=== PATIENT | female | born 1950 | race Two or more races ===

== ENCOUNTER 2017-01-01 18:59 | Emergency (ER) | payer OTHER ==
[2017-01-01 19:07] VITALS: TEMP 98.5; BMI 19.2
[2017-01-01] MEDS ORDERED: SODIUM CHLORIDE 0.9% 1000 ML INFUS.BAG IV ONE (20:13)
[2017-01-01 20:57] LABS: ALBUMIN 3.8 g/dl (3.4-5.0); ALK PHOS 46 U/L (45-117); ANION GAP 10 (8-16); BILIRUBIN,TOTAL 0.4 mg/dL (0.2-1.0); CALCIUM 8.8 mg/dL (8.5-10.1); CO2 28 mmol/L (21-32); CREATININE 0.6 mg/dL (0.55-1.02); GLUCOSE,RANDOM 91 mg/dL (74-106); SGOT/AST 14 U/L (15-37); SGPT/ALT 18 U/L (12-78); TOT PROT 6.6 g/dl (6.4-8.2)
[2017-01-01] MEDS ORDERED: POTASSIUM CHLORIDE TABS 20 MEQ TABLET.ER (FP) PO ONE ×2 (21:10→21:16)
[2017-01-01] MEDS ORDERED: ACETAMINOPHEN INJECTION 100 ML IVPB ONE ×2 (21:12→21:16)
[2017-01-01] MEDS ORDERED: ACETAMINOPHEN 1000 MG/100 ML VIAL (NON FORMULARY) IVPB ONE (21:12)
[2017-01-01] MEDS ORDERED: KCL 10 MEQ IVPB 100 ML IVPB SCH (21:15)
--- NOTE | 2017-01-01 21:21 | PDOC ---
History of Present Illness - General Chief Complaint: Diarrhea Stated Complaint: DIARRHEA/DEHYDRATION Time Seen by Provider: 01/01/17 19:23 History Source: Patient Exam Limitations: No Limitations - History of Present Illness Initial Comments: 01/01/17 21:06 Patient is a 66 year old female with h/o colon CA with resection, ostomy with reverasal, Crohn's disease, celiac, OA, Alzheimer's dz, Copd, A-fib, UC, renal failure, adult rickets, here with multiple compliants, diarrhea which is chronic. States she feels dehydrated and would like to get some fluids. States she is eating very little, no nausea, no vomiting, (+) generalized joint pain, abd pain which is chronic states I am on pain management. States that she felt like she wanted to due to her symptoms but cant because her son is away and he would be upset if she dies and he came back home and could not find her. Patient is a poor historian. Son Massimo Delong [phone] was called to get additional history but go no answer. pmhx: as above psochx: neg etoh, drug, cig famhx: noncontributory ALL: Sulfa, gluten GENERAL/CONSTITUTIONAL: [No fever or chills. No weakness. No weight change.] HEAD, EYES, EARS, NOSE AND THROAT: [No change in vision. No ear pain or discharge. No sore throat.] CARDIOVASCULAR: [No chest pain or shortness of breath.] RESPIRATORY: [No cough, wheezing, or hemoptysis.] GASTROINTESTINAL: [No nausea, vomiting, diarrhea or constipation. No rectal bleeding.] GENITOURINARY: [No dysuria, frequency, or change in urination.] MUSCULOSKELETAL: (+) joint or muscle pain. No muscle/joint swelling, (+) neck & back pain.] SKIN AND BREASTS: [No rash or easy bruising.] NEUROLOGIC: [No headache, vertigo, loss of consciousness, or loss of sensation.] PSYCHIATRIC: (+) depression (+) anxiety.] ENDOCRINE: [No increased thirst. No abnormal weight change.] HEMATOLOGIC/LYMPHATIC: [No anemia, easy bleeding, or history of blood clots.] ALLERGIC/IMMUNOLOGIC: [No hives or skin allergy. No latex allergy.] GENERAL: [The patient is awake, alert, and fully oriented, in no acute distress. ] HEAD: [Normal with no signs of trauma.] EYES: [Pupils equal, round and reactive to light, extraocular movements intact, sclera anicteric, conjunctiva clear.] ENT: [Ears normal, nares patent, oropharynx clear without exudates. Moist mucous membranes.] NECK: [Normal range of motion, supple without lymphadenopathy, JVD, or masses.] LUNGS: [Breath sounds equal, clear to auscultation bilaterally. No wheezes, and no crackles.] HEART: [Regular rate and rhythm, normal S1 and S2 without murmur, rub.] ABDOMEN: [Soft, nontender, normoactive bowel sounds. No guarding, no rebound. No masses.] EXTREMITIES: [Normal range of motion, no edema. No clubbing or cyanosis. No cords, erythema, or tenderness.] NEUROLOGICAL: [Cranial nerves II through XII grossly intact. Normal speech, normal gait.] PSYCH: [Normal mood, normal affect.] SKIN: [Warm, Dry, normal turgor, no rashes or lesions noted.] Past History - Past Medical History Allergies/Adverse Reactions: Allergies Allergy/AdvReac Type Severity Reaction Status Date / Time gluten Allergy Severe Vomiting Verified 01/01/17 19:07 Sulfa (Sulfonamide Allergy Verified 01/01/17 19:07 Antibiotics) Home Medications: Ambulatory Orders Clonazepam [KlonoPIN] 2 mg PO HS #0 tablet 09/05/13 Escitalopram Oxalate [Lexapro -] 20 mg PO DAILY 11/07/13 Levothyroxine [Synthroid -] 150 mcg PO 0700 #30 tablet 11/10/13 Clonazepam [Klonopin] 1 mg PO DAILY 09/17/16 FENTANYL 75mcg PATCH [DURAGESIC 75mcg PATCH -] 1 each TD Q72H 01/01/17 Oxycodone HCl [Roxicodone] 15 mg PO QID PRN 01/01/17 Anemia: Yes GI Disorders: Yes (CHROHN, RECTAL ULCER, celiac disease) Thyroid Disease: Yes - Surgical History Abdominal Surgery: Yes (J POUCH) Cholecystectomy: Yes - Psycho/Social/Smoking Cessation Hx Anxiety: No Suicidal Ideation: No Smoking Status: No Smoking History: Never smoked Have you smoked in the past 12 months: No Information on smoking cessation initiated: No Hx Alcohol Use: No Drug/Substance Use Hx: No Substance Use Type: None Hx Substance Use Treatment: No *Physical Exam - Vital Signs Last Vital Signs Temp Pulse Resp BP Pulse Ox 98.5 F 76 18 167/95 100 01/01/17 19:04 01/01/17 19:04 01/01/17 19:04 01/01/17 19:04 01/01/17 19:04 ED Treatment Course - LABORATORY CBC & Chemistry Diagram: 01/01/17 22:21 01/01/17 20:15 - ADDITIONAL ORDERS Additional order review: Laboratory Results 01/01/17 20:15 Sodium 141 Potassium 3.1 L D Chloride 103 Carbon Dioxide 28 Anion Gap 10 BUN 22 H Creatinine 0.6 D Creat Clearance w eGFR > 60 Random Glucose 91 Calcium 8.8 Total Bilirubin 0.4 D AST 14 L ALT 18 Alkaline Phosphatase 46 Total Protein 6.6 Albumin 3.8 Lipase 89 01/01/17 20:15 RBC MCV MCHC RDW MPV Neutrophils % Lymphocytes % Monocytes % Eosinophils % Basophils % Medical Decision Making - Medical Decision Making 01/01/17 21:34 Patient is a 66 year old female with h/o colon CA with resection, ostomy with reverasal, Crohn's disease, celiac, OA, Alzheimer's dz, Copd, A-fib, UC, renal failure, adult rickets, here with multiple compliants, diarrhea which is chronic. Will get labs check electrolyle and hydrate Patient sitting on bed playing on her phone c/o generalized body pain, given tylenol 1000mg IV Patient sitting on bed playing on her phone 01/02/17 00:44 K+ rider and PO K+ 40meq given written for mag but refused wants to take her own at home. I discussed the physical exam findings, ancillary test results and final diagnoses with the patient. I answered all of the patient's questions. The patient was satisfied with the care received and felt comfortable with the discharge plan and treatment plan. The Patient agrees to follow up with the primary care physician within 24-72 hours. *DC/Admit/Observation/Transfer Diagnosis at time of Disposition: Diarrhea, Hypokalemia - Discharge Dispostion Disposition: HOME Condition at time of disposition: Stable - Patient Instructions Additional Instructions: Your Discharge Instructions: You must call primary care physician within 24 hours to arrange follow-up. Return to the Emergency Department with any new, persistent or worsening symptoms, for fever, chills, SOB, dizziness or any other concerning changes that may occur.
[2017-01-01] MEDS ORDERED: KCL 10 MEQ IVPB 100 ML IVPB ONE (22:07)
[2017-01-01 22:40] LABS: BASOPHIL 0.4 % (0-2.0); EOSINOPHIL 0.6 % (0-4.5); MCH 26.5 pg (25.7-33.7); MCHC 32.8 g/dl (32.0-36.0); MEAN PLT VOLUME 7.2 fl (7.5-11.1); NEUTROPHILS 60.3 % (42.8-82.8); PLATELET COUNT 348 K/MM3 (134-434); RDW 16.3 % (11.6-15.6); WHITE BLOOD COUNT 5.1 K/mm3 (4.0-10.0)
[2017-01-01] MEDS ORDERED: LORazepam 1 MG TABLET PO ONE (22:54)
[2017-01-01] MEDS ORDERED: LORazepam 0.5 MG TABLET ONE (22:56)
[2017-01-02] MEDS ORDERED: MAGNESIUM SULF 50% (8.12 MEQ/2 ML-1 GM VIAL) ONE (00:16)
[2017-01-02] MEDS: MAGNESIUM SULF 50% (8.12 MEQ/2 ML-1 GM VIAL) IVPB ONE ×2 (00:18→00:27)
--- NOTE | 2017-01-05 10:56 | EKG ---
Test Reason : Blood Pressure : / mmHG Vent. Rate : 074 BPM Atrial Rate : 074 BPM P-R Int : 154 ms QRS Dur : 076 ms QT Int : 404 ms P-R-T Axes : 053 051 031 degrees QTc Int : 448 ms POOR DATA QUALITY, INTERPRETATION MAY BE ADVERSELY AFFECTED NORMAL SINUS RHYTHM NORMAL ECG WHEN COMPARED WITH ECG OF 08-NOV-2013 05:25, NO SIGNIFICANT CHANGE WAS FOUND Confirmed by ESTUARDO SHRESTHA, JERRY ([id number]) on 01/05/2017 10:55:45 AM Referred By: Confirmed By:JERRY MARTE MD
== END 2017-01-02 01:01 | disposition home or self-care (01) ==
LOC: JER 18:59
PROC: 3E0337Z Introduction of Electrolytic and Water Balance Substance into Peripheral Vein, Percutaneous Approach (ICD-10-PCS; principal; 2017-01-01)
PROC: 3E033GC Introduction of Other Therapeutic Substance into Peripheral Vein, Percutaneous Approach (ICD-10-PCS; 2017-01-01)
PROC: 3E033NZ Introduction of Analgesics, Hypnotics, Sedatives into Peripheral Vein, Percutaneous Approach (ICD-10-PCS; 2017-01-01)
DX: R19.7 Diarrhea, unspecified (principal); E87.6 Hypokalemia; F41.8 Other specified anxiety disorders; K51.90 Ulcerative colitis, unspecified, without complications; D64.9 Anemia, unspecified; E03.9 Hypothyroidism, unspecified; J44.9 Chronic obstructive pulmonary disease, unspecified; G30.9 Alzheimer's disease, unspecified; F02.80 Dementia in other diseases classified elsewhere, unspecified severity, without behavioral disturbance, psychotic disturbance, mood disturbance, and anxiety; I48.91 Unspecified atrial fibrillation; Z85.038 Personal history of other malignant neoplasm of large intestine
CPT/HCPCS: 36415; 80053; 83690; 85025; 93005; 93010; 96365; 96375; 99282-25

== ENCOUNTER → 2017-08-30 | Emergency (ER) | payer OTHER ==
[~2017-08-30] MED LIST: ACETAMINOPHEN 1000 MG/100 ML VIAL (NON FORMULARY) IVPB ONE; ACETAMINOPHEN INJECTION 100 ML IVPB ONE; DIPHTH,PERTUSS(ACELL),TET VAC 0.5 ML VIAL IM ONE; ONDANSETRON 4 MG/2 ML VIAL IVPB ONE; ONDANSETRON 4 MG/2 ML VIAL ONE; SODIUM CHLORIDE 1,000 ML IV STA; morphine CARPU-JECT 4 MG/1 ML DISP.SYRIN IVPUSH ONE
[2017-08-30 09:04] VITALS: TEMP 98.4; BMI 21.9
--- NOTE | 2017-08-30 09:38 | PDOC ---
History of Present Illness <Sandra Morales - Last Filed: 08/30/17 15:27> - History of Present Illness Initial Comments: 08/30/17 09:31 "67 year old female, with significant past medical history of colon cancer (s/p resection and colostomy with reversal), Crohns disease, celiac disease, Alzheimers dementia, COPD, Afib, renal failure, and adult rickets, who presents to the emergency room [facility] with 4 days of abdominal pain, nausea, nonbloody nonbilious vomiting, and diarrhea. She states that the abdominal pain , nausea, vomiting, and diarrhea started after eating split pea soup 4 days ago. This pain is similar to the pain she has experienced with a Crohns flare previously. The patient has a fentanyl patch and is taking oxycodone for the pain, however she states that the pain is so severe that it is keeping her up at night. Denies fever, chills. Pt also reports waking up on the ground this morning. She states she must have fallen out of bed. Reports pain in her L forehead where she bumped her head. Denies neck pain. Denies CP/SOB/palpitations. Denies lightheadedness or dizziness. Allergies: Sulfa, Gluten Social Hx: The patient lives at home with her son. Denies tobacco use. Denies alcohol use. PCP: Dr. Diony Gutierrez GI: Dr. Lee [phone] <Joaquin Gomez - Last Filed: 08/30/17 22:16> - General Chief Complaint: Nausea/Vomiting Stated Complaint: Nausea/Vomiting Time Seen by Provider: 08/30/17 08:58 Past History <Sandra Morales - Last Filed: 08/30/17 15:27> - Past Medical History Anemia: Yes COPD: Yes GI Disorders: Yes (CHROHN, RECTAL ULCER, celiac disease) Thyroid Disease: Yes - Surgical History Abdominal Surgery: Yes (J POUCH) Cholecystectomy: Yes - Suicide/Smoking/Psychosocial Hx Smoking Status: No Smoking History: Never smoked Have you smoked in the past 12 months: No Information on smoking cessation initiated: No Hx Alcohol Use: No Drug/Substance Use Hx: No Substance Use Type: None Hx Substance Use Treatment: No <Joaquin Gomez - Last Filed: 08/30/17 22:16> - Past Medical History Allergies/Adverse Reactions: Allergies Allergy/AdvReac Type Severity Reaction Status Date / Time gluten Allergy Severe Vomiting Verified 08/30/17 08:56 morphine Allergy Severe Verified 08/30/17 10:48 Sulfa (Sulfonamide Allergy Verified 08/30/17 08:56 Antibiotics) Home Medications: Ambulatory Orders Clonazepam [KlonoPIN] 2 mg PO HS #0 tablet 09/05/13 Levothyroxine [Synthroid -] 150 mcg PO 0700 #30 tablet 11/10/13 FENTANYL 75mcg PATCH [DURAGESIC 75mcg PATCH -] 1 each TD Q72H 01/01/17 Oxycodone HCl [Roxicodone] 15 mg PO QID PRN 01/01/17 Diphenoxylate 2.5/Atropine.025 [Lomotil -] 1 combo PO Q6H PRN #28 tablet MDD 4 tabs 08/30/17 Loperamide HCl [Imodium -] 2 mg PO Q8H #21 capsule 08/30/17 Review of Systems - Review of Systems Comments:: 08/30/17 09:34 "GENERAL/CONSTITUTIONAL: No fever or chills. No weakness. HEAD, EYES, EARS, NOSE AND THROAT: +frontal head pain. No change in vision. No ear pain or discharge. No sore throat. CARDIOVASCULAR: No chest pain or shortness of breath. RESPIRATORY: No cough, wheezing, or hemoptysis. GASTROINTESTINAL: +nausea, vomiting, diarrhea. No constipation. GENITOURINARY: No dysuria, frequency, or change in urination. MUSCULOSKELETAL: No joint or muscle swelling or pain. No neck or back pain. SKIN: No rash NEUROLOGIC: No vertigo, loss of consciousness, or change in strength/sensation. ENDOCRINE: No increased thirst. No abnormal weight change. HEMATOLOGIC/LYMPHATIC: No anemia, easy bleeding, or history of blood clots. ALLERGIC/IMMUNOLOGIC: No hives or skin allergy. " <Joaquin Gomez - Last Filed: 08/30/17 22:16> *Physical Exam - Vital Signs Last Vital Signs Temp Pulse Resp BP Pulse Ox 98.4 F 74 20 106/68 93 L 08/30/17 08:57 08/30/17 08:57 08/30/17 08:57 08/30/17 08:57 08/30/17 08:57 <Sandra Morales - Last Filed: 08/30/17 15:27> - Vital Signs Last Vital Signs Temp Pulse Resp BP Pulse Ox 98.4 F 74 20 106/68 93 L 08/30/17 08:57 08/30/17 08:57 08/30/17 08:57 08/30/17 08:57 08/30/17 08:57 - Physical Exam Comments: 08/30/17 09:35 "GENERAL: Awake, alert, and fully oriented, in no acute distress HEAD: No signs of trauma EYES: PERRLA, EOMI, sclera anicteric, conjunctiva clear ENT: Auricles normal inspection, hearing grossly normal, nares patent, oropharynx clear without exudates. Moist mucosa NECK: Nontender, no stepoffs, Normal ROM, supple, no lymphadenopathy, JVD, or masses LUNGS: Breath sounds equal, clear to auscultation bilaterally. No wheezes, and no crackles HEART: Regular rate and rhythm, normal S1 and S2, no murmurs, rubs or gallops ABDOMEN: +mild diffuse tenderness to palpation. Soft, normoactive bowel sounds. No guarding, no rebound. No masses EXTREMITIES: Normal range of motion, no edema. No clubbing or cyanosis. No cords, erythema, or tenderness NEUROLOGICAL: Cranial nerves II through XII intact. 5/5 strength and sensation in all extremities, Normal speech, normal gait SKIN: Warm, Dry, normal turgor, no rashes or lesions noted." <Joaquin Gomez - Last Filed: 08/30/17 22:16> ED Treatment Course - LABORATORY CBC & Chemistry Diagram: 08/30/17 10:20 08/30/17 10:20 - ADDITIONAL ORDERS Additional order review: Laboratory Results 08/30/17 08/30/17 08/30/17 10:20 10:20 10:20 PT with INR INR PTT (Actin FS) Sodium 141 Potassium 3.8 D Chloride 104 Carbon Dioxide 31 Anion Gap 6 L BUN 34 H D Creatinine 1.0 D Creat Clearance w eGFR 55.47 Random Glucose 86 Lactic Acid 1.0 Calcium 8.1 L Total Bilirubin 0.3 D AST 65 H D ALT 41 D Alkaline Phosphatase 62 D Creatine Kinase 2435 H Creatine Kinase Index 1.5 CK-MB (CK-2) 36.766 H Troponin I < 0.02 Total Protein 6.7 Albumin 3.8 Lipase 115 Blood Type O POSITIVE Antibody Screen Positive H Antibody Identification No Result Required. Antigen Identification K Antigen - NEGATIVE 08/30/17 10:20 PT with INR 10.80 INR 0.96 PTT (Actin FS) 23.7 L Sodium Potassium Chloride Carbon Dioxide Anion Gap BUN Creatinine Creat Clearance w eGFR Random Glucose Lactic Acid Calcium Total Bilirubin AST ALT Alkaline Phosphatase Creatine Kinase Creatine Kinase Index CK-MB (CK-2) Troponin I Total Protein Albumin Lipase Blood Type Antibody Screen Antibody Identification Antigen Identification 08/30/17 10:20 RBC 3.64 MCV 84.9 MCHC 31.7 L RDW 21.1 H D MPV 6.8 L Neutrophils % 85.6 H D Lymphocytes % 7.7 L D Monocytes % 6.2 Eosinophils % 0.2 Basophils % 0.3 - RADIOLOGY Radiograph Interpretation: 08/30/17 15:27 EXAM#: TYPE/EXAM: RESULT: [id number] CT/ABDOMEN PELVIS CT WITH CONTR IMPRESSION: 1. S/P cholecystectomy with dilated biliary tree. No obvious obstruction suggested. 2. S/P subtotal colectomy with no evidence of bowel obstruction or intra- abdominal abscess. 3. Somewhat amorphous and distended small bowel loop anteriorly within the right lower quadrant. Clinical correlation as to the nature of the patient's multiple surgical procedures is recommended. Please see above discussion. Reported By: Hari Landers MD 08/30/17 2525 - Medications Given in the ED: ED Medications Discontinued Medications Generic Name Dose Route Start Last Admin Trade Name Freq PRN Reason Stop Dose Admin Acetaminophen 1,000 mg 08/30/17 09:23 08/30/17 11:03 Ofirmev Injection - IVPB 08/30/17 09:24 1,000 mg ONCE ONE Administration Diphtheria/Tetanus/Acell Pertussis 0.5 ml 08/30/17 09:34 08/30/17 14:03 Adacel Adolescent/Adult - IM 08/30/17 09:35 0.5 ml .ONCE ONE Administration Sodium Chloride 1,000 mls @ 1,000 mls/hr 08/30/17 09:17 08/30/17 11:02 Normal Saline - IV 08/30/17 10:16 1,000 mls/hr ASDIR STA Administration Morphine Sulfate 4 mg 08/30/17 09:17 08/30/17 10:47 Morphine Injection - IVPUSH 08/30/17 09:18 Not Given ONCE ONE Ondansetron HCl 4 mg 08/30/17 09:17 08/30/17 11:03 Zofran Injection IVPB 08/30/17 09:18 4 mg ONCE ONE Administration <Sandra Morales - Last Filed: 08/30/17 15:27> - LABORATORY CBC & Chemistry Diagram: 08/30/17 10:20 08/30/17 10:20 - RADIOLOGY Radiology Studies Ordered: Category Date Time Status ABDOMEN & PELVIS CT WITH CONTR [CT] Stat CT Scan 08/30/17 09:[address] WITHOUT CONTRAST [CT] Stat CT Scan 08/30/17 09:13 Ordered CHEST PA & LAT [RAD] Stat Radiology 08/30/17 09:13 Ordered <Joaquin Gomez - Last Filed: 08/30/17 22:16> Medical Decision Making - Medical Decision Making 08/30/17 09:35 67 F with crohn's, celiac, colon CA s/p resection, COPD, afib presenting to ER with 4 days of abdominal pain, N/V/D. Possible Crohn's flare. Pt with mild diffuse TTP on exam. Given complex surgical and GI history, will need CT scan to r/o acute intraabdominal process. As for pt's fall, she likely rolled out of bed. Will obtain EKG and cardiac enzymes to r/o cardiac event. Pt with normal vitals, normal neuro exam at this time. - Labs, trop - EKG - CXR, UA - CTAP, CT head 08/30/17 15:49 CT results show no obvious acute pathology. No evidence of crohn's flare or colitis. Questionable dilated loop of small bowel. Pt reassessed - now reports significant improvement in symptoms s/p meds and IVF. Pt denies abdominal pain. Pt able to tolerate PO fluids without nausea/ vomiting. No clinical evidence of obstruction. Repeat abdominal exam with no tenderness. I discussed the physical exam findings, ancillary test results and final diagnoses with the patient. I answered all of the patient's questions. The patient was satisfied with the care received and felt comfortable with the discharge plan and treatment plan. The patient agrees to follow up with the primary care physician within 24-72 hours. <Joaquin Gomez - Last Filed: 08/30/17 22:16> *DC/Admit/Observation/Transfer <Sandra Morales - Last Filed: 08/30/17 15:27> - Attestations Physician Attestion: 08/30/17 15:55 I, Dr. Joaquin Gomez MD, attest that this document has been prepared under my direction and personally reviewed by me in its entirety. I further attest, that it accurately reflects all work, treatment, procedures and medical decision -making performed by me. <Joaquin Gomez - Last Filed: 08/30/17 22:16> Diagnosis at time of Disposition: Abdominal Pain - Discharge Dispostion Disposition: HOME - Prescriptions Prescriptions: Loperamide HCl [Imodium -] 2 mg PO Q8H #21 capsule Diphenoxylate 2.5/Atropine.025 [Lomotil -] 1 combo PO Q6H PRN #28 tablet MDD 4 tabs PRN Reason: Diarrhea - Referrals Referrals: Diony Gutierrez [Primary Care Provider] - - Patient Instructions Printed Discharge Instructions: Diarrhea Additional Instructions: Drink plenty of fluids to stay hydrated. Your stool cultures are still pending. We will call you if you need antibiotics. Otherwise, follow up with your primary doctor within 1 week. If you experience worsening abdominal pain, diarrhea, fevers, or any other concerning symptoms, return to the ER immediately.
[2017-08-30 10:49] LABS: BASOPHIL 0.3 % (0-2.0); EOSINOPHIL 0.2 % (0-4.5); MCH 26.9 pg (25.7-33.7); MCHC 31.7 g/dl (32.0-36.0); MEAN CELL VOLUME 84.9 fl (80-96); MEAN PLT VOLUME 6.8 fl (7.5-11.1); NEUTROPHILS 85.6 % (42.8-82.8); PLATELET COUNT 234 K/MM3 (134-434); RDW 21.1 % (11.6-15.6); WHITE BLOOD COUNT 11.9 K/mm3 (4.0-10.0)
[2017-08-30 11:14] LABS: INR 0.96 (0.82-1.09); PROTHROMBIN TIME (PATIENT) 10.8 SEC (9.98-11.88)
[2017-08-30 11:16] LABS: ACTIVATED PTT 23.7 SECONDS (26.9-34.4)
[2017-08-30 11:19] LABS: ALBUMIN 3.8 g/dl (3.4-5.0); ALK PHOS 62 U/L (45-117); ANION GAP 6 (8-16); BILIRUBIN,TOTAL 0.3 mg/dL (0.2-1.0); CALCIUM 8.1 mg/dL (8.5-10.1); CO2 31 mmol/L (21-32); GLUCOSE,RANDOM 86 mg/dL (74-106); SGOT/AST 65 U/L (15-37); SGPT/ALT 41 U/L (12-78); TOT PROT 6.7 g/dl (6.4-8.2)
--- NOTE | 2017-08-30 12:38 | EKG ---
Test Reason : Blood Pressure : / mmHG Vent. Rate : 072 BPM Atrial Rate : 072 BPM P-R Int : 158 ms QRS Dur : 060 ms QT Int : 376 ms P-R-T Axes : 068 050 053 degrees QTc Int : 411 ms NORMAL SINUS RHYTHM POSSIBLE LEFT ATRIAL ENLARGEMENT BORDERLINE ECG WHEN COMPARED WITH ECG OF 01-JAN-2017 19:09, NO SIGNIFICANT CHANGE WAS FOUND Confirmed by ELGIN PETERSON MD ([id number]) on 08/30/2017 12:37:45 PM Referred By: Confirmed By:ELGIN PETERSON MD
[2017-08-30 13:16] LABS: ANISOCYTOSIS 2+; MACROCYTOSIS 1+; MICROCYTOSIS 1+; OVALOCYTE 1+
[2017-08-30 13:56] LABS: TROPONIN I < 0.02 ng/ml (0.00-0.05)
[2017-08-30 13:57] LABS: CPK 2435 IU/L (26-192)
[2017-08-30 17:35] VITALS: BP 132/72; PULSE 73
--- NOTE | 2017-08-31 20:02 | PDOC ---
Patient Follow-up (Call Back) - Post ED Follow - Up Disposition at time of original discharge: HOME Reason for Call Back: Abnwl. Microbiology (Received call from Magdalena for microbe patient on 08/30/2017 stool specimen was positive for C difficile antigen however patient was either absent or below the detection limit of the toxin. For C. difficile. Cold patient's GI doctor Dr. Varela at [phone] discuss findings with him he recommended that patient call him in the morning and he will treat patient. Called left message on patient's voice mail to call her GI doctor as previously stated tomorrow he will prescribe treatment. Also left message for patient to call here at [phone] if patient has any questions.)
--- NOTE | 2017-09-01 07:38 | PDOC ---
Patient Follow-up (Call Back) - Post ED Follow - Up Disposition at time of original discharge: HOME Reason for Call Back: Abnwl. Microbiology (Called pt again and l/m to call us back or contact her GI doctor)
--- NOTE | 2017-09-02 17:11 | PDOC ---
Patient Follow-up (Call Back) - Post ED Follow - Up Disposition at time of original discharge: HOME Reason for Call Back: Abnwl. Microbiology (Called pt to f/u. No answer. Left message to call back)
== END | disposition home or self-care (01) ==
LOC: JER 08:54
PROC: 3E033NZ Introduction of Analgesics, Hypnotics, Sedatives into Peripheral Vein, Percutaneous Approach (ICD-10-PCS; principal; 2017-08-30)
PROC: 3E033GC Introduction of Other Therapeutic Substance into Peripheral Vein, Percutaneous Approach (ICD-10-PCS; 2017-08-30)
PROC: 3E0337Z Introduction of Electrolytic and Water Balance Substance into Peripheral Vein, Percutaneous Approach (ICD-10-PCS; 2017-08-30)
PROC: 3E0234Z Introduction of Serum, Toxoid and Vaccine into Muscle, Percutaneous Approach (ICD-10-PCS; 2017-08-30)
PROC: 3E0234Z Introduction of Serum, Toxoid and Vaccine into Muscle, Percutaneous Approach (ICD-10-PCS; 2017-08-30)
DX: R10.9 Unspecified abdominal pain (principal); R11.2 Nausea with vomiting, unspecified
CPT/HCPCS: 36415; 70450-TC; 71010-TC; 74177-TC; 80053; 82550; 82553; 83605; 83690; 84484; 85025; 85610; 85730; 86850; 86870; 86900; 86901; 86902; 87045; 87046; 87324; 87449; 93005; 93010; 99282-25

== ENCOUNTER 2017-10-19 02:08 | Emergency (ER) | payer OTHER ==
[2017-10-19 02:23] VITALS: BMI 22.8
--- NOTE | 2017-10-19 02:38 | PDOC ---
History of Present Illness - General History Source: Patient - History of Present Illness Initial Comments: 10/19/17 02:41 The patient is a 67 year old female, with a significant past medical history of C.Diff (admitted multiple times in the past), Crohn's disease, copd, renal failure, colon CA s/p resection, s/p colostomy with reversal, who presents to the emergency department with diarrhea and diffuse abdominal discomfort for about 2 days. She states her GI called in an antibiotic to her pharmacy, however , she states she was unable to retrieve the antibiotics from the pharmacy. She denies chest pain, shortness of breath, headache and dizziness. She denies fever, chills, nausea, vomit, and constipation. She denies dysuria, frequency, urgency and hematuria. Allergies: gluten, morphine, sulfa <Jillian Kim - Last Filed: 10/19/17 02:40> - General History Source: Patient <Jules Hughes - Last Filed: 10/19/17 19:32> - General Chief Complaint: Vomiting/Diarrhea Stated Complaint: WEAKNESS Time Seen by Provider: 10/19/17 02:30 Past History <Jillian Kim - Last Filed: 10/19/17 02:40> - Past Medical History Anemia: Yes COPD: Yes GI Disorders: Yes (CHROHN, RECTAL ULCER, celiac disease) Thyroid Disease: Yes - Surgical History Abdominal Surgery: Yes (J POUCH) Cholecystectomy: Yes - Suicide/Smoking/Psychosocial Hx Smoking Status: No Smoking History: Never smoked Have you smoked in the past 12 months: No Information on smoking cessation initiated: No Hx Alcohol Use: No Drug/Substance Use Hx: No Substance Use Type: None Hx Substance Use Treatment: No <Jules Hughes - Last Filed: 10/19/17 19:32> - Past Medical History Allergies/Adverse Reactions: Allergies Allergy/AdvReac Type Severity Reaction Status Date / Time gluten Allergy Severe Vomiting Verified 08/30/17 08:56 morphine Allergy Severe Verified 08/30/17 10:48 Sulfa (Sulfonamide Allergy Verified 08/30/17 08:56 Antibiotics) Home Medications: Ambulatory Orders Clonazepam [KlonoPIN] 2 mg PO HS #0 tablet 09/05/13 Levothyroxine [Synthroid -] 150 mcg PO 0700 #30 tablet 01/12/14 Oxycodone HCl [Roxicodone] 15 mg PO QID PRN 01/01/17 Diphenoxylate 2.5/Atropine.025 [Lomotil -] 1 combo PO Q6H PRN #28 tablet MDD 4 tabs 08/30/17 Loperamide HCl [Imodium -] 2 mg PO Q8H #21 capsule 08/30/17 Vancomycin HCl 500 mg PO QID #112 capsule 09/05/17 Bupropion HCl [Wellbutrin -] 75 mg PO DAILY 10/19/17 Mirtazapine [Remeron [DO NOT STOCK]] 45 mg PO DAILY 10/19/17 Vancomycin HCl 125 mg PO QID #54 capsule 10/19/17 Review of Systems - Review of Systems Able to Perform ROS?: Yes Comments:: 10/19/17 02:41 CONSTITUTIONAL: Absent: fever, chills, diaphoresis, generalized weakness, malaise, loss of appetite HEENT: Absent: rhinorrhea, nasal congestion, throat pain, throat swelling, difficulty swallowing, mouth swelling, ear pain, eye pain, visual Changes CARDIOVASCULAR: Absent: chest pain, syncope, palpitations, irregular heart rate, lightheadedness , peripheral edema RESPIRATORY: Absent: cough, shortness of breath, dyspnea with exertion, orthopnea, wheezing, stridor, hemoptysis GASTROINTESTINAL: (+) diarrhea,abdominal pain, Absent: abdominal distension, nausea, vomiting, constipation, melena, hematochezia GENITOURINARY: Absent: dysuria, frequency, urgency, hesitancy, hematuria, flank pain, genital pain MUSCULOSKELETAL: Absent: myalgia, arthralgia, joint swelling SKIN: Absent: rash, itching, pallor HEMATOLOGIC/IMMUNOLOGIC: Absent: easy bleeding, easy bruising, lymphadenopathy, frequent infections ENDOCRINE: Absent: unexplained weight gain, unexplained weight loss, heat intolerance, cold intolerance NEUROLOGIC: Absent: headache, focal weakness or paresthesias, dizziness, unsteady gait, seizure, mental status changes, bladder or bowel incontinence PSYCHIATRIC: Absent: anxiety, depression, suicidal or homicidal ideation, hallucinations. <Jlilian Kim - Last Filed: 10/19/17 02:40> *Physical Exam - Vital Signs Last Vital Signs Temp Pulse Resp BP Pulse Ox 97.7 F 73 18 105/77 95 10/19/17 02:13 10/19/17 02:13 10/19/17 02:13 10/19/17 02:13 10/19/17 02:13 - Physical Exam Comments: 10/19/17 02:41 GENERAL: Well developed, well nourished. Awake and alert. No acute distress. HEENT: (+) dry mucous membranes. Normocephalic, atraumatic. PERRLA, EOMI. No conjunctival pallor. Sclera are non-icteric. Oropharynx is clear. NECK: Supple. Full ROM. No JVD. Carotid pulses 2+ and symmetric, without bruits. No thyromegaly. No lymphadenopathy. CARDIOVASCULAR: Regular rate and rhythm. No murmurs, rubs, or gallops. Distal pulses are 2+ and symmetric. PULMONARY: No evidence of respiratory distress. Lungs clear to auscultation bilaterally. No wheezing, rales or rhonchi. ABDOMINAL: (+) mild diffuse tenderness to palpation. Soft. Non-distended. No rebound or guarding. No organomegaly. Normoactive bowel sounds. MUSCULOSKELETAL Normal range of motion at all joints. No bony deformities or tenderness. No CVA tenderness. EXTREMITIES: No cyanosis. No clubbing. No edema. No calf tenderness. SKIN: Warm and dry. Normal capillary refill. No rashes. No jaundice. NEUROLOGICAL: Alert, awake, appropriate. Cranial nerves 2-12 intact. Normoreflexic in the upper and lower extremities. Normal speech. Toes are down-going bilaterally. Gait is normal without ataxia. PSYCHIATRIC: Cooperative. Good eye contact. Appropriate mood and affect. <Jillian Kim - Last Filed: 10/19/17 02:40> - Vital Signs Last Vital Signs Temp Pulse Resp BP Pulse Ox 97.7 F 73 18 105/77 95 10/19/17 02:13 10/19/17 02:13 10/19/17 02:13 10/19/17 02:13 10/19/17 02:13 <Jules Hughes - Last Filed: 10/19/17 19:32> ED Treatment Course - LABORATORY CBC & Chemistry Diagram: 10/19/17 03:17 10/19/17 03:17 <Jules Hughes - Last Filed: 10/19/17 19:32> Medical Decision Making - Medical Decision Making 10/19/17 19:31 Dr. Hughes: The scribe's documentation has been prepared under my direction and personally reviewed by me in its entirery. I confirm that the note above accurately reflects all work, treatment, procedures, and medical decision making performed by me. <Jules Hughes - Last Filed: 10/19/17 19:32> *DC/Admit/Observation/Transfer - Attestations Scribe Attestion: 10/19/17 02:42 Documentation prepared by Jillian Kim, acting as remote medical coder for Jules Hughes DO <Jillian Kim - Last Filed: 10/19/17 02:40> - Discharge Dispostion Admit: No <Jules Hughes - Last Filed: 10/19/17 19:32> Diagnosis at time of Disposition: Diarrhea - Discharge Dispostion Disposition: HOME Condition at time of disposition: Good - Prescriptions Prescriptions: Vancomycin HCl 125 mg PO QID #54 capsule - Referrals Referrals: Diony Gutierrez [Primary Care Provider] - - Patient Instructions Printed Discharge Instructions: DI for Antibiotic -- associated Colitis -- C difficile Additional Instructions: return to the Ed for severe pain, pain with fever, nausea and vomiting, bloody diarrhea. Follow up with your doctor NUBIA.
[2017-10-19] MEDS ORDERED: SODIUM CHLORIDE 1,000 ML IV STA (02:40)
[2017-10-19] MEDS ORDERED: ONDANSETRON 4 MG/2 ML VIAL IVPUSH STA (02:41)
[2017-10-19] MEDS ORDERED: ONDANSETRON 4 MG/2 ML VIAL ONE (03:27)
[2017-10-19 03:37] LABS: BASO % 0.4 % (0-2.0); EOS % 3.6 % (0-4.5); MCH 28.4 pg (25.7-33.7); MCHC 31.9 g/dl (32.0-36.0); MEAN PLT VOLUME 7.3 fl (7.5-11.1); NEUT % 57.4 % (42.8-82.8); PLATELET COUNT 249 K/MM3 (134-434); RDW 16.2 % (11.6-15.6); WHITE BLOOD COUNT 4.7 K/mm3 (4.0-10.0)
[2017-10-19 03:53] LABS: PROTHROMBIN TIME (PATIENT) 11.3 SEC (9.98-11.88)
[2017-10-19 03:55] LABS: URINE APPEARANCE SLCLOUDY; URINE BILIRUBIN NEGATIVE (NEGATIVE); URINE BLOOD NEGATIVE (NEGATIVE); URINE COLOR YELLOW; URINE GLUCOSE (UA) NEGATIVE (NEGATIVE); URINE KETONE NEGATIVE (NEGATIVE); URINE LEUK ESTERASE TRACE (NEGATIVE); URINE NITRITE NEGATIVE (NEGATIVE); URINE PROTEIN NEGATIVE (NEGATIVE); URINE UROBILINOGEN NEGATIVE mg/dL (0.2-1.0)
[2017-10-19 04:01] LABS: CALCIUM OXALATE CRYSTALS RARE /hpf (NONE SEEN); URINE HYALINE CAST 373 /lpf; URINE MUCUS RARE; URINE RBC 12 /hpf (0-3); URINE WBC 11 /hpf (3-5)
[2017-10-19 04:01] LABS: ALBUMIN 3.6 g/dl (3.4-5.0); ALK PHOS 55 U/L (45-117); ANION GAP 9 (8-16); BILIRUBIN,TOTAL 0.2 mg/dL (0.2-1.0); CALCIUM 9.4 mg/dL (8.5-10.1); CO2 29 mmol/L (21-32); CREATININE 1.2 mg/dL (0.55-1.02); GLUCOSE,RANDOM 82 mg/dL (74-106); MAGNESIUM 1.8 mg/dL (1.8-2.4); SGOT/AST 20 U/L (15-37); SGPT/ALT 27 U/L (12-78); TOT PROT 6.5 g/dl (6.4-8.2)
[2017-10-19 09:03] VITALS: TEMP 98.1
[2017-10-19 12:06] LABS: URINE LEUK ESTERASE Negative (NEGATIVE)
--- NOTE | 2017-10-19 12:10 | PDOC ---
*Physical Exam - Vital Signs Last Vital Signs Temp Pulse Resp BP Pulse Ox 98.1 F 60 18 108/59 98 10/19/17 09:00 10/19/17 09:00 10/19/17 09:00 10/19/17 09:00 10/19/17 09:00 ED Treatment Course - LABORATORY CBC & Chemistry Diagram: 10/19/17 03:17 10/19/17 03:17 - ADDITIONAL ORDERS Additional order review: Laboratory Results 10/19/17 10/19/17 10/19/17 03:40 03:17 03:17 PT with INR INR Sodium 142 Potassium 4.0 Chloride 104 Carbon Dioxide 29 Anion Gap 9 BUN 19 H D Creatinine 1.2 H Creat Clearance w eGFR 44.95 Random Glucose 82 Calcium 9.4 Magnesium 1.8 D Total Bilirubin 0.2 D AST 20 D ALT 27 D Alkaline Phosphatase 55 Total Protein 6.5 Albumin 3.6 Lipase 83 Urine Color Yellow Urine Appearance Slcloudy Urine pH 5.0 Ur Specific [place] 1.028 Urine Protein Negative Urine Glucose (UA) Negative Urine Ketones Negative Urine Blood Negative Urine Nitrite Negative Urine Bilirubin Negative Urine Urobilinogen Negative Ur Leukocyte Esterase Negative Urine WBC (Auto) 11 Urine RBC (Auto) 12 Ur Epithelial Cells Rare Calcium Oxalate Crystal Rare Amorphous Urates Few Hyaline Casts 373 Urine Mucus Rare Blood Type O POSITIVE Antibody Screen Positive H Antibody Identification No Result Required. Antigen Identification No Result Required. 10/19/17 03:17 PT with INR 11.30 INR 1.00 Sodium Potassium Chloride Carbon Dioxide Anion Gap BUN Creatinine Creat Clearance w eGFR Random Glucose Calcium Magnesium Total Bilirubin AST ALT Alkaline Phosphatase Total Protein Albumin Lipase Urine Color Urine Appearance Urine pH Ur Specific [place] Urine Protein Urine Glucose (UA) Urine Ketones Urine Blood Urine Nitrite Urine Bilirubin Urine Urobilinogen Ur Leukocyte Esterase Urine WBC (Auto) Urine RBC (Auto) Ur Epithelial Cells Calcium Oxalate Crystal Amorphous Urates Hyaline Casts Urine Mucus Blood Type Antibody Screen Antibody Identification Antigen Identification 10/19/17 03:17 RBC 3.54 L MCV 89.0 MCHC 31.9 L RDW 16.2 H D MPV 7.3 L Neutrophils % 57.4 D Lymphocytes % 26.8 D Monocytes % 11.8 H D Eosinophils % 3.6 D Basophils % 0.4 - Medications Given in the ED: ED Medications Discontinued Medications Generic Name Dose Route Start Last Admin Trade Name Freq PRN Reason Stop Dose Admin Sodium Chloride 1,000 mls @ 1,000 mls/hr 10/19/17 02:40 10/19/17 03:37 Normal Saline - IV 10/19/17 03:39 1,000 mls/hr ASDIR STA Administration Ondansetron HCl 4 mg 10/19/17 02:41 10/19/17 03:37 Zofran Injection IVPUSH 10/19/17 02:42 4 mg ONCE STA Administration Medical Decision Making - Medical Decision Making 10/19/17 12:07 pt signed out to me by Dr. Blanc pending CT for persistent diarrhea and abdominal pain. Patient feels improved after IV hydration and is asking to go home. Labs are within normal limits. CT shows no acute cause of abdominal pain. Will discharge home. *DC/Admit/Observation/Transfer Diagnosis at time of Disposition: Diarrhea - Discharge Dispostion Disposition: HOME Condition at time of disposition: Good Admit: No - Prescriptions Prescriptions: Vancomycin HCl 125 mg PO QID #54 capsule - Referrals Referrals: Diony Gutierrez [Primary Care Provider] - - Patient Instructions Printed Discharge Instructions: DI for Antibiotic -- associated Colitis -- C difficile Additional Instructions: return to the Ed for severe pain, pain with fever, nausea and vomiting, bloody diarrhea. Follow up with your doctor NUBIA. - Post Discharge Activity
[2017-10-19 12:46] VITALS: BP 112/60; PULSE 65
== END 2017-10-19 12:46 | disposition home or self-care (01) ==
LOC: JER 02:08
PROC: 3E033GC Introduction of Other Therapeutic Substance into Peripheral Vein, Percutaneous Approach (ICD-10-PCS; principal; 2017-10-19)
DX: R19.7 Diarrhea, unspecified (principal); Z87.19 Personal history of other diseases of the digestive system
CPT/HCPCS: 36415; 74176; 80053; 81003; 81015; 83690; 83735; 85025; 85610; 86850; 86870; 86900; 86901; 86902; 87040; 87086; 99283-25

== ENCOUNTER 2018-02-14 12:56 | Emergency (ER) | payer OTHER ==
[2018-02-14 13:47] VITALS: TEMP 98.5; BMI 21.2
[2018-02-14] MEDS ORDERED: SODIUM CHLORIDE 1,000 ML IV STA (14:08)
[2018-02-14] MEDS ORDERED: ACETAMINOPHEN 1000 MG/100 ML VIAL (NON FORMULARY) IVPB ONE (14:08)
[2018-02-14] MEDS ORDERED: ACETAMINOPHEN INJECTION 100 ML IVPB ONE (14:27)
--- NOTE | 2018-02-14 14:51 | PDOC ---
History of Present Illness - General Chief Complaint: Urinary Problem Stated Complaint: ABD PAIN Time Seen by Provider: 02/14/18 13:59 History Source: Patient Exam Limitations: No Limitations - History of Present Illness Initial Comments: 02/14/18 16:19 HPI: A 67-year-old female presents to the emergency room with complaints of dysuria that been going on for 2 days. She states that she just got over a UTI and now she feels the same amount of pressure again. She had taken Macrobid from her primary physician. She does have an significant history for an anal fistula with recurrent UTIs as well as: This is a with a J-pouch. She had Crohn' s disease and celiac. She has a history of Alzheimer's, COPD, A. fib FH: Pt has not recently traveled outside the country in the last 30 days. Pt has not been in contact with people who have traveled out of the country, in contact with people who have been ill with fever, n, v, d. SH: smoking use: NONE illicit drug use: NONE alcohol use: NONE employment/educational status: sexual history: PSH: Home med use noted on DEC Allergies: Multiple including morphine and sulfa Immunizations: PCP: Past History - Past Medical History Allergies/Adverse Reactions: Allergies Allergy/AdvReac Type Severity Reaction Status Date / Time gluten Allergy Severe Vomiting Verified 02/14/18 13:44 morphine Allergy Severe Verified 02/14/18 13:44 Sulfa (Sulfonamide Allergy Verified 02/14/18 13:44 Antibiotics) Home Medications: Ambulatory Orders clonazePAM [KlonoPIN] 2 mg PO HS #0 tablet 09/05/13 Levothyroxine [Synthroid -] 150 mcg PO 0700 #30 tablet 11/10/13 Diphenoxylate 2.5/Atropine.025 [Lomotil -] 1 combo PO Q6H PRN #28 tablet MDD 4 tabs 08/30/17 Loperamide HCl [Imodium -] 2 mg PO Q8H #21 capsule 08/30/17 Bupropion HCl [Wellbutrin -] 75 mg PO DAILY 10/19/17 Mirtazapine [Remeron [DO NOT STOCK]] 45 mg PO DAILY 10/19/17 Cephalexin Monohydrate [Keflex -] 500 mg PO Q8H #21 capsule 02/14/18 Anemia: Yes COPD: Yes GI Disorders: Yes (CHROHN, RECTAL ULCER, celiac disease) Thyroid Disease: Yes - Surgical History Abdominal Surgery: Yes (J POUCH) Cholecystectomy: Yes - Immunization History Immunization Up to Date: Yes - Suicide/Smoking/Psychosocial Hx Smoking Status: No Smoking History: Unknown if ever smoked Have you smoked in the past 12 months: No Information on smoking cessation initiated: No Hx Alcohol Use: No Drug/Substance Use Hx: No Substance Use Type: None Hx Substance Use Treatment: No Review of Systems - Review of Systems Able to Perform ROS?: Yes Comments:: 02/14/18 16:21 General statement: Hematology: neg history of bleeding/blood thinners Skin: Neg for lesions, rash, bruising. HEENT: Neg symptoms Respiratory: Neg SOB or difficulty in breathing Cardiac: Neg chest pain GI: Neg pain, n/v : Neg problems on voiding MS: Neg for joint pain/stiffness, no edema Neuro: Neg for LOC, weakness, Endocrine: Neg for excess thirst/hunger, cold/heat intolerance, excess sweating Allergies: + for allergies *Physical Exam - Vital Signs Last Vital Signs Temp Pulse Resp BP Pulse Ox 98.5 F 77 18 122/78 98 02/14/18 13:44 02/14/18 13:44 02/14/18 13:44 02/14/18 13:44 02/14/18 13:44 - Physical Exam Comments: 02/14/18 16:21 General Appearance: This well appearing 67-year-old female presents with her home health aide V/S: hemodynamically stable, afebrile Skin: WNL of pt's skin color, no signs of pallor, mottling, cyanosis Head:symmetrical Eyes: EOM's intact, PERRLA Ears: denies pain Nose: patent Throat: lips, teeth, gums, tongue, buccal mucos pink and moist Lungs: Chest symmetry equal. Cap refill <3 seconds. Lung sounds clear Cardiac: PMI at R 4MCL space, pos S1 and S2, regular rate. Abdomen: Soft, round, nontender : Not observed states she has dysuria. Muscularskeletal: Gait steady, ambulated in to ER, no edema +PMS Neuro: AAOx3, cognitively intact, speech clear and appropriate. She does have a history of Alzheimer's but does not appear to be confused in any way ED Treatment Course - LABORATORY CBC & Chemistry Diagram: 02/14/18 14:27 02/14/18 14:27 - RADIOLOGY Radiology Studies Ordered: Category Date Time Status SPIRAL- RENAL-STONE CT [CT] Stat CT Scan 02/14/18 14:08 Ordered - Medications Given in the ED: ED Medications Discontinued Medications Generic Name Dose Route Start Last Admin Trade Name Cristobal PRN Reason Stop Dose Admin Acetaminophen 1,000 mg 02/14/18 14:08 02/14/18 14:46 Ofirmev Injection - IVPB 02/14/18 14:09 1,000 mg ONCE ONE Administration Medical Decision Making - Medical Decision Making 02/14/18 16:22 A/P: 67-year-old female with dysuria. -ua -c's -spiral ct -labs -ivf, tylenol ua with mild leuks and wbc will treat with abt *DC/Admit/Observation/Transfer Diagnosis at time of Disposition: UTI (urinary tract infection) - Discharge Dispostion Disposition: HOME Condition at time of disposition: Stable Admit: No - Prescriptions Prescriptions: Levofloxacin [Levaquin] 500 mg PO DAILY #7 tablet - Referrals Referrals: Diony Gutierrez [Primary Care Provider] - - Patient Instructions Printed Discharge Instructions: DI for Urinary Tract Infection (UTI) Additional Instructions: Discharge instructions 1. Please follow up with your primary physician within the next few days and explain that you have been seen here in the Emergency Room. 2. If you experience any worsening of symptoms, please return to the ER 3. Rest, take cranberry tablets. 4. Drink plenty of water - Post Discharge Activity
[2018-02-14 15:13] LABS: URINE APPEARANCE CLEAR; URINE BILIRUBIN NEGATIVE (<2.0 mg/dL); URINE BLOOD NEGATIVE (NEGATIVE); URINE COLOR LTYELLOW; URINE GLUCOSE (UA) NEGATIVE (NEGATIVE); URINE KETONE NEGATIVE (NEGATIVE); URINE NITRITE NEGATIVE (NEGATIVE); URINE PROTEIN NEGATIVE (NEGATIVE); URINE UROBILINOGEN NEGATIVE mg/dL (0.2-1.0)
[2018-02-14 15:16] LABS: BASO % 0.7 % (0-2.0); EOS % 2.1 % (0-4.5); HEMATOCRIT 33.4 % (32.4-45.2); HEMOGLOBIN 11.3 GM/dL (10.7-15.3); LYMPH % 22.8 % (8-40); MCH 30.1 pg (25.7-33.7); MCHC 33.9 g/dl (32.0-36.0); MEAN CELL VOLUME 88.9 fl (80-96); MEAN PLT VOLUME 7.5 fl (7.5-11.1); MONO % 7.4 % (3.8-10.2); PLATELET COUNT 304 K/MM3 (134-434); RBC 3.76 M/mm3 (3.60-5.2); RDW 15.6 % (11.6-15.6); WHITE BLOOD COUNT 5.3 K/mm3 (4.0-10.0)
[2018-02-14 15:17] LABS: URINE LEUK ESTERASE 2+ (NEGATIVE)
[2018-02-14 15:36] LABS: ALBUMIN 3.3 g/dl (3.4-5.0); ANION GAP 3 (8-16); BLOOD UREA NITROGEN 14 mg/dL (7-18); CALCIUM 8.5 mg/dL (8.5-10.1); CHLORIDE 105 mmol/L (98-107); CO2 33 mmol/L (21-32); CREATININE 0.8 mg/dL (0.55-1.02); GLUCOSE,RANDOM 94 mg/dL (74-106); POTASSIUM 4.3 mmol/L (3.5-5.1); SGOT/AST 20 U/L (15-37); SGPT/ALT 21 U/L (12-78); SODIUM 141 mmol/L (136-145); TOT PROT 6.3 g/dl (6.4-8.2)
[2018-02-14 15:37] LABS: ALK PHOS 67 U/L (45-117)
[2018-02-14 15:42] LABS: BILIRUBIN,TOTAL < 0.1 mg/dL (0.2-1.0)
[2018-02-14 16:58] VITALS: BP 119/69; PULSE 69
== END 2018-02-14 16:58 | disposition home or self-care (01) ==
LOC: JER 12:56
PROC: 3E033NZ Introduction of Analgesics, Hypnotics, Sedatives into Peripheral Vein, Percutaneous Approach (ICD-10-PCS; principal; 2018-02-14)
PROC: 3E0337Z Introduction of Electrolytic and Water Balance Substance into Peripheral Vein, Percutaneous Approach (ICD-10-PCS; 2018-02-14)
DX: N39.0 Urinary tract infection, site not specified (principal); G30.9 Alzheimer's disease, unspecified; F02.80 Dementia in other diseases classified elsewhere, unspecified severity, without behavioral disturbance, psychotic disturbance, mood disturbance, and anxiety; K60.3 Anal fistula; K50.90 Crohn's disease, unspecified, without complications; J44.9 Chronic obstructive pulmonary disease, unspecified; E07.9 Disorder of thyroid, unspecified
CPT/HCPCS: 36415; 74176; 80053; 81003; 81015; 85025; 87086; 96361; 96374; 99283-25; J0131; J7030

== ENCOUNTER 2018-09-18 22:28 | Inpatient (IN) | payer OTHER ==
--- NOTE | 2018-09-18 22:41 | PDOC ---
History of Present Illness - General Chief Complaint: Diarrhea Stated Complaint: DIARRHEA Time Seen by Provider: 09/18/18 22:40 - History of Present Illness Initial Comments: 09/18/18 23:14 Ms. Delong is a 68 yo female w/ pmh of UC (s/p resection w/ J-pouch), crohn's disease, celiac disease, alzheimer's dementia, COPD, afib who presents for evaluation of 2 day history of excessive diarrhea. Patient reports she has had 20+ bowel movements per day and rectal pain over this time period. Patient is currently on unknown antibiotic for UTI (approx. 2 weeks) and has had c. diff in the past. The patient denies chest pain, shortness of breath, headache and dizziness. Denies fever, chills, nausea, vomit, and constipation. Denies dysuria, frequency , urgency and hematuria. Past History - Past Medical History Allergies/Adverse Reactions: Allergies Allergy/AdvReac Type Severity Reaction Status Date / Time gluten Allergy Severe Vomiting Verified 02/14/18 13:44 morphine Allergy Severe Verified 02/14/18 13:44 Sulfa (Sulfonamide Allergy Verified 02/14/18 13:44 Antibiotics) Home Medications: Ambulatory Orders clonazePAM [KlonoPIN] 2 mg PO HS #0 tablet 09/05/13 Levothyroxine [Synthroid -] 150 mcg PO 0700 #30 tablet 11/10/13 Diphenoxylate 2.5/Atropine.025 [Lomotil -] 1 combo PO Q6H PRN #28 tablet MDD 4 tabs 08/30/17 Loperamide HCl [Imodium -] 2 mg PO Q8H #21 capsule 08/30/17 Bupropion HCl [Wellbutrin -] 75 mg PO DAILY 10/19/17 Mirtazapine [Remeron [DO NOT STOCK]] 45 mg PO DAILY 10/19/17 Cephalexin Monohydrate [Keflex -] 500 mg PO Q8H #21 capsule 02/14/18 Anemia: Yes COPD: Yes GI Disorders: Yes (CHROHN, RECTAL ULCER, celiac disease) Thyroid Disease: Yes - Surgical History Abdominal Surgery: Yes (J POUCH) Cholecystectomy: Yes - Immunization History Immunization Up to Date: Yes - Suicide/Smoking/Psychosocial Hx Smoking Status: No Smoking History: Unknown if ever smoked Have you smoked in the past 12 months: No Hx Alcohol Use: No Drug/Substance Use Hx: No Substance Use Type: None Hx Substance Use Treatment: No Review of Systems - Review of Systems Comments:: 09/18/18 23:49 GENERAL/CONSTITUTIONAL: No fever or chills. No weakness. HEAD, EYES, EARS, NOSE AND THROAT: No change in vision. No ear pain or discharge. No sore throat. CARDIOVASCULAR: No chest pain or shortness of breath RESPIRATORY: No cough, wheezing, or hemoptysis. GASTROINTESTINAL: +Diarrhea w/ rectal pain as described. No nausea, vomiting, or constipation. GENITOURINARY: No dysuria, frequency, or change in urination. MUSCULOSKELETAL: No joint or muscle swelling or pain. No neck or back pain. SKIN: No rash NEUROLOGIC: No headache, vertigo, loss of consciousness, or change in strength/ sensation. ENDOCRINE: No increased thirst. No abnormal weight change HEMATOLOGIC/LYMPHATIC: No anemia, easy bleeding, or history of blood clots. ALLERGIC/IMMUNOLOGIC: No hives or skin allergy. *Physical Exam - Physical Exam Comments: 09/18/18 23:50 GENERAL: Awake, alert, and fully oriented, in no acute distress HEAD: No signs of trauma, normocephalic, atraumatic EYES: PERRLA, EOMI, sclera anicteric, conjunctiva clear ENT: Auricles normal inspection, hearing grossly normal, nares patent, oropharynx clear without exudates. Moist mucosa NECK: Normal ROM, supple, no lymphadenopathy, JVD, or masses LUNGS: No distress, speaks full sentences, clear to auscultation bilaterally HEART: Regular rate and rhythm, normal S1 and S2, no murmurs, rubs or gallops, peripheral pulses normal and equal bilaterally. ABDOMEN: +TTP in lowe quadrants. Soft, normoactive bowel sounds. No guarding, no rebound. No masses EXTREMITIES: Normal inspection, Normal range of motion, no edema. No clubbing or cyanosis. NEUROLOGICAL: Cranial nerves II through XII grossly intact. Normal speech, normal gait, no focal sensorimotor deficits SKIN: Warm, Dry, normal turgor, no rashes or lesions noted. RECTAL: Patient TTP on exam. Mucous noted on glove. Small abbrasion consisten w / excessive wiping noted at 9 o'clock position. ED Treatment Course - LABORATORY CBC & Chemistry Diagram: 09/18/18 01:45 09/18/18 01:47 Medical Decision Making - Medical Decision Making 09/19/18 00:31 Patient is a 68 yo female w/ pmh as described who presents for evaluation of diarrhea + rectal pain concerning for c diff. vs. other infectious process vs. obstruction. Patient given morphine for pain control with workup started as below. Patient currently pending CT abdomen/pelvis for further evaluation. 09/19/18 04:04 CT demonstrates partial resection in the colon and small bowel with surgical anastomosis in the left upper quadrant. Also low grade obstruction or stasis; unclear whether this is normal postsurgical appearance or obstructive pattern. Patient labs as below otherwise grossly wnl. Will admit patient for further workup of obstruction vs. infectious process. Laboratory Results - last 24 hr 09/18/18 09/18/18 09/18/18 01:45 01:47 01:47 WBC 6.7 RBC 3.65 Hgb 10.3 L Hct 30.8 L MCV 84.5 MCH 28.3 MCHC 33.5 RDW 16.6 H Plt Count 271 MPV 7.8 Absolute Neuts (auto) 4.3 Neutrophils % 64.3 Lymphocytes % 22.9 Monocytes % 8.6 Eosinophils % 3.6 Basophils % 0.6 Nucleated RBC % 0 PT with INR 10.40 INR 0.88 Sodium 144 Potassium 4.6 Chloride 111 H Carbon Dioxide 26 Anion Gap 7 L BUN 23 H Creatinine 0.9 Creat Clearance w eGFR > 60 Random Glucose 88 Calcium 8.1 L Total Bilirubin 0.2 AST 23 ALT 23 Alkaline Phosphatase 67 Troponin I Total Protein 6.4 Albumin 3.4 Stool Occult Blood 09/18/18 09/18/18 01:47 23:20 WBC RBC Hgb Hct MCV MCH MCHC RDW Plt Count MPV Absolute Neuts (auto) Neutrophils % Lymphocytes % Monocytes % Eosinophils % Basophils % Nucleated RBC % PT with INR INR Sodium Potassium Chloride Carbon Dioxide Anion Gap BUN Creatinine Creat Clearance w eGFR Random Glucose Calcium Total Bilirubin AST ALT Alkaline Phosphatase Troponin I < 0.02 Total Protein Albumin Stool Occult Blood Negative *DC/Admit/Observation/Transfer Diagnosis at time of Disposition: SBO (small bowel obstruction) Diarrhea Qualifiers: Diarrhea type: unspecified type Qualified Code(s): R19.7 - Diarrhea, unspecified - Discharge Dispostion Condition at time of disposition: Fair Decision to Admit order: Yes - Referrals Referrals: Diony Gutierrez [Primary Care Provider] - - Patient Instructions - Post Discharge Activity
[2018-09-18] MEDS ORDERED: SODIUM CHLORIDE 1,000 ML IV STA (23:31)
[2018-09-18] MEDS ORDERED: morphine CARPU-JECT 4 MG/1 ML DISP.SYRIN IVPUSH ONE (23:40)
--- NOTE | 2018-09-19 00:15 | PDOC ---
Attending Attestation - HPI HPI: 09/19/18 01:09 The patient is a 68 year old female with a significant PMH of dementia, crohn's disease, celiac disease, alzheimer's COPD, afib and UC who presents to the emergency department with 2 days or diarrhea. The patient reports more that 20 episodes of diarrhea within the past 2 days. She reports some associated abdominal pain with er her vomiting episodes. The reports being on antibiotics for the past 2 weeks for a UTI. She denies any other symptoms. She denies any fever, chills nausea, vomiting, constipation or urinary symptoms. She denies any chest pain, shortness of breath, headache or dizziness. The patient denies any other complaints. PCP: Dr. Gutierrez - Physicial Exam PE: 09/19/18 01:09 GENERAL: Awake, alert, and fully oriented, in no acute distress HEAD: No signs of trauma EYES: PERRLA, EOMI, sclera anicteric, conjunctiva clear ENT: Auricles normal inspection, hearing grossly normal, nares patent, Moist mucosa NECK: Normal ROM, supple,no JVD, or masses ABDOMEN: (+)diffuse abdominal tenderness to palpation. Soft. No guarding, no rebound. No masses EXTREMITIES: Normal range of motion, no edema. No clubbing or cyanosis. No cords, erythema, or tenderness NEUROLOGICAL: Cranial nerves II through XII grossly intact. Normal speech, normal gait SKIN: Warm, Dry, normal turgor, no rashes or lesions noted. Documentation prepared by Penelope Lundberg, acting as medical records coder for Ronnie Burgos MD. <Penelope Lundberg - Last Filed: 09/19/18 01:08> - Resident Resident Name: Joseph Lujan - ED Attending Attestation I have performed the following: I have examined & evaluated the patient, The case was reviewed & discussed with the resident, I agree w/resident's findings & plan, Exceptions are as noted - Medical Decision Making 09/19/18 00:14 A portion of this note was documented by scribe services under my direction. I have reviewed the details of the note, within reason, and agree with the documentation with the following case summary and management plan written by me. Patient treated in the ED. Nursing notes are reviewed and incorporated into the medical decision-making. Vital signs reviewed. Peripheral IV access obtained by the nurse, laboratory studies are drawn and sent, reviewed and interpreted by myself. Vital Signs Temp Pulse Resp BP Pulse Ox 98.1 F 66 18 136/51 L 98 09/18/18 22:30 09/18/18 22:30 09/18/18 22:30 09/18/18 22:30 09/18/18 22:30 68-year-old female with past medical history of ulcerative colitis status post resection, Crohn's disease, celiac's disease, Alzheimer's dementia, COPD, atrial fibrillation presents with diarrhea for 2 days. The patient reports numerous bowel movements and diffuse abdominal pain. Patient has been recently treated with urinary tract infection. No fevers or chills. With the diffuse abdominal pain and diarrhea, the differential includes colitis , C. difficile colitis, Crohn's flareup, gastroenteritis, other acute abdominal etiology. I agree with the resident's plan to obtain a work, stool cultures including C. difficile and a CAT scan abdomen pelvis and admit. 09/19/18 04:27 CAT scan demonstrates partial resection in the colon small bowel with a surgical anastomosis in the left upper quadrant. There appears to be an associated low-grade obstruction or stasis. This may reflect normal post surgical appearance: Issue prior studies recommended. CBC, BMP 09/18/18 01:45 09/18/18 01:47 CMP Sodium 144 mmol/L (136-145) 09/18/18 01:47 Potassium 4.6 mmol/L (3.5-5.1) 09/18/18 01:47 Chloride 111 mmol/L (98-107) H 09/18/18 01:47 Carbon Dioxide 26 mmol/L (21-32) 09/18/18 01:47 Anion Gap 7 MMOL/L (8-16) L 09/18/18 01:47 BUN 23 mg/dL (7-18) H 09/18/18 01:47 Creatinine 0.9 mg/dL (0.55-1.3) 09/18/18 01:47 Creat Clearance w eGFR > 60 (>60) 09/18/18 01:47 Random Glucose 88 mg/dL (74-106) 09/18/18 01:47 Calcium 8.1 mg/dL (8.5-10.1) L 09/18/18 01:47 Total Bilirubin 0.2 mg/dL (0.2-1) 09/18/18 01:47 AST 23 U/L (15-37) 09/18/18 01:47 ALT 23 U/L (13-61) 09/18/18 01:47 Alkaline Phosphatase 67 U/L (45-117) 09/18/18 01:47 Troponin I < 0.02 ng/ml (0.00-0.05) 09/18/18 01:47 Total Protein 6.4 g/dl (6.4-8.2) 09/18/18 01:47 Albumin 3.4 g/dl (3.4-5.0) 09/18/18 01:47 <Ronnie Burgos - Last Filed: 09/19/18 04:28> Heart Score/ECG Review #1 ECG reviewed & interpreted by me at: 00:20 09/19/18 00:56 NSR 54, no std/valentina, poor baseline, QTC 430 msec <Ronnie Burgos - Last Filed: 09/19/18 04:28>
[2018-09-19 02:00] LABS: BASO % 0.6 % (0-2.0); EOS % 3.6 % (0-4.5); HEMATOCRIT 30.8 % (32.4-45.2); HEMOGLOBIN 10.3 GM/dL (10.7-15.3); LYMPH % 22.9 % (8-40); MCH 28.3 pg (25.7-33.7); MCHC 33.5 g/dl (32.0-36.0); MEAN CELL VOLUME 84.5 fl (80-96); MEAN PLT VOLUME 7.8 fl (7.5-11.1); MONO % 8.6 % (3.8-10.2); NEUT % 64.3 % (42.8-82.8); PLATELET COUNT 271 K/MM3 (134-434); RBC 3.65 M/mm3 (3.60-5.2); RDW 16.6 % (11.6-15.6); WHITE BLOOD COUNT 6.7 K/mm3 (4.0-10.0)
[2018-09-19] MEDS ORDERED: morphine SULFATE 4 MG/ML VIAL ONE (02:01)
[2018-09-19 02:16] LABS: INR 0.88 (0.83-1.09); PROTHROMBIN TIME (PATIENT) 10.4 SEC (9.7-13.0)
[2018-09-19 02:48] LABS: ALBUMIN 3.4 g/dl (3.4-5.0); ALK PHOS 67 U/L (45-117); ANION GAP 7 MMOL/L (8-16); BILIRUBIN,TOTAL 0.2 mg/dL (0.2-1); BLOOD UREA NITROGEN 23 mg/dL (7-18); CALCIUM 8.1 mg/dL (8.5-10.1); CHLORIDE 111 mmol/L (98-107); CO2 26 mmol/L (21-32); CREATININE 0.9 mg/dL (0.55-1.3); GLUCOSE,RANDOM 88 mg/dL (74-106); POTASSIUM 4.6 mmol/L (3.5-5.1); SGOT/AST 23 U/L (15-37); SGPT/ALT 23 U/L (13-61); SODIUM 144 mmol/L (136-145); TOT PROT 6.4 g/dl (6.4-8.2)
--- NOTE | 2018-09-19 05:35 | HP ---
CHIEF COMPLAINT: severe diarrhea PCP: Matt HISTORY OF PRESENT ILLNESS: 68 year old female with a significant PMH of dementia, Cdiff, crohn's disease, hypothyroidism, RA, frequent UTIs, celiac disease, COPD, afib and UC s/p colectomy presented with 2 days of severe diarrhea with 20+ BMs/day. SHe was treated for UTI with antibiotic just prior to her severe diarrhea. Stool is watery with no anel blood. Denied any fevers, chills, nausea, or vomiting. No recent travels, exotic foods, or sick contacts. ER course was notable for: (1) abdomen/pelvis CT (2)IV fluid (3) IV morphine Recent Travel: no PAST MEDICAL HISTORY: dementia, crohn's disease, celiac disease, alzheimer's COPD, afib and UC PAST SURGICAL HISTORY: colectomy Social History: Smoking:no Alcohol: no Drugs: no Family History: Allergies gluten Allergy (Severe, Verified 02/14/18 13:44) Vomiting morphine Allergy (Severe, Verified 02/14/18 13:44) Sulfa (Sulfonamide Antibiotics) Allergy (Verified 02/14/18 13:44) HOME MEDICATIONS: Home Medications Medication Instructions Recorded clonazePAM [KlonoPIN] 2 mg PO HS #0 tablet 09/05/13 Levothyroxine [Synthroid -] 150 mcg PO 0700 #30 tablet 11/10/13 Diphenoxylate 2.5/Atropine.025 1 combo PO Q6H PRN #28 tablet MDD 08/30/17 [Lomotil -] 4 tabs Loperamide HCl [Imodium -] 2 mg PO Q8H #21 capsule 08/30/17 Bupropion HCl [Wellbutrin -] 75 mg PO DAILY 10/19/17 Mirtazapine [Remeron [DO NOT 45 mg PO DAILY 10/19/17 STOCK]] Cephalexin Monohydrate [Keflex -] 500 mg PO Q8H #21 capsule 02/14/18 REVIEW OF SYSTEMS CONSTITUTIONAL: Absent: fever, chills, diaphoresis, loss of appetite, weight change Present- generalized weakness, malaise, HEENT: Absent: rhinorrhea, nasal congestion, throat pain, throat swelling, difficulty swallowing, mouth swelling, ear pain, eye pain, visual changes CARDIOVASCULAR: Absent: chest pain, syncope, palpitations, irregular heart rate, lightheadedness , peripheral edema RESPIRATORY: Absent: cough, shortness of breath, dyspnea with exertion, orthopnea, wheezing, stridor, hemoptysis GASTROINTESTINAL: Absent: constipation, melena, hematochezia Present- abdominal pain, nausea, diarrhea, GENITOURINARY: Absent: dysuria, frequency, urgency, hesitancy, hematuria, flank pain, genital pain MUSCULOSKELETAL: Absent: myalgia, arthralgia, joint swelling, back pain, neck pain SKIN: Absent: rash, itching, pallor HEMATOLOGIC/IMMUNOLOGIC: Absent: easy bleeding, easy bruising, lymphadenopathy, frequent infections ENDOCRINE: Absent: unexplained weight gain, unexplained weight loss, heat intolerance, cold intolerance NEUROLOGIC: Absent: headache, focal weakness or paresthesias, dizziness, unsteady gait, seizure, mental status changes, bladder or bowel incontinence PSYCHIATRIC: Absent: anxiety, depression, suicidal or homicidal ideation, hallucinations. PHYSICAL EXAMINATION Vital Signs - 24 hr 09/18/18 22:30 Temperature 98.1 F Pulse Rate 66 Respiratory 18 Rate Blood Pressure 136/51 L O2 Sat by Pulse 98 Oximetry (%) GENERAL: Awake, alert, and fully oriented, appears chronically ill HEAD: Normal with no signs of trauma. EYES: Pupils equal, round and reactive to light, extraocular movements intact, sclera anicteric, conjunctiva clear. No lid lag. EARS, NOSE, THROAT: Ears normal, nares patent, oropharynx clear without exudates. Moist mucous membranes. NECK: Normal range of motion, supple without lymphadenopathy, JVD, or masses. LUNGS: Breath sounds equal, clear to auscultation bilaterally. No wheezes, and no crackles. No accessory muscle use. HEART: Regular rate and rhythm, normal S1 and S2 without murmur, rub or gallop. ABDOMEN: Soft, nontender, not distended, normoactive bowel sounds, no guarding, +multiple scars on abdomen MUSCULOSKELETAL: Normal range of motion at all joints. No bony deformities or tenderness. No CVA tenderness. UPPER EXTREMITIES: 2+ pulses, warm, well-perfused. No cyanosis. No clubbing. No peripheral edema. LOWER EXTREMITIES: 2+ pulses, warm, well-perfused. No calf tenderness. No peripheral edema. PSYCHIATRIC: Cooperative. Good eye contact. Appropriate mood and affect. SKIN: Warm, dry, normal turgor, no rashes or lesions noted, normal capillary refill. Laboratory Results - last 24 hr 09/18/18 09/18/18 09/18/18 01:45 01:47 01:47 WBC 6.7 RBC 3.65 Hgb 10.3 L Hct 30.8 L MCV 84.5 MCH 28.3 MCHC 33.5 RDW 16.6 H Plt Count 271 MPV 7.8 Absolute Neuts (auto) 4.3 Neutrophils % 64.3 Lymphocytes % 22.9 Monocytes % 8.6 Eosinophils % 3.6 Basophils % 0.6 Nucleated RBC % 0 PT with INR 10.40 INR 0.88 Sodium 144 Potassium 4.6 Chloride 111 H Carbon Dioxide 26 Anion Gap 7 L BUN 23 H Creatinine 0.9 Creat Clearance w eGFR > 60 Random Glucose 88 Calcium 8.1 L Total Bilirubin 0.2 AST 23 ALT 23 Alkaline Phosphatase 67 Troponin I Total Protein 6.4 Albumin 3.4 Stool Occult Blood 09/18/18 09/18/18 01:47 23:20 WBC RBC Hgb Hct MCV MCH MCHC RDW Plt Count MPV Absolute Neuts (auto) Neutrophils % Lymphocytes % Monocytes % Eosinophils % Basophils % Nucleated RBC % PT with INR INR Sodium Potassium Chloride Carbon Dioxide Anion Gap BUN Creatinine Creat Clearance w eGFR Random Glucose Calcium Total Bilirubin AST ALT Alkaline Phosphatase Troponin I < 0.02 Total Protein Albumin Stool Occult Blood Negative CT of abdomen/pelvis nighthawk read reviewed. EKG reviewed- sinus bradycardia ASSESSMENT/PLAN: #Severe diarrhea 20+ BMs per day, FOBT was negative. Should r/o Cdiff colitis as patient had history of cdiff and she has been taking antibiotics for UTI. Possibly flair of her IBD or celiac disease. Patient reports that she is not on any meds for celiac disease. -admit to med/surg -GI consult -send stool for Cdiff toxin PCR, culture, wbc -IV lactated ringers solution -clear liquid diet for now -loperamide prn -send lactate -f/u CT of abdomen/pelvis read -avoid unnecessary abx #HYpothyrodism - c/w home dose of levothyroxine #RA - off meds #IBD- off meds #Afib -not on AC #COPD -not on meds #DVT ppx -heparin sc Visit type - Emergency Visit Emergency Visit: Yes ED Registration Date: 09/19/18 Care time: The patient presented to the Emergency Department on the above date and was hospitalized for further evaluation of their emergent condition. - New Patient This patient is new to me today: Yes Date on this admission: 09/19/18 - Critical Care Critical Care patient: No
[2018-09-19] MEDS ORDERED: LOPERAMIDE HCL 2 MG CAPSULE PO PRN (05:43)
[2018-09-19] MEDS ORDERED: clonazePAM 0.5 MG TABLET PO ONE (05:44)
[2018-09-19] MEDS ORDERED: LEVOTHYROXINE NA 150 MCG TABLET PO ONE (05:44)
[2018-09-19] MEDS ORDERED: LEVOTHYROXINE NA 150 MCG TABLET PO SCH (06:00)
[2018-09-19 06:02] LABS: URINE APPEARANCE CLEAR; URINE BILIRUBIN NEGATIVE (<2.0 mg/dL); URINE COLOR STRAW; URINE GLUCOSE (UA) NEGATIVE (NEGATIVE); URINE KETONE NEGATIVE (NEGATIVE); URINE LEUK ESTERASE NEGATIVE (NEGATIVE); URINE NITRITE NEGATIVE (NEGATIVE); URINE PROTEIN NEGATIVE (NEGATIVE); URINE UROBILINOGEN NEGATIVE mg/dL (0.2-1.0)
[2018-09-19 06:05] LABS: URINE MUCUS RARE
[2018-09-19] MEDS: LACTATED RINGERS SOLUTION 1,000 ML IV SCH ×2 (07:24→16:26)
[2018-09-19] MEDS: HEPARIN NA (PORCINE) 5,000 UNITS/ML 1ML VIAL SQ SCH ×3 (07:35→21:28)
[2018-09-19] MEDS: LEVOTHYROXINE NA 150 MCG TABLET PO SCH (07:35)
[2018-09-19 09:51] LABS: HEMATOCRIT 33.1 % (32.4-45.2); HEMOGLOBIN 10.3 GM/dL (10.7-15.3); MCH 26.7 pg (25.7-33.7); MCHC 31.2 g/dl (32.0-36.0); MEAN CELL VOLUME 85.3 fl (80-96); MEAN PLT VOLUME 7.3 fl (7.5-11.1); PLATELET COUNT 235 K/MM3 (134-434); RBC 3.87 M/mm3 (3.60-5.2); RDW 16.4 % (11.6-15.6)
[2018-09-19 11:36] LABS: ANION GAP 9 MMOL/L (8-16); BLOOD UREA NITROGEN 18 mg/dL (7-18); CALCIUM 7.9 mg/dL (8.5-10.1); CHLORIDE 111 mmol/L (98-107); CO2 23 mmol/L (21-32); CREATININE 0.8 mg/dL (0.55-1.3); GLUCOSE,RANDOM 90 mg/dL (74-106); MAGNESIUM 1.8 mg/dL (1.8-2.4); PHOSPHOROUS 3.3 mg/dL (2.5-4.9); POTASSIUM 4.4 mmol/L (3.5-5.1); SODIUM 142 mmol/L (136-145)
--- NOTE | 2018-09-19 12:03 | PN ---
Progress Note, Physician History of Present Illness: 68 year old female with a significant PMH of dementia, Cdiff, crohn's disease, hypothyroidism, RA, frequent UTIs, celiac disease, COPD, afib and UC s/p colectomy presented with 2 days of severe diarrhea with 20+ BMs/day. SHe was treated for UTI with antibiotic just prior to her severe diarrhea. Stool is watery with no anel blood. Denied any fevers, chills, nausea, or vomiting. No recent travels, exotic foods, or sick contacts. - Current Medication List Current Medications: Active Medications Heparin Sodium (Porcine) (Heparin -) 5,000 unit SQ TID [facility] Last Admin: 09/19/18 07:35 Dose: 5,000 unit Lactated Ringer's (Lactated Ringers Solution) 1,000 mls @ 83 mls/hr IV ASDIR [facility] Last Admin: 09/19/18 07:24 Dose: 83 mls/hr Levothyroxine Sodium (Synthroid -) 150 mcg PO DAILY@0700 [facility] Last Admin: 09/19/18 07:35 Dose: 150 mcg Loperamide HCl (Imodium -) 2 mg PO Q8H PRN PRN Reason: DIARRHEA Mirtazapine (Remeron -) 45 mg PO HS [facility] - Objective Vital Signs: Vital Signs Temperature 98.1 F 09/19/18 11:43 Pulse Rate 63 09/19/18 11:43 Respiratory Rate 18 09/19/18 11:43 Blood Pressure 135/83 09/19/18 11:43 O2 Sat by Pulse Oximetry (%) 98 09/19/18 11:43 Cardiovascular: Yes: Regular Rate and Rhythm Respiratory: Yes: Regular, CTA Bilaterally Gastrointestinal: Yes: Normal Bowel Sounds, Soft Labs: CBC, BMP 09/19/18 09:15 09/19/18 09:15 INR, PTT INR 0.88 (0.83-1.09) 09/18/18 01:47 Problem List - Problems (1) Diarrhea Assessment/Plan: -Severe diarrhea 20+ BMs per day, -FOBT was negative. -r/o Cdiff colitis as patient had history of cdiff and she has been taking antibiotics for UTI. Possibly flair of her IBD -admit to med/surg -GI consult -send stool for Cdiff toxin PCR, culture, wbc -IV lactated ringers solution -clear liquid diet for now -loperamide prn -send lactate -f/u CT of abdomen/pelvis read -avoid unnecessary abx Code(s): R19.7 - DIARRHEA, UNSPECIFIED Qualifiers: Diarrhea type: unspecified type Qualified Code(s): R19.7 - Diarrhea, unspecified (2) Abdominal Pain Assessment/Plan: -see above (4) Hypothyroidism Assessment/Plan: - - c/w home dose of levothyroxine Code(s): E03.9 - HYPOTHYROIDISM, UNSPECIFIED (5) History of colectomy Code(s): Z90.49 - ACQUIRED ABSENCE OF OTHER SPECIFIED PARTS OF DIGESTIVE TRACT (6) Afib Assessment/Plan: -review old records -check on ac -cardio Code(s): I48.91 - UNSPECIFIED ATRIAL FIBRILLATION
[2018-09-19] MEDS: oxyCODONE HCL 5 MG TABLET PO PRN (12:55)
--- NOTE | 2018-09-19 14:27 | CON.CARD ---
Consult Consult Specialty:: Cardiology Referred by:: Dr Griffin Reason for Consultation:: PAF - History of Present Illness Chief Complaint: diarrhea History of Present Illness: 68 year old female with a significant PMH of dementia, Cdiff, crohn's disease, hypothyroidism, RA, frequent UTIs, celiac disease, COPD, afib and UC s/p colectomy presented with 2 days of severe diarrhea with 20+ BMs/day. Denies chest pain, sob, palpitations, orthopnea, pnd or edema. Exercise tolerance is good. Recent stress test at [facility] was normal. She is not on AC. She does state she has occasional GI bleeding. - History Source History Provided By: Patient, Medical Record Limitations to Obtaining History: No Limitations - Past Medical History Gastrointestinal: Yes: Crohn's Disease, Ulcerative Colitis - Alcohol/Substance Use Hx Alcohol Use: No - Smoking History Smoking history: Unknown if ever smoked Have you smoked in the past 12 months: No Home Medications - Allergies Allergies/Adverse Reactions: Allergies Allergy/AdvReac Type Severity Reaction Status Date / Time gluten Allergy Severe Vomiting Verified 02/14/18 13:44 morphine Allergy Severe Verified 02/14/18 13:44 Sulfa (Sulfonamide Allergy Verified 02/14/18 13:44 Antibiotics) - Home Medications Home Medications: Ambulatory Orders clonazePAM [KlonoPIN] 2 mg PO HS #0 tablet 09/05/13 Levothyroxine [Synthroid -] 150 mcg PO 0700 #30 tablet 11/10/13 Diphenoxylate 2.5/Atropine.025 [Lomotil -] 1 combo PO Q6H PRN #28 tablet MDD 4 tabs 08/30/17 Loperamide HCl [Imodium -] 2 mg PO Q8H #21 capsule 08/30/17 Bupropion HCl [Wellbutrin -] 75 mg PO DAILY 10/19/17 Mirtazapine [Remeron [DO NOT STOCK]] 45 mg PO DAILY 10/19/17 Cephalexin Monohydrate [Keflex -] 500 mg PO Q8H #21 capsule 02/14/18 Family Disease History - Family Disease History Family History: Denies Review of Systems - Review of Systems Constitutional: reports: No Symptoms Eyes: reports: No Symptoms HENT: reports: No Symptoms Neck: reports: No Symptoms Cardiovascular: reports: No Symptoms Respiratory: reports: No Symptoms Genitourinary: reports: No Symptoms Musculoskeletal: reports: No Symptoms Vital Signs: Vital Signs Temperature 98.1 F 09/19/18 11:43 Pulse Rate 63 09/19/18 11:43 Respiratory Rate 18 09/19/18 11:43 Blood Pressure 135/83 09/19/18 11:43 O2 Sat by Pulse Oximetry (%) 98 09/19/18 11:43 Constitutional: Yes: No Distress, Calm Eyes: Yes: Conjunctiva Clear HENT: Yes: Atraumatic, Normocephalic Neck: Yes: Supple, Trachea Midline Respiratory: Yes: CTA Bilaterally Gastrointestinal: Yes: Normal Bowel Sounds, Soft Cardiovascular: Yes: Regular Rate and Rhythm JVD: No Carotid Bruit: No PMI: Non-Displaced Heart Sounds: Yes: S1, S2 Murmur: Yes: Systolic Murmur Extremities: Yes: WNL Edema: No Peripheral Pulses WNL: Yes - Other Data Labs, Other Data: CBC, BMP 09/19/18 09:15 09/19/18 09:15 INR, PTT INR 0.88 (0.83-1.09) 09/18/18 01:47 Troponin, BNP 09/18/18 01:47 Troponin I < 0.02 Troponin, BNP 09/18/18 01:47 Troponin I < 0.02 Imaging - Results EKG: Report Reviewed (sinus samir) Assessment/Plan 68 year old female with a significant PMH of dementia, Cdiff, crohn's disease, hypothyroidism, RA, frequent UTIs, celiac disease, COPD, afib and UC s/p colectomy presented with 2 days of severe diarrhea with 20+ BMs/day. Denies chest pain, sob, palpitations, orthopnea, pnd or edema. Exercise tolerance is good. Recent stress test at [facility] was normal. She is not on AC. She does state she has occasional GI bleeding. 1. PAF -she has a CHADS2-VASC score of 0. In addition given her active GI issues increase her bleeding risk. -No need for AC at this point. -outpatient follow up when stable. -no need for inpatient cardiac workup. -will see prn.
--- NOTE | 2018-09-19 15:37 | EKG ---
Test Reason : Blood Pressure : / mmHG Vent. Rate : 054 BPM Atrial Rate : 054 BPM P-R Int : 182 ms QRS Dur : 076 ms QT Int : 454 ms P-R-T Axes : 067 053 067 degrees QTc Int : 430 ms SINUS BRADYCARDIA OTHERWISE NORMAL ECG WHEN COMPARED WITH ECG OF 30-AUG-2017 10:02, NO SIGNIFICANT CHANGE WAS FOUND Confirmed by ELGIN PETERSON MD ([id number]) on 09/19/2018 3:37:21 PM Referred By: Confirmed By:ELGIN PETERSON MD
[2018-09-19] MEDS ORDERED: DOCUSATE SODIUM 100 MG CAPSULE (FP) PO PRN (15:45)
[2018-09-19] MEDS ORDERED: FENTANYL PATCH WASTE MC PRN (15:45)
[2018-09-19 16:09] VITALS: BMI 26.6
[2018-09-19] MEDS: fentaNYL 75mcg/hr PATCH.TD72 TD SCH (16:13)
--- NOTE | 2018-09-19 16:25 | CON.ID ---
Consult Consult Specialty:: infectious disease Referred by:: hospitalist Reason for Consultation:: diarrhea - History of Present Illness Chief Complaint: diarrhea History of Present Illness: 68 yo female history of 15 abdominal surgeries including total colectomy- she has chronic frequent stools but over last 24 hours has had a marked increase in number of BMS no travel no fevers recent keflex this week for UTI she reports prior history of cdiff - Past Medical History Gastrointestinal: Yes: Crohn's Disease, Ulcerative Colitis ...: No - Alcohol/Substance Use Hx Alcohol Use: No - Smoking History Smoking history: Never smoked Have you smoked in the past 12 months: No - Social History Usual Living Arrangement: Alone ADL: Independent Home Medications - Allergies Allergies/Adverse Reactions: Allergies Allergy/AdvReac Type Severity Reaction Status Date / Time gluten Allergy Severe Vomiting Verified 02/14/18 13:44 morphine Allergy Severe Verified 02/14/18 13:44 Sulfa (Sulfonamide Allergy Verified 02/14/18 13:44 Antibiotics) - Home Medications Home Medications: Ambulatory Orders clonazePAM [KlonoPIN] 2 mg PO HS #0 tablet 09/05/13 Levothyroxine [Synthroid -] 150 mcg PO 0700 #30 tablet 11/10/13 Diphenoxylate 2.5/Atropine.025 [Lomotil -] 1 combo PO Q6H PRN #28 tablet MDD 4 tabs 08/30/17 Loperamide HCl [Imodium -] 2 mg PO Q8H #21 capsule 08/30/17 Bupropion HCl [Wellbutrin -] 75 mg PO DAILY 10/19/17 Mirtazapine [Remeron [DO NOT STOCK]] 45 mg PO DAILY 10/19/17 Cephalexin Monohydrate [Keflex -] 500 mg PO Q8H #21 capsule 02/14/18 Review of Systems - Review of Systems Constitutional: reports: No Symptoms. denies: Chills, Diaphoresis, Fever, Unintentional Wgt. Loss Eyes: reports: No Symptoms HENT: reports: No Symptoms Neck: reports: No Symptoms Cardiovascular: reports: No Symptoms Respiratory: reports: No Symptoms. denies: Cough, SOB Gastrointestinal: reports: Abdominal Pain, Diarrhea Physical Exam Vital Signs: Vital Signs Temperature 97.9 F 09/19/18 15:59 Pulse Rate 64 09/19/18 15:59 Respiratory Rate 17 09/19/18 15:59 Blood Pressure 142/72 09/19/18 15:59 O2 Sat by Pulse Oximetry (%) 98 09/19/18 11:43 Constitutional: Yes: Well Nourished, No Distress, Anxious Eyes: Yes: Conjunctiva Clear HENT: Yes: Atraumatic, Normocephalic. No: Thrush Neck: Yes: Supple Cardiovascular: Yes: Regular Rate and Rhythm Respiratory: Yes: Regular, Diminished Gastrointestinal: Yes: Normal Bowel Sounds, Soft, Tenderness (diffuse tenderness to palpation) Extremities: Yes: WNL Edema: No Labs: CBC, BMP 09/19/18 09:15 09/19/18 09:15 Microbiology 09/19/18 05:45 Stool Clostridium difficile Antigen (SRAVANI) - Final 09/19/18 05:45 Stool Clostridium difficile Toxin Assay - Final Imaging - Results Cat Scan: Report Reviewed, Image Reviewed Problem List - Problems (1) Diarrhea Code(s): R19.7 - DIARRHEA, UNSPECIFIED Qualifiers: Diarrhea type: unspecified type Qualified Code(s): R19.7 - Diarrhea, unspecified Assessment/Plan not sure if this is cdiff as it is exceedingly rare to have cdiff in the setting of total colectomy have asked the nurse to collect the other stool studis orders- wbc, culture continue po vancomycin will get cdiff pcr isolate
--- NOTE | 2018-09-19 16:33 | CONS ---
DATE OF CONSULTATION: DATE OF DICTATION: 09/19/2018 GASTROENTEROLOGY CONSULTATION Patient is a 68-year-old female with past medical history significant for ulcerative colitis, status post colectomy, recent Clostridium difficile, multiple urinary tract infections over the past couple of months for which she has been on antibiotics, hypothyroidism, RA, celiac disease complicated by osteoporosis, COPD, atrial fibrillation, who presents to the hospital with 2 days of severe diarrhea. She reports up to 20 bowel movements daily. Bowel movements are brown in color. No blood or melena visualized. She denies any abdominal pain, just some cramps. No nausea, vomiting, fevers, chills, or hematemesis. She has not had a recent endoscopic examination. PAST MEDICAL AND SURGICAL HISTORY: As listed in the HPI. ALLERGIES: GLUTEN, MORPHINE, AND SULFA. HOME MEDICATIONS: Include Klonopin, Synthroid, Lomotil, Imodium, Wellbutrin, mirtazapine, and Keflex. REVIEW OF SYSTEMS: As per the HPI. SOCIAL HISTORY: Does not drink, smoke, or use drugs. FAMILY HISTORY: No history of GI or gynecological malignancy. PHYSICAL EXAMINATION: Vital Signs: Temperature 98, pulse 63, respiratory rate 12, blood pressure 135/ 83, pulse oximetry 98% on room air. General: No acute distress. Pleasant female with her family member at the bedside. HEENT: Anicteric sclerae. Cardiovascular: S1, S2. Regular rate and rhythm. Lungs: Bilaterally clear to auscultation. Abdomen: Soft and nontender with normal bowel sounds. Extremities: No edema. LABS: White blood cell count 6, hemoglobin 10/hematocrit 33, MCV 85, platelet count 235. INR 0.8. Sodium 142, potassium 4.4. BUN 18/creatinine 0.8. Lactic acid 0.7. AST 23, ALT 23, total bilirubin 0.2. Troponin negative. Urine culture is pending. C. difficile is positive. Blood cultures are pending. IMPRESSION: Acute diarrheal illness. She also has chronic diarrhea secondary to her postsurgical anatomy. Current symptoms are secondary to infectious etiology recurrent Clostridium difficile. RECOMMENDATIONS: Would recommend starting her on vancomycin p.o. 250 p.o. q.6 hours. She can be tried on a low-residue lactose-free diet tomorrow if her symptoms improve. Would repeat her CBC and chemistry in the morning. Continue her on IV fluids. Monitor her abdominal exam. DO LUCINDA HUSSEIN/[id number] MTDD
[2018-09-19] MEDS: VANCOMYCIN 250 MG/5 ML ORAL SOLUTION PO SCH (20:36)
[2018-09-19] MEDS: clonazePAM 0.5 MG TABLET PO PRN (21:29)
[2018-09-19] MEDS: MIRTAZAPINE 15 MG TABLET (FP) PO SCH (21:29)
[2018-09-19] MEDS: ACETAMINOPHEN 325 MG TABLET (FP) PO PRN (21:30)
[2018-09-20] MEDS: VANCOMYCIN 250 MG/5 ML ORAL SOLUTION PO SCH ×5 (00:55→23:33)
[2018-09-20] MEDS: LACTATED RINGERS SOLUTION 1,000 ML IV SCH ×2 (04:44→17:41)
[2018-09-20] MEDS: HEPARIN NA (PORCINE) 5,000 UNITS/ML 1ML VIAL SQ SCH ×3 (05:58→22:11)
[2018-09-20] MEDS: LEVOTHYROXINE NA 150 MCG TABLET PO SCH (06:00)
[2018-09-20] MEDS: oxyCODONE HCL 5 MG TABLET PO PRN ×3 (06:01→22:41)
[2018-09-20 09:56] LABS: BASO % 0.5 % (0-2.0); EOS % 2.6 % (0-4.5); HEMATOCRIT 33.1 % (32.4-45.2); HEMOGLOBIN 10.2 GM/dL (10.7-15.3); LYMPH % 30.7 % (8-40); MCH 26.6 pg (25.7-33.7); MCHC 30.8 g/dl (32.0-36.0); MEAN CELL VOLUME 86.1 fl (80-96); MEAN PLT VOLUME 7.6 fl (7.5-11.1); NEUT % 60.2 % (42.8-82.8); PLATELET COUNT 221 K/MM3 (134-434); RBC 3.84 M/mm3 (3.60-5.2); RDW 16.7 % (11.6-15.6); WHITE BLOOD COUNT 5.2 K/mm3 (4.0-10.0)
[2018-09-20] MEDS ORDERED: FLU VACCINE QUAD 60 MCG/0.5 ML (MDV 18-19) IM ONE (10:00)
[2018-09-20] MEDS: ACETAMINOPHEN 325 MG TABLET (FP) PO PRN ×2 (10:13→22:12)
--- NOTE | 2018-09-20 10:18 | PN ---
GI Progress Note Subjective: Diarrhea States being treated "a couple months ago 4 times with two medications for C. Diff" . She states having a J pouch. 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 Explains that fecal transplant was discussed with her [employer] programmer analyst Dr. Greg Lee ([facility]), however the "C. Diff cleared after the 4th treatment" . States being on abx frequently for UTI's. No abdominal pain - Objective Vital Signs: Vital Signs Temperature 98.2 F 09/20/18 08:00 Pulse Rate 55 L 09/20/18 08:00 Respiratory Rate 18 09/20/18 08:00 Blood Pressure 114/55 L 09/20/18 08:00 O2 Sat by Pulse Oximetry (%) 98 09/19/18 21:00 Constitutional: Calm Eyes: No: Sclera Icterus Cardiovascular: Yes: Regular Rate and Rhythm Respiratory: Yes: CTA Bilaterally Gastrointestinal Inspection: Yes: Scars. No: Distention ...Auscultate: Yes: Normoactive Bowel Sounds ...Palpate: No: Hepatomegaly, Splenomegaly, Tenderness ...Percussion: No: Tympanitic Edema: No (No LE edema) Neurological: Yes: Alert Labs: CBC, BMP 09/20/18 09:25 INR, PTT INR 0.88 (0.83-1.09) 09/18/18 01:47 Problem List - Problems (1) Diarrhea Assessment/Plan: H/O complicated Crohn's disease with small bowel resections and colon resection H/O Recent C. Diff infection. ? small bowel c. diff, which can occur, C> diff of rectal remnant or both Continue PO Vancocin for now Advance diet to low residue If C. Diff positive with persistent diarrhea, will likely need evaluation for fecal transplant. Ms. Delong's as400 programmer analyst is Dr. Greg Lee, IBD specialist working out of [facility]. Code(s): R19.7 - DIARRHEA, UNSPECIFIED Qualifiers: Diarrhea type: unspecified type Qualified Code(s): R19.7 - Diarrhea, unspecified
[2018-09-20 10:27] LABS: ALBUMIN 2.7 g/dl (3.4-5.0); ALK PHOS 49 U/L (45-117); ANION GAP 13 MMOL/L (8-16); BILIRUBIN,TOTAL 0.2 mg/dL (0.2-1); BLOOD UREA NITROGEN 14 mg/dL (7-18); CALCIUM 7.4 mg/dL (8.5-10.1); CHLORIDE 108 mmol/L (98-107); CO2 22 mmol/L (21-32); CREATININE 0.7 mg/dL (0.55-1.3); GLUCOSE,RANDOM 93 mg/dL (74-106); POTASSIUM 4.2 mmol/L (3.5-5.1); SGOT/AST 30 U/L (15-37); SGPT/ALT 29 U/L (13-61); SODIUM 142 mmol/L (136-145); TOT PROT 5.1 g/dl (6.4-8.2)
--- NOTE | 2018-09-20 13:03 | DS ---
Physical Examination Vital Signs: Vital Signs Temperature 98.2 F 09/20/18 08:00 Pulse Rate 55 L 09/20/18 08:00 Respiratory Rate 18 09/20/18 08:00 Blood Pressure 114/55 L 09/20/18 08:00 O2 Sat by Pulse Oximetry (%) 98 09/20/18 09:00 Findings/Remarks: feels better wants to go home Cardiovascular: Yes: Regular Rate and Rhythm Respiratory: Yes: Regular, CTA Bilaterally Gastrointestinal: Yes: Normal Bowel Sounds, Soft. No: Tenderness Labs: CBC, BMP 09/20/18 09:25 09/20/18 09:25 Discharge Summary Reason For Visit: SMALL BOWEL OBSTRUCTION DIARRHEA Current Active Problems Afib (Acute) Diarrhea (Acute) History of colectomy (Acute) SBO (small bowel obstruction) (Acute) Hospital Course: - Problems (1) Diarrhea Assessment/Plan: -Feels better -FOBT was negative. -+ Cdiff colitis as patient had history of cdiff and she has been taking antibiotics for UTI. Possibly flair of her IBD -admit to med/surg -GI consult noted - stool for Cdiff toxin PCR, culture, wbc -advance diet -loperamide prn - ct of abdomen/pelvis noted -avoid unnecessary abx Code(s): R19.7 - DIARRHEA, UNSPECIFIED Qualifiers: Diarrhea type: unspecified type Qualified Code(s): R19.7 - Diarrhea, unspecified (2) Abdominal Pain Assessment/Plan: -see above (4) Hypothyroidism Assessment/Plan: - - c/w home dose of levothyroxine Code(s): E03.9 - HYPOTHYROIDISM, UNSPECIFIED (5) History of colectomy Code(s): Z90.49 - ACQUIRED ABSENCE OF OTHER SPECIFIED PARTS OF DIGESTIVE TRACT (6) Afib Assessment/Plan: -review old records -check on ac -cardio Code(s): I48.91 - UNSPECIFIED ATRIAL FIBRILLATION Condition: Fair - Instructions Referrals: Diony Gutierrez [Primary Care Provider] - 1 Week Mary Ann Sorenson DO [Staff Physician] - - Home Medications Comprehensive Discharge Medication List: Ambulatory Orders clonazePAM [KlonoPIN] 2 mg PO HS #0 tablet 09/05/13 Levothyroxine [Synthroid -] 150 mcg PO 0700 #30 tablet 11/10/13 Diphenoxylate 2.5/Atropine.025 [Lomotil -] 1 combo PO Q6H PRN #28 tablet MDD 4 tabs 08/30/17 Loperamide HCl [Imodium -] 2 mg PO Q8H #21 capsule 08/30/17 Bupropion HCl [Wellbutrin -] 75 mg PO DAILY 10/19/17 Mirtazapine [Remeron -] 45 mg PO DAILY 10/19/17 Vancomycin Oral Solution 125 mg PO Q6HPO #40 ml 09/20/18
[2018-09-20] MEDS: MIRTAZAPINE 15 MG TABLET (FP) PO SCH (22:11)
[2018-09-20] MEDS: clonazePAM 0.5 MG TABLET PO PRN (22:11)
[2018-09-21] MEDS: HEPARIN NA (PORCINE) 5,000 UNITS/ML 1ML VIAL SQ SCH ×3 (05:36→21:03)
[2018-09-21] MEDS: ACETAMINOPHEN 325 MG TABLET (FP) PO PRN (05:36)
[2018-09-21] MEDS: VANCOMYCIN 250 MG/5 ML ORAL SOLUTION PO SCH ×4 (05:36→23:35)
[2018-09-21] MEDS: LACTATED RINGERS SOLUTION 1,000 ML IV SCH ×2 (06:33→18:48)
[2018-09-21] MEDS: oxyCODONE HCL 5 MG TABLET PO PRN ×3 (06:34→23:32)
[2018-09-21] MEDS: LEVOTHYROXINE NA 150 MCG TABLET PO SCH (06:34)
--- NOTE | 2018-09-21 11:01 | PN ---
Progress Note, Physician History of Present Illness: 68 year old female with a significant PMH of dementia, Cdiff, crohn's disease, hypothyroidism, RA, frequent UTIs, celiac disease, COPD, afib and UC s/p colectomy presented with 2 days of severe diarrhea with 20+ BMs/day. SHe was treated for UTI with antibiotic just prior to her severe diarrhea. Stool is watery with no anel blood. Denied any fevers, chills, nausea, or vomiting. No recent travels, exotic foods, or sick contacts. C/o diarrhea and intermittent abd pain - Current Medication List Current Medications: Active Medications Acetaminophen (Tylenol -) 650 mg PO Q6H PRN PRN Reason: HEADACHE Last Admin: 09/21/18 05:36 Dose: 650 mg Clonazepam (Klonopin -) 0.5 mg PO TID PRN PRN Reason: ANXIETY Last Admin: 09/20/18 22:11 Dose: 0.5 mg Docusate Sodium (Colace -) 100 mg PO BID PRN PRN Reason: CONSTIPATION Fentanyl (Duragesic 75mcg Patch -) 1 patch TD Q72H [facility] Last Admin: 09/19/18 16:13 Dose: 1 patch Heparin Sodium (Porcine) (Heparin -) 5,000 unit SQ TID [facility] Last Admin: 09/21/18 05:36 Dose: 5,000 unit Lactated Ringer's (Lactated Ringers Solution) 1,000 mls @ 83 mls/hr IV ASDIR [facility] Last Admin: 09/21/18 06:33 Dose: 83 mls/hr Levothyroxine Sodium (Synthroid -) 150 mcg PO DAILY@0700 [facility] Last Admin: 09/21/18 06:34 Dose: 150 mcg Loperamide HCl (Imodium -) 2 mg PO Q8H PRN PRN Reason: DIARRHEA Last Admin: 09/19/18 21:30 Dose: 2 mg Mirtazapine (Remeron -) 45 mg PO HS [facility] Last Admin: 09/20/18 22:11 Dose: 45 mg Miscellaneous (Duragesic Patch Waste) 1 each MC PRN PRN PRN Reason: PAIN Oxycodone HCl (Roxicodone -) 5 mg PO Q4H PRN PRN Reason: PAIN LEVEL 6-10 Last Admin: 09/21/18 06:34 Dose: 5 mg Vancomycin HCl (Vancomycin Oral Solution) 125 mg PO Q6HPO [facility] Last Admin: 09/21/18 05:36 Dose: 125 mg - Objective Vital Signs: Vital Signs Temperature 98.6 F 09/21/18 07:34 Pulse Rate 52 L 09/21/18 07:34 Respiratory Rate 16 09/21/18 07:34 Blood Pressure 120/68 09/21/18 07:34 O2 Sat by Pulse Oximetry (%) 98 09/21/18 09:00 Cardiovascular: Yes: Regular Rate and Rhythm Respiratory: Yes: Regular, CTA Bilaterally Gastrointestinal: Yes: Normal Bowel Sounds, Soft. No: Tenderness Labs: CBC, BMP 09/20/18 09:25 09/20/18 09:25 INR, PTT INR 0.88 (0.83-1.09) 09/18/18 01:47 Problem List - Problems (1) Diarrhea Assessment/Plan: -FOBT was negative. -Cdiff positive - Possibly flair of her IBD -GI consult noted--follow up -send stool for Cdiff toxin PCR, culture, wbc -Tolerating diet -loperamide prn -CT of abdomen/pelvis noted -avoid unnecessary abx Code(s): R19.7 - DIARRHEA, UNSPECIFIED Qualifiers: Diarrhea type: unspecified type Qualified Code(s): R19.7 - Diarrhea, unspecified (2) Abdominal Pain Assessment/Plan: -see above (4) Hypothyroidism Assessment/Plan: - - c/w home dose of levothyroxine Code(s): E03.9 - HYPOTHYROIDISM, UNSPECIFIED (5) History of colectomy Code(s): Z90.49 - ACQUIRED ABSENCE OF OTHER SPECIFIED PARTS OF DIGESTIVE TRACT (6) Afib Assessment/Plan: -review old records -check on ac--no AC at this time -cardio appreciated Code(s): I48.91 - UNSPECIFIED ATRIAL FIBRILLATION
--- NOTE | 2018-09-21 11:20 | PN ---
GI Progress Note Subjective: diarrhea and abdominal pain reported yesterday C. Diff studies sent twice. 1 was negative for toxin and antigen, 1 was positive for antigen - Objective Vital Signs: Vital Signs Temperature 98.6 F 09/21/18 07:34 Pulse Rate 52 L 09/21/18 07:34 Respiratory Rate 16 09/21/18 07:34 Blood Pressure 120/68 09/21/18 07:34 O2 Sat by Pulse Oximetry (%) 98 09/21/18 09:00 Constitutional: Calm Eyes: No: Sclera Icterus Cardiovascular: Yes: Regular Rate and Rhythm Respiratory: Yes: CTA Bilaterally Gastrointestinal Inspection: Yes: Scars. No: Distention ...Auscultate: Yes: Normoactive Bowel Sounds ...Palpate: No: Tenderness ...Percussion: No: Tympanitic Edema: No (no LE edema) Neurological: Yes: Alert Labs: CBC, BMP 09/20/18 09:25 09/20/18 09:25 INR, PTT INR 0.88 (0.83-1.09) 09/18/18 01:47 Problem List - Problems (1) Diarrhea Assessment/Plan: ? c. diff recurrence. ? Flare of Crohn's. States not being on any therapy currently and states that "it does not feel like a flare" Agree with ID that C. Diff infection in setting of total colectomy is rare, however, she did have portion of rectum remaining on prior flex sig evaluation. C. Diff toxin PCR pending Ordered stool calprotectin Would continue Vancomycin 125mg PO q6 hours Code(s): R19.7 - DIARRHEA, UNSPECIFIED Qualifiers: Diarrhea type: unspecified type Qualified Code(s): R19.7 - Diarrhea, unspecified
[2018-09-21 12:16] LABS: BASO % 0.7 % (0-2.0); EOS % 3.8 % (0-4.5); HEMATOCRIT 33.1 % (32.4-45.2); HEMOGLOBIN 11.2 GM/dL (10.7-15.3); LYMPH % 30.5 % (8-40); MCH 28.8 pg (25.7-33.7); MEAN CELL VOLUME 84.7 fl (80-96); MEAN PLT VOLUME 7.6 fl (7.5-11.1); MONO % 8.6 % (3.8-10.2); NEUT % 56.4 % (42.8-82.8); PLATELET COUNT 218 K/MM3 (134-434); RBC 3.91 M/mm3 (3.60-5.2); RDW 16.6 % (11.6-15.6); WHITE BLOOD COUNT 4.1 K/mm3 (4.0-10.0)
[2018-09-21 12:28] LABS: BLOOD UREA NITROGEN 19 mg/dL (7-18); CHLORIDE 108 mmol/L (98-107); CO2 27 mmol/L (21-32); CREATININE 0.9 mg/dL (0.55-1.3); GLUCOSE,RANDOM 78 mg/dL (74-106); POTASSIUM 4.1 mmol/L (3.5-5.1); SODIUM 143 mmol/L (136-145)
[2018-09-21 12:29] LABS: ALBUMIN 3.1 g/dl (3.4-5.0); ALK PHOS 58 U/L (45-117); ANION GAP 8 MMOL/L (8-16); BILIRUBIN,TOTAL 0.4 mg/dL (0.2-1); CALCIUM 7.9 mg/dL (8.5-10.1); SGOT/AST 25 U/L (15-37); SGPT/ALT 33 U/L (13-61)
[2018-09-21 13:27] LABS: ERYTHROCYTE SEDIMENTATION RATE 8 mm/hr (0-30)
--- NOTE | 2018-09-21 14:13 | PN ---
Progress Note (short form) - Note Progress Note: reports continued diarrhea- more then usual no fevers no dysuria Vital Signs Period Temp Pulse Resp BP Sys/Crystal Pulse Ox Last 24 Hr 98.3 F-98.6 F 52-62 16-18 120-130/68-76 98-98 cor-rrr lungs clear abd soft,diffuse discomfrt to palpation ext no edema CBC, BMP 09/21/18 11:45 09/21/18 11:45 Microbiology 09/19/18 05:45 Urine - Urine Clean Catch Urine Culture - Preliminary Escherichia Coli Esbl Sheep Boner Group D Strep Or Entero Coccus 09/19/18 19:40 Stool Salmonella/Shigella Culture - Preliminary NO ENTERIC PATHOGENS, 24 HOURS, ON PRIMARY PLATES 09/19/18 19:40 Stool Yersinia Culture - Preliminary NO ENTERIC PATHOGENS, 24 HOURS, ON PRIMARY PLATES 09/19/18 19:40 Stool Vibrio Culture - Final NO GROWTH OF VIBRIO SPECIES OBTAINED 09/19/18 19:40 Stool Escherichia coli 0157 Culture - Final NO GROWTH OF E COLI 0157 OBTAINED 09/18/18 01:47 Blood - Peripheral Venous Blood Culture - Preliminary NO GROWTH OBTAINED AFTER 48 HOURS, INCUBATION TO CONTINUE FOR 3 DAYS. 09/18/18 01:47 Blood - Peripheral Venous Blood Culture - Preliminary NO GROWTH OBTAINED AFTER 48 HOURS, INCUBATION TO CONTINUE FOR 3 DAYS. 09/19/18 21:40 Stool Gram Stain - Final 09/19/18 21:54 Stool Clostridium difficile (PCR) - Preliminary 09/19/18 21:40 Stool Clostridium difficile Antigen (SRAVANI) - Final 09/19/18 21:40 Stool Clostridium difficile Toxin Assay - Final 09/19/18 05:45 Stool Clostridium difficile Antigen (SRAVANI) - Final 09/19/18 05:45 Stool Clostridium difficile Toxin Assay - Final Laboratory Tests 09/19/18 05:45 Urine Nitrite Negative Ur Leukocyte Esterase Negative Urine WBC (Auto) 1 a/p continued diarrhea- on povancomycin, f/u stool cdiff pcr f/u GI asymptomatic bactriuria- UA is negative, she is asymptomatic-no need to treat Problem List - Problems (1) Diarrhea Code(s): R19.7 - DIARRHEA, UNSPECIFIED Qualifiers: Diarrhea type: unspecified type Qualified Code(s): R19.7 - Diarrhea, unspecified
[2018-09-21] MEDS: MIRTAZAPINE 15 MG TABLET (FP) PO SCH (21:03)
[2018-09-21] MEDS: clonazePAM 0.5 MG TABLET PO PRN (21:11)
[2018-09-22] MEDS: VANCOMYCIN 250 MG/5 ML ORAL SOLUTION PO SCH ×3 (05:45→17:29)
[2018-09-22] MEDS: HEPARIN NA (PORCINE) 5,000 UNITS/ML 1ML VIAL SQ SCH ×3 (05:45→21:18)
[2018-09-22] MEDS: LACTATED RINGERS SOLUTION 1,000 ML IV SCH ×2 (05:46→17:28)
[2018-09-22] MEDS: LEVOTHYROXINE NA 150 MCG TABLET PO SCH (06:25)
--- NOTE | 2018-09-22 08:10 | PN ---
Progress Note, Physician Chief Complaint: Still with multiple bowel movements denies abdominal pain / n/v / tolerating diet - Current Medication List Current Medications: Active Medications Acetaminophen (Tylenol -) 650 mg PO Q6H PRN PRN Reason: HEADACHE Last Admin: 09/21/18 05:36 Dose: 650 mg Clonazepam (Klonopin -) 0.5 mg PO TID PRN PRN Reason: ANXIETY Last Admin: 09/21/18 21:11 Dose: 0.5 mg Docusate Sodium (Colace -) 100 mg PO BID PRN PRN Reason: CONSTIPATION Fentanyl (Duragesic 75mcg Patch -) 1 patch TD Q72H [facility] Last Admin: 09/19/18 16:13 Dose: 1 patch Heparin Sodium (Porcine) (Heparin -) 5,000 unit SQ TID [facility] Last Admin: 09/22/18 05:45 Dose: 5,000 unit Lactated Ringer's (Lactated Ringers Solution) 1,000 mls @ 83 mls/hr IV ASDIR [facility] Last Admin: 09/22/18 05:46 Dose: 83 mls/hr Levothyroxine Sodium (Synthroid -) 150 mcg PO DAILY@0700 [facility] Last Admin: 09/22/18 06:25 Dose: 150 mcg Loperamide HCl (Imodium -) 2 mg PO Q8H PRN PRN Reason: DIARRHEA Last Admin: 09/19/18 21:30 Dose: 2 mg Mirtazapine (Remeron -) 45 mg PO HS [facility] Last Admin: 09/21/18 21:03 Dose: 45 mg Miscellaneous (Duragesic Patch Waste) 1 each MC PRN PRN PRN Reason: PAIN Oxycodone HCl (Roxicodone -) 5 mg PO Q4H PRN PRN Reason: PAIN LEVEL 6-10 Last Admin: 09/21/18 23:32 Dose: 5 mg Vancomycin HCl (Vancomycin Oral Solution) 125 mg PO Q6HPO [facility] Last Admin: 09/22/18 05:45 Dose: 125 mg - Objective Vital Signs: Vital Signs Temperature 97.8 F 09/22/18 05:40 Pulse Rate 62 09/22/18 05:40 Respiratory Rate 18 09/22/18 05:40 Blood Pressure 140/68 09/22/18 05:40 O2 Sat by Pulse Oximetry (%) 98 09/21/18 22:00 Constitutional: Yes: Well Nourished, No Distress, Calm Eyes: Yes: WNL HENT: Yes: WNL Neck: Yes: WNL Cardiovascular: Yes: WNL Respiratory: Yes: WNL Gastrointestinal: Yes: WNL, Normal Bowel Sounds, Soft Musculoskeletal: Yes: WNL Extremities: Yes: WNL Edema: No Labs: CBC, BMP 09/21/18 11:45 09/21/18 11:45 INR, PTT INR 0.88 (0.83-1.09) 09/18/18 01:47 Problem List - Problems (1) Diarrhea Assessment/Plan: c/w PO vanco 250 mg Q6 f/u stool c.diff PCR low residue lactose free diet Code(s): R19.7 - DIARRHEA, UNSPECIFIED Qualifiers: Diarrhea type: unspecified type Qualified Code(s): R19.7 - Diarrhea, unspecified (2) History of colectomy Code(s): Z90.49 - ACQUIRED ABSENCE OF OTHER SPECIFIED PARTS OF DIGESTIVE TRACT
--- NOTE | 2018-09-22 12:00 | PN ---
Progress Note, Physician - Current Medication List Current Medications: Active Medications Acetaminophen (Tylenol -) 650 mg PO Q6H PRN PRN Reason: HEADACHE Last Admin: 09/21/18 05:36 Dose: 650 mg Clonazepam (Klonopin -) 0.5 mg PO TID PRN PRN Reason: ANXIETY Last Admin: 09/21/18 21:11 Dose: 0.5 mg Docusate Sodium (Colace -) 100 mg PO BID PRN PRN Reason: CONSTIPATION Fentanyl (Duragesic 75mcg Patch -) 1 patch TD Q72H [facility] Last Admin: 09/19/18 16:13 Dose: 1 patch Heparin Sodium (Porcine) (Heparin -) 5,000 unit SQ TID [facility] Last Admin: 09/22/18 05:45 Dose: 5,000 unit Lactated Ringer's (Lactated Ringers Solution) 1,000 mls @ 83 mls/hr IV ASDIR [facility] Last Admin: 09/22/18 05:46 Dose: 83 mls/hr Levothyroxine Sodium (Synthroid -) 150 mcg PO DAILY@0700 [facility] Last Admin: 09/22/18 06:25 Dose: 150 mcg Loperamide HCl (Imodium -) 2 mg PO Q8H PRN PRN Reason: DIARRHEA Last Admin: 09/19/18 21:30 Dose: 2 mg Mirtazapine (Remeron -) 45 mg PO HS [facility] Last Admin: 09/21/18 21:03 Dose: 45 mg Miscellaneous (Duragesic Patch Waste) 1 each MC PRN PRN PRN Reason: PAIN Oxycodone HCl (Roxicodone -) 5 mg PO Q4H PRN PRN Reason: PAIN LEVEL 6-10 Last Admin: 09/21/18 23:32 Dose: 5 mg Vancomycin HCl (Vancomycin Oral Solution) 125 mg PO Q6HPO [facility] Last Admin: 09/22/18 05:45 Dose: 125 mg - Objective Vital Signs: Vital Signs Temperature 97.7 F 09/22/18 10:00 Pulse Rate 58 L 09/22/18 10:00 Respiratory Rate 20 09/22/18 10:00 Blood Pressure 160/60 09/22/18 10:00 O2 Sat by Pulse Oximetry (%) 98 09/21/18 22:00 Cardiovascular: Yes: Regular Rate and Rhythm Respiratory: Yes: Regular, CTA Bilaterally Gastrointestinal: Yes: Normal Bowel Sounds, Soft. No: Tenderness Labs: CBC, BMP 09/21/18 11:45 09/21/18 11:45 INR, PTT INR 0.88 (0.83-1.09) 09/18/18 01:47 Problem List - Problems (1) Diarrhea Assessment/Plan: -FOBT was negative. -Cdiff positive - Possibly flair of her IBD -GI consult noted--follow up -send stool for Cdiff toxin PCR, culture, wbc -Tolerating diet -loperamide prn -CT of abdomen/pelvis noted -avoid unnecessary abx Code(s): R19.7 - DIARRHEA, UNSPECIFIED Qualifiers: Diarrhea type: unspecified type Qualified Code(s): R19.7 - Diarrhea, unspecified (2) Abdominal Pain Assessment/Plan: -see above (4) Hypothyroidism Assessment/Plan: - - c/w home dose of levothyroxine Code(s): E03.9 - HYPOTHYROIDISM, UNSPECIFIED (5) History of colectomy Code(s): Z90.49 - ACQUIRED ABSENCE OF OTHER SPECIFIED PARTS OF DIGESTIVE TRACT (6) Afib Assessment/Plan: -review old records -check on ac--no AC at this time -cardio appreciated Code(s): I48.91 - UNSPECIFIED ATRIAL FIBRILLATION
[2018-09-22] MEDS: fentaNYL 75mcg/hr PATCH.TD72 TD SCH (14:54)
[2018-09-22] MEDS ORDERED: clonazePAM 0.5 MG TABLET PO ONE (21:15)
[2018-09-22] MEDS: MIRTAZAPINE 15 MG TABLET (FP) PO SCH (21:18)
[2018-09-23] MEDS: VANCOMYCIN 250 MG/5 ML ORAL SOLUTION PO SCH ×3 (00:04→12:17)
[2018-09-23] MEDS: LACTATED RINGERS SOLUTION 1,000 ML IV SCH (06:21)
[2018-09-23] MEDS: HEPARIN NA (PORCINE) 5,000 UNITS/ML 1ML VIAL SQ SCH (06:22)
[2018-09-23] MEDS: LEVOTHYROXINE NA 150 MCG TABLET PO SCH (06:22)
[2018-09-23 10:11] VITALS: BP 136/60; PULSE 56; TEMP 98
--- NOTE | 2018-09-23 11:25 | DS ---
Physical Examination Vital Signs: Vital Signs Temperature 98.0 F 09/23/18 09:00 Pulse Rate 56 L 09/23/18 09:00 Respiratory Rate 20 09/23/18 09:00 Blood Pressure 136/60 09/23/18 09:00 O2 Sat by Pulse Oximetry (%) 97 09/22/18 21:00 Cardiovascular: Yes: Regular Rate and Rhythm Respiratory: Yes: Regular, CTA Bilaterally Gastrointestinal: Yes: Normal Bowel Sounds, Soft. No: Tenderness Labs: CBC, BMP 09/21/18 11:45 09/21/18 11:45 Discharge Summary Reason For Visit: SMALL BOWEL OBSTRUCTION DIARRHEA Current Active Problems Afib (Acute) Diarrhea (Acute) History of colectomy (Acute) SBO (small bowel obstruction) (Acute) Hospital Course: - Problems (1) Diarrhea Assessment/Plan: -FOBT was negative. -Cdiff positive - Possibly flair of her IBD -GI consult noted--follow up -send stool for Cdiff toxin PCR, culture, wbc -Tolerating diet -loperamide prn -CT of abdomen/pelvis noted -avoid unnecessary abx Code(s): R19.7 - DIARRHEA, UNSPECIFIED Qualifiers: Diarrhea type: unspecified type Qualified Code(s): R19.7 - Diarrhea, unspecified (2) Abdominal Pain Assessment/Plan: -see above -resolved (4) Hypothyroidism Assessment/Plan: - - c/w home dose of levothyroxine Code(s): E03.9 - HYPOTHYROIDISM, UNSPECIFIED (5) History of colectomy Code(s): Z90.49 - ACQUIRED ABSENCE OF OTHER SPECIFIED PARTS OF DIGESTIVE TRACT (6) Afib Assessment/Plan: -review old records -check on ac--no AC at this time -cardio appreciated Code(s): I48.91 - UNSPECIFIED ATRIAL FIBRILLATION Condition: Fair - Instructions Referrals: Diony Gutierrez [Primary Care Provider] - 1 Week Mary Ann Sorenson DO [Staff Physician] - Disposition: VNS/HOME HEALTH CARE - Home Medications Comprehensive Discharge Medication List: Ambulatory Orders clonazePAM [KlonoPIN] 2 mg PO HS #0 tablet 09/05/13 Levothyroxine [Synthroid -] 150 mcg PO 0700 #30 tablet 11/10/13 Diphenoxylate 2.5/Atropine.025 [Lomotil -] 1 combo PO Q6H PRN #28 tablet MDD 4 tabs 08/30/17 Loperamide HCl [Imodium -] 2 mg PO Q8H #21 capsule 08/30/17 Bupropion HCl [Wellbutrin -] 75 mg PO DAILY 10/19/17 Mirtazapine [Remeron -] 45 mg PO DAILY 10/19/17 Vancomycin Oral Solution 125 mg PO Q6HPO #40 ml 09/20/18 Vancomycin HCl 125 mg PO QID #21 cap 09/23/18
--- NOTE | 2018-09-23 11:30 | PN ---
Progress Note, Physician Chief Complaint: denies abdominal pain / n/v / tolerating diet - Current Medication List Current Medications: Active Medications Acetaminophen (Tylenol -) 650 mg PO Q6H PRN PRN Reason: HEADACHE Last Admin: 09/21/18 05:36 Dose: 650 mg Docusate Sodium (Colace -) 100 mg PO BID PRN PRN Reason: CONSTIPATION Fentanyl (Duragesic 75mcg Patch -) 1 patch TD Q72H [facility] Last Admin: 09/22/18 14:54 Dose: 1 patch Heparin Sodium (Porcine) (Heparin -) 5,000 unit SQ TID [facility] Last Admin: 09/23/18 06:22 Dose: 5,000 unit Lactated Ringer's (Lactated Ringers Solution) 1,000 mls @ 83 mls/hr IV ASDIR [facility] Last Admin: 09/23/18 06:21 Dose: 83 mls/hr Levothyroxine Sodium (Synthroid -) 150 mcg PO DAILY@0700 [facility] Last Admin: 09/23/18 06:22 Dose: 150 mcg Loperamide HCl (Imodium -) 2 mg PO Q8H PRN PRN Reason: DIARRHEA Last Admin: 09/19/18 21:30 Dose: 2 mg Mirtazapine (Remeron -) 45 mg PO HS [facility] Last Admin: 09/22/18 21:18 Dose: 45 mg Miscellaneous (Duragesic Patch Waste) 1 each MC PRN PRN PRN Reason: PAIN Last Admin: 09/22/18 14:55 Dose: 1 each Vancomycin HCl (Vancomycin Oral Solution) 125 mg PO Q6HPO [facility] Last Admin: 09/23/18 06:21 Dose: 125 mg - Objective Vital Signs: Vital Signs Temperature 98.0 F 09/23/18 09:00 Pulse Rate 56 L 09/23/18 09:00 Respiratory Rate 20 09/23/18 09:00 Blood Pressure 136/60 09/23/18 09:00 O2 Sat by Pulse Oximetry (%) 97 09/22/18 21:00 Constitutional: Yes: Well Nourished, No Distress Eyes: Yes: WNL HENT: Yes: WNL Neck: Yes: WNL Cardiovascular: Yes: WNL, Regular Rate and Rhythm Respiratory: Yes: WNL Gastrointestinal: Yes: WNL, Normal Bowel Sounds Extremities: Yes: WNL Edema: No Labs: CBC, BMP 09/21/18 11:45 09/21/18 11:45 INR, PTT INR 0.88 (0.83-1.09) 09/18/18 01:47 Problem List - Problems (1) Diarrhea Assessment/Plan: c/w PO vanco 250 mg Q6 f/u stool c.diff PCR low residue lactose free diet Code(s): R19.7 - DIARRHEA, UNSPECIFIED Qualifiers: Diarrhea type: unspecified type Qualified Code(s): R19.7 - Diarrhea, unspecified (2) History of colectomy Code(s): Z90.49 - ACQUIRED ABSENCE OF OTHER SPECIFIED PARTS OF DIGESTIVE TRACT
== END 2018-09-23 13:12 | disposition home health service (06) | DRG 372 ==
LOC: JER 22:28 → JERBED 09-19 04:10 → J8W 09-19 12:45 → J6S 09-19 18:39
PROVIDERS: ADMIT Family Medicine; ATTEND Family Medicine
DX: A04.71 Enterocolitis due to Clostridium difficile, recurrent (principal); K50.90 Crohn's disease, unspecified, without complications; G30.9 Alzheimer's disease, unspecified; F02.80 Dementia in other diseases classified elsewhere, unspecified severity, without behavioral disturbance, psychotic disturbance, mood disturbance, and anxiety; J44.9 Chronic obstructive pulmonary disease, unspecified; K90.0 Celiac disease; Z87.440 Personal history of urinary (tract) infections; E03.9 Hypothyroidism, unspecified; I48.0 Paroxysmal atrial fibrillation
CPT/HCPCS: 36415; 71045-TC-FY; 74177-TC; 80048; 80053; 81003; 81015; 82272; 83605; 83735; 84100; 84484; 85025; 85027; 85610; 85651; 87040; 87086; 87186; 87205; 87324; 87449; 87493; 90688; 93005; 93010; 99284-25; G0008; J1644; J7030

== ENCOUNTER 2018-12-05 11:20 | Inpatient (IN) | payer OTHER ==
[2018-12-05 12:24] VITALS: BMI 23.8
--- NOTE | 2018-12-05 13:22 | PDOC ---
History of Present Illness - General Chief Complaint: Diarrhea Stated Complaint: DIARRHEA Time Seen by Provider: 12/05/18 13:21 - History of Present Illness Initial Comments: 12/05/18 13:21 68 year old woman with a history of dementia, Cdiff, crohn's disease, hypothyroidism, RA, frequent UTIs, celiac disease, COPD, afib and UC s/p colectomy who presents with Past History - Past Medical History Allergies/Adverse Reactions: Allergies Allergy/AdvReac Type Severity Reaction Status Date / Time gluten Allergy Severe Vomiting Verified 12/05/18 12:24 morphine Allergy Severe Verified 12/05/18 12:24 Sulfa (Sulfonamide Allergy Verified 12/05/18 12:24 Antibiotics) Home Medications: Ambulatory Orders clonazePAM [KlonoPIN] 2 mg PO HS #0 tablet 09/05/13 Levothyroxine [Synthroid -] 150 mcg PO 0700 #30 tablet 11/10/13 Diphenoxylate 2.5/Atropine.025 [Lomotil -] 1 combo PO Q6H PRN #28 tablet MDD 4 tabs 08/30/17 Loperamide HCl [Imodium -] 2 mg PO Q8H #21 capsule 08/30/17 Bupropion HCl [Wellbutrin -] 75 mg PO DAILY 10/19/17 Mirtazapine [Remeron -] 45 mg PO DAILY 10/19/17 Vancomycin Oral Solution 125 mg PO Q6HPO #40 ml 09/20/18 Vancomycin HCl 125 mg PO QID #21 cap 09/23/18 Anemia: Yes Asthma: No Cancer: Yes (tumors of small intestine) Cardiac Disorders: No CVA: No COPD: Yes CHF: No Dementia: No Diabetes: No GI Disorders: Yes (CHROHN, RECTAL ULCER, celiac disease) Disorders: No HTN: Yes Hypercholesterolemia: Yes Liver Disease: No Seizures: No Thyroid Disease: Yes - Surgical History Abdominal Surgery: Yes (J POUCH) Appendectomy: Yes (1995) Cardiac Surgery: No Cholecystectomy: Yes (2001) Lung Surgery: No Neurologic Surgery: No Orthopedic Surgery: Yes (right femur kirby 2010,) - Immunization History Immunization Up to Date: Yes - Suicide/Smoking/Psychosocial Hx Smoking Status: No Smoking History: Former smoker Have you smoked in the past 12 months: No Information on smoking cessation initiated: No Hx Alcohol Use: No Drug/Substance Use Hx: No Substance Use Type: None Hx Substance Use Treatment: No *Physical Exam - Vital Signs Last Vital Signs Temp Pulse Resp BP Pulse Ox 99.1 F 60 18 129/72 97 12/05/18 12:22 12/05/18 12:22 12/05/18 12:22 12/05/18 12:22 12/05/18 12:22 Moderate Sedation - Procedure Monitoring Vital Signs: Procedure Monitoring Vital Signs Temperature 99.1 F 12/05/18 12:22 Pulse Rate 60 12/05/18 12:22 Respiratory Rate 18 12/05/18 12:22 Blood Pressure 129/72 12/05/18 12:22 O2 Sat by Pulse Oximetry (%) 97 12/05/18 12:22
[2018-12-05] MEDS ORDERED: ONDANSETRON 4 MG/2 ML VIAL IVPUSH ONE (13:55)
[2018-12-05] MEDS ORDERED: SODIUM CHLORIDE 1,000 ML IV STA (13:55)
[2018-12-05 15:07] LABS: BASO % 0.4 % (0-2.0); EOS % 3.2 % (0-4.5); HEMATOCRIT 35.2 % (32.4-45.2); MCH 29.9 pg (25.7-33.7); MCHC 34.1 g/dl (32.0-36.0); MEAN CELL VOLUME 87.8 fl (80-96); MEAN PLT VOLUME 9.1 fl (7.5-11.1); MONO % 6.7 % (3.8-10.2); NEUT % 70.7 % (42.8-82.8); PLATELET COUNT 275 K/MM3 (134-434); RDW 17.4 % (11.6-15.6); WHITE BLOOD COUNT 6.5 K/mm3 (4.0-10.0)
--- NOTE | 2018-12-05 15:20 | PDOC ---
History of Present Illness - General Chief Complaint: Diarrhea Stated Complaint: DIARRHEA Time Seen by Provider: 12/05/18 13:21 History Source: Patient Exam Limitations: No Limitations - History of Present Illness Initial Comments: 12/05/18 15:14 Patient is a 68F with history of Crohn's disease, j-pouch, c-diff, alzheimer dementia, COPD, afib (no blood thinners) here today complaining of diarrhea for the past two months. She states that she is coming in today because her pain has increased. Endorses subjective fevers and chills. Endorses nausea, no vomiting. Denies chest pain and shortness of breath. Patient states that she has been taking vancomycin, review of record shows c diff evaluation was inconclusive, but started on vanc because of one test that was positive. Patient reports multiple episodes of diarrhea. [facility] is her GI. Patient also states that she has dysuria. GI: Rosa, has appt on Monday with new GI in [place], Dr Mary Ann Sorenson Past History - Past Medical History Allergies/Adverse Reactions: Allergies Allergy/AdvReac Type Severity Reaction Status Date / Time gluten Allergy Severe Vomiting Verified 12/05/18 12:24 morphine Allergy Severe Verified 12/05/18 12:24 Sulfa (Sulfonamide Allergy Verified 12/05/18 12:24 Antibiotics) Home Medications: Ambulatory Orders clonazePAM [KlonoPIN] 2 mg PO HS #0 tablet 09/05/13 Levothyroxine [Synthroid -] 150 mcg PO 0700 #30 tablet 11/10/13 Diphenoxylate 2.5/Atropine.025 [Lomotil -] 1 combo PO Q6H PRN #28 tablet MDD 4 tabs 08/30/17 Loperamide HCl [Imodium -] 2 mg PO Q8H #21 capsule 08/30/17 Bupropion HCl [Wellbutrin -] 75 mg PO DAILY 10/19/17 Mirtazapine [Remeron -] 45 mg PO DAILY 10/19/17 Vancomycin Oral Solution 125 mg PO Q6HPO #40 ml 09/20/18 Vancomycin HCl 125 mg PO QID #21 cap 09/23/18 Anemia: Yes Asthma: No Cancer: Yes (tumors of small intestine) Cardiac Disorders: No CVA: No COPD: Yes CHF: No Dementia: No Diabetes: No GI Disorders: Yes (CHROHN, RECTAL ULCER, celiac disease) Disorders: No HTN: Yes Hypercholesterolemia: Yes Liver Disease: No Seizures: No Thyroid Disease: Yes - Surgical History Abdominal Surgery: Yes (J POUCH) Appendectomy: Yes (1995) Cardiac Surgery: No Cholecystectomy: Yes (2001) Lung Surgery: No Neurologic Surgery: No Orthopedic Surgery: Yes (right femur kriby 2010,) - Immunization History Immunization Up to Date: Yes - Suicide/Smoking/Psychosocial Hx Smoking Status: No Smoking History: Former smoker Have you smoked in the past 12 months: No Information on smoking cessation initiated: No Hx Alcohol Use: No Drug/Substance Use Hx: No Substance Use Type: None Hx Substance Use Treatment: No Review of Systems - Review of Systems Comments:: 12/05/18 15:17 GENERAL/CONSTITUTIONAL: No fever or chills. No weakness. HEAD, EYES, EARS, NOSE AND THROAT: No change in vision. No sore throat. CARDIOVASCULAR: No chest pain or shortness of breath RESPIRATORY: No cough, wheezing, or hemoptysis. GASTROINTESTINAL: +nausea, no vomiting, +diarrhea GENITOURINARY: +dysuria, no frequency. MUSCULOSKELETAL: No joint or muscle swelling or pain. No neck or back pain. SKIN: No rash NEUROLOGIC: No headache, vertigo, loss of consciousness, or change in strength/ sensation. ALLERGIC/IMMUNOLOGIC: No hives or skin allergy. *Physical Exam - Vital Signs Last Vital Signs Temp Pulse Resp BP Pulse Ox 99.1 F 60 18 129/72 97 12/05/18 12:22 12/05/18 12:22 12/05/18 12:22 12/05/18 12:22 12/05/18 12:22 - Physical Exam Comments: 12/05/18 15:17 GENERAL: Awake, alert, and fully oriented, in no acute distress HEAD: No signs of trauma, normocephalic, atraumatic EYES: PERRLA, EOMI, sclera anicteric, conjunctiva clear ENT: Auricles normal inspection, hearing grossly normal, nares patent, oropharynx clear without exudates. Moist mucosa NECK: Normal ROM, supple, no lymphadenopathy, JVD, or masses LUNGS: No distress, speaks full sentences, clear to auscultation bilaterally HEART: Regular rate and rhythm, normal S1 and S2, no murmurs, rubs or gallops, peripheral pulses normal and equal bilaterally. ABDOMEN: Soft, mildly tender in RLQ and LLQ. No guarding, no rebound. No masses EXTREMITIES: Normal inspection, Normal range of motion, no edema. No clubbing or cyanosis. NEUROLOGICAL: Cranial nerves II through XII grossly intact. Normal speech, no focal sensorimotor deficits SKIN: Warm, Dry, normal turgor, no rashes or lesions noted. Moderate Sedation - Procedure Monitoring Vital Signs: Procedure Monitoring Vital Signs Temperature 99.1 F 12/05/18 12:22 Pulse Rate 60 12/05/18 12:22 Respiratory Rate 18 12/05/18 12:22 Blood Pressure 129/72 12/05/18 12:22 O2 Sat by Pulse Oximetry (%) 97 12/05/18 12:22 ED Treatment Course - LABORATORY CBC & Chemistry Diagram: 12/05/18 14:46 12/05/18 14:46 - ADDITIONAL ORDERS Additional order review: 12/05/18 14:46 RBC 4.00 MCV 87.8 MCHC 34.1 RDW 17.4 H Neutrophils % 70.7 D Lymphocytes % 19.0 D Monocytes % 6.7 Eosinophils % 3.2 Basophils % 0.4 Medical Decision Making - Medical Decision Making 12/05/18 15:18 Patient is 68F with history of Crohn's disease, alzheimer dementia, COPD, afib here today with abdominal pain and diarrhea. Stool sample collected. Vitals normal and stable. PE shows mild pain in lower abdomen. Stool cultures and c diff sent. Abdominal pain workup sent. DDx includes, but is not limited to: colitis, cdiff, diverticulitis. 12/05/18 20:05 UA positive, given ESBL history will cover with meropenem. Increasing pain in lower quadrants, morphine allergy stated. Patient states that she got confused after morphine once, not a true allergy. Given 2mg for pain. Other labs reassuring. Pending CT. 12/05/18 20:58 CT shows no acute process. Will admit for ESBL UTI. *DC/Admit/Observation/Transfer Diagnosis at time of Disposition: UTI (urinary tract infection) - Discharge Dispostion Condition at time of disposition: Stable Decision to Admit order: Yes - Referrals - Patient Instructions - Post Discharge Activity
[2018-12-05 15:29] LABS: ALBUMIN 3.6 g/dl (3.4-5.0); ALK PHOS 99 U/L (45-117); ANION GAP 5 MMOL/L (8-16); BILIRUBIN,TOTAL 0.4 mg/dL (0.2-1); BLOOD UREA NITROGEN 19 mg/dL (7-18); CALCIUM 8.9 mg/dL (8.5-10.1); CHLORIDE 101 mmol/L (98-107); CO2 33 mmol/L (21-32); GLUCOSE,RANDOM 80 mg/dL (74-106); LIPASE 200 U/L (73-393); POTASSIUM 4.8 mmol/L (3.5-5.1); SGOT/AST 64 U/L (15-37); SGPT/ALT 86 U/L (13-61); SODIUM 139 mmol/L (136-145); TOT PROT 7.1 g/dl (6.4-8.2)
[2018-12-05] MEDS ORDERED: ONDANSETRON 4 MG/2 ML VIAL ONE (16:14)
[2018-12-05] MEDS ORDERED: ACETAMINOPHEN 1000 MG/100 ML VIAL (NON FORMULARY) IVPB ONE (16:37)
--- NOTE | 2018-12-05 16:45 | PDOC ---
Attending Attestation - Resident Resident Name: Prabhakar Mayer - ED Attending Attestation I have performed the following: I have examined & evaluated the patient, The case was reviewed & discussed with the resident, I agree w/resident's findings & plan, Exceptions are as noted - HPI HPI: 12/05/18 16:38 The patient is a 68-year-old female, with a past medical history of afib, COPD, Crohns disease, J-pouch, cdiff (treated with vancomycin - completed 2 weeks ago ), alzheimers dementia, who presents to the ED with 2 months of diarrhea and lower abdominal pain that began yesterday. She reports having multiple episodes of diarrhea, no blood noted and nausea, but no vomiting. REports up to 4 episodes of diarrhea daily. Pt also reports dysuria/frequency for 3 days, denies hematuria. Denies fevers, chills. Denies CP, SOB, LE edema, dizziness, focal weakness or numbness. - Physicial Exam PE: 12/05/18 16:41 GENERAL: Awake, alert, and fully oriented, in no acute distress EYES: PERRLA, EOMI, sclera anicteric, conjunctiva clear ENT: Oropharynx clear without exudates. Moist mucosa LUNGS: Breath sounds equal, clear to auscultation bilaterally. No wheezes, and no crackles HEART: Regular rate and rhythm, normal S1 and S2, no murmurs, rubs or gallops ABDOMEN: Soft, diffuse non focal mild ttp, normoactive bowel sounds. No guarding, no rebound. No masses EXTREMITIES: Normal range of motion, no edema. No cords, erythema, or tenderness NEUROLOGICAL: Normal speech, cranial nerves intact, equal strength and sensation b/l, normal gait. SKIN: Warm, Dry, normal turgor, no rashes or lesions noted. - Medical Decision Making 12/05/18 16:45 68yo F with MMP including cdiff s/p vanc presents to the ED with recurrent non bloody diarrhea and 3 days of dysuria. Vitals wnl. Exam with diffuse mild ttp, no focal tenderness. In light of surgical hx (colectomy) plan for CTAP with PO contrast to r/o acute pathology. C.diff cx sent to lab. Plan for labs, UA, IVF, reassess. 12/05/18 18:05 Labs unremarkable UA+ for UTI, on review of micro, pt has hx ESBL EColi. Pt covered with ertapenem CTAP pending, pt there now. Pt will need admission at minimum for ESBL UTI 12/05/18 19:00 Pt at CTAP Case signed out to overnight attending for f/u on CTAP and admission
[2018-12-05] MEDS ORDERED: ACETAMINOPHEN INJECTION 100 ML IVPB ONE (17:04)
[2018-12-05 17:34] LABS: URINE APPEARANCE CLEAR; URINE BILIRUBIN NEGATIVE (<2.0 mg/dL); URINE COLOR STRAW; URINE GLUCOSE (UA) NEGATIVE (NEGATIVE); URINE KETONE NEGATIVE (NEGATIVE); URINE LEUK ESTERASE 2+ (NEGATIVE); URINE NITRITE NEGATIVE (NEGATIVE); URINE PROTEIN NEGATIVE (NEGATIVE); URINE UROBILINOGEN NEGATIVE mg/dL (0.2-1.0)
[2018-12-05 17:44] LABS: URINE BACTERIA MODERATE /hpf (NONE SEEN)
[2018-12-05] MEDS ORDERED: ERTAPENEM SODIUM 1 GM/50 ML PRE-DOCKED IVPB ONE (18:00)
[2018-12-05] MEDS ORDERED: morphine CARPU-JECT 2 MG/1 ML DISP.SYRIN IVPUSH ONE (20:00)
[2018-12-05] MEDS ORDERED: MORPHINE SULFATE 2 MG/ML VIAL ONE (20:19)
--- NOTE | 2018-12-05 21:43 | HP ---
CHIEF COMPLAINT: dysuria, diarrhea PCP: HISTORY OF PRESENT ILLNESS: 68yo woman with UC s/p colectomy, Jpouch, Crohns, comes in c/o recurrent diarrhea with up to 5-6 loose BMs/day and dysuria which she said she's had since this March. Patient w/ history of ESBL. In ER she fell out of bed and hit head and left upper extremity. Unwitnessed. Denied any LOC ER course was notable for: (1) fall (2) head CT (3) imaging of left upper ext Recent Travel: denied PAST MEDICAL HISTORY:afib, COPD, Crohns disease, J-pouch, cdiff (treated with vancomycin - completed 2 weeks ago), alzheimers dementia, PAST SURGICAL HISTORY: J pouch, appendectomy, Cholecystectomy: Yes (2001), Yes ( right femur kirby 2010,) Social History: Smoking: no Alcohol: no Drugs: no Family History: Allergies gluten Allergy (Severe, Verified 12/05/18 12:24) Vomiting morphine Allergy (Severe, Verified 12/05/18 12:24) Sulfa (Sulfonamide Antibiotics) Allergy (Verified 12/05/18 12:24) HOME MEDICATIONS: Home Medications Medication Instructions Recorded clonazePAM [KlonoPIN] 2 mg PO HS #0 tablet 09/05/13 Levothyroxine [Synthroid -] 150 mcg PO 0700 #30 tablet 11/10/13 Diphenoxylate 2.5/Atropine.025 1 combo PO Q6H PRN #28 tablet MDD 08/30/17 [Lomotil -] 4 tabs Loperamide HCl [Imodium -] 2 mg PO Q8H #21 capsule 08/30/17 Bupropion HCl [Wellbutrin -] 75 mg PO DAILY 10/19/17 Mirtazapine [Remeron -] 45 mg PO DAILY 10/19/17 Vancomycin Oral Solution 125 mg PO Q6HPO #40 ml 09/20/18 Vancomycin HCl 125 mg PO QID #21 cap 09/23/18 REVIEW OF SYSTEMS CONSTITUTIONAL: Absent: fever, chills, diaphoresis, weight change present- generalized weakness, malaise, loss of appetite, HEENT: Absent: rhinorrhea, nasal congestion, throat pain, throat swelling, difficulty swallowing, mouth swelling, ear pain, eye pain, visual changes CARDIOVASCULAR: Absent: chest pain, syncope, palpitations, irregular heart rate, lightheadedness , peripheral edema RESPIRATORY: Absent: cough, shortness of breath, dyspnea with exertion, orthopnea, wheezing, stridor, hemoptysis GASTROINTESTINAL: Absent: abdominal pain, abdominal distension, nausea, vomiting, constipation, melena, hematochezia present - diarrhea, GENITOURINARY: Absent:, frequency, urgency, hesitancy, hematuria, flank pain, genital pain present- dysuria MUSCULOSKELETAL: Absent: myalgia, arthralgia, joint swelling, back pain, neck pain SKIN: Absent: rash, itching, pallor HEMATOLOGIC/IMMUNOLOGIC: Absent: easy bleeding, easy bruising, lymphadenopathy, frequent infections ENDOCRINE: Absent: unexplained weight gain, unexplained weight loss, heat intolerance, cold intolerance NEUROLOGIC: Absent: , focal weakness or paresthesias, dizziness, unsteady gait, seizure, mental status changes, present- headache PSYCHIATRIC: Absent: anxiety, depression, suicidal or homicidal ideation, hallucinations. PHYSICAL EXAMINATION Vital Signs - 24 hr 12/05/18 12:22 Temperature 99.1 F Pulse Rate 60 Respiratory 18 Rate Blood Pressure 129/72 O2 Sat by Pulse 97 Oximetry (%) GENERAL: Awake, alert, and fully oriented, in no acute distress. HEAD: Normal with no signs of trauma. EYES: Pupils equal, round and reactive to light, extraocular movements intact, sclera anicteric, conjunctiva clear. No lid lag. EARS, NOSE, THROAT: Ears normal, nares patent, oropharynx clear without exudates. Moist mucous membranes. NECK: Normal range of motion, supple without lymphadenopathy, JVD, or masses. LUNGS: Breath sounds equal, clear to auscultation bilaterally. No wheezes, and no crackles. No accessory muscle use. HEART: Regular rate and rhythm, normal S1 and S2 without murmur, rub or gallop. ABDOMEN: Soft, nontender, not distended, normoactive bowel sounds, no guarding, no rebound, no masses. No hepatomegaly or splenomegaly. MUSCULOSKELETAL: limited movement of shoulder joint UPPER EXTREMITIES: in sling , some discomfort with movement of arm, no overt deformities seen NEUROLOGICAL: Cranial nerves II-XII intact. Normal speech. Normal gait. PSYCHIATRIC: Cooperative. Good eye contact. Appropriate mood and affect. SKIN: Warm, dry, normal turgor, no rashes or lesions noted, normal capillary refill. Laboratory Results - last 24 hr 12/05/18 12/05/18 12/05/18 14:46 14:46 15:10 WBC 6.5 RBC 4.00 Hgb 12.0 Hct 35.2 MCV 87.8 MCH 29.9 MCHC 34.1 RDW 17.4 H Plt Count 275 D MPV 9.1 D Absolute Neuts (auto) 4.6 Neutrophils % 70.7 D Lymphocytes % 19.0 D Monocytes % 6.7 Eosinophils % 3.2 Basophils % 0.4 Nucleated RBC % 0 Sodium 139 Potassium 4.8 Chloride 101 Carbon Dioxide 33 H Anion Gap 5 L BUN 19 H Creatinine 1.0 Creat Clearance w eGFR 55.30 Random Glucose 80 Calcium 8.9 Total Bilirubin 0.4 AST 64 H ALT 86 H Alkaline Phosphatase 99 Total Protein 7.1 Albumin 3.6 Lipase 200 Urine Color Straw Urine Appearance Clear Urine pH 7.0 D Ur Specific [place] 1.006 L Urine Protein Negative Urine Glucose (UA) Negative Urine Ketones Negative Urine Blood Negative Urine Nitrite Negative Urine Bilirubin Negative Urine Urobilinogen Negative Ur Leukocyte Esterase 2+ H Urine WBC (Auto) 19 Urine RBC (Auto) <1 Urine Bacteria Moderate ASSESSMENT/PLAN: #Diarrhea- r/o recurrent cdiff -restart on po vanconycin 125mg po q6hrs -send stool for cdiff pcr -stool culture -contact precautions #Dysuria - pyuria on UA, hx of ESBL organisms -urine culture -s/p ertapenem -id consult #Hx of afib -ekg -not on ac dvt ppx -heparin sc diet- low fiber diet Visit type - Emergency Visit Emergency Visit: Yes ED Registration Date: 12/05/18 Care time: The patient presented to the Emergency Department on the above date and was hospitalized for further evaluation of their emergent condition. - New Patient This patient is new to me today: Yes Date on this admission: 12/06/18 - Critical Care Critical Care patient: No
--- NOTE | 2018-12-05 21:45 | PDOC ---
*Physical Exam - Vital Signs Last Vital Signs Temp Pulse Resp BP Pulse Ox 99.1 F 60 18 129/72 97 12/05/18 12:22 12/05/18 12:22 12/05/18 12:22 12/05/18 12:22 12/05/18 12:22 ED Treatment Course - LABORATORY CBC & Chemistry Diagram: 12/05/18 14:46 12/05/18 14:46 - ADDITIONAL ORDERS Additional order review: Laboratory Results 12/05/18 12/05/18 15:10 14:46 Sodium 139 Potassium 4.8 Chloride 101 Carbon Dioxide 33 H Anion Gap 5 L BUN 19 H Creatinine 1.0 Creat Clearance w eGFR 55.30 Random Glucose 80 Calcium 8.9 Total Bilirubin 0.4 AST 64 H ALT 86 H Alkaline Phosphatase 99 Total Protein 7.1 Albumin 3.6 Lipase 200 Urine Color Straw Urine Appearance Clear Urine pH 7.0 D Ur Specific [place] 1.006 L Urine Protein Negative Urine Glucose (UA) Negative Urine Ketones Negative Urine Blood Negative Urine Nitrite Negative Urine Bilirubin Negative Urine Urobilinogen Negative Ur Leukocyte Esterase 2+ H Urine WBC (Auto) 19 Urine RBC (Auto) <1 Urine Bacteria Moderate 12/05/18 14:46 RBC 4.00 MCV 87.8 MCHC 34.1 RDW 17.4 H MPV 9.1 D Neutrophils % 70.7 D Lymphocytes % 19.0 D Monocytes % 6.7 Eosinophils % 3.2 Basophils % 0.4 - RADIOLOGY Radiology Studies Ordered: Category Date Time Status ABDOMEN & PELVIS CT WITH CONTR [CT] Stat CT Scan 12/05/18 15:20 Taken - Medications Given in the ED: ED Medications Discontinued Medications Generic Name Dose Route Start Last Admin Trade Name Cristobal PRN Reason Stop Dose Admin Acetaminophen 1,000 mg 12/05/18 16:37 12/05/18 17:02 Ofirmev Injection - IVPB 12/05/18 16:38 1,000 mg ONCE ONE Administration Ertapenem 1 gm 12/05/18 18:00 12/05/18 20:08 Invanz (Pre-Docked) IVPB 12/05/18 18:01 1 gm ONCE ONE Administration Sodium Chloride 1,000 mls @ 1,000 mls/hr 12/05/18 13:55 12/05/18 16:12 Normal Saline - IV 12/05/18 14:54 1,000 mls/hr ASDIR STA Administration Morphine Sulfate 2 mg 12/05/18 20:00 12/05/18 20:27 Morphine Injection - IVPUSH 12/05/18 20:01 2 mg ONCE ONE Administration Ondansetron HCl 4 mg 12/05/18 13:55 12/05/18 16:13 Zofran Injection IVPUSH 12/05/18 13:56 4 mg ONCE ONE Administration Medical Decision Making - Medical Decision Making 12/05/18 21:42 Called to patient's bedside because she was found on the floor. Patient was conscious, states that she was tried to get out of bed to go to bathroom. States that she put siderail down herself to nursing. Denies LOC. Unwitnessed. On exam, patient is fully alert and oriented with small amount of blood on lower lip. Head exam shows no obvious injury. No midline neck tenderness, normal range of motion. L arm is being held with the forearm across the belly. Neurovascularly intact in fingers.Nontender snuffbox and thumb with axial loading. Nontender wrist, forearm. Tender along superior aspect of humerus. Suspect dislocation vs humeral fracture. CT head/c-spine ordered. Patient exposed, nontender back, no injuries noted on back. No pain in legs, chest or abdomen on exam. No other injuries noted. 12/05/18 22:21 D/w Dr Thomas. *DC/Admit/Observation/Transfer Diagnosis at time of Disposition: UTI (urinary tract infection) - Discharge Dispostion Condition at time of disposition: Stable - Referrals - Patient Instructions - Post Discharge Activity
[2018-12-05] MEDS ORDERED: MIRTAZAPINE 30 MG TABLET (FP) PO SCH (22:00)
[2018-12-05] MEDS ORDERED: VANCOMYCIN HCL 125 MG PO SCH (22:00)
[2018-12-05] MEDS ORDERED: clonazePAM 2 MG TABLET PO PRN (22:00)
[2018-12-06] MEDS ORDERED: HEPARIN NA (PORCINE) 5,000 UNITS/ML 1ML VIAL ONE ×2 (00:26→22:58)
[2018-12-06] MEDS ORDERED: LOPERAMIDE HCL 2 MG CAPSULE ONE ×2 (00:27→06:51)
[2018-12-06] MEDS ORDERED: MIRTAZAPINE 15 MG TABLET (FP) ONE (00:28)
[2018-12-06] MEDS: HEPARIN NA (PORCINE) 5,000 UNITS/ML 1ML VIAL SQ SCH ×3 (00:42→23:02)
[2018-12-06] MEDS: LOPERAMIDE HCL 2 MG CAPSULE PO SCH ×3 (00:42→14:32)
[2018-12-06] MEDS: VANCOMYCIN 250 MG/5 ML ORAL SOLUTION PO SCH ×4 (00:58→18:38)
[2018-12-06] MEDS ORDERED: ONDANSETRON 4 MG/2 ML VIAL IVPB PRN (01:01)
[2018-12-06] MEDS ORDERED: LEVOTHYROXINE NA 25 MCG TABLET (FP) ONE (06:52)
[2018-12-06] MEDS: LEVOTHYROXINE NA 150 MCG TABLET PO SCH (07:15)
[2018-12-06 07:17] LABS: BASO % 0.6 % (0-2.0); EOS % 2.6 % (0-4.5); HEMATOCRIT 32.5 % (32.4-45.2); HEMOGLOBIN 10.8 GM/dL (10.7-15.3); LYMPH % 17.1 % (8-40); MCH 29.2 pg (25.7-33.7); MCHC 33.4 g/dl (32.0-36.0); MEAN CELL VOLUME 87.5 fl (80-96); MEAN PLT VOLUME 8.2 fl (7.5-11.1); MONO % 6.2 % (3.8-10.2); NEUT % 73.5 % (42.8-82.8); PLATELET COUNT 193 K/MM3 (134-434); RBC 3.71 M/mm3 (3.60-5.2); RDW 17.2 % (11.6-15.6); WHITE BLOOD COUNT 6.6 K/mm3 (4.0-10.0)
[2018-12-06 08:21] LABS: ANION GAP 6 MMOL/L (8-16); BLOOD UREA NITROGEN 17 mg/dL (7-18); CALCIUM 8.6 mg/dL (8.5-10.1); CHLORIDE 106 mmol/L (98-107); CO2 30 mmol/L (21-32); GLUCOSE,RANDOM 86 mg/dL (74-106); POTASSIUM 4.1 mmol/L (3.5-5.1); SODIUM 142 mmol/L (136-145)
[2018-12-06] MEDS ORDERED: MIRTAZAPINE PO SCH (10:00)
[2018-12-06] MEDS: buPROPion HCL 75 MG TABLET PO SCH (10:39)
[2018-12-06] MEDS: ACETAMINOPHEN 500 MG TABLET (FP) PO PRN (15:51)
[2018-12-06] MEDS ORDERED: oxyCODONE HCL 5 MG TABLET PO PRN (16:00)
[2018-12-06] MEDS ORDERED: morphine CARPU-JECT 2 MG/1 ML DISP.SYRIN IVPUSH PRN (16:01)
--- NOTE | 2018-12-06 16:02 | PN ---
Progress Note, Physician Chief Complaint: patient seen in Er earlier today on stretcher has arm sling - Current Medication List Current Medications: Active Medications Acetaminophen (Tylenol -) 500 mg PO Q6H PRN PRN Reason: PAIN LEVEL 6-10 Last Admin: 12/06/18 15:51 Dose: 500 mg Bupropion HCl (Wellbutrin -) 75 mg PO DAILY [facility] Last Admin: 12/06/18 10:39 Dose: 75 mg Clonazepam (Klonopin -) 2 mg PO HS PRN PRN Reason: INSOMNIA Heparin Sodium (Porcine) (Heparin -) 5,000 unit SQ BID [facility] Last Admin: 12/06/18 10:39 Dose: 5,000 unit Levothyroxine Sodium (Synthroid -) 150 mcg PO 0700 [facility] Last Admin: 12/06/18 07:15 Dose: 150 mcg Loperamide HCl (Imodium -) 2 mg PO TID [facility] Last Admin: 12/06/18 14:32 Dose: 2 mg Mirtazapine (Remeron -) 45 mg PO HS [facility] Last Admin: 12/06/18 00:42 Dose: 45 mg Ondansetron HCl (Zofran Injection) 4 mg IVPB Q6H PRN PRN Reason: NAUSEA Vancomycin HCl (Vancomycin Oral Solution) 125 mg PO QID [facility] Last Admin: 12/06/18 14:32 Dose: 125 mg - Objective Vital Signs: Vital Signs Temperature 99.3 F 12/06/18 13:00 Pulse Rate 68 12/06/18 13:00 Respiratory Rate 17 12/06/18 13:00 Blood Pressure 131/80 12/06/18 13:00 O2 Sat by Pulse Oximetry (%) 97 12/05/18 12:22 Constitutional: Yes: Calm, Thin Cardiovascular: Yes: Regular Rate and Rhythm, S1, S2 Respiratory: Yes: CTA Bilaterally Gastrointestinal: Yes: Normal Bowel Sounds, Soft Labs: CBC, BMP 12/06/18 05:45 12/06/18 05:45 Problem List - Problems (1) UTI (urinary tract infection) Assessment/Plan: ertrapenem ID eval cultures pending Code(s): N39.0 - URINARY TRACT INFECTION, SITE NOT SPECIFIED (2) Diarrhea Assessment/Plan: stool cultures pending c diff negative po vancomycin Code(s): R19.7 - DIARRHEA, UNSPECIFIED
--- NOTE | 2018-12-06 16:36 | PN ---
Progress Note (short form) - Note Progress Note: ID CONSULT DICTATED UTI HX ESBL DIARRHEA AWAIT C/S ERTAPENEM
--- NOTE | 2018-12-06 16:44 | EKG ---
Test Reason : Blood Pressure : / mmHG Vent. Rate : 057 BPM Atrial Rate : 057 BPM P-R Int : 176 ms QRS Dur : 078 ms QT Int : 412 ms P-R-T Axes : 065 041 064 degrees QTc Int : 401 ms SINUS BRADYCARDIA SEPTAL INFARCT , AGE UNDETERMINED ABNORMAL ECG WHEN COMPARED WITH ECG OF 19-SEP-2018 00:20, SEPTAL INFARCT IS NOW PRESENT Confirmed by ESTUARDO SHRESTHA, JERRY ([id number]) on 12/06/2018 4:44:33 PM Referred By: Confirmed By:JERRY MARTE MD
[2018-12-06] MEDS: ERTAPENEM SODIUM 1 GM in SODIUM CHLORIDE 50 ML IVPB SCH (19:17)
[2018-12-06] MEDS ORDERED: MORPHINE SULFATE 2 MG/ML VIAL ONE (21:37)
[2018-12-07] MEDS: LOPERAMIDE HCL 2 MG CAPSULE PO SCH ×4 (02:20→22:00)
[2018-12-07] MEDS: MIRTAZAPINE 30 MG, MIRTAZAPINE 15 MG PO SCH ×2 (02:20→22:01)
[2018-12-07] MEDS: VANCOMYCIN 250 MG/5 ML ORAL SOLUTION PO SCH ×5 (02:20→22:01)
[2018-12-07] MEDS ORDERED: clonazePAM 0.5 MG TABLET ONE (02:41)
[2018-12-07] MEDS ORDERED: oxyCODONE HCL 5 MG TABLET ONE (02:42)
[2018-12-07] MEDS ORDERED: ONDANSETRON 4 MG/2 ML VIAL ONE (02:42)
[2018-12-07] MEDS: oxyCODONE HCL 5 MG TABLET PO PRN ×2 (02:50→20:20)
[2018-12-07] MEDS: LEVOTHYROXINE NA 150 MCG TABLET PO SCH (07:15)
[2018-12-07] MEDS: HEPARIN NA (PORCINE) 5,000 UNITS/ML 1ML VIAL SQ SCH ×2 (09:48→22:00)
[2018-12-07] MEDS: ERTAPENEM SODIUM 1 GM in SODIUM CHLORIDE 50 ML IVPB SCH (09:48)
[2018-12-07] MEDS: buPROPion HCL 75 MG TABLET PO SCH (09:48)
--- NOTE | 2018-12-07 14:05 | PN ---
Progress Note, Physician Chief Complaint: patient seen in ER awake alert - Current Medication List Current Medications: Active Medications Acetaminophen (Tylenol -) 500 mg PO Q6H PRN PRN Reason: PAIN LEVEL 6-10 Last Admin: 12/06/18 15:51 Dose: 500 mg Bupropion HCl (Wellbutrin -) 75 mg PO DAILY [facility] Last Admin: 12/07/18 09:48 Dose: 75 mg Clonazepam (Klonopin -) 2 mg PO HS PRN PRN Reason: INSOMNIA Last Admin: 12/07/18 02:50 Dose: 2 mg Heparin Sodium (Porcine) (Heparin -) 5,000 unit SQ BID [facility] Last Admin: 12/07/18 09:48 Dose: 5,000 unit Ertapenem 1 gm/ Sodium (Chloride) 50 mls @ 100 mls/hr IVPB DAILY [facility] Last Admin: 12/07/18 09:48 Dose: 100 mls/hr Levothyroxine Sodium (Synthroid -) 150 mcg PO 0700 [facility] Last Admin: 12/07/18 07:15 Dose: 150 mcg Loperamide HCl (Imodium -) 2 mg PO TID [facility] Last Admin: 12/07/18 07:15 Dose: 2 mg Mirtazapine 30 mg/ Mirtazapine (15 mg) 45 mg PO HS [facility] Last Admin: 12/07/18 02:20 Dose: 45 mg Ondansetron HCl (Zofran Injection) 4 mg IVPB Q6H PRN PRN Reason: NAUSEA Last Admin: 12/07/18 02:51 Dose: 4 mg Oxycodone HCl (Roxicodone -) 5 mg PO Q6H PRN PRN Reason: PAIN LEVEL 7 - 10 Last Admin: 12/07/18 02:50 Dose: 5 mg Vancomycin HCl (Vancomycin Oral Solution) 125 mg PO QID [facility] Last Admin: 12/07/18 09:48 Dose: 125 mg - Objective Vital Signs: Vital Signs Temperature 98 F 12/07/18 09:58 Pulse Rate 61 12/07/18 09:58 Respiratory Rate 16 12/07/18 09:58 Blood Pressure 135/80 12/07/18 09:58 O2 Sat by Pulse Oximetry (%) 98 12/07/18 09:58 Constitutional: Yes: Calm Cardiovascular: Yes: Regular Rate and Rhythm, S1, S2 Respiratory: Yes: CTA Bilaterally Gastrointestinal: Yes: Normal Bowel Sounds, Soft Edema: No Neurological: Yes: Alert, Oriented Labs: CBC, BMP 12/06/18 05:45 12/06/18 05:45 Problem List - Problems (1) UTI (urinary tract infection) Assessment/Plan: ertrapenem ID eval cultures pending will repeat culture Code(s): N39.0 - URINARY TRACT INFECTION, SITE NOT SPECIFIED (2) Hypothyroidism Assessment/Plan: tsh synhthroid Code(s): E03.9 - HYPOTHYROIDISM, UNSPECIFIED (3) Diarrhea Assessment/Plan: c diff negative po vancomycin Microbiology 12/05/18 16:11 Colon Fluid Escherichia coli 0157 Culture - Final NO GROWTH OF VIBRIO SPECIES OBTAINED NO GROWTH OF E COLI 0157 OBTAINED 12/05/18 16:11 Colon Fluid Salmonella/Shigella Culture - Preliminary 12/05/18 16:11 Colon Fluid Yersinia Culture - Preliminary NO ENTERIC PATHOGENS, 24 HOURS, ON PRIMARY PLATES NO ENTERIC PATHOGENS, 24 HOURS, ON PRIMARY PLATES Code(s): R19.7 - DIARRHEA, UNSPECIFIED
[2018-12-07] MEDS ORDERED: PNEUMOC 13-VAL CONJ-DIP CRM/PF 0.5 ML DISP.SYRIN IM ONE (18:00)
[2018-12-07] MEDS: ACETAMINOPHEN 500 MG TABLET (FP) PO PRN (20:21)
[2018-12-07] MEDS ORDERED: MIRTAZAPINE 30 MG TABLET (FP) PO ONE (21:59)
[2018-12-07] MEDS ORDERED: MIRTAZAPINE 15 MG TABLET (FP) ONE (21:59)
[2018-12-07] MEDS ORDERED: PT OWN MED DRAWER 7, Y5N ONE (23:39)
[2018-12-08] MEDS: LEVOTHYROXINE NA 150 MCG TABLET PO SCH (06:21)
[2018-12-08] MEDS: oxyCODONE HCL 5 MG TABLET PO PRN ×3 (06:21→18:46)
[2018-12-08] MEDS: LOPERAMIDE HCL 2 MG CAPSULE PO SCH ×3 (06:21→21:00)
[2018-12-08] MEDS: ACETAMINOPHEN 500 MG TABLET (FP) PO PRN (06:21)
[2018-12-08] MEDS: clonazePAM 0.5 MG TABLET PO PRN ×2 (06:30→20:51)
[2018-12-08 08:26] LABS: BASO % 0.7 % (0-2.0); EOS % 5.4 % (0-4.5); HEMATOCRIT 33.5 % (32.4-45.2); HEMOGLOBIN 11.1 GM/dL (10.7-15.3); LYMPH % 29.6 % (8-40); MCH 29.1 pg (25.7-33.7); MCHC 33.1 g/dl (32.0-36.0); MEAN PLT VOLUME 8.1 fl (7.5-11.1); MONO % 7.4 % (3.8-10.2); NEUT % 56.9 % (42.8-82.8); PLATELET COUNT 173 K/MM3 (134-434); RDW 17.3 % (11.6-15.6); WHITE BLOOD COUNT 4.5 K/mm3 (4.0-10.0)
[2018-12-08 09:01] LABS: ALBUMIN 3.4 g/dl (3.4-5.0); ALK PHOS 84 U/L (45-117); ANION GAP 7 MMOL/L (8-16); BILIRUBIN,TOTAL 0.4 mg/dL (0.2-1); BLOOD UREA NITROGEN 16 mg/dL (7-18); CALCIUM 9.1 mg/dL (8.5-10.1); CHLORIDE 108 mmol/L (98-107); CO2 30 mmol/L (21-32); CREATININE 0.9 mg/dL (0.55-1.3); GLUCOSE,RANDOM 86 mg/dL (74-106); POTASSIUM 3.6 mmol/L (3.5-5.1); SGOT/AST 10 U/L (15-37); SGPT/ALT 40 U/L (13-61); SODIUM 145 mmol/L (136-145); TOT PROT 6.3 g/dl (6.4-8.2)
--- NOTE | 2018-12-08 09:12 | PN ---
Progress Note, Physician - Current Medication List Current Medications: Active Medications Acetaminophen (Tylenol -) 500 mg PO Q6H PRN PRN Reason: PAIN LEVEL 6-10 Last Admin: 12/08/18 06:21 Dose: 500 mg Bupropion HCl (Wellbutrin -) 75 mg PO DAILY [facility] Last Admin: 12/07/18 09:48 Dose: 75 mg Clonazepam (Klonopin -) 2 mg PO HS PRN PRN Reason: INSOMNIA Last Admin: 12/08/18 06:30 Dose: 2 mg Heparin Sodium (Porcine) (Heparin -) 5,000 unit SQ BID [facility] Last Admin: 12/07/18 22:00 Dose: 5,000 unit Ertapenem 1 gm/ Sodium (Chloride) 50 mls @ 100 mls/hr IVPB DAILY [facility] Last Admin: 12/07/18 09:48 Dose: 100 mls/hr Levothyroxine Sodium (Synthroid -) 150 mcg PO 0700 [facility] Last Admin: 12/08/18 06:21 Dose: 150 mcg Loperamide HCl (Imodium -) 2 mg PO TID [facility] Last Admin: 12/08/18 06:21 Dose: 2 mg Mirtazapine 30 mg/ Mirtazapine (15 mg) 45 mg PO HS [facility] Last Admin: 12/07/18 22:01 Dose: 45 mg Ondansetron HCl (Zofran Injection) 4 mg IVPB Q6H PRN PRN Reason: NAUSEA Last Admin: 12/07/18 02:51 Dose: 4 mg Oxycodone HCl (Roxicodone -) 5 mg PO Q6H PRN PRN Reason: PAIN LEVEL 7 - 10 Last Admin: 12/08/18 06:21 Dose: 5 mg Vancomycin HCl (Vancomycin Oral Solution) 125 mg PO QID [facility] Last Admin: 12/07/18 22:01 Dose: 125 mg - Objective Vital Signs: Vital Signs Temperature 98.4 F 12/08/18 05:00 Pulse Rate 50 L 12/08/18 05:00 Respiratory Rate 20 12/08/18 00:07 Blood Pressure 132/67 12/08/18 05:00 O2 Sat by Pulse Oximetry (%) 98 12/07/18 21:00 Labs: CBC, BMP 12/08/18 06:00 12/08/18 06:00 Assessment/Plan - Problems (1) UTI (urinary tract infection) Assessment/Plan: ertrapenem ID eval cultures pending will repeat culture Code(s): N39.0 - URINARY TRACT INFECTION, SITE NOT SPECIFIED (2) Hypothyroidism Assessment/Plan: tsh synhthroid Code(s): E03.9 - HYPOTHYROIDISM, UNSPECIFIED (3) Diarrhea Assessment/Plan: c diff negative po vancomycin Microbiology 12/05/18 16:11 Colon Fluid Escherichia coli 0157 Culture - Final NO GROWTH OF VIBRIO SPECIES OBTAINED NO GROWTH OF E COLI 0157 OBTAINED 12/05/18 16:11 Colon Fluid Salmonella/Shigella Culture - Preliminary 12/05/18 16:11 Colon Fluid Yersinia Culture - Preliminary NO ENTERIC PATHOGENS, 24 HOURS, ON PRIMARY PLATES NO ENTERIC PATHOGENS, 24 HOURS, ON PRIMARY PLATES Code(s): R19.7 - DIARRHEA, UNSPECIFIED
[2018-12-08] MEDS ORDERED: PT OWN MED DRAWER 7, Y5N ONE (10:02)
[2018-12-08] MEDS: HEPARIN NA (PORCINE) 5,000 UNITS/ML 1ML VIAL SQ SCH ×2 (10:10→21:00)
[2018-12-08] MEDS: VANCOMYCIN 250 MG/5 ML ORAL SOLUTION PO SCH ×4 (10:11→20:59)
[2018-12-08] MEDS: buPROPion HCL 75 MG TABLET PO SCH (10:12)
[2018-12-08] MEDS: ERTAPENEM SODIUM 1 GM in SODIUM CHLORIDE 50 ML IVPB SCH (10:49)
[2018-12-08] MEDS ORDERED: MIRTAZAPINE 15 MG TABLET (FP) ONE (20:48)
[2018-12-08] MEDS ORDERED: MIRTAZAPINE 30 MG TABLET (FP) PO ONE (20:48)
[2018-12-08] MEDS: MIRTAZAPINE 30 MG, MIRTAZAPINE 15 MG PO SCH (21:00)
[2018-12-09] MEDS: ACETAMINOPHEN 500 MG TABLET (FP) PO PRN ×3 (00:15→21:29)
[2018-12-09] MEDS: oxyCODONE HCL 5 MG TABLET PO PRN ×4 (00:15→21:29)
[2018-12-09] MEDS: LEVOTHYROXINE NA 150 MCG TABLET PO SCH (06:13)
[2018-12-09] MEDS: LOPERAMIDE HCL 2 MG CAPSULE PO SCH ×3 (06:13→21:28)
--- NOTE | 2018-12-09 10:51 | CONSULT ---
Consult - text type - Consultation Consultation Note: FULL CONSULT DICTATED IMP: LEFT SHOULDER PAIN S/P FALL PLAN: ICE, PT, DC PLANNING
--- NOTE | 2018-12-09 11:28 | CONS ---
DATE OF CONSULTATION: 12/08/2017 ORTHOPEDIC CONSULTATION/[facility] The patient is a 68-year-old female admitted to the hospital for workup for a UTI, complained of pain in her left shoulder, status post fall a few days prior, just with moving the shoulder, with any range of motion. On physical exam, patient has some diffuse tenderness throughout the left shoulder. No ecchymosis. She does have full active range of motion but it does hurt while doing so. Adequate strength with thumb-down abduction and liftoff. Full range of motion of elbow, wrist, and fingers. X-rays of the shoulder show no fracture, dislocation, or lesion. IMPRESSION: Contusion, left shoulder. PLAN: RICE, and return to the office to see me as needed upon discharge. I will follow the patient while she is in the hospital. FLY ALMANZAR M.D. [id number]
[2018-12-09] MEDS: ERTAPENEM SODIUM 1 GM in SODIUM CHLORIDE 50 ML IVPB SCH (11:58)
[2018-12-09] MEDS: HEPARIN NA (PORCINE) 5,000 UNITS/ML 1ML VIAL SQ SCH ×2 (11:58→21:30)
[2018-12-09] MEDS: VANCOMYCIN 250 MG/5 ML ORAL SOLUTION PO SCH ×4 (11:59→21:33)
[2018-12-09] MEDS: buPROPion HCL 75 MG TABLET PO SCH (11:59)
--- NOTE | 2018-12-09 12:36 | PN ---
Progress Note, Physician - Current Medication List Current Medications: Active Medications Acetaminophen (Tylenol -) 500 mg PO Q6H PRN PRN Reason: PAIN LEVEL 6-10 Last Admin: 12/09/18 06:13 Dose: 500 mg Bupropion HCl (Wellbutrin -) 75 mg PO DAILY [facility] Last Admin: 12/09/18 11:59 Dose: 75 mg Clonazepam (Klonopin -) 2 mg PO HS PRN PRN Reason: INSOMNIA Last Admin: 12/08/18 20:51 Dose: 2 mg Heparin Sodium (Porcine) (Heparin -) 5,000 unit SQ BID [facility] Last Admin: 12/09/18 11:58 Dose: 5,000 unit Ertapenem 1 gm/ Sodium (Chloride) 50 mls @ 100 mls/hr IVPB DAILY [facility] Last Admin: 12/09/18 11:58 Dose: 100 mls/hr Levothyroxine Sodium (Synthroid -) 150 mcg PO 0700 [facility] Last Admin: 12/09/18 06:13 Dose: 150 mcg Loperamide HCl (Imodium -) 2 mg PO TID [facility] Last Admin: 12/09/18 06:13 Dose: 2 mg Mirtazapine 30 mg/ Mirtazapine (15 mg) 45 mg PO HS [facility] Last Admin: 12/08/18 21:00 Dose: 45 mg Ondansetron HCl (Zofran Injection) 4 mg IVPB Q6H PRN PRN Reason: NAUSEA Last Admin: 12/07/18 02:51 Dose: 4 mg Oxycodone HCl (Roxicodone -) 5 mg PO Q6H PRN PRN Reason: PAIN LEVEL 7 - 10 Last Admin: 12/09/18 12:05 Dose: 5 mg Vancomycin HCl (Vancomycin Oral Solution) 125 mg PO QID [facility] Last Admin: 12/09/18 11:59 Dose: 125 mg - Objective Vital Signs: Vital Signs Temperature 97.2 F L 12/09/18 06:00 Pulse Rate 56 L 12/09/18 06:00 Respiratory Rate 20 12/08/18 21:00 Blood Pressure 128/76 12/09/18 06:00 O2 Sat by Pulse Oximetry (%) 94 L 12/08/18 21:00 Cardiovascular: Yes: S1, S2 Respiratory: Yes: Regular, CTA Bilaterally Gastrointestinal: Yes: Normal Bowel Sounds, Soft Labs: CBC, BMP 12/08/18 06:00 12/08/18 06:00 Assessment/Plan - Problems (1) UTI (urinary tract infection) Assessment/Plan: ertrapenem ID eval cultures pending will repeat culture Code(s): N39.0 - URINARY TRACT INFECTION, SITE NOT SPECIFIED (2) Hypothyroidism Assessment/Plan: tsh synhthroid Code(s): E03.9 - HYPOTHYROIDISM, UNSPECIFIED (3) Diarrhea Assessment/Plan: c diff negative po vancomycin Microbiology 12/05/18 16:11 Colon Fluid Escherichia coli 0157 Culture - Final NO GROWTH OF VIBRIO SPECIES OBTAINED NO GROWTH OF E COLI 0157 OBTAINED 12/05/18 16:11 Colon Fluid Salmonella/Shigella Culture - Preliminary 12/05/18 16:11 Colon Fluid Yersinia Culture - Preliminary NO ENTERIC PATHOGENS, 24 HOURS, ON PRIMARY PLATES NO ENTERIC PATHOGENS, 24 HOURS, ON PRIMARY PLATES Code(s): R19.7 - DIARRHEA, UNSPECIFIED (4) Shoulder Pain Ortho
[2018-12-09] MEDS ORDERED: PT OWN MED DRAWER 7, Y5N ONE (20:16)
[2018-12-09] MEDS ORDERED: MIRTAZAPINE 15 MG TABLET (FP) ONE (21:25)
[2018-12-09] MEDS ORDERED: MIRTAZAPINE 30 MG TABLET (FP) PO ONE (21:25)
[2018-12-09] MEDS: MIRTAZAPINE 30 MG, MIRTAZAPINE 15 MG PO SCH (21:28)
[2018-12-09] MEDS: clonazePAM 0.5 MG TABLET PO PRN (21:30)
[2018-12-10] MEDS: ACETAMINOPHEN 500 MG TABLET (FP) PO PRN ×2 (04:35→14:46)
[2018-12-10] MEDS: oxyCODONE HCL 5 MG TABLET PO PRN ×3 (04:35→17:11)
[2018-12-10] MEDS: LOPERAMIDE HCL 2 MG CAPSULE PO SCH ×2 (06:31→14:33)
[2018-12-10] MEDS: LEVOTHYROXINE NA 150 MCG TABLET PO SCH (06:31)
--- NOTE | 2018-12-10 09:03 | PN ---
Progress Note (short form) - Note Progress Note: Ortho Pt seen and examined- s/p left shoulder contusion Selected Entries 12/10/18 06:00 Temperature 98.4 F Pulse Rate 74 Respiratory 18 Rate Blood Pressure 138/80 + ttp, ff 130, er 20, ir L5, + neer, + alcala - empty can, nvi a/p PT ROM exercises pain control ok to d/c from ortho pov f/u as outpt d/w Dr. King
[2018-12-10] MEDS: HEPARIN NA (PORCINE) 5,000 UNITS/ML 1ML VIAL SQ SCH (11:16)
[2018-12-10] MEDS: ERTAPENEM SODIUM 1 GM in SODIUM CHLORIDE 50 ML IVPB SCH (11:17)
[2018-12-10] MEDS: VANCOMYCIN 250 MG/5 ML ORAL SOLUTION PO SCH ×2 (11:17→14:30)
[2018-12-10] MEDS: buPROPion HCL 75 MG TABLET PO SCH (11:18)
--- NOTE | 2018-12-10 11:52 | PN ---
Progress Note, Physician Chief Complaint: UTI Hypothyroidism Diarrhea History of Present Illness: Previous notes and events reviewed awake and alert NAD sts feeling better, denies dysuria - Current Medication List Current Medications: Active Medications Acetaminophen (Tylenol -) 500 mg PO Q6H PRN PRN Reason: PAIN LEVEL 1-5 Last Admin: 12/10/18 04:35 Dose: 500 mg Bupropion HCl (Wellbutrin -) 75 mg PO DAILY [facility] Last Admin: 12/10/18 11:18 Dose: 75 mg Clonazepam (Klonopin -) 2 mg PO HS PRN PRN Reason: INSOMNIA Last Admin: 12/09/18 21:30 Dose: 2 mg Heparin Sodium (Porcine) (Heparin -) 5,000 unit SQ BID [facility] Last Admin: 12/10/18 11:16 Dose: 5,000 unit Ertapenem 1 gm/ Sodium (Chloride) 50 mls @ 100 mls/hr IVPB DAILY [facility] Last Admin: 12/10/18 11:17 Dose: 100 mls/hr Levothyroxine Sodium (Synthroid -) 150 mcg PO 0700 [facility] Last Admin: 12/10/18 06:31 Dose: 150 mcg Loperamide HCl (Imodium -) 2 mg PO TID [facility] Last Admin: 12/10/18 06:31 Dose: 2 mg Mirtazapine 30 mg/ Mirtazapine (15 mg) 45 mg PO HS [facility] Last Admin: 12/09/18 21:28 Dose: 45 mg Ondansetron HCl (Zofran Injection) 4 mg IVPB Q6H PRN PRN Reason: NAUSEA Last Admin: 12/07/18 02:51 Dose: 4 mg Oxycodone HCl (Roxicodone -) 5 mg PO Q6H PRN PRN Reason: PAIN LEVEL 6-10 Last Admin: 12/10/18 11:37 Dose: 5 mg Vancomycin HCl (Vancomycin Oral Solution) 125 mg PO QID [facility] Last Admin: 12/10/18 11:17 Dose: 125 mg - Objective Vital Signs: Vital Signs Temperature 98.4 F 12/10/18 06:00 Pulse Rate 74 12/10/18 06:00 Respiratory Rate 18 12/10/18 06:00 Blood Pressure 138/80 12/10/18 06:00 O2 Sat by Pulse Oximetry (%) 95 12/09/18 21:00 Constitutional: Yes: No Distress, Calm Eyes: Yes: Conjunctiva Clear Neck: Yes: Supple Cardiovascular: Yes: Regular Rate and Rhythm Respiratory: Yes: Regular, CTA Bilaterally Gastrointestinal: Yes: Normal Bowel Sounds, Soft Musculoskeletal: Yes: Muscle Weakness Edema: No Neurological: Yes: Alert, Oriented Psychiatric: Yes: Alert, Oriented Labs: CBC, BMP 12/08/18 06:00 12/08/18 06:00 Problem List - Problems (1) Diarrhea Assessment/Plan: -C-diff neg and stool culture neg -cont with PO vanco Code(s): R19.7 - DIARRHEA, UNSPECIFIED (2) UTI (urinary tract infection) Assessment/Plan: -ID on board -continue with Ertapenem IVPB -contact precaution d/t hx ESBL -UC neg Code(s): N39.0 - URINARY TRACT INFECTION, SITE NOT SPECIFIED (3) Hypothyroidism Assessment/Plan: -cont with synthroid 150mcg Code(s): E03.9 - HYPOTHYROIDISM, UNSPECIFIED
[2018-12-10 14:49] VITALS: BP 134/84; PULSE 72; TEMP 98.3
[2018-12-10] MEDS: clonazePAM 0.5 MG TABLET PO PRN (17:11)
--- NOTE | 2018-12-10 17:23 | PN ---
Progress Note, Physician History of Present Illness: REPORTS DYSURIA HAS RESOLVED NO SUPRAPUBIC OR FLANK PAIN NO FEVER/CHILLS - Current Medication List Current Medications: Active Medications Acetaminophen (Tylenol -) 500 mg PO Q6H PRN PRN Reason: PAIN LEVEL 1-5 Last Admin: 12/10/18 14:46 Dose: 500 mg Bupropion HCl (Wellbutrin -) 75 mg PO DAILY [facility] Last Admin: 12/10/18 11:18 Dose: 75 mg Clonazepam (Klonopin -) 2 mg PO HS PRN PRN Reason: INSOMNIA Last Admin: 12/10/18 17:11 Dose: 2 mg Heparin Sodium (Porcine) (Heparin -) 5,000 unit SQ BID [facility] Last Admin: 12/10/18 11:16 Dose: 5,000 unit Levothyroxine Sodium (Synthroid -) 150 mcg PO 0700 [facility] Last Admin: 12/10/18 06:31 Dose: 150 mcg Loperamide HCl (Imodium -) 2 mg PO TID [facility] Last Admin: 12/10/18 14:33 Dose: 2 mg Mirtazapine 30 mg/ Mirtazapine (15 mg) 45 mg PO HS [facility] Last Admin: 12/09/18 21:28 Dose: 45 mg Ondansetron HCl (Zofran Injection) 4 mg IVPB Q6H PRN PRN Reason: NAUSEA Last Admin: 12/07/18 02:51 Dose: 4 mg Oxycodone HCl (Roxicodone -) 5 mg PO Q6H PRN PRN Reason: PAIN LEVEL 6-10 Last Admin: 12/10/18 17:11 Dose: 5 mg - Objective Vital Signs: Vital Signs Temperature 98.3 F 12/10/18 14:48 Pulse Rate 72 12/10/18 14:48 Respiratory Rate 18 12/10/18 14:48 Blood Pressure 134/84 12/10/18 14:48 O2 Sat by Pulse Oximetry (%) 95 12/09/18 21:00 Constitutional: Yes: No Distress Eyes: Yes: Conjunctiva Clear Cardiovascular: Yes: Regular Rate and Rhythm, S1, S2 Respiratory: Yes: CTA Bilaterally Gastrointestinal: Yes: Normal Bowel Sounds, Soft. No: Tenderness Labs: CBC, BMP 12/08/18 06:00 12/08/18 06:00 Assessment/Plan RECURRENT UTI HX ESBL DAY #5 ERTAPENEM SYMPTOMATICALLY IMPROVED D/C ERTAPENEM
--- NOTE | 2018-12-10 17:44 | DS ---
Physical Examination Vital Signs: Vital Signs Temperature 98.3 F 12/10/18 14:48 Pulse Rate 72 12/10/18 14:48 Respiratory Rate 18 12/10/18 14:48 Blood Pressure 134/84 12/10/18 14:48 O2 Sat by Pulse Oximetry (%) 95 12/09/18 21:00 Findings/Remarks: Patient is a 68 y/o female with past medical history of UC s/p colectomy, J pouch, Crohn's disease. She presented to ER with complaints of recurrent diarrhea and dysuria. Patient has hx of ESBL. Patient stool collected for c- diff and stool cultures, both test showed negative results. While in ER patient had fall, shoulder and L elbow and shoulder xray neg for fracture and Head CT neg for bleed or infarct. During hospitalization, WBC nl and afebrile, UC neg. Constitutional: Yes: No Distress, Calm Eyes: Yes: Conjunctiva Clear HENT: Yes: Normocephalic Cardiovascular: Yes: Regular Rate and Rhythm Respiratory: Yes: Regular, CTA Bilaterally Musculoskeletal: Yes: WNL Extremities: Yes: WNL Edema: No Neurological: Yes: Alert, Oriented Psychiatric: Yes: Alert, Oriented Labs: CBC, BMP 12/08/18 06:00 12/08/18 06:00 Discharge Summary Reason For Visit: URINARY TRACT INFECTION Current Active Problems Diarrhea (Acute) UTI (urinary tract infection) (Acute) Procedures: Principal: Head CT scan. L elbow, L shoulder Xray. Abd/Pelvic CT scan Hospital Course: see progress notes Laboratory Last Values WBC 4.5 K/mm3 (4.0-10.0) 12/08/18 06:00 RBC 3.80 M/mm3 (3.60-5.2) 12/08/18 06:00 Hgb 11.1 GM/dL (10.7-15.3) 12/08/18 06:00 Hct 33.5 % (32.4-45.2) 12/08/18 06:00 MCV 88.0 fl (80-96) 12/08/18 06:00 MCH 29.1 pg (25.7-33.7) 12/08/18 06:00 MCHC 33.1 g/dl (32.0-36.0) 12/08/18 06:00 RDW 17.3 % (11.6-15.6) H 12/08/18 06:00 Plt Count 173 K/MM3 (134-434) 12/08/18 06:00 MPV 8.1 fl (7.5-11.1) 12/08/18 06:00 Absolute Neuts (auto) 2.6 K/mm3 (1.5-8.0) 12/08/18 06:00 Neutrophils % 56.9 % (42.8-82.8) D 12/08/18 06:00 Lymphocytes % 29.6 % (8-40) D 12/08/18 06:00 Monocytes % 7.4 % (3.8-10.2) 12/08/18 06:00 Eosinophils % 5.4 % (0-4.5) H D 12/08/18 06:00 Basophils % 0.7 % (0-2.0) 12/08/18 06:00 Nucleated RBC % 0 % (0-0) 12/08/18 06:00 Sodium 145 mmol/L (136-145) 12/08/18 06:00 Potassium 3.6 mmol/L (3.5-5.1) 12/08/18 06:00 Chloride 108 mmol/L (98-107) H 12/08/18 06:00 Carbon Dioxide 30 mmol/L (21-32) 12/08/18 06:00 Anion Gap 7 MMOL/L (8-16) L 12/08/18 06:00 BUN 16 mg/dL (7-18) 12/08/18 06:00 Creatinine 0.9 mg/dL (0.55-1.3) 12/08/18 06:00 Creat Clearance w eGFR > 60 (>60) 12/08/18 06:00 Random Glucose 86 mg/dL (74-106) 12/08/18 06:00 Calcium 9.1 mg/dL (8.5-10.1) 12/08/18 06:00 Total Bilirubin 0.4 mg/dL (0.2-1) 12/08/18 06:00 AST 10 U/L (15-37) L 12/08/18 06:00 ALT 40 U/L (13-61) 12/08/18 06:00 Alkaline Phosphatase 84 U/L (45-117) 12/08/18 06:00 Total Protein 6.3 g/dl (6.4-8.2) L 12/08/18 06:00 Albumin 3.4 g/dl (3.4-5.0) 12/08/18 06:00 Lipase 200 U/L (73-393) 12/05/18 14:46 TSH 1.22 uIU/ml (0.358-3.74) 12/07/18 06:00 Urine Color Straw 12/05/18 15:10 Urine Appearance Clear 12/05/18 15:10 Urine pH 7.0 (5.0-8.0) D 12/05/18 15:10 Ur Specific [place] 1.006 (1.010-1.035) L 12/05/18 15:10 Urine Protein Negative (NEGATIVE) 12/05/18 15:10 Urine Glucose (UA) Negative (NEGATIVE) 12/05/18 15:10 Urine Ketones Negative (NEGATIVE) 12/05/18 15:10 Urine Blood Negative (NEGATIVE) 12/05/18 15:10 Urine Nitrite Negative (NEGATIVE) 12/05/18 15:10 Urine Bilirubin Negative (<2.0 mg/dL) 12/05/18 15:10 Urine Urobilinogen Negative mg/dL (0.2-1.0) 12/05/18 15:10 Ur Leukocyte Esterase 2+ (NEGATIVE) H 12/05/18 15:10 Urine WBC (Auto) 19 /hpf (3-5) 12/05/18 15:10 Urine RBC (Auto) <1 /hpf (0-3) 12/05/18 15:10 Urine Bacteria Moderate /hpf (NONE SEEN) 12/05/18 15:10 Microbiology 12/07/18 20:45 Urine - Urine Clean Catch Urine Culture - Final NO GROWTH OBTAINED 12/05/18 16:11 Colon Fluid Salmonella/Shigella Culture - Final NO GROWTH OF SALMONELLA OR SHIGELLA SPECIES OBTAINED 12/05/18 16:11 Colon Fluid Campylobacter Culture - Final NO GROWTH OF CAMPYLOBACTER SPECIES OBTAINED 12/05/18 16:11 Colon Fluid Yersinia Culture - Final NO GROWTH OF YERSINIA SPECIES OBTAINED 12/05/18 16:11 Colon Fluid Vibrio Culture - Final NO GROWTH OF VIBRIO SPECIES OBTAINED 12/05/18 16:11 Colon Fluid Escherichia coli 0157 Culture - Final NO GROWTH OF E COLI 0157 OBTAINED 12/05/18 15:10 Urine - Urine Clean Catch Urine Culture - Final Contaminated: Please Repeat 12/05/18 14:25 Stool Clostridium difficile Antigen (SRAVANI) - Final 12/05/18 14:25 Stool Clostridium difficile Toxin Assay - Final Condition: Stable - Instructions Diet, Activity, Other Instructions: Patient to follow up with PMD in 3-4 days after discharge Follow up with GI Dr. Sorenson for tomorrow appointment as scheduled continue low fiber, lactose free diet continue med regimen as prescribed if diarrhea, fever, dysuria develops call PMD or return to ER Referrals: Mary Ann Sorenson DO [Staff Physician] - Diony Gutierrez [Non Staff, Medical] - Disposition: HOME - Home Medications Comprehensive Discharge Medication List: Ambulatory Orders clonazePAM [KlonoPIN] 2 mg PO HS #0 tablet 09/05/13 Levothyroxine [Synthroid -] 150 mcg PO 0700 #30 tablet 11/10/13 Diphenoxylate 2.5/Atropine.025 [Lomotil -] 1 combo PO Q6H PRN #28 tablet MDD 4 tabs 08/30/17 Loperamide HCl [Imodium -] 2 mg PO Q8H #21 capsule 08/30/17 Bupropion HCl [Wellbutrin -] 75 mg PO DAILY 10/19/17 Mirtazapine [Remeron -] 45 mg PO DAILY 10/19/17 Vancomycin Oral Solution 125 mg PO Q6HPO #40 ml 09/20/18 Vancomycin HCl 125 mg PO QID #21 cap 09/23/18
== END 2018-12-10 20:19 | disposition home or self-care (01) | DRG 690 ==
LOC: JER 11:20 → JERBED 21:00 → OBSVTOIN 12-07 14:02 → J6S 12-07 15:58
PROVIDERS: ADMIT Internal Medicine; ATTEND Family Medicine
DX: N39.0 Urinary tract infection, site not specified (principal); K50.90 Crohn's disease, unspecified, without complications; R19.7 Diarrhea, unspecified; J44.9 Chronic obstructive pulmonary disease, unspecified; E03.9 Hypothyroidism, unspecified; G30.9 Alzheimer's disease, unspecified; F02.80 Dementia in other diseases classified elsewhere, unspecified severity, without behavioral disturbance, psychotic disturbance, mood disturbance, and anxiety
CPT/HCPCS: 36415; 70450-TC; 72125-TC; 73030-TC-LT-FY; 73070-TC-LT-FY; 74177-TC; 80048; 80053; 81003; 81015; 83690; 84443; 85025; 87045; 87046; 87086; 87324; 87449; 90670; 93005; 93010; 97116-GP; 97161-GP; 99285-25; G0378; J0131; J1644; J7030

== ENCOUNTER 2018-12-13 20:47 | Observation (INO) | payer OTHER ==
[2018-12-13 21:05] VITALS: BMI 24.7
--- NOTE | 2018-12-13 21:16 | PDOC ---
History of Present Illness - General Chief Complaint: Injury Stated Complaint: INJURY Time Seen by Provider: 12/13/18 21:14 History Source: Patient Exam Limitations: Clinical Condition, Dementia - History of Present Illness Initial Comments: 68 yo F w a pmh of dementia, Cdiff, ESBL, hypothyroidism, RA, crohn's disease, celiac disease, alzheimer's, COPD, afib and UC presents to the ED after multiple falls every day. She staes she was just discharged yesterday for the same reason. As per chart review it appears that she was actually discharged 3 days ago. History is somewhat limited secondary to patient's demnetia status. She states that she fell down today 2 times and was on the floor for over 30 minutes each time. She reports that she does not remember how she fell, whether she hit her head and she has no recollection of what happened before each of the falls. She only knows that she was on the floor for more than 30 minutes each time. She states that her left shoulder is in a significant amount of pain but this is not new. She denies any other new complaints since her recent hospital stay aside from the repeated falls. Denies taking blood thinners. She denies having had any chest pain, SOB, difficulty breathing, headache, neck pain, urinary or bowel incontinence, dysuria, frequency, urgency, fevers, chills , infections, numbness, weakness, tingling, or vertigo. PCP: Diony Lewis PSH: Colectomy, J pouch, appendectomy, cholecystectomy Allergies: Gluten, morphine, sulfa Social Hx: Denies smoking, drinking, or other substance usage. Patient lives at home alone and has an aid 7 hours a day during the week and 4 hours a day on weekends. Past History - Past Medical History Allergies/Adverse Reactions: Allergies Allergy/AdvReac Type Severity Reaction Status Date / Time gluten Allergy Severe Vomiting Verified 12/13/18 21:03 morphine Allergy Severe Verified 12/13/18 21:03 Sulfa (Sulfonamide Allergy Verified 12/13/18 21:03 Antibiotics) Home Medications: Ambulatory Orders clonazePAM [KlonoPIN] 2 mg PO HS #0 tablet 09/05/13 Diphenoxylate 2.5/Atropine.025 [Lomotil -] 1 combo PO Q6H PRN #28 tablet MDD 4 tabs 08/30/17 Mirtazapine [Remeron -] 45 mg PO DAILY 10/19/17 Vancomycin Oral Solution 125 mg PO Q6HPO #40 ml 09/20/18 Vancomycin HCl 125 mg PO QID #21 cap 09/23/18 Acetaminophen [Tylenol .Extra-Strength -] 500 mg PO Q6H PRN tablet 12/10/18 Bupropion HCl [Wellbutrin -] 75 mg PO DAILY #30 tablet 12/10/18 Levothyroxine [Synthroid -] 150 mcg PO 0700 #30 tablet 12/10/18 Loperamide HCl [Imodium -] 2 mg PO Q8H #21 capsule 12/10/18 Mirtazapine [Remeron -] 45 mg PO HS tablet 12/10/18 Mirtazapine [Remeron -] 45 mg PO HS tablet 12/10/18 oxyCODONE HCL [Roxicodone -] 5 mg PO Q6H PRN 2 Days #8 tablet MDD 4 12/10/18 Anemia: Yes Asthma: No Cancer: Yes (tumors of small intestine) Cardiac Disorders: No CVA: No COPD: Yes CHF: No Dementia: No Diabetes: No GI Disorders: Yes (CHROHN, RECTAL ULCER, celiac disease) Disorders: No HTN: Yes Hypercholesterolemia: Yes Liver Disease: No Seizures: No Thyroid Disease: Yes - Surgical History Abdominal Surgery: Yes (J POUCH) Appendectomy: Yes (1995) Cardiac Surgery: No Cholecystectomy: Yes (2001) Lung Surgery: No Neurologic Surgery: No Orthopedic Surgery: Yes (right femur kirby 2010,) - Immunization History Immunization Up to Date: Yes - Suicide/Smoking/Psychosocial Hx Smoking Status: No Smoking History: Unknown if ever smoked Have you smoked in the past 12 months: No Information on smoking cessation initiated: No Hx Alcohol Use: No Drug/Substance Use Hx: No Substance Use Type: None Hx Substance Use Treatment: No Review of Systems - Review of Systems Able to Perform ROS?: Yes Comments:: CONSTITUTIONAL: Absent: fever, no chills, no fatigue EYES: Absent: visual changes ENT: Absent: ear pain, no sore throat CARDIOVASCULAR: Absent: chest pain, no palpitations RESPIRATORY: Absent: cough, no SOB GI: Absent: abdominal pain, no nausea, no vomiting, no constipation, no diarrhea GENITOURINARY: Absent: dysuria, no frequency, no hematuria MUSKULOSKELETAL: Present: Arthralgia Absent: back pain, no myalgia SKIN: Absent: rash NEURO: Absent: headache *Physical Exam - Vital Signs Last Vital Signs Temp Pulse Resp BP Pulse Ox 97.6 F 66 20 94/54 L 91 L 12/13/18 21:03 12/13/18 21:03 12/13/18 21:03 12/13/18 21:03 12/13/18 21:03 - Physical Exam Comments: BP at bedside: 98/80 GENERAL: Well-appearing, well-nourished. No apparent distress. HEENT: Normocephalic, atraumatic. PERRL, EOM intact. CARDIOVASCULAR: Normal S1, S2. Regular rate and rhythm. PULMONARY: No evidence of respiratory distress. Lungs clear to auscultation bilaterally. No wheezing, rales or rhonchi. ABDOMEN: Soft, non-distended, non-tender. EXTREMITIES: Normal ROM in all four extremities. No gross deformities. SKIN: Warm, dry. No rash NEUROLOGICAL: No focal neurological deficits. Moderate Sedation - Procedure Monitoring Vital Signs: Procedure Monitoring Vital Signs Temperature 97.6 F 12/13/18 21:03 Pulse Rate 66 12/13/18 21:03 Respiratory Rate 20 12/13/18 21:03 Blood Pressure 94/54 L 12/13/18 21:03 O2 Sat by Pulse Oximetry (%) 91 L 12/13/18 21:03 ED Treatment Course - LABORATORY CBC & Chemistry Diagram: 12/13/18 22:35 12/13/18 22:35 Medical Decision Making - Medical Decision Making 68 yo F w a pmh of dementia, Cdiff, ESBL, hypothyroidism, RA, crohn's disease, celiac disease, alzheimer's, COPD, afib and UC presents to the ED after multiple falls every day. She staes she was just discharged yesterday for the same reason. As per chart review it appears that she was actually discharged 3 days ago. History is somewhat limited secondary to patient's demnetia status. She states that she fell down today 2 times and was on the floor for over 30 minutes each time. She reports that she does not remember how she fell, whether she hit her head and she has no recollection of what happened before each of the falls. She only knows that she was on the floor for more than 30 minutes each time. She states she has a significant amount of shoulder pain but this is not new. She denies any other new complaints since her recent hospital stay aside from the repeated falls. Denies taking blood thinners. VS: BP at bedside 98/80, otherwise WNL. DDx IBNLT: Arrhythmia, syncope vs seizure, brain bleed, ACS/NE, Infection - PNA vs UTI, anemia. Plan: Labs, Urine, EKG, cxr, CT, IV hydration, Admit to telemetry. Labs unremarkable. Signing patient out to overnight resident to admit to telemetry for repeated falls. *DC/Admit/Observation/Transfer Diagnosis at time of Disposition: Recurrent falls - Referrals Referrals: Diony Gutierrez [Primary Care Provider] - - Patient Instructions - Post Discharge Activity
[2018-12-13] MEDS ORDERED: SODIUM CHLORIDE 0.9% 500 ML INFUS.BAG IV ONE (21:33)
[2018-12-13] MEDS ORDERED: ACETAMINOPHEN 1000 MG/100 ML VIAL (NON FORMULARY) IVPB ONE (22:46)
[2018-12-13] MEDS ORDERED: ACETAMINOPHEN INJECTION 100 ML IVPB ONE (22:49)
[2018-12-13 22:53] LABS: BASO % 0.2 % (0-2.0); HEMATOCRIT 33.5 % (32.4-45.2); HEMOGLOBIN 11.1 GM/dL (10.7-15.3); MCH 29.8 pg (25.7-33.7); MCHC 33.3 g/dl (32.0-36.0); MEAN CELL VOLUME 89.4 fl (80-96); MEAN PLT VOLUME 8.1 fl (7.5-11.1); MONO % 3.2 % (3.8-10.2); NEUT % 88.6 % (42.8-82.8); PLATELET COUNT 172 K/MM3 (134-434); RBC 3.75 M/mm3 (3.60-5.2); RDW 17.4 % (11.6-15.6); WHITE BLOOD COUNT 6.8 K/mm3 (4.0-10.0)
--- NOTE | 2018-12-13 23:03 | PDOC ---
Attending Attestation - HPI HPI: The patient is a 68 year old female, with a significant PMH of dementia, Cdiff, ESBL, hypothyroidism, RA, Crohns diseases, celiac disease, Alzheimer's, COPD, Afib, and UC, who presents to the emergency department s/p multiple unwitnessed falls recently. Patient states she was discharged yesterday for the same issue, but the chart presents the discharge as 3 days ago. Patient notes that she fell down twice earlier today, and remained on the floor for more than 30 minutes each time. Patient denies recollection of what happened prior to the fall or how the fall occurred, and cannot recall if she hit her head during either episode. Patient complains of left shoulder pain, but notes this is not a new issue. She does not complain of any other symptoms at this time. The patient denies chest pain, shortness of breath, headache and dizziness. Denies fever, chills, nausea, vomit, diarrhea and constipation. Denies dysuria, frequency, urgency and hematuria. Denies paresthesia, weakness, or vertigo. Allergies: Gluten, morphine, sulfa Past surgical history: Colectomy, J pouch, appendectomy, cholecystectomy Social history: Denies EtOh, tobacco, or recreational drug use. Patient lives at home, and has an aid for 7 hours during the week, and 4 hours a day during the weekends. PCP: Dr. Diony Gutierrez 12/13/18 23:45 - Medical Decision Making Documentation prepared by JUNIE Ramirez, acting as medical technologist for Anjali Hylton MD. 12/13/18 23:45 <Ritika Kincaid - Last Filed: 12/13/18 23:52> - Resident Resident Name: Pete Finch - ED Attending Attestation I have performed the following: I have examined & evaluated the patient, The case was reviewed & discussed with the resident, I agree w/resident's findings & plan, Exceptions are as noted - Physicial Exam PE: 12/14/18 00:46 GENERAL: The patient is in no acute distress, weak appearing. HEAD: Normal EYES: PERRLA, EOMI, sclera anicteric, conjunctiva clear. ENT: Ears normal, nares patent, oropharynx clear without exudates. Dry mucous membranes. NECK: Normal range of motion, supple LUNGS: Breath sounds equal, clear to auscultation bilaterally. No wheezes, and no crackles. HEART:Regular rate and rhythm, normal S1 and S2 without murmur, rub or gallop. ABDOMEN: Soft, nontender, normoactive bowel sounds. No guarding, no rebound. No masses palpable. EXTREMITIES: Normal range of motion, no edema. NEUROLOGICAL: Cranial nerves II through XII grossly intact. Normal speech. No focal neurological deficits. SKIN: Warm, Dry, normal turgor, no rashes or lesions noted. - Medical Decision Making EKG - Twelve-lead EKG was performed and reviewed by me. There is normal sinus rhythm with a normal rate. The axis is normal. The intervals are normal. There are no ST or T wave abnormalities. Impression: Normal twelve-lead EKG 12/14/18 00:46 Laboratory Tests 12/13/18 12/13/18 22:35 22:35 WBC 6.8 Hgb 11.1 Hct 33.5 Plt Count 172 Sodium 137 Potassium 4.0 Chloride 100 Carbon Dioxide 30 BUN 36 H Creatinine 1.3 Random Glucose 151 H Creatine Kinase 1705 H Creatine Kinase Index 0.9 CK-MB (CK-2) 17.0 H Troponin I < 0.02 B-Natriuretic Peptide 140.9 H TSH 0.17 L 12/14/18 00:50 CT with evidence of T 3 compression fracture BP lower than prior Will give IVF Will admit patient as she continues to have repeated falls <Anjali Hylton - Last Filed: 12/21/18 08:26>
[2018-12-13 23:10] LABS: PROTHROMBIN TIME (PATIENT) 11.8 SEC (9.7-13.0)
[2018-12-13 23:36] LABS: ALBUMIN 3.9 g/dl (3.4-5.0); ALK PHOS 101 U/L (45-117); ANION GAP 7 MMOL/L (8-16); BILIRUBIN,TOTAL 0.3 mg/dL (0.2-1); BLOOD UREA NITROGEN 36 mg/dL (7-18); CALCIUM 9.4 mg/dL (8.5-10.1); CHLORIDE 100 mmol/L (98-107); CO2 30 mmol/L (21-32); CREATININE 1.3 mg/dL (0.55-1.3); GLUCOSE,RANDOM 151 mg/dL (74-106); N-TERMINAL BNP 140.9 pg/ml (5-125); SGOT/AST 62 U/L (15-37); SGPT/ALT 46 U/L (13-61); SODIUM 137 mmol/L (136-145); TOT PROT 7.4 g/dl (6.4-8.2)
--- NOTE | 2018-12-14 00:49 | PDOC ---
*Physical Exam - Vital Signs Last Vital Signs Temp Pulse Resp BP Pulse Ox 97.6 F 66 20 94/54 L 91 L 12/13/18 21:03 12/13/18 21:03 12/13/18 21:03 12/13/18 21:03 12/13/18 21:03 ED Treatment Course - LABORATORY CBC & Chemistry Diagram: 12/13/18 22:35 12/13/18 22:35 - ADDITIONAL ORDERS Additional order review: Laboratory Results 12/13/18 12/13/18 12/13/18 22:36 22:35 22:35 PT with INR 11.80 INR 1.00 PTT (Actin FS) 26.3 Sodium Potassium Chloride Carbon Dioxide Anion Gap BUN Creatinine Creat Clearance w eGFR Random Glucose Calcium Total Bilirubin AST ALT Alkaline Phosphatase Creatine Kinase Creatine Kinase Index CK-MB (CK-2) Troponin I B-Natriuretic Peptide Total Protein Albumin TSH Anti-A Titer Cancelled Blood Type Cancelled Antibody Screen Cancelled 12/13/18 12/13/18 22:35 22:35 PT with INR INR PTT (Actin FS) Sodium 137 Potassium 4.0 Chloride 100 Carbon Dioxide 30 Anion Gap 7 L BUN 36 H Creatinine 1.3 Creat Clearance w eGFR 40.86 Random Glucose 151 H Calcium 9.4 Total Bilirubin 0.3 AST 62 H ALT 46 Alkaline Phosphatase 101 Creatine Kinase 1705 H Creatine Kinase Index 0.9 CK-MB (CK-2) 17.0 H Troponin I < 0.02 B-Natriuretic Peptide 140.9 H Total Protein 7.4 Albumin 3.9 TSH Cancelled 0.17 L Anti-A Titer Blood Type Antibody Screen 12/13/18 22:35 RBC 3.75 MCV 89.4 MCHC 33.3 RDW 17.4 H MPV 8.1 Neutrophils % 88.6 H D Lymphocytes % 8.0 D Monocytes % 3.2 L Eosinophils % 0.0 D Basophils % 0.2 - Medications Given in the ED: ED Medications Discontinued Medications Generic Name Dose Route Start Last Admin Trade Name Reggieq PRN Reason Stop Dose Admin Acetaminophen 1,000 mg 12/13/18 22:46 12/13/18 22:54 Ofirmev Injection - IVPB 12/13/18 22:47 1,000 mg ONCE ONE Administration Sodium Chloride 1,000 ml 12/13/18 21:33 12/13/18 22:53 Normal Saline - IV 12/13/18 21:34 1,000 ml ONCE ONE Administration Medical Decision Making - Medical Decision Making 12/14/18 00:48 Patient signed out by resident Dr. Haley In short patient is a 68 year old woman with a history of dementia, Cdiff, ESBL , hypothyroidism, RA, crohn's disease, celiac disease, alzheimer's, COPD, afib and UC who presents after fall not on AC, and with a history of recurrent falls. ED Course: Labwork all wnl pending XR, CT, ua plan to admit to telemetry for recurrent falls. 12/14/18 01:54 Radiology contacted about new 25% compression of T3 unclear if old or new, however in comparison from 7 days ago's cervical spine CT there was not a similar finding. Will place consult for neurosurgery Dr. Pitts *DC/Admit/Observation/Transfer Diagnosis at time of Disposition: Recurrent falls - Discharge Dispostion Condition at time of disposition: Fair Decision to Admit order: Yes - Referrals Referrals: Diony Gutierrez [Primary Care Provider] - - Patient Instructions - Post Discharge Activity
--- NOTE | 2018-12-14 05:01 | HP ---
CHIEF COMPLAINT: frequent falls PCP: Matt HISTORY OF PRESENT ILLNESS: This is a 68 year old female with a past medical history of dementia, COPD, afib , RA, Crohns disease, celiac, Alzheimers, hypothyroid, Cdiff, ESBL who presented to the ED with multiple unwitnessed falls. Pt is a very poor historian and is unclear of exact timeline of events. Only complaint is left shoulder pain at time of exam. Pt reports that she is followed by a pain specialist for her arthritis who renewed her fentanyl patch and she picked it up yesterday but never applied it as she dropped it on the floor and couldn't find it. As per [employer] registry she picked up her fentanyl 10/11 and then on 12/13, each for a 30 day supply. Of note, pt was discharged on 12/10/18 after hospitalization for UTI. ER course was notable for: (1) CT c spine revealed T3 fracture of indeterminant age (2) CT head normal (3) slight bump in creatinine from 0.9 to 1.3 Recent Travel: pt denies PAST MEDICAL HISTORY: dementia, COPD, afib, RA, Crohns disease, celiac, Alzheimers, hypothyroid, Cdiff , ESBL PAST SURGICAL HISTORY: colectomy, J pouch appendectomy 1995 cholecystectomy 2001 Right femur kirby 2010 Social History: Smoking: pt denies Alcohol: pt denies Drugs: pt denies Family History: unknown Allergies gluten Allergy (Severe, Verified 12/13/18 21:03) Vomiting morphine Allergy (Severe, Verified 12/13/18 21:03) Sulfa (Sulfonamide Antibiotics) Allergy (Verified 12/13/18 21:03) HOME MEDICATIONS: 3 Medication Instructions Recorded Acetaminophen [Tylenol 500 mg PO Q6H PRN tablet 12/10/18 .Extra-Strength -] Levothyroxine [Synthroid -] 150 mcg PO 0700 #30 tablet 12/10/18 Loperamide HCl [Imodium -] 2 mg PO Q8H #21 capsule 12/10/18 Albuterol Sulfate Inhaler - 2 inh PO Q6H PRN 12/14/18 [Ventolin Hfa Inhaler -] Atorvastatin Ca [Lipitor] 20 mg PO HS 12/14/18 Folic Acid 1 mg PO DAILY 12/14/18 Gabapentin 300 mg PO TID 12/14/18 Nebivolol [Bystolic -] 5 mg PO DAILY 12/14/18 Paroxetine HCl 40 mg PO DAILY 12/14/18 clonazePAM [KlonoPIN] 1 mg PO TID 12/14/18 oxyCODONE HCL [Roxicodone -] 10 mg PO Q6H PRN MDD 4 12/14/18 traZODone HCL [Trazodone HCl] 50 mg PO HS 12/14/18 fentanyl patch 75mcg/hr patch 1 patch q72h REVIEW OF SYSTEMS CONSTITUTIONAL: Absent: fever, chills, diaphoresis, generalized weakness, malaise, loss of appetite, weight change HEENT: Absent: rhinorrhea, nasal congestion, throat pain, throat swelling, difficulty swallowing, mouth swelling, ear pain, eye pain, visual changes CARDIOVASCULAR: Absent: chest pain, syncope, palpitations, irregular heart rate, lightheadedness , peripheral edema RESPIRATORY: Absent: cough, shortness of breath, dyspnea with exertion, orthopnea, wheezing, stridor, hemoptysis GASTROINTESTINAL: Absent: abdominal pain, abdominal distension, nausea, vomiting, diarrhea, constipation, melena, hematochezia GENITOURINARY: Absent: dysuria, frequency, urgency, hesitancy, hematuria, flank pain, genital pain MUSCULOSKELETAL: Present: frequent falls, shoulder pain Absent: myalgia, arthralgia, joint swelling, back pain, neck pain SKIN: Absent: rash, itching, pallor HEMATOLOGIC/IMMUNOLOGIC: Absent: easy bleeding, easy bruising, lymphadenopathy, frequent infections ENDOCRINE: Absent: unexplained weight gain, unexplained weight loss, heat intolerance, cold intolerance NEUROLOGIC: Absent: headache, focal weakness or paresthesias, dizziness, unsteady gait, seizure, mental status changes, bladder or bowel incontinence PSYCHIATRIC: Absent: anxiety, depression, suicidal or homicidal ideation, hallucinations. PHYSICAL EXAMINATION Vital Signs - 24 hr 3 12/13/18 12/13/18 12/14/18 21:03 23:50 01:03 Temperature 97.6 F 97.8 F Pulse Rate 66 Pulse Rate [ 70 Right Radial] Respiratory 20 18 Rate Blood Pressure 94/54 L Blood Pressure 110/78 [Right Arm] O2 Sat by Pulse 91 L 95 95 Oximetry (%) 3 12/14/18 04:00 Temperature Pulse Rate Pulse Rate [ 63 Right Radial] Respiratory 16 Rate Blood Pressure Blood Pressure 130/71 [Right Arm] O2 Sat by Pulse 95 Oximetry (%) GENERAL: Awake, alert, and oriented to person and place, in no acute distress. HEAD: Normal with no signs of trauma. EYES: Pupils equal, round and reactive to light, extraocular movements intact, sclera anicteric, conjunctiva clear. No lid lag. EARS, NOSE, THROAT: Ears normal, nares patent, oropharynx clear without exudates. Moist mucous membranes. NECK: Normal range of motion, supple without lymphadenopathy, JVD, or masses. LUNGS: Breath sounds equal, clear to auscultation bilaterally. No wheezes, and no crackles. No accessory muscle use. HEART: Regular rate and rhythm, normal S1 and S2 without murmur, rub or gallop. ABDOMEN: Soft, nontender, not distended, normoactive bowel sounds, no guarding, no rebound, no masses. No hepatomegaly or splenomegaly. MUSCULOSKELETAL: Normal range of motion at all joints except left shoulder--rom decreased secondary to pain. No bony deformities or tenderness. No CVA tenderness. UPPER EXTREMITIES: 2+ pulses, warm, well-perfused. No cyanosis. No clubbing. No peripheral edema. LOWER EXTREMITIES: 2+ pulses, warm, well-perfused. No calf tenderness. No peripheral edema. NEUROLOGICAL: Cranial nerves II-XII grossly intact. Normal speech. PSYCHIATRIC: Cooperative. Good eye contact. Appropriate mood and affect. SKIN: Warm, dry, normal turgor, no rashes or lesions noted, normal capillary refill. Laboratory Results - last 24 hr 3 12/13/18 12/13/18 12/13/18 12/13/18 22:35 22:35 22:35 22:36 WBC 6.8 RBC 3.75 Hgb 11.1 Hct 33.5 MCV 89.4 MCH 29.8 MCHC 33.3 RDW 17.4 H Plt Count 172 MPV 8.1 Absolute Neuts (auto) 6.0 Neutrophils % 88.6 H D Lymphocytes % 8.0 D Monocytes % 3.2 L Eosinophils % 0.0 D Basophils % 0.2 Nucleated RBC % 0 PT with INR 11.80 INR 1.00 PTT (Actin FS) 26.3 Sodium 137 Potassium 4.0 Chloride 100 Carbon Dioxide 30 Anion Gap 7 L BUN 36 H Creatinine 1.3 Creat Clearance w eGFR 40.86 Random Glucose 151 H Calcium 9.4 Total Bilirubin 0.3 AST 62 H ALT 46 Alkaline Phosphatase 101 Creatine Kinase 1705 H Creatine Kinase Index 0.9 CK-MB (CK-2) 17.0 H Troponin I < 0.02 B-Natriuretic Peptide 140.9 H Total Protein 7.4 Albumin 3.9 TSH 0.17 L Cancelled Anti-A Titer Blood Type O POSITIVE Antibody Screen Positive H Radiology Reports CT c spine FINDINGS: CT cervical spine demonstrates a 25% anterior compression fracture at T3. Cervical spine appears intact. Vertebral bodies are normally aligned. Spinal canal appears normal. Pulmonary apices appear normal IMPRESSION: 25% compression fracture superior endplate of T3 is age indeterminant. THIS DOCUMENT HAS BEEN ELECTRONICALLY SIGNED Edmar Olmos MD 12/14/2018 01:[address] head FINDINGS: Brain parenchyma is normal in attenuation with no mass or hematoma. There is no midline shift. Gan and white matter differentiation is normal. Ventricles are normal. Sulci and extra-axial CSF spaces are normal. Intracranial vascular structures are normal in attenuation There is no calvarial fracture. Paranasal sinuses are normally aerated. IMPRESSION: Normal head THIS DOCUMENT HAS BEEN ELECTRONICALLY SIGNED Edmar Olmos MD 12/14/2018 01:36 EST ASSESSMENT/PLAN: 68yF with PMH dementia, COPD, afib, RA, Crohns disease, celiac, Alzheimers, hypothyroid, Cdiff, ESBL presented s/p frequent falls. T3 fracture in setting of frequent falls - undeterminate age, no step off, no pain on palpation - neurosurgery consult ordered by ED, await report - may need STR COPD - no s/s acute exacerbation - pt reports she is on anoro at home, has with her, would continue same chronic pain r/t RA - cont oxycodone, defer ordering of fentanyl to PCP as it is unclear if she has truly been taking Renal-slight bump in creatinine - s/p 1L NS in ed, repeat bmp 6am, consider renal consult if not improving. chronic diarrhea - likely due to short gut syndrome, cont home loperamide PRN. FEN - tolerating po - BMP in am - gluten free diet as tolerated Dispo: Pt currently requires further observation. Visit type - Emergency Visit Emergency Visit: Yes ED Registration Date: 12/13/18 Care time: The patient presented to the Emergency Department on the above date and was hospitalized for further evaluation of their emergent condition. - New Patient This patient is new to me today: Yes Date on this admission: 12/14/18 - Critical Care Critical Care patient: No
[2018-12-14] MEDS: GABAPENTIN 300 MG CAPSULE (FP) PO SCH ×3 (06:26→21:00)
[2018-12-14] MEDS ORDERED: LEVOTHYROXINE NA 75 MCG TABLET (FP) PO SCH (07:00)
[2018-12-14 07:41] LABS: BASO % 0.3 % (0-2.0); EOS % 0.9 % (0-4.5); HEMATOCRIT 31.7 % (32.4-45.2); HEMOGLOBIN 10.5 GM/dL (10.7-15.3); LYMPH % 26.2 % (8-40); MCH 29.4 pg (25.7-33.7); MCHC 33.2 g/dl (32.0-36.0); MEAN CELL VOLUME 88.4 fl (80-96); MONO % 7.6 % (3.8-10.2); PLATELET COUNT 160 K/MM3 (134-434); RBC 3.58 M/mm3 (3.60-5.2); RDW 17.7 % (11.6-15.6)
[2018-12-14 08:36] LABS: ANION GAP 6 MMOL/L (8-16); BLOOD UREA NITROGEN 32 mg/dL (7-18); CALCIUM 8.8 mg/dL (8.5-10.1); CHLORIDE 107 mmol/L (98-107); CO2 27 mmol/L (21-32); CREATININE 0.9 mg/dL (0.55-1.3); GLUCOSE,RANDOM 86 mg/dL (74-106); POTASSIUM 4.1 mmol/L (3.5-5.1); SODIUM 140 mmol/L (136-145)
[2018-12-14] MEDS ORDERED: PARoxetine HCL 10 MG TABLET (FP) ONE (10:31)
[2018-12-14] MEDS: oxyCODONE HCL 5 MG TABLET PO PRN ×3 (10:38→22:17)
[2018-12-14] MEDS: HEPARIN NA (PORCINE) 5,000 UNITS/ML 1ML VIAL SQ SCH ×2 (10:38→21:00)
[2018-12-14] MEDS: FOLIC ACID 1 MG TABLET (FP) PO SCH (10:39)
[2018-12-14] MEDS: PARoxetine HCL 20 MG TABLET (FP) PO SCH (10:39)
[2018-12-14] MEDS ORDERED: PT OWN MED DRAWER 7, Y5N ONE (10:42)
[2018-12-14] MEDS: NEBIVOLOL 5 MG TABLET (FP) PO SCH (10:44)
--- NOTE | 2018-12-14 12:02 | PN ---
Progress Note, Physician Chief Complaint: patient seen and examined admitted for multiple falls - Current Medication List Current Medications: Active Medications Atorvastatin Calcium (Lipitor -) 20 mg PO HS [facility] Clonazepam (Klonopin -) 1 mg PO Q8H PRN PRN Reason: ANXIETY Folic Acid (Folic Acid -) 1 mg PO DAILY [facility] Last Admin: 12/14/18 10:39 Dose: 1 mg Gabapentin (Neurontin -) 300 mg PO TID [facility] Last Admin: 12/14/18 06:26 Dose: 300 mg Heparin Sodium (Porcine) (Heparin -) 5,000 unit SQ BID [facility] Last Admin: 12/14/18 10:38 Dose: 5,000 unit Levothyroxine Sodium (Synthroid -) 125 mcg PO 0700 [facility] Loperamide HCl (Imodium -) 2 mg PO Q8H PRN PRN Reason: DIARRHEA Nebivolol (Bystolic -) 5 mg PO DAILY [facility] Last Admin: 12/14/18 10:44 Dose: 5 mg Oxycodone HCl (Roxicodone -) 10 mg PO Q6H PRN PRN Reason: PAIN LEVEL 6-10 Last Admin: 12/14/18 10:38 Dose: 10 mg Paroxetine HCl (Paxil -) 40 mg PO DAILY [facility] Last Admin: 12/14/18 10:39 Dose: 40 mg Trazodone HCl (Desyrel -) 50 mg PO HS [facility] - Objective Vital Signs: Vital Signs Temperature 97.5 F L 12/14/18 05:00 Pulse Rate 61 12/14/18 05:00 Respiratory Rate 20 12/14/18 05:00 Blood Pressure 122/62 12/14/18 05:00 O2 Sat by Pulse Oximetry (%) 96 12/14/18 05:00 Constitutional: Yes: Calm, Thin Cardiovascular: Yes: Regular Rate and Rhythm, S1, S2 Respiratory: Yes: CTA Bilaterally Gastrointestinal: Yes: Normal Bowel Sounds, Soft Edema: No Neurological: Yes: Alert, Oriented Labs: CBC, BMP 12/14/18 07:00 12/14/18 07:00 INR, PTT INR 1.00 (0.83-1.09) 12/13/18 22:35 Problem List - Problems (1) Recurrent falls Assessment/Plan: check ortho static PT eval neurology el check b12 level tsh noted will adjust syntroid dose repeat lactic acid and CK inc bun will give fluids dvt ppx compression fracture of t3 will have GIACOMO see patient Code(s): R29.6 - REPEATED FALLS (2) Hypothyroidism Assessment/Plan: tsh noted decrease synthroid dose Code(s): E03.9 - HYPOTHYROIDISM, UNSPECIFIED (3) Afib Assessment/Plan: BB no AC maybe due to recurrent falls Code(s): I48.91 - UNSPECIFIED ATRIAL FIBRILLATION
[2018-12-14] MEDS: SODIUM CHLORIDE 0.45% 1,000 ML IV SCH (12:30)
--- NOTE | 2018-12-14 12:51 | EKG ---
Test Reason : Blood Pressure : / mmHG Vent. Rate : 063 BPM Atrial Rate : 063 BPM P-R Int : 172 ms QRS Dur : 070 ms QT Int : 408 ms P-R-T Axes : 048 027 044 degrees QTc Int : 417 ms NORMAL SINUS RHYTHM NORMAL ECG WHEN COMPARED WITH ECG OF 05-DEC-2018 15:39, NO SIGNIFICANT CHANGE WAS FOUND Confirmed by ELGIN PETERSON MD ([id number]) on 12/14/2018 12:50:42 PM Referred By: Confirmed By:ELGIN PETERSON MD
--- NOTE | 2018-12-14 14:56 | CONSULT ---
Consult - text type - Consultation Consultation Note: Neurology Consult Appreciated: Events reviewed. Pt examined with her son, Calvin, at the bedside. 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 She lives alone with PRODUCT TE[employer] 7 hours/day M-F and 4hours/day on the weekend. She reports being able to ambulate independently without use of assistive device at home although she has a walker at home since her right hip ORIF after a fall 7 years ago. Recently hospitalized with diarrhea treated with Vanco as zC. diff and apparently fell in the OR with shoulder trauma. Now admitted after 2-3 days of increasing gait unsteadiness and imbalance with BG in ambulance reportedly > 340 mg%. PMHX: "dementia", "Parkinson's disease," C. diff, ESBL, hypothyroidism, RA, Crohn's disease, celiac disease, COPD, afib, UC, depression Medications include: clonazepam 2 mg qhs, lomotil, remeron, vancomycin, bupropion, synthroid, oxycodone 5 mg q6, PSH: Colectomy, J pouch, appendectomy, cholecystectomy Allergies: Gluten, morphine, sulfa ROS sig for chronic low back pain and parasthesia in the hands and feet for at least 2 years. She reports being followed by a neurologist at [facility] ( Misty Oliver) petey suggested the dx of Parkinson's disease and performed nerve studies and diagnosed her with "diabetic neuropathy." She denies being treated in any way for these diagnoses. She believes she had MRI of the brain at [facility] in the past. Ct of head: no evidence of head trauma, Shoulder Xray- unremarkable CT of C spine: t3 vertebral compression fx Ck 1705 -> 1006. TSh 0.17 JALYN: no evidence of head trauma, restricted rom of neck, (-) bruit, ecchymosis noted to both knees, normal shoulder mechanics. -Tab's Neuro Exam: Mentation/speech: Mild OMS(?). Corrected October to December 16. '19. TRUMP > PMURT 1/3 recall at 3 CNII-CNXII: sightly masked. Full draper. Decreased rapid tongue. Gag ok. Few beats nystagmus on left gaze. Motor: No drift or tremor. Normal strength, bulk and tone. Very brisk reflexes. Left Babinski. Decreased SUMI's Coordination: No FTN dystaxia. Sensation: Normal to vibration. Romberg - Gait: Wide-based. Slight shuffle. Pt walks on heels and toes without difficulty with assist for balance. Impression: Mild OMS with chronic gait dysfunction and bilateral Upper motor neuron signs (R>L) Diff Dx includes Multi-infarct (? h/o AFib?); demyelinating disease (MS); Cervical Myelopathy Worsening may be secondary to Toxic-metabolic encephalopathy ( recurrent UTI, hyperglycemia, B12 deficient?) High CK due to falls and trauma (coming down rapidly) SUGGEST: MRI of brain and cervical spine (C-). Check B12, Full TFT's, UA C&S OO bed to chair and PT for gait training with walker. Thank you very much, Prakash Ordonez MD
--- NOTE | 2018-12-14 15:47 | PN ---
Progress Note (short form) - Note Progress Note: NEUROSURGERY CONSULT DICTATED Chart reviewed Pt examined CT C spine reviewed H/o dementia, COPD, afib, RA, Crohns disease, celiac dz, osteoporosis, hypothyroid, s/p multiple unwitnessed falls. R ecent UTI. Poor historian. Intrascapular and low back pain. Chronic generalized weakness. PE; AF, VSS; speech slow but comprehensible HEENT- NC/AT; Neck- supple; Cor- RR; Lungs- decreased BS at bases; Abd- benign; Ext- no sign of DVT CN- intact; Motor- at least 4/5 B UE/LE; Sensation- intact LT; DTR- hyporeflexic B Head CT- no fx, bleed, stroke C spine CT- multilevel DDD, spondylosis; mild C4-5 spondylolisthesis, T3 sup endplate depression with osteophytes Chronic T3 compression fx, likely osteoporotic Lumbar spine x-rays to r/o fx (abd CT 2-6 did not show fx but pt had a subsequent fall) With multiple falls and osteoporotic fx is common Medical management No neurosurgical intervention is indicated
[2018-12-14] MEDS: ATORVASTATIN CA 20 MG TABLET (FP) PO SCH (21:00)
[2018-12-14] MEDS: LOPERAMIDE HCL 2 MG CAPSULE PO PRN (21:00)
[2018-12-14] MEDS: traZODone HCL 50 MG TABLET (FP) PO SCH (22:17)
[2018-12-14 23:48] LABS: URINE APPEARANCE CLEAR; URINE BILIRUBIN NEGATIVE (<2.0 mg/dL); URINE COLOR LTYELLOW; URINE GLUCOSE (UA) NEGATIVE (NEGATIVE); URINE KETONE NEGATIVE (NEGATIVE); URINE LEUK ESTERASE NEGATIVE (NEGATIVE); URINE NITRITE NEGATIVE (NEGATIVE); URINE PROTEIN NEGATIVE (NEGATIVE); URINE UROBILINOGEN NEGATIVE mg/dL (0.2-1.0)
[2018-12-15] MEDS ORDERED: SODIUM CHLORIDE 250 ML IV STA ×2 (02:40→06:39)
[2018-12-15] MEDS: GABAPENTIN 300 MG CAPSULE (FP) PO SCH ×3 (05:29→21:07)
[2018-12-15] MEDS: LOPERAMIDE HCL 2 MG CAPSULE PO PRN (05:30)
--- NOTE | 2018-12-15 06:48 | CONS ---
DATE OF CONSULTATION: DATE OF DICTATION: 12/14/2018 REQUESTING PHYSICIAN: Lori Naranjo MD CLINICAL TRIAL EDUCATOR: Prabhakar Hernandez MD, Neurosurgery CHIEF COMPLAINT: Intrascapular and lower back pain status post fall. HISTORY OF PRESENT ILLNESS: The patient is a 68-year-old right-handed female with history of Alzheimer dementia, COPD, atrial fibrillation, rheumatoid arthritis, Crohn disease, celiac disease, and hypothyroidism, who had sustained multiple recent falls. The most recent one was this past Monday. She also had a recent UTI and was admitted at that time. She is a poor historian. She presently complains of intrascapular and lower back pain. She has chronic generalized weakness but no increasing bowel and bladder dysfunction. PAST MEDICAL HISTORY: Significant for Crohn disease, celiac disease, rheumatoid arthritis, atrial fibrillation, COPD, Alzheimer dementia, C difficile colitis. CURRENT MEDICATIONS: Include subcutaneous heparin, Neurontin, Paxil, Desyrel, Imodium, Klonopin, Bystolic, Lipitor, Roxicodone, levothyroxine, folic acid. ALLERGIES: To GLUTEN, MORPHINE and SULFA. FAMILY HISTORY: Noncontributory. SOCIAL HISTORY: She is retired. She used to live at home but had just been admitted to a longterm recently. REVIEW OF SYSTEMS: Otherwise negative for major cardiovascular, pulmonary, gastrointestinal, genitourinary, endocrinological, neurological or psychological problems except for the above. PHYSICAL EXAMINATION: Vital Signs: Temperature is 97.8, blood pressure is 106/60 with pulse rate 71. HEENT: Shows her to be normocephalic, atraumatic, anicteric. Neck: Supple. Coronary: Irregularly irregular rhythm. Lungs: Show clear bilaterally. She had decreased breath sounds at bases. Abdomen: Benign. Extremities: Showed no signs of DVT. Neurologic: Patient is awake, alert and oriented x2. Her speech is generally comprehensible. Cranial nerve examination is intact II-XII. Motor examination shows at least about 4/5 strength in bilateral upper and lower extremities. Sensory examination is intact to light touch. Deep tendon reflexes are throughout. There is no pathological long-tract sign. Gait is not tested for safety reasons. Back: Showed intrascapular and lower back tenderness. LABORATORY: Shows white blood cell count of 66, hemoglobin is 10.5 and platelet count is 160,000. INR is 1.0 and PTT is 26.3. Serum sodium is 140, BUN is 32, creatinine is 0.9. Initial lactic acid was 2.8, presently is 1.0. Troponin was less than 0.02. CT scan of the head demonstrates no significant parenchymal bleed or stroke. There is no fracture. There is no obvious mass lesion. CT scan of the cervical spine demonstrated cervical degenerative disk disease predominantly in the lower cervical level at C6-7. There is mild C3-4 spondylolisthesis. There is a T3 superior endplate depression with associated sclerotic edges and associated spondylosis. IMPRESSION: 1. Chronic T3 superior endplate fracture, probably osteoporotic. 2. Dementia. 3. Atrial fibrillation. 4. Crohn disease. 5. Rheumatoid arthritis. 6. Chronic obstructive pulmonary disease. 7. Hypothyroidism. RECOMMENDATIONS: The patient presents with multiple falls. She has no focal neurological deficit at this time. She does complain of intrascapular pain and lower back pain. The intrascapular pain could be associated with her T3 compression fracture. The fracture itself appears to be chronic; however, a small acute component cannot be completely ruled out. There are sclerotic edges and associated osteophyte generally suggesting this to be a chronic process. She did have a CT scan of the abdomen about 9 days ago which did not demonstrate a lumbar fracture. She has unfortunately sustained a fall since. A lumbar spine x-ray is therefore recommended to rule out a new fracture since the . Safety precautions are important given her frequent falls and dementia. The above was discussed with the patient at bedside. All questions were answered. PRABHAKAR HERNANDEZ M.D. [id number]
[2018-12-15] MEDS: LEVOTHYROXINE NA 125 MCG TABLET (FP) PO SCH (06:54)
[2018-12-15] MEDS ORDERED: PARoxetine HCL 10 MG TABLET (FP) ONE (10:36)
[2018-12-15] MEDS: NEBIVOLOL 5 MG TABLET (FP) PO SCH (11:17)
[2018-12-15] MEDS: FOLIC ACID 1 MG TABLET (FP) PO SCH (11:17)
[2018-12-15] MEDS: HEPARIN NA (PORCINE) 5,000 UNITS/ML 1ML VIAL SQ SCH ×2 (11:18→21:08)
[2018-12-15] MEDS: PARoxetine HCL 20 MG TABLET (FP) PO SCH (11:18)
--- NOTE | 2018-12-15 11:46 | PN ---
Progress Note (short form) - Note Progress Note: NEUROSURGERY Intrascapular and low back pain. Chronic generalized weakness. No new complaint PE; AF, VSS; speech slow but comprehensible HEENT- NC/AT; Neck- supple; Cor- RR; Lungs- decreased BS at bases; Abd- benign; Ext- no sign of DVT CN- intact; Motor- at least 4/5 B UE/LE; Sensation- intact LT; DTR- hyporeflexic B Head CT- no fx, bleed, stroke C spine CT- multilevel DDD, spondylosis; mild C4-5 spondylolisthesis, T3 sup endplate depression with osteophytes LS spine x-rays (prelim)- spondylosis, no acute fx Chronic T3 compression fx, likely osteoporotic With multiple falls and osteoporotic fx is common Medical management No neurosurgical intervention is indicated for the likely chronic T3 osteoporotic fx Rib cage provides reasonable support at T3 level and no bracing is ordered
--- NOTE | 2018-12-15 16:42 | PN ---
Progress Note, Physician Chief Complaint: S/p fall T3 compression fracture History of Present Illness: Previous notes and events reviewed awake and alert NAD complain of pain to L shoulder complain of diarrhea - Current Medication List Current Medications: Active Medications Atorvastatin Calcium (Lipitor -) 20 mg PO HS [facility] Last Admin: 12/14/18 21:00 Dose: 20 mg Clonazepam (Klonopin -) 1 mg PO Q8H PRN PRN Reason: ANXIETY Folic Acid (Folic Acid -) 1 mg PO DAILY [facility] Last Admin: 12/15/18 11:17 Dose: 1 mg Gabapentin (Neurontin -) 300 mg PO TID [facility] Last Admin: 12/15/18 14:54 Dose: 300 mg Heparin Sodium (Porcine) (Heparin -) 5,000 unit SQ BID [facility] Last Admin: 12/15/18 11:18 Dose: 5,000 unit Sodium Chloride (1/2 Normal Saline) 1,000 mls @ 75 mls/hr IV ASDIR [facility] Last Admin: 12/14/18 12:30 Dose: 75 mls/hr Levothyroxine Sodium (Synthroid -) 125 mcg PO 0700 [facility] Last Admin: 12/15/18 06:54 Dose: 125 mcg Loperamide HCl (Imodium -) 2 mg PO Q8H PRN PRN Reason: DIARRHEA Last Admin: 12/15/18 05:30 Dose: 2 mg Nebivolol (Bystolic -) 5 mg PO DAILY [facility] Last Admin: 12/15/18 11:17 Dose: Not Given Oxycodone HCl (Roxicodone -) 10 mg PO Q6H PRN PRN Reason: PAIN LEVEL 6-10 Last Admin: 12/14/18 22:17 Dose: 10 mg Paroxetine HCl (Paxil -) 40 mg PO DAILY [facility] Last Admin: 12/15/18 11:18 Dose: 40 mg Trazodone HCl (Desyrel -) 50 mg PO HS [facility] Last Admin: 12/14/18 22:17 Dose: 50 mg - Objective Vital Signs: Vital Signs Temperature 98.3 F 12/15/18 14:00 Pulse Rate 56 L 12/15/18 14:00 Respiratory Rate 17 12/15/18 10:00 Blood Pressure 97/52 L 12/15/18 14:00 O2 Sat by Pulse Oximetry (%) 94 L 12/15/18 01:00 Constitutional: Yes: Well Nourished, No Distress, Calm Eyes: Yes: Conjunctiva Clear Cardiovascular: Yes: Regular Rate and Rhythm Respiratory: Yes: Regular, CTA Bilaterally Gastrointestinal: Yes: Normal Bowel Sounds, Soft Musculoskeletal: Yes: Muscle Weakness Extremities: Yes: WNL Edema: No Neurological: Yes: Alert, Oriented Psychiatric: Yes: Alert, Oriented Labs: CBC, BMP 12/14/18 07:00 12/14/18 07:00 INR, PTT INR 1.00 (0.83-1.09) 12/13/18 22:35 <Tamar Plaza - Last Filed: 12/15/18 16:43> - Current Medication List Current Medications: Active Medications Atorvastatin Calcium (Lipitor -) 20 mg PO HS [facility] Last Admin: 12/15/18 21:07 Dose: 20 mg Clonazepam (Klonopin -) 1 mg PO Q8H PRN PRN Reason: ANXIETY Last Admin: 12/15/18 21:08 Dose: 1 mg Folic Acid (Folic Acid -) 1 mg PO DAILY [facility] Last Admin: 12/16/18 09:33 Dose: 1 mg Gabapentin (Neurontin -) 300 mg PO TID [facility] Last Admin: 12/16/18 05:59 Dose: 300 mg Heparin Sodium (Porcine) (Heparin -) 5,000 unit SQ BID [facility] Last Admin: 12/16/18 09:33 Dose: 5,000 unit Sodium Chloride (1/2 Normal Saline) 1,000 mls @ 75 mls/hr IV ASDIR [facility] Last Admin: 12/16/18 00:30 Dose: 75 mls/hr Levothyroxine Sodium (Synthroid -) 125 mcg PO 0700 [facility] Last Admin: 12/16/18 05:59 Dose: 125 mcg Loperamide HCl (Imodium -) 2 mg PO Q8H PRN PRN Reason: DIARRHEA Last Admin: 12/16/18 09:32 Dose: 2 mg Nebivolol (Bystolic -) 5 mg PO DAILY [facility] Last Admin: 12/16/18 09:33 Dose: 5 mg Oxycodone HCl (Roxicodone -) 10 mg PO Q6H PRN PRN Reason: PAIN LEVEL 6-10 Last Admin: 12/15/18 21:07 Dose: 10 mg Paroxetine HCl (Paxil -) 40 mg PO DAILY [facility] Last Admin: 12/16/18 09:33 Dose: 40 mg Trazodone HCl (Desyrel -) 50 mg PO HS [facility] Last Admin: 12/15/18 21:07 Dose: 50 mg - Objective Vital Signs: Vital Signs Temperature 98.2 F 12/16/18 06:00 Pulse Rate 57 L 12/16/18 06:00 Respiratory Rate 18 12/16/18 06:00 Blood Pressure 140/74 12/16/18 06:00 O2 Sat by Pulse Oximetry (%) 94 L 12/16/18 01:00 Labs: CBC, BMP 12/14/18 07:00 12/14/18 07:00 INR, PTT INR 1.00 (0.83-1.09) 12/13/18 22:35 <Parker Barragan - Last Filed: 12/16/18 09:49> Problem List - Problems (1) Recurrent falls Assessment/Plan: -neurology on board -fall precaution -PT -lactic acid trending down currently 1006 -B12 nl Code(s): R29.6 - REPEATED FALLS (3) Hypothyroidism Assessment/Plan: -cont with levothyroxine 125mcg Code(s): E03.9 - HYPOTHYROIDISM, UNSPECIFIED (4) Afib Assessment/Plan: -tele monitoring -[facility] for rate control Code(s): I48.91 - UNSPECIFIED ATRIAL FIBRILLATION (5) Diarrhea Assessment/Plan: -GI consult pt has hx of Crohns disease Code(s): R19.7 - DIARRHEA, UNSPECIFIED Qualifiers: Diarrhea type: unspecified type <Tamar Plaza - Last Filed: 12/15/18 16:43> Assessment/Plan see problem list <Tamar Plaza - Last Filed: 12/15/18 16:43> PATIENT SEEN AND EXAMINED AND I AGREE WITH ABOVE NOTE <Parker Barragan - Last Filed: 12/16/18 09:49>
[2018-12-15] MEDS: oxyCODONE HCL 5 MG TABLET PO PRN (21:07)
[2018-12-15] MEDS: traZODone HCL 50 MG TABLET (FP) PO SCH (21:07)
[2018-12-15] MEDS: ATORVASTATIN CA 20 MG TABLET (FP) PO SCH (21:07)
[2018-12-15] MEDS: clonazePAM 0.5 MG TABLET PO PRN (21:08)
[2018-12-16] MEDS: SODIUM CHLORIDE 0.45% 1,000 ML IV SCH ×2 (00:30→12:00)
[2018-12-16] MEDS: LEVOTHYROXINE NA 125 MCG TABLET (FP) PO SCH (05:59)
[2018-12-16] MEDS: GABAPENTIN 300 MG CAPSULE (FP) PO SCH ×3 (05:59→22:25)
[2018-12-16] MEDS ORDERED: PARoxetine HCL 10 MG TABLET (FP) ONE (08:52)
[2018-12-16] MEDS: LOPERAMIDE HCL 2 MG CAPSULE PO PRN (09:32)
[2018-12-16] MEDS: NEBIVOLOL 5 MG TABLET (FP) PO SCH (09:33)
[2018-12-16] MEDS: FOLIC ACID 1 MG TABLET (FP) PO SCH (09:33)
[2018-12-16] MEDS: PARoxetine HCL 20 MG TABLET (FP) PO SCH (09:33)
[2018-12-16] MEDS: HEPARIN NA (PORCINE) 5,000 UNITS/ML 1ML VIAL SQ SCH ×2 (09:33→22:25)
--- NOTE | 2018-12-16 09:36 | PN ---
Progress Note, Physician Chief Complaint: AWAKE ALERT EVENTS REVIEWED - Current Medication List Current Medications: Active Medications Atorvastatin Calcium (Lipitor -) 20 mg PO HS [facility] Last Admin: 12/15/18 21:07 Dose: 20 mg Clonazepam (Klonopin -) 1 mg PO Q8H PRN PRN Reason: ANXIETY Last Admin: 12/15/18 21:08 Dose: 1 mg Folic Acid (Folic Acid -) 1 mg PO DAILY [facility] Last Admin: 12/16/18 09:33 Dose: 1 mg Gabapentin (Neurontin -) 300 mg PO TID [facility] Last Admin: 12/16/18 05:59 Dose: 300 mg Heparin Sodium (Porcine) (Heparin -) 5,000 unit SQ BID [facility] Last Admin: 12/16/18 09:33 Dose: 5,000 unit Sodium Chloride (1/2 Normal Saline) 1,000 mls @ 75 mls/hr IV ASDIR [facility] Last Admin: 12/16/18 00:30 Dose: 75 mls/hr Levothyroxine Sodium (Synthroid -) 125 mcg PO 0700 [facility] Last Admin: 12/16/18 05:59 Dose: 125 mcg Loperamide HCl (Imodium -) 2 mg PO Q8H PRN PRN Reason: DIARRHEA Last Admin: 12/16/18 09:32 Dose: 2 mg Nebivolol (Bystolic -) 5 mg PO DAILY [facility] Last Admin: 12/16/18 09:33 Dose: 5 mg Oxycodone HCl (Roxicodone -) 10 mg PO Q6H PRN PRN Reason: PAIN LEVEL 6-10 Last Admin: 12/15/18 21:07 Dose: 10 mg Paroxetine HCl (Paxil -) 40 mg PO DAILY [facility] Last Admin: 12/16/18 09:33 Dose: 40 mg Trazodone HCl (Desyrel -) 50 mg PO HS [facility] Last Admin: 12/15/18 21:07 Dose: 50 mg - Objective Vital Signs: Vital Signs Temperature 98.2 F 12/16/18 06:00 Pulse Rate 57 L 12/16/18 06:00 Respiratory Rate 18 12/16/18 06:00 Blood Pressure 140/74 12/16/18 06:00 O2 Sat by Pulse Oximetry (%) 94 L 12/16/18 01:00 Constitutional: Yes: Mild Distress Eyes: Yes: WNL HENT: Yes: WNL Neck: Yes: WNL Cardiovascular: Yes: Regular Rate and Rhythm Respiratory: Yes: WNL Gastrointestinal: Yes: WNL Genitourinary: Yes: WNL Musculoskeletal: Yes: Back Pain, Muscle Weakness Extremities: Yes: WNL Edema: No Peripheral Pulses WNL: Yes Integumentary: Yes: WNL Wound/Incision: Yes: Clean/Dry Neurological: Yes: Loss of Sensation, Numbness, Tingling, Weakness ...Motor Strength: LUE, RUE Psychiatric: Yes: Other Labs: CBC, BMP 12/14/18 07:00 12/14/18 07:00 INR, PTT INR 1.00 (0.83-1.09) 12/13/18 22:35 Problem List - Problems (1) Cervical radicular pain Code(s): M54.12 - RADICULOPATHY, CERVICAL REGION (2) Recurrent falls Code(s): R29.6 - REPEATED FALLS (3) Anemia Code(s): D64.9 - ANEMIA, UNSPECIFIED Assessment/Plan NEUROSURGERY EVAL APPRECIATED WILL START OSTEOPOROSIS TX CALCITONIN NASAL TX RECLAST X 1 VITAMIN D PAIN CONTROL DEPRESSION TX CONT PT EVAL ONCE MRI CSPINE COMPLETE AND READ
[2018-12-16] MEDS ORDERED: ZOLEDRONIC ACID/MAN/WATER 5 MG/100 ML INFUS..BTL IV ONE (09:51)
[2018-12-16] MEDS: CHOLECALCIFEROL (VITAMIN D3) 1,000 UNIT TABLET (FP) PO SCH (13:12)
[2018-12-16] MEDS ORDERED: CALCITONIN - SALMON SYNTHETIC 400 UNIT/2 ML VIAL SQ ONE (16:00)
--- NOTE | 2018-12-16 19:24 | CON.GI ---
Consult Consult Specialty:: GI - History of Present Illness History of Present Illness: 68 yo F w a history of dementia, Cdiff, ESBL, hypothyroidism, RA, crohn's disease, celiac disease, alzheimer's, COPD, afib and UC presents to the ED after multiple falls every day. She staes she was just discharged yesterday for the same reason. As per chart review it appears that she was actually discharged 3 days ago. History is somewhat limited secondary to patient's demnetia status. She states that she fell down today 2 times and was on the floor for over 30 minutes each time. She reports that she does not remember how she fell, whether she hit her head and she has no recollection of what happened before each of the falls. She only knows that she was on the floor for more than 30 minutes each time. She states that her left shoulder is in a significant amount of pain but this is not new. She denies any other new complaints since her recent hospital stay aside from the repeated falls. Denies taking blood thinners. Patient has hisotry of c diff which was treated recently - Past Medical History Gastrointestinal: Yes: Crohn's Disease, Ulcerative Colitis ...: No - Alcohol/Substance Use Hx Alcohol Use: No - Smoking History Smoking history: Unknown if ever smoked Have you smoked in the past 12 months: No - Social History Usual Living Arrangement: Alone ADL: Independent Home Medications - Allergies Allergies/Adverse Reactions: Allergies Allergy/AdvReac Type Severity Reaction Status Date / Time gluten Allergy Severe Vomiting Verified 12/13/18 21:03 morphine Allergy Severe Verified 12/13/18 21:03 Sulfa (Sulfonamide Allergy Verified 12/13/18 21:03 Antibiotics) - Home Medications Home Medications: Ambulatory Orders Acetaminophen [Tylenol .Extra-Strength -] 500 mg PO Q6H PRN tablet 12/10/18 Levothyroxine [Synthroid -] 150 mcg PO 0700 #30 tablet 12/10/18 Loperamide HCl [Imodium -] 2 mg PO Q8H #21 capsule 12/10/18 Albuterol Sulfate Inhaler - [Ventolin Hfa Inhaler -] 2 inh PO Q6H PRN 12/14/18 Atorvastatin Ca [Lipitor] 20 mg PO HS 12/14/18 FENTANYL 75mcg PATCH [DURAGESIC 75mcg PATCH -] 1 each TD Q72H 12/14/18 Folic Acid 1 mg PO DAILY 12/14/18 Gabapentin 300 mg PO TID 12/14/18 Nebivolol [Bystolic -] 5 mg PO DAILY 12/14/18 Paroxetine HCl 40 mg PO DAILY 12/14/18 clonazePAM [KlonoPIN] 1 mg PO TID 12/14/18 oxyCODONE HCL [Roxicodone -] 10 mg PO Q6H PRN MDD 4 12/14/18 traZODone HCL [Trazodone HCl] 50 mg PO HS 12/14/18 Physical Exam-GI Vital Signs: Vital Signs Temperature 98.0 F 12/16/18 17:00 Pulse Rate 66 12/16/18 17:00 Respiratory Rate 18 12/16/18 17:00 Blood Pressure 110/66 12/16/18 17:00 O2 Sat by Pulse Oximetry (%) 98 12/16/18 17:00 Constitutional: Yes: Well Nourished Eyes: Yes: Conjunctiva Clear HENT: Yes: Atraumatic Neck: Yes: Supple Cardiovascular: Yes: Regular Rate and Rhythm Respiratory: Yes: CTA Bilaterally ...Palpate: Yes: Soft. No: Firm/Rigid, Guarding, Hepatomegaly, Pulsatile Mass, Splenomegaly, Tenderness Labs: CBC, BMP 12/14/18 07:00 12/14/18 07:00 INR, PTT INR 1.00 (0.83-1.09) 12/13/18 22:35 Problem List - Problems (1) Celiac disease Assessment/Plan: R> continue glutein free diet Code(s): K90.0 - CELIAC DISEASE (2) Ulcerative colitis Assessment/Plan: s/p j pouch surgery 15 years ago R> maintain on glutein free, lactose free, low residue diet Code(s): K51.90 - ULCERATIVE COLITIS, UNSPECIFIED, WITHOUT COMPLICATIONS
[2018-12-16] MEDS: ATORVASTATIN CA 20 MG TABLET (FP) PO SCH (22:25)
[2018-12-16] MEDS: traZODone HCL 50 MG TABLET (FP) PO SCH (22:26)
[2018-12-17] MEDS: SODIUM CHLORIDE 0.45% 1,000 ML IV SCH (05:15)
[2018-12-17] MEDS: GABAPENTIN 300 MG CAPSULE (FP) PO SCH ×3 (05:17→21:51)
[2018-12-17] MEDS: LEVOTHYROXINE NA 125 MCG TABLET (FP) PO SCH (06:16)
[2018-12-17] MEDS ORDERED: PARoxetine HCL 10 MG TABLET (FP) ONE (09:45)
[2018-12-17] MEDS: FOLIC ACID 1 MG TABLET (FP) PO SCH (10:01)
[2018-12-17] MEDS: clonazePAM 0.5 MG TABLET PO PRN (10:01)
[2018-12-17] MEDS: CHOLECALCIFEROL (VITAMIN D3) 1,000 UNIT TABLET (FP) PO SCH (10:01)
[2018-12-17] MEDS: HEPARIN NA (PORCINE) 5,000 UNITS/ML 1ML VIAL SQ SCH ×2 (10:01→21:51)
[2018-12-17] MEDS: PARoxetine HCL 20 MG TABLET (FP) PO SCH (10:02)
[2018-12-17] MEDS: NEBIVOLOL 5 MG TABLET (FP) PO SCH (10:02)
--- NOTE | 2018-12-17 12:54 | PN ---
Progress Note, Physician Chief Complaint: patient seen and examined mri of brain and c spine noted - Current Medication List Current Medications: Active Medications Atorvastatin Calcium (Lipitor -) 20 mg PO HS [facility] Last Admin: 12/16/18 22:25 Dose: 20 mg Cholecalciferol (Vitamin D3 -) 1,000 unit PO DAILY [facility] Last Admin: 12/17/18 10:01 Dose: 1,000 unit Clonazepam (Klonopin -) 1 mg PO Q8H PRN PRN Reason: ANXIETY Last Admin: 12/17/18 10:01 Dose: 1 mg Folic Acid (Folic Acid -) 1 mg PO DAILY [facility] Last Admin: 12/17/18 10:01 Dose: 1 mg Gabapentin (Neurontin -) 300 mg PO TID [facility] Last Admin: 12/17/18 05:17 Dose: 300 mg Heparin Sodium (Porcine) (Heparin -) 5,000 unit SQ BID [facility] Last Admin: 12/17/18 10:01 Dose: 5,000 unit Sodium Chloride (1/2 Normal Saline) 1,000 mls @ 75 mls/hr IV ASDIR [facility] Last Admin: 12/17/18 05:15 Dose: 75 mls/hr Zoledronic Acid (Reclast 5 Mg/100 Ml -) 5 mg in 100 mls @ 100 mls/hr IV ONCE ONE Stop: 12/16/18 10:50 Levothyroxine Sodium (Synthroid -) 125 mcg PO 0700 [facility] Last Admin: 12/17/18 06:16 Dose: 125 mcg Loperamide HCl (Imodium -) 2 mg PO Q8H PRN PRN Reason: DIARRHEA Last Admin: 12/16/18 09:32 Dose: 2 mg Nebivolol (Bystolic -) 5 mg PO DAILY [facility] Last Admin: 12/17/18 10:02 Dose: 5 mg Oxycodone HCl (Roxicodone -) 10 mg PO Q6H PRN PRN Reason: PAIN LEVEL 6-10 Last Admin: 12/15/18 21:07 Dose: 10 mg Paroxetine HCl (Paxil -) 40 mg PO DAILY [facility] Last Admin: 12/17/18 10:02 Dose: 40 mg Trazodone HCl (Desyrel -) 50 mg PO HS [facility] Last Admin: 12/16/18 22:26 Dose: 50 mg - Objective Vital Signs: Vital Signs Temperature 97.8 F 12/17/18 10:00 Pulse Rate 64 12/17/18 10:00 Respiratory Rate 18 12/17/18 10:00 Blood Pressure 108/62 12/17/18 10:00 O2 Sat by Pulse Oximetry (%) 94 L 12/17/18 09:00 Constitutional: Yes: Calm Cardiovascular: Yes: Regular Rate and Rhythm, S1, S2 Respiratory: Yes: CTA Bilaterally Gastrointestinal: Yes: Normal Bowel Sounds, Soft Edema: No Neurological: Yes: Alert Labs: CBC, BMP 12/14/18 07:00 12/14/18 07:00 INR, PTT INR 1.00 (0.83-1.09) 12/13/18 22:35 Problem List - Problems (1) Recurrent falls Assessment/Plan: check ortho static PT eval neurology eval noted b12 752 tsh noted will adjust syntroid dose lactic acid and CK trending down inc bun will give fluids dvt ppx compression fracture of t3 - no surgical intervention started on osteoporosis treatment Code(s): R29.6 - REPEATED FALLS (2) Hypothyroidism Assessment/Plan: tsh noted decrease synthroid dose Code(s): E03.9 - HYPOTHYROIDISM, UNSPECIFIED (3) Afib Assessment/Plan: BB no AC maybe due to recurrent falls Code(s): I48.91 - UNSPECIFIED ATRIAL FIBRILLATION Assessment/Plan pt eval will need snf placement
[2018-12-17] MEDS: oxyCODONE HCL 5 MG TABLET PO PRN (13:37)
--- NOTE | 2018-12-17 15:02 | PN ---
Progress Note (short form) - Note Progress Note: Neurology Progress Note: Events reviewed. Pt examined with her son, Calvin, at the bedside. Consults from Dr. Casas and Dr. Hendrix appreciated. Started on osteoporosis prevention due to likely chronic T3 vertebral collapse. Still C/O left shoulder and diffuse left arm pain and neck and low back pain. Is seeing pain management doctor (Emery Stephenson) in [facility] and [place]. Chronically on BOTH Fentanyl (75 ug q 72 hrs) and Oxycontin 10 mg QID Reports trying to receive 24/7 [employer] at home Ongoing depression attributed to "not being able to socialize." Sees Psyche ( Dr. Jimenez, at [facility])- on Remeron, Wellbutrin and Clonazepam. MRI of brain- Normal study with some widening of the left Sylvian fissure MRI of C spine-multilevel DJD with C5/C6/C7 mild canal stenosis without cord compression or abnormal cord parenchymal signal. B12 = 752, UA unremarkable JALYN: Sl. restricted Rom of neck, normal shoulder mechanics Neuro Exam: Mentation/speech: Mild OMS may be present. CNII-CNXII: slightly masked. Full draper. Decreased rapid tongue. Gag ok. No Nystagmus. Motor: No drift or tremor. Normal strength, bulk and tone. Very brisk reflexes, but symmetrically. Decreased SUMI's Coordination: No FTN dystaxia. Sensation: Normal to vibration. Romberg - Gait: Wide-based. Slight shuffle. Impression: Chronic pain of uncertain etiology with chronic gait dysfunction and depression. May have contribution to pain from Restless Limbs Syndrome (RLS ) SUGGEST: Short term rehab for gait and balance with walker Neuro f/u as out patient for EMG/ NCS and trial of Dopamine agonists for pain. F/U Drs. Stephenson and Barbara as out patient. Thank you very much, Prakash Ordonez MD
[2018-12-17] MEDS: LOPERAMIDE HCL 2 MG CAPSULE PO PRN ×2 (15:30→23:28)
[2018-12-17] MEDS ORDERED: PT OWN MED DRAWER 7, Y5N ONE (21:47)
[2018-12-17] MEDS: traZODone HCL 50 MG TABLET (FP) PO SCH (21:51)
[2018-12-17] MEDS: ATORVASTATIN CA 20 MG TABLET (FP) PO SCH (21:51)
[2018-12-18] MEDS: GABAPENTIN 300 MG CAPSULE (FP) PO SCH ×3 (05:27→21:02)
[2018-12-18] MEDS: LEVOTHYROXINE NA 125 MCG TABLET (FP) PO SCH (06:15)
[2018-12-18] MEDS ORDERED: PARoxetine HCL 10 MG TABLET (FP) ONE (08:12)
[2018-12-18] MEDS ORDERED: PT OWN MED DRAWER 7, Y5N ONE ×2 (08:13→10:00)
[2018-12-18] MEDS: FOLIC ACID 1 MG TABLET (FP) PO SCH (10:20)
[2018-12-18] MEDS: NEBIVOLOL 5 MG TABLET (FP) PO SCH (10:20)
[2018-12-18] MEDS: HEPARIN NA (PORCINE) 5,000 UNITS/ML 1ML VIAL SQ SCH ×2 (10:20→21:02)
[2018-12-18] MEDS: CHOLECALCIFEROL (VITAMIN D3) 1,000 UNIT TABLET (FP) PO SCH (10:20)
[2018-12-18] MEDS: PARoxetine HCL 20 MG TABLET (FP) PO SCH (10:20)
--- NOTE | 2018-12-18 11:27 | PN ---
Progress Note, Physician Chief Complaint: Recurrent Falls History of Present Illness: NAD sitting at the edge of the bed, eating lunch c/o left arm pain radiating from shoulder s/p fall CT C spine reviewed On gabapentin and oxycodone wants to go to SNF UC +: Microbiology 12/14/18 22:30 Urine - Urine Clean Catch Urine Culture - Final Enterococcus Faecalis - Current Medication List Current Medications: Active Medications Atorvastatin Calcium (Lipitor -) 20 mg PO HS ON LICENSE OF [facility] Last Admin: 12/17/18 21:51 Dose: 20 mg Cholecalciferol (Vitamin D3 -) 1,000 unit PO DAILY ON LICENSE OF [facility] Last Admin: 12/18/18 10:20 Dose: 1,000 unit Clonazepam (Klonopin -) 1 mg PO Q8H PRN PRN Reason: ANXIETY Last Admin: 12/17/18 10:01 Dose: 1 mg Folic Acid (Folic Acid -) 1 mg PO DAILY ON LICENSE OF [facility] Last Admin: 12/18/18 10:20 Dose: 1 mg Gabapentin (Neurontin -) 300 mg PO TID ON LICENSE OF [facility] Last Admin: 12/18/18 05:27 Dose: 300 mg Heparin Sodium (Porcine) (Heparin -) 5,000 unit SQ BID ON LICENSE OF [facility] Last Admin: 12/18/18 10:20 Dose: 5,000 unit Sodium Chloride (1/2 Normal Saline) 1,000 mls @ 75 mls/hr IV ASDIR ON LICENSE OF [facility] Last Admin: 12/17/18 05:15 Dose: 75 mls/hr Levothyroxine Sodium (Synthroid -) 125 mcg PO 0700 ON LICENSE OF [facility] Last Admin: 12/18/18 06:15 Dose: 125 mcg Loperamide HCl (Imodium -) 2 mg PO Q8H PRN PRN Reason: DIARRHEA Last Admin: 12/17/18 23:28 Dose: 2 mg Nebivolol (Bystolic -) 5 mg PO DAILY ON [facility] Last Admin: 12/18/18 10:20 Dose: 5 mg Oxycodone HCl (Roxicodone -) 10 mg PO Q6H PRN PRN Reason: PAIN LEVEL 6-10 Last Admin: 12/17/18 13:37 Dose: 10 mg Paroxetine HCl (Paxil -) 40 mg PO DAILY ON [facility] OF [facility] Last Admin: 12/18/18 10:20 Dose: 40 mg Trazodone HCl (Desyrel -) 50 mg PO HS ON LICENSE OF [facility] Last Admin: 12/17/18 21:51 Dose: 50 mg - Objective Vital Signs: Vital Signs Temperature 97.9 F 12/18/18 06:00 Pulse Rate 64 12/18/18 06:00 Respiratory Rate 18 12/18/18 06:00 Blood Pressure 102/56 L 12/18/18 06:00 O2 Sat by Pulse Oximetry (%) 94 L 12/17/18 21:00 Constitutional: Yes: Well Nourished, No Distress, Calm Cardiovascular: Yes: Regular Rate and Rhythm Respiratory: Yes: Regular Gastrointestinal: Yes: Normal Bowel Sounds, Soft Musculoskeletal: Yes: Other (Left shoulder pain) Extremities: Yes: WNL Edema: No Peripheral Pulses WNL: Yes Integumentary: Yes: Bruising (right forearm) Neurological: Yes: Alert, Oriented Psychiatric: Yes: Alert, Oriented Labs: CBC, BMP 12/14/18 07:00 12/14/18 07:00 INR, PTT INR 1.00 (0.83-1.09) 12/13/18 22:35 Problem List - Problems (1) Cervical radicular pain Assessment/Plan: -Seen by Neurology and Neurosurgery -No surgical intervention recommended -Physical therapy -Safety precautions -Gabapentin 300 mg po TID -Oxycodone 5 mg PO Q6H PRN -Left arm sling Code(s): M54.12 - RADICULOPATHY, CERVICAL REGION (2) Recurrent falls Assessment/Plan: -Physiatry -Physical therapy -Safety precautions -SNF -Seen by Neurology and Neurosurgery Code(s): R29.6 - REPEATED FALLS (3) Afib Assessment/Plan: -AC discontinued due to recurrent falls, risk>benefit Code(s): I48.91 - UNSPECIFIED ATRIAL FIBRILLATION (4) Anxiety Assessment/Plan: -On Clonazepam Code(s): F41.9 - ANXIETY DISORDER, UNSPECIFIED (5) Chron's disease Assessment/Plan: -Chronic -Dietary modifications -On Loperamide (6) UTI (urinary tract infection) Assessment/Plan: pt c/o dysuria -UC: Microbiology 12/14/18 22:30 Urine - Urine Clean Catch Urine Culture - Final Enterococcus Faecalis -Started Levofloxacin 250 mg po daily x 7 days Code(s): N39.0 - URINARY TRACT INFECTION, SITE NOT SPECIFIED Assessment/Plan see problem list DVT prophylaxis Physical therapy
[2018-12-18] MEDS ORDERED: ACETAMINOPHEN 325 MG TABLET (FP) PO PRN (15:00)
[2018-12-18] MEDS: oxyCODONE HCL 5 MG TABLET PO PRN (15:58)
[2018-12-18] MEDS: SODIUM CHLORIDE 0.45% 1,000 ML IV SCH ×2 (16:55→17:04)
--- NOTE | 2018-12-18 17:37 | DS ---
Physical Examination Vital Signs: Vital Signs Temperature 97.7 F 12/18/18 14:01 Pulse Rate 66 12/18/18 14:01 Respiratory Rate 16 12/18/18 14:01 Blood Pressure 131/63 12/18/18 14:01 O2 Sat by Pulse Oximetry (%) 95 12/18/18 10:00 Findings/Remarks: This is a 68 year old female with a past medical history of dementia, COPD, afib , RA, Crohns disease, celiac, Alzheimers, hypothyroid, Cdiff, ESBL who presented to the ED with multiple unwitnessed falls. Pt is a very poor historian and is unclear of exact timeline of events. Only complaint is left shoulder pain at time of exam. Pt reports that she is followed by a pain specialist for her arthritis who renewed her fentanyl patch and she picked it up yesterday but never applied it as she dropped it on the floor and couldn't find it. As per [employer] registry she picked up her fentanyl 10/11 and then on 12/13, each for a 30 day supply. Of note, pt was discharged on 12/10/18 after hospitalization for UTI. Constitutional: Yes: Well Nourished, No Distress, Calm Cardiovascular: Yes: Regular Rate and Rhythm Respiratory: Yes: Regular Gastrointestinal: Yes: Normal Bowel Sounds, Soft Musculoskeletal: Yes: Muscle Weakness Extremities: Yes: Other (Left arm pain) Edema: No Peripheral Pulses WNL: Yes Neurological: Yes: Alert, Oriented, Unsteady Gait, Weakness Psychiatric: Yes: Alert, Oriented Labs: CBC, BMP 12/14/18 07:00 12/14/18 07:00 Discharge Summary Reason For Visit: RECURRENT FALLS Current Active Problems Celiac disease (Acute) Cervical radicular pain (Acute) Recurrent falls (Acute) Ulcerative colitis (Acute) Hospital Course: Laboratory Last Values WBC 6.0 K/mm3 (4.0-10.0) 12/14/18 07:00 RBC 3.58 M/mm3 (3.60-5.2) L 12/14/18 07:00 Hgb 10.5 GM/dL (10.7-15.3) L 12/14/18 07:00 Hct 31.7 % (32.4-45.2) L 12/14/18 07:00 MCV 88.4 fl (80-96) 12/14/18 07:00 MCH 29.4 pg (25.7-33.7) 12/14/18 07:00 MCHC 33.2 g/dl (32.0-36.0) 12/14/18 07:00 RDW 17.7 % (11.6-15.6) H 12/14/18 07:00 Plt Count 160 K/MM3 (134-434) 12/14/18 07:00 MPV 8.0 fl (7.5-11.1) 12/14/18 07:00 Absolute Neuts (auto) 3.9 K/mm3 (1.5-8.0) 12/14/18 07:00 Neutrophils % 65.0 % (42.8-82.8) D 12/14/18 07:00 Lymphocytes % 26.2 % (8-40) D 12/14/18 07:00 Monocytes % 7.6 % (3.8-10.2) D 12/14/18 07:00 Eosinophils % 0.9 % (0-4.5) D 12/14/18 07:00 Basophils % 0.3 % (0-2.0) 12/14/18 07:00 Nucleated RBC % 0 % (0-0) 12/14/18 07:00 PT with INR 11.80 SEC (9.7-13.0) 12/13/18 22:35 INR 1.00 (0.83-1.09) 12/13/18 22:35 PTT (Actin FS) 26.3 SECONDS (25.2-36.5) 12/13/18 22:36 Sodium 140 mmol/L (136-145) 12/14/18 07:00 Potassium 4.1 mmol/L (3.5-5.1) 12/14/18 07:00 Chloride 107 mmol/L (98-107) 12/14/18 07:00 Carbon Dioxide 27 mmol/L (21-32) 12/14/18 07:00 Anion Gap 6 MMOL/L (8-16) L 12/14/18 07:00 BUN 32 mg/dL (7-18) H 12/14/18 07:00 Creatinine 0.9 mg/dL (0.55-1.3) 12/14/18 07:00 Creat Clearance w eGFR > 60 (>60) 12/14/18 07:00 Random Glucose 86 mg/dL (74-106) 12/14/18 07:00 Lactic Acid 1.0 mmol/L (0.4-2.0) 12/14/18 12:46 Calcium 8.8 mg/dL (8.5-10.1) 12/14/18 07:00 Phosphorus 4.0 mg/dL (2.5-4.9) 12/14/18 07:00 Magnesium 2.0 mg/dL (1.8-2.4) 12/14/18 07:00 Total Bilirubin 0.3 mg/dL (0.2-1) 12/13/18 22:35 AST 62 U/L (15-37) H 12/13/18 22:35 ALT 46 U/L (13-61) 12/13/18 22:35 Alkaline Phosphatase 101 U/L (45-117) 12/13/18 22:35 Creatine Kinase 1006 U/L (26-192) H 12/14/18 12:46 Creatine Kinase Index 0.9 % (0.0-5.0) 12/14/18 12:46 CK-MB (CK-2) 9.8 ng/mL (0.5-3.6) H 12/14/18 12:46 Troponin I < 0.02 ng/ml (0.00-0.05) 12/13/18 22:35 B-Natriuretic Peptide 140.9 pg/ml (5-125) H 12/13/18 22:35 Total Protein 7.4 g/dl (6.4-8.2) 12/13/18 22:35 Albumin 3.9 g/dl (3.4-5.0) 12/13/18 22:35 Vitamin B12 752 pg/ml (193-986) 12/15/18 05:15 TSH 0.17 uIU/ml (0.358-3.74) L 12/13/18 22:35 Urine Color Ltyellow 12/14/18 22:30 Urine Appearance Clear 12/14/18 22:30 Urine pH 5.0 (5.0-8.0) D 12/14/18 22:30 Ur Specific [place] 1.018 (1.010-1.035) 12/14/18 22:30 Urine Protein Negative (NEGATIVE) 12/14/18 22:30 Urine Glucose (UA) Negative (NEGATIVE) 12/14/18 22:30 Urine Ketones Negative (NEGATIVE) 12/14/18 22: Urine Blood Negative (NEGATIVE) 12/14/18 22: Urine Nitrite Negative (NEGATIVE) 12/14/18 22: Urine Bilirubin Negative (<2.0 mg/dL) 12/14/18 22: Urine Urobilinogen Negative mg/dL (0.2-1.0) 12/14/18 22: Ur Leukocyte Esterase Negative (NEGATIVE) 12/14/18 22: Anti-A Titer Cancelled 12/13/18:35 Blood Type O POSITIVE 12/13/18: Antibody Screen Positive H 12/13/18: Antibody Identification Anti-K 12/13/18: Antigen Identification No Result Required. 12/13/18 22: Microbiology 12/14/18 22:30 Urine - Urine Clean Catch Urine Culture - Final Enterococcus Faecalis MRI C-Spine W/O contrast: No evidence of disc herniation, spinal stenosis, bone marrow edema. Normal signal intensity of the spinal cord. Brain MRI W/O contrast: Unremarkable MRI of the brain. CXR: No acute cardiopulmonary pathology. Left Shoulder Xray: No acute cardiopulmonary pathology. Head CT W/O contrast: No evidence of acute intracranial hemorrhage. No CT evidence of acute territorial ischemic changes. CT cervical spine without contrast: No acute bony abnormality seen in the cervical spine. T3 vertebral body. Compression fracture involving the superior endplate of T3 vertebral body with increased concavity of the endplate, sclerotic changes. The posterior, anterior cortex is intact. Intact pedicles. Normal alignment of the facet joints. No evidence of retropulsion. Indeterminate age of the compression fracture of T3. Maximal loss of T3 in relation to T2 approximately 25-30%. Condition: Stable - Instructions Referrals: Diony Gutierrez [Primary Care Provider] - Disposition: HALFWAY FACILITY - Home Medications Comprehensive Discharge Medication List: Ambulatory Orders Acetaminophen [Tylenol .Extra-Strength -] 500 mg PO Q6H PRN tablet 12/10/18 Levothyroxine [Synthroid -] 150 mcg PO 0700 #30 tablet 12/10/18 Loperamide HCl [Imodium -] 2 mg PO Q8H #21 capsule 12/10/18 Albuterol Sulfate Inhaler - [Ventolin HFA Inhaler -] 2 inh PO Q6H PRN 12/14/18 Atorvastatin Ca [Lipitor] 20 mg PO HS 12/14/18 Folic Acid 1 mg PO DAILY 12/14/18 Gabapentin 300 mg PO TID 12/14/18 Nebivolol [Bystolic -] 5 mg PO DAILY 12/14/18 Paroxetine HCl 40 mg PO DAILY 12/14/18 clonazePAM [KlonoPIN] 1 mg PO TID 12/14/18 oxyCODONE HCL [Roxicodone -] 10 mg PO Q6H PRN MDD 4 12/14/18 traZODone HCL [Trazodone HCl] 50 mg PO HS 12/14/18 Cholecalciferol (Vitamin D3) [Vitamin D3 -] 1,000 unit PO DAILY tab 12/18/18 Oxycodone HCl 5 mg PO Q6H PRN #120 tablet MDD 4 12/18/18 levoFLOXacin [Levaquin -] 250 mg PO DAILY@0600 #6 tablet 12/18/18
[2018-12-18] MEDS: ATORVASTATIN CA 20 MG TABLET (FP) PO SCH (21:02)
[2018-12-18] MEDS: traZODone HCL 50 MG TABLET (FP) PO SCH (21:02)
[2018-12-18] MEDS: LOPERAMIDE HCL 2 MG CAPSULE PO PRN (21:02)
[2018-12-19] MEDS: oxyCODONE HCL 5 MG TABLET PO PRN ×3 (00:02→12:15)
[2018-12-19] MEDS: LEVOTHYROXINE NA 125 MCG TABLET (FP) PO SCH (06:17)
[2018-12-19] MEDS: GABAPENTIN 300 MG CAPSULE (FP) PO SCH (06:17)
[2018-12-19 06:59] LABS: BASO % 0.3 % (0-2.0); EOS % 4.6 % (0-4.5); HEMATOCRIT 30.1 % (32.4-45.2); LYMPH % 17.9 % (8-40); MCH 29.5 pg (25.7-33.7); MCHC 33.4 g/dl (32.0-36.0); MEAN CELL VOLUME 88.1 fl (80-96); MEAN PLT VOLUME 7.5 fl (7.5-11.1); MONO % 9.3 % (3.8-10.2); NEUT % 67.9 % (42.8-82.8); PLATELET COUNT 195 K/MM3 (134-434); RBC 3.41 M/mm3 (3.60-5.2); WHITE BLOOD COUNT 6.1 K/mm3 (4.0-10.0)
[2018-12-19 07:50] LABS: ALBUMIN 2.8 g/dl (3.4-5.0); ALK PHOS 104 U/L (45-117); ANION GAP 6 MMOL/L (8-16); BILIRUBIN,TOTAL 0.3 mg/dL (0.2-1); BLOOD UREA NITROGEN 9 mg/dL (7-18); CALCIUM 8.4 mg/dL (8.5-10.1); CHLORIDE 108 mmol/L (98-107); CO2 30 mmol/L (21-32); CREATININE 0.7 mg/dL (0.55-1.3); GLUCOSE,RANDOM 90 mg/dL (74-106); POTASSIUM 3.6 mmol/L (3.5-5.1); SGOT/AST 28 U/L (15-37); SGPT/ALT 38 U/L (13-61); SODIUM 144 mmol/L (136-145); TOT PROT 5.7 g/dl (6.4-8.2)
[2018-12-19] MEDS ORDERED: PARoxetine HCL 10 MG TABLET (FP) ONE (09:48)
[2018-12-19] MEDS ORDERED: PT OWN MED DRAWER 7, Y5N ONE (09:49)
[2018-12-19] MEDS: LOPERAMIDE HCL 2 MG CAPSULE PO PRN (10:08)
[2018-12-19] MEDS: CHOLECALCIFEROL (VITAMIN D3) 1,000 UNIT TABLET (FP) PO SCH (10:08)
[2018-12-19] MEDS: PARoxetine HCL 20 MG TABLET (FP) PO SCH (10:08)
[2018-12-19] MEDS: FOLIC ACID 1 MG TABLET (FP) PO SCH (10:08)
[2018-12-19] MEDS: NEBIVOLOL 5 MG TABLET (FP) PO SCH (10:08)
[2018-12-19] MEDS: HEPARIN NA (PORCINE) 5,000 UNITS/ML 1ML VIAL SQ SCH (10:09)
--- NOTE | 2018-12-19 10:10 | PN ---
Progress Note, Physician Chief Complaint: Recurrent Falls History of Present Illness: NAD sitting at the edge of the bed, eating lunch c/o left arm pain radiating from shoulder s/p fall CT C spine reviewed On gabapentin and oxycodone wants to go to SNF UC +: Microbiology 12/14/18 22:30 Urine - Urine Clean Catch Urine Culture - Final Enterococcus Faecalis - Current Medication List Current Medications: Active Medications Acetaminophen (Tylenol -) 650 mg PO Q4H PRN PRN Reason: PAIN OR FEVER Last Admin: 12/18/18 21:02 Dose: 650 mg Atorvastatin Calcium (Lipitor -) 20 mg PO HS [facility] Last Admin: 12/18/18 21:02 Dose: 20 mg Cholecalciferol (Vitamin D3 -) 1,000 unit PO DAILY [facility] Last Admin: 12/18/18 10:20 Dose: 1,000 unit Clonazepam (Klonopin -) 1 mg PO Q8H PRN PRN Reason: ANXIETY Last Admin: 12/17/18 10:01 Dose: 1 mg Folic Acid (Folic Acid -) 1 mg PO DAILY [facility] Last Admin: 12/18/18 10:20 Dose: 1 mg Gabapentin (Neurontin -) 300 mg PO TID [facility] Last Admin: 12/19/18 06:17 Dose: 300 mg Heparin Sodium (Porcine) (Heparin -) 5,000 unit SQ BID [facility] Last Admin: 12/18/18 21:02 Dose: 5,000 unit Sodium Chloride (1/2 Normal Saline) 1,000 mls @ 75 mls/hr IV ASDIR [facility] Last Admin: 12/18/18 17:04 Dose: Not Given Levofloxacin (Levaquin -) 250 mg PO DAILY@0600 [facility] Last Admin: 12/19/18 06:17 Dose: 250 mg Levothyroxine Sodium (Synthroid -) 125 mcg PO 0700 [facility] Last Admin: 12/19/18 06:17 Dose: 125 mcg Loperamide HCl (Imodium -) 2 mg PO Q8H PRN PRN Reason: DIARRHEA Last Admin: 12/18/18 21:02 Dose: 2 mg Nebivolol (Bystolic -) 5 mg PO DAILY [facility] Last Admin: 12/18/18 10:20 Dose: 5 mg Oxycodone HCl (Roxicodone -) 10 mg PO Q6H PRN PRN Reason: PAIN LEVEL 6-10 Last Admin: 12/19/18 06:17 Dose: 10 mg Paroxetine HCl (Paxil -) 40 mg PO DAILY [facility] Last Admin: 12/18/18 10:20 Dose: 40 mg Trazodone HCl (Desyrel -) 50 mg PO HS [facility] Last Admin: 12/18/18 21:02 Dose: 50 mg - Objective Vital Signs: Vital Signs Temperature 97.8 F 12/19/18 06:00 Pulse Rate 58 L 12/19/18 06:00 Respiratory Rate 18 12/19/18 06:00 Blood Pressure 127/77 12/19/18 06:00 O2 Sat by Pulse Oximetry (%) 94 L 12/18/18 21:00 Constitutional: Yes: Well Nourished, No Distress, Calm Cardiovascular: Yes: Regular Rate and Rhythm Respiratory: Yes: Regular, CTA Bilaterally Gastrointestinal: Yes: Normal Bowel Sounds, Soft Musculoskeletal: Yes: Muscle Weakness, Other (Left arm pain, with sling on) Extremities: Yes: WNL Edema: No Peripheral Pulses WNL: Yes Neurological: Yes: Alert, Oriented Psychiatric: Yes: Alert, Oriented Labs: CBC, BMP 12/19/18 06:30 12/19/18 06:30 INR, PTT INR 1.00 (0.83-1.09) 12/13/18 22:35 Problem List - Problems (1) Cervical radicular pain Assessment/Plan: -Seen by Neurology and Neurosurgery -No surgical intervention recommended -Physical therapy -Safety precautions -Gabapentin 300 mg po TID -Oxycodone 5 mg PO Q6H PRN -Left arm sling Code(s): M54.12 - RADICULOPATHY, CERVICAL REGION (2) Recurrent falls Assessment/Plan: -Physiatry -Physical therapy -Safety precautions -SNF -Seen by Neurology and Neurosurgery Code(s): R29.6 - REPEATED FALLS (3) Afib Assessment/Plan: -AC discontinued due to recurrent falls, risk>benefit Code(s): I48.91 - UNSPECIFIED ATRIAL FIBRILLATION (4) Anxiety Assessment/Plan: -On Clonazepam Code(s): F41.9 - ANXIETY DISORDER, UNSPECIFIED (5) Chron's disease Assessment/Plan: -Chronic -Dietary modifications -On Loperamide (6) UTI (urinary tract infection) Assessment/Plan: pt c/o dysuria -UC: Microbiology 12/14/18 22:30 Urine - Urine Clean Catch Urine Culture - Final Enterococcus Faecalis -Started Levofloxacin 250 mg po daily x 7 days Code(s): N39.0 - URINARY TRACT INFECTION, SITE NOT SPECIFIED (7) Anemia Assessment/Plan: -Recheck thyroid profile, Iron profile at the rehab. Code(s): D64.9 - ANEMIA, UNSPECIFIED Assessment/Plan see problem list D/C to [facility]
[2018-12-19 11:03] VITALS: BP 124/66; PULSE 66; TEMP 98.1
== END 2018-12-19 12:33 ==
LOC: JER 20:47 → JERBED 12-14 02:51 → J4S 12-14 04:39
PROVIDERS: ADMIT Internal Medicine; ATTEND Family Medicine
PROC: 3E033NZ Introduction of Analgesics, Hypnotics, Sedatives into Peripheral Vein, Percutaneous Approach (ICD-10-PCS; principal; 2018-12-14)
PROC: 3E0337Z Introduction of Electrolytic and Water Balance Substance into Peripheral Vein, Percutaneous Approach (ICD-10-PCS; 2018-12-14)
PROC: 3E013GC Introduction of Other Therapeutic Substance into Subcutaneous Tissue, Percutaneous Approach (ICD-10-PCS; 2018-12-14)
DX: R29.6 Repeated falls (principal); I10 Essential (primary) hypertension; E78.5 Hyperlipidemia, unspecified; G30.9 Alzheimer's disease, unspecified; F02.80 Dementia in other diseases classified elsewhere, unspecified severity, without behavioral disturbance, psychotic disturbance, mood disturbance, and anxiety; E03.9 Hypothyroidism, unspecified; M06.9 Rheumatoid arthritis, unspecified; K50.90 Crohn's disease, unspecified, without complications; K51.90 Ulcerative colitis, unspecified, without complications; K90.0 Celiac disease; J44.9 Chronic obstructive pulmonary disease, unspecified; I48.91 Unspecified atrial fibrillation; D64.9 Anemia, unspecified; G89.29 Other chronic pain; M43.12 Spondylolisthesis, cervical region; M50.323 Other cervical disc degeneration at C6-C7 level; M47.894 Other spondylosis, thoracic region; F09 Unspecified mental disorder due to known physiological condition; R19.7 Diarrhea, unspecified; M54.12 Radiculopathy, cervical region; N39.0 Urinary tract infection, site not specified; Z86.19 Personal history of other infectious and parasitic diseases; Z87.81 Personal history of (healed) traumatic fracture; Z88.2 Allergy status to sulfonamides; Z88.6 Allergy status to analgesic agent; W19.XXXA Unspecified fall, initial encounter; Z91.81 History of falling; Y93.89 Activity, other specified; Y92.89 Other specified places as the place of occurrence of the external cause
CPT/HCPCS: 36415; 70450-TC; 70551-TC; 71045-TC-FY; 72100-TC-FY; 72125-TC; 72141-TC; 73030-TC-LT-FY; 80048; 80053; 81003; 82550; 82553; 82607; 83605; 83735; 83880; 84100; 84439; 84443; 84484; 85025; 85610; 85730; 86850; 86870; 86900; 86901; 86902; 87086; 87186; 93005; 93010; 96361; 96372; 96374; 97116-GP; 97161-GP; 99283-25; G0378; J0131; J1644

== ENCOUNTER 2018-12-25 09:18 | Observation (INO) | payer OTHER ==
[2018-12-25 09:44] VITALS: BMI 24.0
[2018-12-25] MEDS ORDERED: SODIUM CHLORIDE 1,905 ML IV ONE (10:30)
--- NOTE | 2018-12-25 10:39 | PDOC ---
History of Present Illness - General Chief Complaint: Altered Mental Status Stated Complaint: AMS Time Seen by Provider: 12/25/18 09:56 - History of Present Illness Initial Comments: 12/25/18 10:38 68 yo F with h/o Alzheimers dementia, COPD, A-fib, RA, Chrons dz., Opioid dependence, celiac dz., C.diff, ESBL, hypothyroid, c-spine fracture, who p/w confusion and fall. Per patient son at bedside he report patient with confusion this AM when he went into patient room at apporoximately 0730. Noted that patient was found to be down on ground wedged between wall and bed. Patient confused per patient, making "irrational," statements, and disoriented. this lasted up until presentation to the ED. {Patient recently admitted to [facility] (-12/19/18) for frequent falls and UTI ( later grew E.Faecalis). Patient on Levaquin 250mg 7 days. Endorses 1 month of hematuria, and intermittent lightheadedness. Patient son states that patient was discharged from [facility] to [facility]/rehab. Patient son signs patient out AMA (12/24/18) d/t dissatisfaction with level of care. Patient on daily fentanyl and oxycodone. + chronic left shoulder pain, and cervical neck pain. Patient denies HUYNH, vision change, N/V, F,C, CP, SOB, urinary complaints, abdominal pain, diarrhea, constipation, weakness, sensory changes. PMHx: as noted above ROS: as noted SHx: Denies Etoh, IVDA Allergies: Morphine Past History - Past Medical History Allergies/Adverse Reactions: Allergies Allergy/AdvReac Type Severity Reaction Status Date / Time gluten Allergy Severe Vomiting Verified 12/13/18 21:03 morphine Allergy Severe Verified 12/13/18 21:03 Sulfa (Sulfonamide Allergy Verified 12/13/18 21:03 Antibiotics) Home Medications: Ambulatory Orders Acetaminophen [Tylenol .Extra-Strength -] 500 mg PO Q6H PRN tablet 12/10/18 Levothyroxine [Synthroid -] 150 mcg PO 0700 #30 tablet 12/10/18 Loperamide HCl [Imodium -] 2 mg PO Q8H #21 capsule 12/10/18 Albuterol Sulfate Inhaler - [Ventolin HFA Inhaler -] 2 inh PO Q6H PRN 12/14/18 Atorvastatin Ca [Lipitor] 20 mg PO HS 12/14/18 Folic Acid 1 mg PO DAILY 12/14/18 Gabapentin 300 mg PO TID 12/14/18 Nebivolol [Bystolic -] 5 mg PO DAILY 12/14/18 Paroxetine HCl 40 mg PO DAILY 12/14/18 clonazePAM [KlonoPIN] 1 mg PO TID 12/14/18 oxyCODONE HCL [Roxicodone -] 10 mg PO Q6H PRN MDD 4 12/14/18 traZODone HCL [Trazodone HCl] 50 mg PO HS 12/14/18 Cholecalciferol (Vitamin D3) [Vitamin D3 -] 1,000 unit PO DAILY tab 12/18/18 Oxycodone HCl 5 mg PO Q6H PRN #120 tablet MDD 4 12/18/18 levoFLOXacin [Levaquin -] 250 mg PO DAILY@0600 #6 tablet 12/18/18 Anemia: Yes Asthma: No Cancer: Yes (tumors of small intestine) Cardiac Disorders: No CVA: No COPD: Yes CHF: No Dementia: Yes Diabetes: No GI Disorders: Yes (CHROHN, RECTAL ULCER, celiac disease) Disorders: No HTN: Yes Hypercholesterolemia: Yes Liver Disease: No Seizures: No Thyroid Disease: Yes - Surgical History Abdominal Surgery: Yes (J POUCH) Appendectomy: Yes (1995) Cardiac Surgery: No Cholecystectomy: Yes (2001) Lung Surgery: No Neurologic Surgery: No Orthopedic Surgery: Yes (right femur kirby 2010,) - Immunization History Immunization Up to Date: Yes - Suicide/Smoking/Psychosocial Hx Smoking Status: No Smoking History: Unknown if ever smoked Have you smoked in the past 12 months: No Hx Alcohol Use: No Drug/Substance Use Hx: No Substance Use Type: None Hx Substance Use Treatment: No Review of Systems - Review of Systems Comments:: 12/25/18 10:47 GENERAL/CONSTITUTIONAL: No fever or chills. No weakness. HEAD, EYES, EARS, NOSE AND THROAT: No change in vision. No ear pain or discharge. No sore throat. CARDIOVASCULAR: No chest pain or shortness of breath RESPIRATORY: No cough, wheezing, or hemoptysis. GASTROINTESTINAL: No nausea, vomiting, diarrhea or constipation. GENITOURINARY: No dysuria, frequency, or change in urination. MUSCULOSKELETAL: No joint or muscle swelling or pain. No neck or back pain. SKIN: No rash NEUROLOGIC: No headache, vertigo, loss of consciousness, or change in strength/ sensation. ENDOCRINE: No increased thirst. No abnormal weight change HEMATOLOGIC/LYMPHATIC: No anemia, easy bleeding, or history of blood clots. ALLERGIC/IMMUNOLOGIC: No hives or skin allergy. *Physical Exam - Vital Signs Last Vital Signs Temp Pulse Resp BP Pulse Ox 98.4 F 84 16 100/56 L 92 L 12/25/18 09:20 12/25/18 09:20 12/25/18 09:20 12/25/18 09:20 12/25/18 10:10 - Physical Exam Comments: 12/25/18 10:47 GENERAL: Awake, alert, and fully oriented, in no acute distress HEAD: No signs of trauma, normocephalic, atraumatic EYES: PERRLA, EOMI, sclera anicteric, conjunctiva clear ENT: Auricles normal inspection, hearing grossly normal, nares patent, oropharynx clear without exudates. Moist mucosa NECK: Normal ROM, supple, no lymphadenopathy, JVD, or masses LUNGS: No distress, speaks full sentences, clear to auscultation bilaterally HEART: Regular rate and rhythm, normal S1 and S2, no murmurs, rubs or gallops, peripheral pulses normal and equal bilaterally. ABDOMEN: + Suprpapubic ttp. Neg CVA ttp. Soft, NDS, normoactive bowel sounds. No guarding, no rebound. No masses EXTREMITIES : Normal inspection, Normal range of motion, no edema. No clubbing or cyanosis. NEUROLOGICAL: Cranial nerves II through XII grossly intact. Normal speech, no focal sensorimotor deficits SKIN: Warm, Dry, normal turgor, no rashes or lesions noted Moderate Sedation - Procedure Monitoring Vital Signs: Procedure Monitoring Vital Signs Temperature 98.4 F 12/25/18 09:20 Pulse Rate 84 12/25/18 09:20 Respiratory Rate 16 12/25/18 09:20 Blood Pressure 100/56 L 12/25/18 09:20 O2 Sat by Pulse Oximetry (%) 92 L 12/25/18 10:10 ED Treatment Course - LABORATORY CBC & Chemistry Diagram: 12/25/18 11:05 12/25/18 11:05 - RADIOLOGY Radiology Studies Ordered: Category Date Time Status HEAD CT WITHOUT CONTRAST [CT] Stat CT Scan 12/25/18 10:30 Ordered CXRPORT [CHEST X-RAY PORTABLE*] [RAD] Stat Radiology 12/25/18 10:29 Ordered Medical Decision Making - Medical Decision Making 12/25/18 10:45 68 yo F with h/o Alzheimers dementia, COPD, A-fib, RA, Chrons dz., Opioid dependence, celiac dz., C.diff, ESBL, hypothyroid, c-spine fracture, who p/w confusion and fall. BP 100/56, vitals otherwise wnl, AF, GCS 15, A&Ox3. No evidence of closed head injury. C-spine neg per nexus. + suprpapubic ttp. CTH r/ o hemmorhage, hemaotma, skull fracture. Will assess for VBI/TIA, cardiac dysarrythmias, hypoglycemia, electrolyte abnml, metabolic and toxic derangements , acid-base disturbances, infection. Ed Course: 2 L NS 12/25/18 11:35 CXR: Unremarkable 12/25/18 11:39 EKG: NSR with absent acute LUCY, STD. Normal axis and interval duration. 12/25/18 13:05 Trop: Neg CK: 419 12/25/18 13:33 CTH: Unremarkable 12/25/18 14:[address] Bird. Admit to medicine Dr. Gutierrez. *DC/Admit/Observation/Transfer Diagnosis at time of Disposition: Altered mental status Qualifiers: Altered mental status type: unspecified Qualified Code(s): R41.82 - Altered mental status, unspecified Fall Qualifiers: Encounter type: subsequent encounter Qualified Code(s): W19.XXXD - Unspecified fall, subsequent encounter - Discharge Dispostion Condition at time of disposition: Stable Decision to Admit order: Yes - Referrals Referrals: Diony Gutierrez [Primary Care Provider] - - Patient Instructions Printed Discharge Instructions: DI for Altered Mental Status Additional Instructions: Please return to the emergency department with any new or worsening symptoms or concerns. Please follow up with your primary care physician within 72 hours. - Post Discharge Activity - Transfer to Acute Care Facility Transfer comment: 12/25/18 10:49 I attest to the information provided in this note.
[2018-12-25 11:37] LABS: BASO % 0.3 % (0-2.0); HEMATOCRIT 32.1 % (32.4-45.2); HEMOGLOBIN 10.9 GM/dL (10.7-15.3); LYMPH % 8.8 % (8-40); MCHC 33.8 g/dl (32.0-36.0); MEAN CELL VOLUME 88.5 fl (80-96); MEAN PLT VOLUME 7.2 fl (7.5-11.1); MONO % 3.1 % (3.8-10.2); NEUT % 87.8 % (42.8-82.8); PLATELET COUNT 254 K/MM3 (134-434); RBC 3.62 M/mm3 (3.60-5.2); RDW 16.5 % (11.6-15.6); WHITE BLOOD COUNT 7.4 K/mm3 (4.0-10.0)
[2018-12-25 12:17] LABS: ALBUMIN 3.3 g/dl (3.4-5.0); ALK PHOS 119 U/L (45-117); ANION GAP 5 MMOL/L (8-16); BILIRUBIN,TOTAL 0.3 mg/dL (0.2-1); BLOOD UREA NITROGEN 26 mg/dL (7-18); CHLORIDE 102 mmol/L (98-107); CO2 33 mmol/L (21-32); GLUCOSE,RANDOM 120 mg/dL (74-106); POTASSIUM 4.2 mmol/L (3.5-5.1); SGOT/AST 22 U/L (15-37); SGPT/ALT 23 U/L (13-61); SODIUM 140 mmol/L (136-145); TOT PROT 6.4 g/dl (6.4-8.2)
--- NOTE | 2018-12-25 14:18 | PDOC ---
Attending Attestation - Resident Resident Name: Carlos Olivera - ED Attending Attestation I have performed the following: I have examined & evaluated the patient, The case was reviewed & discussed with the resident, I agree w/resident's findings & plan - HPI HPI: 12/25/18 14:15 68y/o F early advanced dementia recently discharged to [facility] after admission here, signed out of NH yesterday by son presents now after found following fall. 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 labs wnl ct without acute injury will need readmission, SW/CM involved Heart Score/ECG Review #1 ECG reviewed & interpreted by me at: 09:45 General ECG Interpretation: Sinus Rhythm, Normal Rate (64), Normal Intervals ( qtc 404), No acute ischemic changes
--- NOTE | 2018-12-25 15:25 | HP ---
Admitting History and Physical - Admission Chief Complaint: s/p fall History of Present Illness: 68y/o F early advanced dementia recently discharged to [facility] after admission here, signed out of DE yesterday by son presents now after found following fall. History Source: Medical Record - Past Medical History Gastrointestinal: Yes: Crohn's Disease, Ulcerative Colitis - Smoking History Smoking history: Unknown if ever smoked Have you smoked in the past 12 months: No - Alcohol/Substance Use Hx Alcohol Use: No - Social History ADL: Independent Home Medications - Allergies Allergies/Adverse Reactions: Allergies Allergy/AdvReac Type Severity Reaction Status Date / Time gluten Allergy Severe Vomiting Verified 12/13/18 21:03 morphine Allergy Severe Verified 12/13/18 21:03 Sulfa (Sulfonamide Allergy Verified 12/13/18 21:03 Antibiotics) - Home Medications Home Medications: Ambulatory Orders Acetaminophen [Tylenol .Extra-Strength -] 500 mg PO Q6H PRN tablet 12/10/18 Levothyroxine [Synthroid -] 150 mcg PO 0700 #30 tablet 12/10/18 Loperamide HCl [Imodium -] 2 mg PO Q8H #21 capsule 12/10/18 Albuterol Sulfate Inhaler - [Ventolin HFA Inhaler -] 2 inh PO Q6H PRN 12/14/18 Atorvastatin Ca [Lipitor] 20 mg PO HS 12/14/18 Folic Acid 1 mg PO DAILY 12/14/18 Gabapentin 300 mg PO TID 12/14/18 Nebivolol [Bystolic -] 5 mg PO DAILY 12/14/18 Paroxetine HCl 40 mg PO DAILY 12/14/18 clonazePAM [KlonoPIN] 1 mg PO TID 12/14/18 oxyCODONE HCL [Roxicodone -] 10 mg PO Q6H PRN MDD 4 12/14/18 traZODone HCL [Trazodone HCl] 50 mg PO HS 12/14/18 Cholecalciferol (Vitamin D3) [Vitamin D3 -] 1,000 unit PO DAILY tab 12/18/18 Oxycodone HCl 5 mg PO Q6H PRN #120 tablet MDD 4 12/18/18 levoFLOXacin [Levaquin -] 250 mg PO DAILY@0600 #6 tablet 12/18/18 Review of Systems Unable to obtain ROS, reason: confused Physical Examination Vital Signs: Vital Signs Temperature 97.6 F 12/25/18 14:45 Pulse Rate 60 12/25/18 14:45 Respiratory Rate 16 12/25/18 14:45 Blood Pressure 112/62 12/25/18 14:45 O2 Sat by Pulse Oximetry (%) 96 12/25/18 14:45 Constitutional: Yes: Thin Cardiovascular: Yes: Regular Rate and Rhythm, S1, S2 Respiratory: Yes: Diminished Gastrointestinal: Yes: Normal Bowel Sounds, Soft Edema: No Neurological: Yes: Confusion Labs: CBC, BMP 12/25/18 11:05 12/25/18 11:05 Imaging - Results X-ray: Report Reviewed Cat Scan: Report Reviewed Problem List - Problems (1) Fall Assessment/Plan: PT neurology will need snf placement dvt ppx trend CPK ivf Code(s): W19.XXXA - UNSPECIFIED FALL, INITIAL ENCOUNTER Qualifiers: Encounter type: subsequent encounter Qualified Code(s): W19.XXXD - Unspecified fall, subsequent encounter (2) Hypothyroidism Assessment/Plan: tsh synthroid Code(s): E03.9 - HYPOTHYROIDISM, UNSPECIFIED
[2018-12-25] MEDS ORDERED: SODIUM CHLORIDE 1,000 ML IV SCH (15:30)
[2018-12-25] MEDS ORDERED: SODIUM CHLORIDE 0.45% 1,000 ML IV SCH ×2 (15:30→16:45)
[2018-12-25] MEDS ORDERED: ACETAMINOPHEN 325 MG TABLET (FP) PO PRN (16:32)
[2018-12-25] MEDS ORDERED: ATORVASTATIN CA 20 MG TABLET (FP) PO SCH (22:00)
[2018-12-25] MEDS: traZODone HCL 50 MG TABLET (FP) PO SCH (23:43)
[2018-12-25] MEDS: HEPARIN NA (PORCINE) 5,000 UNITS/ML 1ML VIAL SQ SCH (23:43)
[2018-12-26] MEDS ORDERED: LEVOTHYROXINE NA 25 MCG TABLET (FP) ONE (06:06)
[2018-12-26 06:37] LABS: HEMATOCRIT 33.9 % (32.4-45.2); HEMOGLOBIN 11.4 GM/dL (10.7-15.3); MCH 29.8 pg (25.7-33.7); MCHC 33.7 g/dl (32.0-36.0); MEAN CELL VOLUME 88.6 fl (80-96); MEAN PLT VOLUME 7.2 fl (7.5-11.1); PLATELET COUNT 249 K/MM3 (134-434); RBC 3.83 M/mm3 (3.60-5.2); RDW 17.2 % (11.6-15.6); WHITE BLOOD COUNT 5.8 K/mm3 (4.0-10.0)
[2018-12-26 07:00] LABS: PROTHROMBIN TIME (PATIENT) 11.8 SEC (9.7-13.0)
[2018-12-26] MEDS ORDERED: LEVOTHYROXINE NA 75 MCG TABLET (FP) PO SCH ×2 (07:00→09:47)
[2018-12-26 07:02] LABS: ACTIVATED PTT 27.7 SECONDS (25.2-36.5)
[2018-12-26 07:22] LABS: ALBUMIN 3.3 g/dl (3.4-5.0); ALK PHOS 120 U/L (45-117); ANION GAP 5 MMOL/L (8-16); BILIRUBIN,TOTAL 0.5 mg/dL (0.2-1); BLOOD UREA NITROGEN 21 mg/dL (7-18); CALCIUM 8.8 mg/dL (8.5-10.1); CHLORIDE 105 mmol/L (98-107); CHOLESTEROL 138 mg/dL (50-200); CO2 33 mmol/L (21-32); CREATININE 0.8 mg/dL (0.55-1.3); GLUCOSE,RANDOM 92 mg/dL (74-106); HDL CHOLESTEROL 59 mg/dL (40-60); MAGNESIUM 1.6 mg/dL (1.8-2.4); POTASSIUM 3.6 mmol/L (3.5-5.1); SGOT/AST 36 U/L (15-37); SGPT/ALT 27 U/L (13-61); SODIUM 143 mmol/L (136-145); TOT PROT 6.6 g/dl (6.4-8.2); TRIGLYCERIDES 122 mg/dL (0-150)
--- NOTE | 2018-12-26 08:40 | PN ---
Progress Note, Physician History of Present Illness: 68 yo F with h/o Alzheimers dementia, COPD, A-fib, RA, Chrons dz., Opioid dependence, celiac dz., C.diff, ESBL, hypothyroid, c-spine fracture, who p/w confusion and fall. Per patient son at bedside he report patient with confusion when he went into patient room at apporoximately 0730. Noted that patient was found to be down on ground wedged between wall and bed. Patient confused per patient, making "irrational," statements, and disoriented. this lasted up until presentation to the ED. {Patient recently admitted to [facility] (12/14-12/19/18) for frequent falls and UTI ( later grew E.Faecalis). Patient on Levaquin 250mg 7 days. Endorses 1 month of hematuria, and intermittent lightheadedness. Patient son states that patient was discharged from [facility] to [facility]/rehab. - Current Medication List Current Medications: Active Medications Acetaminophen (Tylenol -) 650 mg PO Q6H PRN PRN Reason: FEVER Heparin Sodium (Porcine) (Heparin -) 5,000 unit SQ BID [facility] Last Admin: 12/25/18 23:43 Dose: Not Given Sodium Chloride (1/2 Normal Saline) 1,000 mls @ 50 mls/hr IV ASDIR [facility] Stop: 12/26/18 16:34 Last Admin: 12/25/18 21:05 Dose: 50 mls/hr Levothyroxine Sodium (Synthroid -) 150 mcg PO DAILY@0700 [facility] Last Admin: 12/26/18 06:27 Dose: 150 mcg Trazodone HCl (Desyrel -) [address] [facility] Last Admin: 12/25/18 23:43 Dose: 50 mg - Objective Vital Signs: Vital Signs Temperature 97.6 F 12/25/18 14:45 Pulse Rate 67 12/26/18 04:00 Respiratory Rate 17 12/26/18 04:00 Blood Pressure 132/78 12/26/18 04:00 O2 Sat by Pulse Oximetry (%) 98 12/26/18 04:00 Cardiovascular: Yes: Regular Rate and Rhythm Respiratory: Yes: Regular, CTA Bilaterally Gastrointestinal: Yes: Normal Bowel Sounds, Soft Neurological: Yes: Alert, Confusion Labs: CBC, BMP 12/26/18 05:30 12/26/18 05:30 INR, PTT INR 1.00 (0.83-1.09) 12/26/18 05:30 Problem List - Problems (1) Altered mental status Assessment/Plan: H/O DEMENTAI MONITOR CT HEAD NOTED NEURO CONSULT HOLD KLONIPIN Code(s): R41.82 - ALTERED MENTAL STATUS, UNSPECIFIED Qualifiers: Altered mental status type: unspecified Qualified Code(s): R41.82 - Altered mental status, unspecified (2) Fall Assessment/Plan: PT EVAL NEURO Code(s): W19.XXXA - UNSPECIFIED FALL, INITIAL ENCOUNTER Qualifiers: Encounter type: subsequent encounter Qualified Code(s): W19.XXXD - Unspecified fall, subsequent encounter (3) Cervical radicular pain Assessment/Plan: HOLD PAIN MEDS Code(s): M54.12 - RADICULOPATHY, CERVICAL REGION (4) Hypothyroidism Assessment/Plan: SAME MEDS Code(s): E03.9 - HYPOTHYROIDISM, UNSPECIFIED (5) Rhabdomyolysis Assessment/Plan: -FOLLOW LABS Code(s): M62.82 - RHABDOMYOLYSIS Assessment/Plan - Problems (1) Fall Assessment/Plan: PT neurology will need snf placement dvt ppx trend CPK ivf Code(s): W19.XXXA - UNSPECIFIED FALL, INITIAL ENCOUNTER Qualifiers: Encounter type: subsequent encounter Qualified Code(s): W19.XXXD - Unspecified fall, subsequent encounter (2) Hypothyroidism Assessment/Plan: tsh synthroid Code(s): E03.9 - HYPOTHYROIDISM, UNSPECIFIED
--- NOTE | 2018-12-26 10:45 | EKG ---
Test Reason : Blood Pressure : / mmHG Vent. Rate : 064 BPM Atrial Rate : 064 BPM P-R Int : 172 ms QRS Dur : 070 ms QT Int : 392 ms P-R-T Axes : 051 018 029 degrees QTc Int : 404 ms NORMAL SINUS RHYTHM POSSIBLE ANTERIOR INFARCT , AGE UNDETERMINED ABNORMAL ECG WHEN COMPARED WITH ECG OF 13-DEC-2018 23:25, NO SIGNIFICANT CHANGE WAS FOUND Confirmed by NICHOLAS SHRESTHA, ELGIN ([id number]) on 12/26/2018 10:45:21 AM Referred By: Confirmed By:ELGIN PETERSON MD
[2018-12-26] MEDS: NEBIVOLOL 5 MG TABLET (FP) PO SCH (10:53)
[2018-12-26] MEDS: PARoxetine HCL 20 MG TABLET (FP) PO SCH (10:53)
[2018-12-26] MEDS: CHOLECALCIFEROL (VITAMIN D3) 1,000 UNIT TABLET (FP) PO SCH (10:53)
[2018-12-26] MEDS: HEPARIN NA (PORCINE) 5,000 UNITS/ML 1ML VIAL SQ SCH ×2 (10:53→21:16)
[2018-12-26] MEDS: FOLIC ACID 1 MG TABLET (FP) PO SCH (10:53)
[2018-12-26] MEDS ORDERED: PARoxetine HCL 10 MG TABLET (FP) ONE (10:57)
[2018-12-26] MEDS ORDERED: FOLIC ACID 1 MG TABLET (FP) ONE (10:59)
--- NOTE | 2018-12-26 11:35 | CONSULT ---
Consult - text type - Consultation Consultation Note: Neurology Consult Appreciated: Events reviewed and discussed with staff. 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 Here today after reports of unwitnessed fall. She cannot recall surrounding events and reports she is here to " a doctor" at the hospital. Reporting generalized pain "all over body." She was recently hospitalized with diarrhea treated with Vanco for C. diff and reported fall in the ER with shoulder trauma. Previously seeing pain management doctor (Emery Stephenson) in [facility] and [facility]. Chronically on BOTH Fentanyl (75 ug q 72 hrs) and Oxycontin 10 mg QID PMHX: "dementia", "Parkinson's disease," C. diff, ESBL, hypothyroidism, RA, Crohn's, celiac disease, COPD, afib, UC, MDD Medications include: immodium, synthroid, albuterol, atorvastatin, folic acid, gabapentin 300 mg TID, nebividol, paroxetine 40 mg, clonazepam 1 mg TID, oxycodone 10 mg q6H, trazodone, Vit D3, Levoquin. PSH: Colectomy, J pouch, appendectomy, cholecystectomy Allergies: Gluten, morphine, sulfa Head CT (reviewed): essentially normal study Ck 419 -> 550. TSH 0.22 B12 752 MCV 88 JALYN: BP's in 130/80 range.no evidence of head trauma, Neg bruit. old, fading ecchymoses to R hand, knees. -Kernig's Neuro Exam: Mentation/speech: Awake, alert, distracted. Not cooperative with exam. Tremulous. Mild OMS(?). [facility]. [facility]. November 1918 corrected to 2019. TRUMP CNII-CNXII: EOM without nystagmus. Full draper. Pupils dilated 4 mm R. 5mm L. Sluggish but responsive to light. Motor: No drift. Normal strength, bulk and tone. Very brisk reflexes. Coordination: No FTN dystaxia. Sensation: Normal to vibration. Romberg - Gait: Pt ambulating independently, slightly flexed with normal stride length. Impression: OMS? Worsening may be secondary to Toxic-metabolic encephalopathy ( recurrent UTI, hyperglycemia, hypothyroid, Occult infection, Opioid or benzodiazapine withdrawal?) High CK due to falls and trauma Chronic pain (possibly restless limb syndrome) and gait dysfunction with depression SUGGEST: Adjust levothyroxine dose accordingly Follow orthostatic BP's Order RPR, Fe++, Iron, TIBC, Ferritin, UA, C&S Follow CK trends Order Urine toxicology PT for gait training and balance Thank you very much, Prakash Ordonez MD
[2018-12-26] MEDS: GABAPENTIN 300 MG CAPSULE (FP) PO SCH ×2 (14:47→21:16)
[2018-12-26] MEDS ORDERED: GABAPENTIN 100 MG CAPSULE (FP) ONE (14:48)
[2018-12-26] MEDS ORDERED: ACETAMINOPHEN 325 MG TABLET (FP) ONE (16:11)
[2018-12-26] MEDS: traZODone HCL 50 MG TABLET (FP) PO SCH (21:16)
[2018-12-26 21:29] LABS: URINE APPEARANCE CLEAR; URINE BILIRUBIN NEGATIVE (<2.0 mg/dL); URINE COLOR STRAW; URINE GLUCOSE (UA) NEGATIVE (NEGATIVE); URINE KETONE NEGATIVE (NEGATIVE); URINE LEUK ESTERASE 1+ (NEGATIVE); URINE NITRITE NEGATIVE (NEGATIVE); URINE PROTEIN NEGATIVE (NEGATIVE); URINE UROBILINOGEN NEGATIVE mg/dL (0.2-1.0)
[2018-12-26 21:31] LABS: EPI CELLS RARE /HPF (FEW); URINE BACTERIA RARE /hpf (NONE SEEN); URINE MUCUS RARE
[2018-12-26] MEDS ORDERED: ATORVASTATIN CA 20 MG TABLET (FP) PO SCH (22:00)
[2018-12-26] MEDS: amLODIPine BESYLATE 5 MG TABLET (FP) PO SCH (22:09)
[2018-12-26 22:21] LABS: COCAINE, UR NEGATIVE ng/ml (CUTOFF=300); METHADONE, UR NEGATIVE ng/ml (CUTOFF=300); OPIATES, URI NEGATIVE ng/ml (CUTOFF=300); PHENCYCLIDINE,URINE NEGATIVE ng/ml (CUTOFF=25); URINE AMPHETAMINES NEGATIVE ng/ml (CUTOFF=500); URINE BARBITURATES NEGATIVE ng/ml (CUTOFF=200); URINE BENZODIAZEPINES NEGATIVE ng/ml (CUTOFF=200)
[2018-12-27] MEDS ORDERED: LEVOTHYROXINE NA 112 MCG TABLET (FP) ONE (05:51)
[2018-12-27] MEDS ORDERED: LEVOTHYROXINE NA 25 MCG TABLET (FP) ONE (05:51)
[2018-12-27] MEDS ORDERED: LEVOTHYROXINE 112 MCG, LEVOTHYROXINE 25 MCG PO SCH (07:00)
[2018-12-27] MEDS: GABAPENTIN 300 MG CAPSULE (FP) PO SCH ×2 (07:52→13:35)
[2018-12-27 08:06] LABS: SERUM IRON SATURATION 18 % (15-55); TOTAL IRON BINDING CAPACITY 340 ug/dL (250-450); UIBC 279 ug/dL (118-369)
[2018-12-27 08:27] LABS: ALBUMIN 3.1 g/dl (3.4-5.0); ALK PHOS 108 U/L (45-117); ANION GAP 6 MMOL/L (8-16); BILIRUBIN,TOTAL 0.5 mg/dL (0.2-1); BLOOD UREA NITROGEN 14 mg/dL (7-18); CALCIUM 8.9 mg/dL (8.5-10.1); CHLORIDE 106 mmol/L (98-107); CO2 32 mmol/L (21-32); CREATININE 0.9 mg/dL (0.55-1.3); GLUCOSE,RANDOM 100 mg/dL (74-106); POTASSIUM 3.6 mmol/L (3.5-5.1); SGOT/AST 17 U/L (15-37); SGPT/ALT 32 U/L (13-61); SODIUM 144 mmol/L (136-145); TOT PROT 6.7 g/dl (6.4-8.2)
[2018-12-27] MEDS ORDERED: PARoxetine HCL 10 MG TABLET (FP) ONE (09:15)
[2018-12-27] MEDS: CHOLECALCIFEROL (VITAMIN D3) 1,000 UNIT TABLET (FP) PO SCH (09:29)
[2018-12-27] MEDS: NEBIVOLOL 5 MG TABLET (FP) PO SCH (09:29)
[2018-12-27] MEDS: amLODIPine BESYLATE 5 MG TABLET (FP) PO SCH (09:29)
[2018-12-27] MEDS: FOLIC ACID 1 MG TABLET (FP) PO SCH (09:29)
[2018-12-27] MEDS: HEPARIN NA (PORCINE) 5,000 UNITS/ML 1ML VIAL SQ SCH (09:29)
[2018-12-27] MEDS: PARoxetine HCL 20 MG TABLET (FP) PO SCH (09:30)
[2018-12-27 12:07] LABS: MAGNESIUM 1.5 mg/dL (1.8-2.4)
[2018-12-27] MEDS ORDERED: MAGNESIUM SULF 50% (8.12 MEQ/2 ML-1 GM VIAL) IVPB ONE ×2 (13:20)
[2018-12-27] MEDS: LOPERAMIDE HCL 2 MG CAPSULE PO PRN ×2 (13:57→17:37)
--- NOTE | 2018-12-27 14:19 | DS ---
Physical Examination Vital Signs: Vital Signs Temperature 98.2 F 12/27/18 10:00 Pulse Rate 80 12/27/18 10:00 Respiratory Rate 18 12/27/18 10:00 Blood Pressure 144/91 12/27/18 10:00 O2 Sat by Pulse Oximetry (%) 94 L 12/27/18 08:00 Constitutional: Yes: Calm, Thin Cardiovascular: Yes: Regular Rate and Rhythm, S1, S2, Other Respiratory: Yes: CTA Bilaterally Gastrointestinal: Yes: Normal Bowel Sounds, Soft Labs: CBC, BMP 12/26/18 05:30 12/27/18 07:27 Discharge Summary Reason For Visit: AMS,FALL Current Active Problems Altered mental status (Acute) Fall (Acute) Rhabdomyolysis (Acute) Hospital Course: Chief Complaint: s/p fall History of Present Illness: 68y/o F early advanced dementia recently discharged to [facility] after admission here, signed out of DC yesterday by son presents now after found following fall. cpk eelvated now trending down ivf xray done synthroid dose adjusted low magnesium repleted Condition: Stable - Instructions Diet, Activity, Other Instructions: Please return to the emergency department with any new or worsening symptoms or concerns. Please follow up with your primary care physician within 72 hours. check magnesium level tmw and on monday recheck tsh in3 weeks levothyroxine 137 mcg po daily Referrals: Diony Gutierrez [Primary Care Provider] - Disposition: CARE HOME FACILITY - Home Medications Comprehensive Discharge Medication List: Ambulatory Orders Acetaminophen [Tylenol .Extra-Strength -] 500 mg PO Q6H PRN tablet 12/10/18 Levothyroxine [Synthroid -] 150 mcg PO 0700 #30 tablet 12/10/18 Loperamide HCl [Imodium -] 2 mg PO Q8H #21 capsule 12/10/18 Albuterol Sulfate Inhaler - [Ventolin HFA Inhaler -] 2 inh PO Q6H PRN 12/14/18 Atorvastatin Ca [Lipitor] 20 mg PO HS 12/14/18 Folic Acid 1 mg PO DAILY 12/14/18 Gabapentin 300 mg PO TID 12/14/18 Nebivolol [Bystolic -] 5 mg PO DAILY 12/14/18 Paroxetine HCl 40 mg PO DAILY 12/14/18 clonazePAM [KlonoPIN] 1 mg PO TID 12/14/18 oxyCODONE HCL [Roxicodone -] 10 mg PO Q6H PRN MDD 4 12/14/18 traZODone HCL [Trazodone HCl] 50 mg PO HS 12/14/18 Cholecalciferol (Vitamin D3) [Vitamin D3 -] 1,000 unit PO DAILY tab 12/18/18 Oxycodone HCl 5 mg PO Q6H PRN #120 tablet MDD 4 12/18/18 levoFLOXacin [Levaquin -] 250 mg PO DAILY@0600 #6 tablet 12/18/18
[2018-12-27 18:00] VITALS: BP 131/85; PULSE 75; TEMP 98.2
== END 2018-12-27 20:05 ==
LOC: JER 09:18 → JERBED 13:48 → J7W 12-26 18:41
PROVIDERS: ADMIT Family Medicine; ATTEND Family Medicine
PROC: 3E033GC Introduction of Other Therapeutic Substance into Peripheral Vein, Percutaneous Approach (ICD-10-PCS; principal; 2018-12-25)
PROC: 3E0337Z Introduction of Electrolytic and Water Balance Substance into Peripheral Vein, Percutaneous Approach (ICD-10-PCS; 2018-12-25)
PROC: 3E013GC Introduction of Other Therapeutic Substance into Subcutaneous Tissue, Percutaneous Approach (ICD-10-PCS; 2018-12-25)
DX: R41.82 Altered mental status, unspecified (principal); I10 Essential (primary) hypertension; I48.91 Unspecified atrial fibrillation; E78.5 Hyperlipidemia, unspecified; G30.9 Alzheimer's disease, unspecified; F02.80 Dementia in other diseases classified elsewhere, unspecified severity, without behavioral disturbance, psychotic disturbance, mood disturbance, and anxiety; J44.9 Chronic obstructive pulmonary disease, unspecified; M06.9 Rheumatoid arthritis, unspecified; K50.90 Crohn's disease, unspecified, without complications; F11.20 Opioid dependence, uncomplicated; K90.0 Celiac disease; E03.9 Hypothyroidism, unspecified; D64.9 Anemia, unspecified; M54.12 Radiculopathy, cervical region; M62.82 Rhabdomyolysis; R74.8 Abnormal levels of other serum enzymes; Z86.19 Personal history of other infectious and parasitic diseases; Z88.6 Allergy status to analgesic agent; Z88.2 Allergy status to sulfonamides; W06.XXXA Fall from bed, initial encounter; Z91.81 History of falling; Y93.9 Activity, unspecified; Y92.003 Bedroom of unspecified non-institutional (private) residence as the place of occurrence of the external cause
CPT/HCPCS: 36415; 70450-TC; 71045-TC-FY; 80053; 80061; 80307; 81003; 81015; 82550; 82553; 83540; 83550; 83721; 83735; 84100; 84443; 84484; 85025; 85027; 85610; 85651; 85730; 86140; 86593; 87040; 87086; 87186; 87324; 87449; 93005; 93010; 96361; 96372; 96374; 97116-GP; 97161-GP; 99285-25; G0378; J1644; J7030

== ENCOUNTER 2019-02-09 23:56 | Observation (INO) | payer OTHER ==
--- NOTE | 2019-02-10 00:10 | PDOC ---
History of Present Illness - General Chief Complaint: Overdose Stated Complaint: POSSIBLE OVERDOSE Time Seen by Provider: 02/10/19 00:10 - History of Present Illness Initial Comments: 68 year old female with a past medical history of dementia, COPD, afib, RA, Crohns disease, celiac, Alzheimers, hypothyroid, Cdiff, ESBL, and pain disorder (on oxycodone) presenting altered from home after son called EMS because "she took too much oxycodone". Patient unable to provide much history and was alert but slightly disoriented. She was hypotensive to 80s-90s systolic and hypoxic to 70s-80s on RA. Her sats improved on 4L NC. She was unable to provide further history and repeated attempts to get in touch with son were unsuccessful. 02/10/19 04:26 Past History - Past Medical History Allergies/Adverse Reactions: Allergies Allergy/AdvReac Type Severity Reaction Status Date / Time gluten Allergy Severe Vomiting Verified 02/10/19 00:04 morphine Allergy Severe Verified 02/10/19 00:04 Sulfa (Sulfonamide Allergy Verified 02/10/19 00:04 Antibiotics) Home Medications: Ambulatory Orders Acetaminophen [Tylenol .Extra-Strength -] 500 mg PO Q6H PRN tablet 12/10/18 Levothyroxine [Synthroid -] 150 mcg PO 0700 #30 tablet 12/10/18 Loperamide HCl [Imodium -] 2 mg PO Q8H #21 capsule 12/10/18 Albuterol Sulfate Inhaler - [Ventolin HFA Inhaler -] 2 inh PO Q6H PRN 12/14/18 Atorvastatin Ca [Lipitor] 20 mg PO HS 12/14/18 Folic Acid 1 mg PO DAILY 12/14/18 Gabapentin 300 mg PO TID 12/14/18 Nebivolol [Bystolic -] 5 mg PO DAILY 12/14/18 Paroxetine HCl 40 mg PO DAILY 12/14/18 oxyCODONE HCL [Roxicodone -] 10 mg PO Q6H PRN MDD 4 12/14/18 traZODone HCL [Trazodone HCl] 50 mg PO HS 12/14/18 Cholecalciferol (Vitamin D3) [Vitamin D3 -] 1,000 unit PO DAILY tab 12/18/18 Oxycodone HCl 5 mg PO Q6H PRN #120 tablet MDD 4 12/18/18 levoFLOXacin [Levaquin -] 250 mg PO DAILY@0600 #6 tablet 12/18/18 Levothyroxine [Synthroid -] 137 mcg PO DAILY@0700 #30 tablet MDD 1 12/27/18 Loperamide HCl [Imodium -] 2 mg PO Q8H PRN #30 capsule MDD 2 12/27/18 Magnesium Oxide 400 mg PO BID #10 tablet MDD 2 12/27/18 Anemia: Yes Asthma: No Cancer: Yes (tumors of small intestine) Cardiac Disorders: No CVA: No COPD: Yes CHF: No Dementia: Yes Diabetes: No GI Disorders: Yes (CHROHN, RECTAL ULCER, celiac disease) Disorders: No HTN: Yes Hypercholesterolemia: Yes Liver Disease: No Seizures: No Thyroid Disease: Yes - Surgical History Abdominal Surgery: Yes (J POUCH) Appendectomy: Yes (1995) Cardiac Surgery: No Cholecystectomy: Yes (2001) Lung Surgery: No Neurologic Surgery: No Orthopedic Surgery: Yes (right femur kirby 2010,) - Immunization History Immunization Up to Date: Yes - Suicide/Smoking/Psychosocial Hx Smoking Status: No Smoking History: Unknown if ever smoked Have you smoked in the past 12 months: No Information on smoking cessation initiated: No Hx Alcohol Use: No Drug/Substance Use Hx: No Substance Use Type: None Hx Substance Use Treatment: No Review of Systems - Review of Systems Able to Perform ROS?: No (Unable to perform) *Physical Exam - Vital Signs Last Vital Signs Temp Pulse Resp BP Pulse Ox 97.6 F 59 L 14 81/62 L 88 L 02/10/19 00:04 02/10/19 00:04 02/10/19 00:04 02/10/19 00:04 02/10/19 00:04 - Physical Exam General Appearance: Yes: Nourished, Appropriately Dressed. No: Apparent Distress HEENT: positive: EOMI. negative: ELISSA (pinpoint pupils with minimal light reaction), Normal ENT Inspection (dried material around her mouth), Normal Voice (weak voice and very quiet) Neck: positive: Trachea midline, Normal Thyroid, Supple. negative: Tender, Rigid Respiratory/Chest: negative: Chest Tender, Lungs Clear (bibasilar crackles), Normal Breath Sounds, Respiratory Distress, Accessory Muscle Use, Labored Respiration, Rapid RR Cardiovascular: positive: Regular Rhythm, Regular Rate Gastrointestinal/Abdominal: positive: Normal Bowel Sounds, Flat, Soft. negative : Tender Lymphatic: negative: Adenopathy, Tenderness Musculoskeletal: negative: Normal Inspection (weak), Decreased Range of Motion Extremity: positive: Normal Capillary Refill, Normal Range of Motion. negative : Normal Inspection, Tender Integumentary: positive: Normal Color, Dry, Warm Neurologic: positive: Alert (slightly lethargic). negative: Fully Oriented ( aox2 person and place. not oriented to time), Normal Mood/Affect, Normal Response ED Treatment Course - LABORATORY CBC & Chemistry Diagram: 02/10/19 00:55 02/10/19 00:55 Medical Decision Making - Medical Decision Making 68 year old female with PMH of dementia, COPD, afib, RA, Crohns disease, celiac , Alzheimers, hypothyroid, Cdiff, ESBL, and oxycodone use presenting with depressed respiratory rate, hypoxia, hypotension, and altered mental status. After fluids and NC o2 patient has improved tremendously and has pressures in the 120 and O2 90 on RA. Pupillary exam also now reactive and patient much more alert and oriented to time. The most likely cause of her AMS was oxycodone usage / overusage. Labs WNL, EKG not demonstrating ichemic pathology, Head CT WNL, CXR not demonstrating acute pathology. UA and Utox pending. Patient signed out to medicine team under Dr. Quiroga. 02/10/19 04:59 *DC/Admit/Observation/Transfer Diagnosis at time of Disposition: Altered mental status Qualifiers: Altered mental status type: unspecified Qualified Code(s): R41.82 - Altered mental status, unspecified - Discharge Dispostion Condition at time of disposition: Stable Decision to Admit order: Yes - Referrals - Patient Instructions - Post Discharge Activity
--- NOTE | 2019-02-10 00:12 | PDOC ---
Attending Attestation - Resident Resident Name: Wilmer Martinez - Physicial Exam PE: 02/10/19 01:22 Agree with resident exam. Patient is alert on my exam and is answering questions but appears mildly confused. + dried vomit on lips. CV: rrr no m/r/ g Pulm: CTA b/l. Abdomen soft, non tender, non distended. Neuro: AAOx2, moving all extremities. - Medical Decision Making 02/10/19 01:23 Pt presents to the ED after sent in for altered mental status secondary to possible oxycodone overdose. Appears severely dehydrated and is confused and unable to give history. Differential includes toxic ingestion, metabolic derrangement, intraabdominal infection, obstruction, sepsis from some other source, severe dehydration, intracranial mass or bleed. Will give aggressive hydration, check labs and UA, check CT head and reassess. 02/10/19 01:28 <Maggie Quiroz - Last Filed: 02/10/19 01:28> - HPI HPI: This patient is a 68 year old female with a past medical history of dementia, COPD, afib, RA, Crohns disease, celiac, Alzheimers, hypothyroid, Cdiff, ESBL who was BIBEMS s/p oxycodone overdose. She was hypoxic and hypotensive on arrival. Patient awake, yet confused on arrival, vomitus around mouth, very dry mucosa. History is limited due to patient's current condition. Past surgical Hx: colectomy, J pouch, appendectomy (1995), cholecystectomy (2001 ), Right femur kirby (2010) Allergies: gluten, morphine,Sulfa <Sharron Braswell - Last Filed: 02/10/19 02:00> Attestations - Attestations 02/10/19 01:54 Documentation prepared by Sharron Braswell, acting as chief medical technologist for Maggie Quiroz MD. <Sharron Braswell - Last Filed: 02/10/19 02:00>
[2019-02-10 01:37] LABS: BASO % 0.4 % (0-2.0); EOS % 3.4 % (0-4.5); HEMATOCRIT 32.3 % (32.4-45.2); HEMOGLOBIN 10.5 GM/dL (10.7-15.3); LYMPH % 17.3 % (8-40); MCH 29.2 pg (25.7-33.7); MCHC 32.5 g/dl (32.0-36.0); MEAN CELL VOLUME 89.8 fl (80-96); MEAN PLT VOLUME 7.9 fl (7.5-11.1); NEUT % 72.9 % (42.8-82.8); PLATELET COUNT 170 K/MM3 (134-434); RDW 15.6 % (11.6-15.6); WHITE BLOOD COUNT 7.1 K/mm3 (4.0-10.0)
[2019-02-10 02:02] LABS: INR 1.06 (0.83-1.09); PROTHROMBIN TIME (PATIENT) 12.5 SEC (9.7-13.0)
[2019-02-10 02:12] LABS: ALK PHOS 128 U/L (45-117); ANION GAP 4 MMOL/L (8-16); BILIRUBIN,TOTAL 0.2 mg/dL (0.2-1); BLOOD UREA NITROGEN 17 mg/dL (7-18); CALCIUM 8.7 mg/dL (8.5-10.1); CHLORIDE 103 mmol/L (98-107); CO2 34 mmol/L (21-32); CREATININE 1.2 mg/dL (0.55-1.3); GLUCOSE,RANDOM 96 mg/dL (74-106); POTASSIUM 3.8 mmol/L (3.5-5.1); SGOT/AST 28 U/L (15-37); SGPT/ALT 34 U/L (13-61); SODIUM 141 mmol/L (136-145); TOT PROT 6.2 g/dl (6.4-8.2)
[2019-02-10] MEDS ORDERED: SODIUM CHLORIDE 0.9% 500 ML INFUS.BAG IV ONE (04:48)
[2019-02-10 04:59] LABS: EPI CELLS 0.3 /HPF (0-5/HPF); URINE APPEARANCE CLOUDY; URINE BACTERIA 6.1 /hpf (NEGATIVE); URINE BILIRUBIN NEGATIVE (NEGATIVE); URINE CASTS 15 /hpf (0-8); URINE COLOR DK YELLOW; URINE GLUCOSE (UA) NEGATIVE (NEGATIVE); URINE KETONE NEGATIVE (NEGATIVE); URINE LEUK ESTERASE 1+ (NEGATIVE); URINE NITRITE NEGATIVE (NEGATIVE); URINE PROTEIN 1+ (NEGATIVE); URINE RBC 2 /hpf (0-4); URINE WBC 130 /hpf (0-5)
--- NOTE | 2019-02-10 05:12 | HP ---
CHIEF COMPLAINT: "I don't know why I'm here" PCP: HISTORY OF PRESENT ILLNESS: Pt. is a 68 y.o. F presenting from home by EMS for suspected opioid overdose. Pt. has baseline dementia and is unable to provide history at this time. Per ED resident, per EMS, the son called EMS for the Pt. when he came home to find his mother. Unclear what happened at home prior to arrival of EMS. Pt. was evaluated by EMS and suspected to have opioid overdose. Narcan was not given, by EMS.Pt. received into the ED bradypneic to 4-5 breaths per minute, hypoxix to 70s-80s, and hypotensive 80s/60s. "Pt. received 1L NS and perked up," to become more responsive and less hypotensive. Pt. was placed on 4L NC and respiratory function improved. Pt. endorses shortness of breath but states "no" all other questions, Pt. Alert and oriented to name only. Rest of History obtained from chart review. ER course was notable for: (1)1L NS, UTox (2)EKG, labs (3)Head CT Recent Travel: Unclear PAST MEDICAL HISTORY: Hypothyroidism, IBD(Documented Celiac, UC and Chrohns- unlikely to be all three), Hx. of C.Diff recent(11/17) infection, ESBL in urine PAST SURGICAL HISTORY: Colectomy (J Pouch), Appendectomy, Cholecystectomy, "Right femur kirby" Social History: Smoking: denies Alcohol: denies Drugs: denies Family History: Unknown Allergies gluten Allergy (Severe, Verified 02/10/19 00:04) Vomiting morphine Allergy (Severe, Verified 02/10/19 00:04) Sulfa (Sulfonamide Antibiotics) Allergy (Verified 02/10/19 00:04) HOME MEDICATIONS: Home Medications Medication Instructions Recorded Acetaminophen [Tylenol 500 mg PO Q6H PRN tablet 12/10/18 .Extra-Strength -] Levothyroxine [Synthroid -] 150 mcg PO 0700 #30 tablet 12/10/18 Loperamide HCl [Imodium -] 2 mg PO Q8H #21 capsule 12/10/18 Albuterol Sulfate Inhaler - 2 inh PO Q6H PRN 12/14/18 [Ventolin HFA Inhaler -] Atorvastatin Ca [Lipitor] 20 mg PO HS 12/14/18 Folic Acid 1 mg PO DAILY 12/14/18 Gabapentin 300 mg PO TID 12/14/18 Nebivolol [Bystolic -] 5 mg PO DAILY 12/14/18 Paroxetine HCl 40 mg PO DAILY 12/14/18 oxyCODONE HCL [Roxicodone -] 10 mg PO Q6H PRN MDD 4 12/14/18 traZODone HCL [Trazodone HCl] 50 mg PO HS 12/14/18 Cholecalciferol (Vitamin D3) 1,000 unit PO DAILY tab 12/18/18 [Vitamin D3 -] Oxycodone HCl 5 mg PO Q6H PRN #120 tablet MDD 4 12/18/18 levoFLOXacin [Levaquin -] 250 mg PO DAILY@0600 #6 tablet 12/18/18 Levothyroxine [Synthroid -] 137 mcg PO DAILY@0700 #30 tablet 12/27/18 MDD 1 Loperamide HCl [Imodium -] 2 mg PO Q8H PRN #30 capsule MDD 2 12/27/18 Magnesium Oxide 400 mg PO BID #10 tablet MDD 2 12/27/18 REVIEW OF SYSTEMS As per HPI PHYSICAL EXAMINATION Vital Signs - 24 hr 02/10/19 02/10/19 00:04 02:10 Temperature 97.6 F Pulse Rate 59 L Pulse Rate [ 56 L Left Radial] Respiratory 14 19 Rate Blood Pressure 81/62 L Blood Pressure 94/67 [Right Arm] O2 Sat by Pulse 88 L 100 Oximetry (%) GENERAL: Awake, alert, and fully oriented, in no acute distress. HEAD: Normal with no signs of trauma. EYES: Pupils equal, round and reactive to light, extraocular movements intact, sclera anicteric, conjunctiva clear. No lid lag. EARS, NOSE, THROAT: Ears normal, nares patent, oropharynx with yellow exudates crusted on lips, teeth and tongue. Dry mucous membranes. NECK: Normal range of motion, supple without lymphadenopathy, JVD, or masses. LUNGS: Decreased respirations, poor inspiratory effort, no wheezes, and no crackles. No accessory muscle use. HEART: Regular rate and rhythm, normal S1 and S2 without murmur ABDOMEN: Soft, nontender, not distended, normoactive bowel sounds, no guarding, no rebound, abdominal surgical scars MUSCULOSKELETAL: Normal range of motion at all joints. No bony deformities or tenderness. No CVA tenderness. UPPER EXTREMITIES: 2+ pulses, warm, well-perfused. No cyanosis. No clubbing. No peripheral edema. LOWER EXTREMITIES: 1+ dorsal pedal pulses, cool to touch, well-perfused. No calf tenderness. No peripheral edema. NEUROLOGICAL: Normal speech. Gait not assessed PSYCHIATRIC: Good eye contact. Confused. SKIN: Warm, dry, normal turgor, no rashes or lesions noted, delayed capillary refill to 4 seconds. Laboratory Results - last 24 hr 02/10/19 02/10/19 02/10/19 00:49 00:53 00:55 WBC 7.1 RBC 3.60 Hgb 10.5 L Hct 32.3 L MCV 89.8 MCH 29.2 MCHC 32.5 RDW 15.6 Plt Count 170 D MPV 7.9 Absolute Neuts (auto) 5.1 Neutrophils % 72.9 Lymphocytes % 17.3 D Monocytes % 6.0 D Eosinophils % 3.4 D Basophils % 0.4 Nucleated RBC % 0 PT with INR INR Sodium Potassium Chloride Carbon Dioxide Anion Gap BUN Creatinine Creat Clearance w eGFR POC Glucometer Random Glucose Lactic Acid 1.0 Calcium Total Bilirubin AST ALT Alkaline Phosphatase Total Protein Albumin Urine Color Urine Appearance Urine pH Ur Specific [place] Urine Protein Urine Glucose (UA) Urine Ketones Urine Blood Urine Nitrite Urine Bilirubin Urine Urobilinogen Ur Leukocyte Esterase Urine WBC (Auto) Urine RBC (Auto) Urine Casts (Auto) U Epithel Cells (Auto) Urine Bacteria (Auto) Salicylates < 1.7 L Acetaminophen < 2.0 L Alcohol, Quantitative < 3.0 02/10/19 02/10/19 02/10/19 00:55 00:55 00:59 WBC RBC Hgb Hct MCV MCH MCHC RDW Plt Count MPV Absolute Neuts (auto) Neutrophils % Lymphocytes % Monocytes % Eosinophils % Basophils % Nucleated RBC % PT with INR 12.50 INR 1.06 Sodium 141 Potassium 3.8 Chloride 103 Carbon Dioxide 34 H Anion Gap 4 L BUN 17 Creatinine 1.2 Creat Clearance w eGFR 44.81 POC Glucometer 81 Random Glucose 96 Lactic Acid Calcium 8.7 Total Bilirubin 0.2 AST 28 ALT 34 Alkaline Phosphatase 128 H Total Protein 6.2 L Albumin 3.0 L Urine Color Urine Appearance Urine pH Ur Specific [place] Urine Protein Urine Glucose (UA) Urine Ketones Urine Blood Urine Nitrite Urine Bilirubin Urine Urobilinogen Ur Leukocyte Esterase Urine WBC (Auto) Urine RBC (Auto) Urine Casts (Auto) U Epithel Cells (Auto) Urine Bacteria (Auto) Salicylates Acetaminophen Alcohol, Quantitative 02/10/19 04:35 WBC RBC Hgb Hct MCV MCH MCHC RDW Plt Count MPV Absolute Neuts (auto) Neutrophils % Lymphocytes % Monocytes % Eosinophils % Basophils % Nucleated RBC % PT with INR INR Sodium Potassium Chloride Carbon Dioxide Anion Gap BUN Creatinine Creat Clearance w eGFR POC Glucometer Random Glucose Lactic Acid Calcium Total Bilirubin AST ALT Alkaline Phosphatase Total Protein Albumin Urine Color Dk yellow Urine Appearance Cloudy Urine pH 5.0 D Ur Specific [place] 1.025 Urine Protein 1+ H Urine Glucose (UA) Negative Urine Ketones Negative Urine Blood Negative Urine Nitrite Negative Urine Bilirubin Negative Urine Urobilinogen 1.0 Ur Leukocyte Esterase 1+ H Urine WBC (Auto) 130 Urine RBC (Auto) 2 Urine Casts (Auto) 15 U Epithel Cells (Auto) 0.3 Urine Bacteria (Auto) 6.1 Salicylates Acetaminophen Alcohol, Quantitative ASSESSMENT/PLAN: Pt. is a 68 y.o. F w/ PMHx. of presenting from home by EMS for suspected opioid overdose. #Opioid Overdose Pt. saturating 89% on room air BP improved from 81/62 to 120/88 Call placed to Poison Control-advised to observe for 6 yours after initial ED presentation UTox positive for Benzos, Opiates and Ecstacy (MDMA) #FEN NS @ 100ml/hr monitor electrolytes and replete as needed Gladis restricted diet #DVT PPx TEDs and SCDs Visit type - Emergency Visit Emergency Visit: Yes ED Registration Date: 02/10/19 Care time: The patient presented to the Emergency Department on the above date and was hospitalized for further evaluation of their emergent condition. - New Patient This patient is new to me today: Yes Date on this admission: 02/10/19 - Critical Care Critical Care patient: No
--- NOTE | 2019-02-10 05:22 | PN ---
Teaching Attending Note Name of Resident: Prakash Kay ATTENDING PHYSICIAN STATEMENT I saw and evaluated the patient. I reviewed the resident's note and discussed the case with the resident. I agree with the resident's findings and plan as documented. SUBJECTIVE: OBJECTIVE: AAOX3 s1 and s2 rrr lungs CTA good air entry ASSESSMENT AND PLAN: this is a 68 y/o f who was brought in today for fall, according to the chart the patient has been having his issue for a while, She is unable to give a proper history. she does not know where she is, she has some yellow discolaration around the mouth, seems a bit dry. plan: admit patient to observation IVF hydration c/w home medication admit to tele obtain information from the son
[2019-02-10] MEDS: SODIUM CHLORIDE 1,000 ML IV SCH (05:28)
[2019-02-10 05:49] LABS: COCAINE, UR NEGATIVE ng/ml (CUTOFF=300); METHADONE, UR NEGATIVE ng/ml (CUTOFF=300); PHENCYCLIDINE,URINE NEGATIVE ng/ml (CUTOFF=25); URINE AMPHETAMINES NEGATIVE ng/ml (CUTOFF=500); URINE BARBITURATES NEGATIVE ng/ml (CUTOFF=200)
[2019-02-10 05:52] LABS: OPIATES, URI POSITIVE ng/ml (CUTOFF=300); URINE BENZODIAZEPINES POSITIVE ng/ml (CUTOFF=200)
[2019-02-10 09:12] LABS: BASO % 0.4 % (0-2.0); EOS % 3.7 % (0-4.5); HEMATOCRIT 31.2 % (32.4-45.2); HEMOGLOBIN 10.1 GM/dL (10.7-15.3); LYMPH % 21.1 % (8-40); MCH 28.9 pg (25.7-33.7); MCHC 32.5 g/dl (32.0-36.0); MEAN CELL VOLUME 89.2 fl (80-96); MEAN PLT VOLUME 7.8 fl (7.5-11.1); MONO % 6.5 % (3.8-10.2); NEUT % 68.3 % (42.8-82.8); PLATELET COUNT 169 K/MM3 (134-434); RDW 15.3 % (11.6-15.6); WHITE BLOOD COUNT 5.1 K/mm3 (4.0-10.0)
[2019-02-10 09:27] LABS: ALBUMIN 3.3 g/dl (3.4-5.0); ALK PHOS 132 U/L (45-117); ANION GAP 5 MMOL/L (8-16); BILIRUBIN,TOTAL 0.3 mg/dL (0.2-1); BLOOD UREA NITROGEN 14 mg/dL (7-18); CALCIUM 8.4 mg/dL (8.5-10.1); CHLORIDE 106 mmol/L (98-107); CO2 32 mmol/L (21-32); GLUCOSE,RANDOM 74 mg/dL (74-106); POTASSIUM 3.5 mmol/L (3.5-5.1); SGOT/AST 33 U/L (15-37); SGPT/ALT 37 U/L (13-61); SODIUM 143 mmol/L (136-145); TOT PROT 6.4 g/dl (6.4-8.2)
[2019-02-10 10:17] LABS: INR 1.11 (0.83-1.09); PROTHROMBIN TIME (PATIENT) 13.1 SEC (9.7-13.0)
[2019-02-10] MEDS ORDERED: ACETAMINOPHEN 500 MG TABLET (FP) PO PRN (13:47)
[2019-02-10] MEDS ORDERED: chlordiazePOXIDE 5 MG CAPSULE PO PRN (13:54)
[2019-02-10] MEDS ORDERED: GABAPENTIN 100 MG CAPSULE (FP) ONE (14:21)
[2019-02-10] MEDS: GABAPENTIN 300 MG CAPSULE (FP) PO SCH ×2 (14:27→23:11)
--- NOTE | 2019-02-10 15:09 | PN ---
Progress Note, Physician Chief Complaint: Drug overdose AMS - Current Medication List Current Medications: Active Medications Acetaminophen (Tylenol -) 500 mg PO Q6H PRN PRN Reason: PAIN LEVEL 1-5 Atorvastatin Calcium (Lipitor -) 20 mg PO HS [facility] Chlordiazepoxide HCl (Librium -) 5 mg PO [id number] PRN PRN Reason: WITHDRAWAL(CONT SUBST) Cholecalciferol (Vitamin D3 -) 1,000 unit PO DAILY [facility] Folic Acid (Folic Acid -) 1 mg PO DAILY [facility] Gabapentin (Neurontin -) 300 mg PO TID [facility] Last Admin: 02/10/19 14:27 Dose: 300 mg Sodium Chloride (Normal Saline -) 1,000 mls @ 100 mls/hr IV ASDIR [facility] Last Admin: 02/10/19 05:28 Dose: 100 mls/hr Levothyroxine Sodium 25 mcg/ (Levothyroxine Sodium 112 mcg) 137 mcg PO DAILY@ 0700 [facility] Loperamide HCl (Imodium -) 2 mg PO Q8H PRN PRN Reason: DIARRHEA Nebivolol (Bystolic -) 5 mg PO DAILY [facility] Paroxetine HCl (Paxil -) 40 mg PO DAILY [facility] Trazodone HCl (Desyrel -) 50 mg PO HS [facility] - Objective Vital Signs: Vital Signs Temperature 98.7 F 02/10/19 06:56 Pulse Rate 63 02/10/19 07:45 Respiratory Rate 17 02/10/19 07:45 Blood Pressure 143/64 02/10/19 07:45 O2 Sat by Pulse Oximetry (%) 93 L 02/10/19 07:45 Labs: CBC, BMP 02/10/19 08:30 02/10/19 08:30 INR, PTT INR 1.11 (0.83-1.09) H 02/10/19 08:30
[2019-02-10] MEDS ORDERED: ATORVASTATIN CA 10 MG TABLET (FP) ONE (22:16)
[2019-02-10] MEDS: ATORVASTATIN CA 20 MG TABLET (FP) PO SCH (23:11)
[2019-02-10] MEDS: traZODone HCL 50 MG TABLET (FP) PO SCH (23:11)
[2019-02-11] MEDS ORDERED: chlordiazePOXIDE 5 MG CAPSULE ONE (00:20)
[2019-02-11] MEDS: SODIUM CHLORIDE 1,000 ML IV SCH (05:20)
[2019-02-11] MEDS: GABAPENTIN 300 MG CAPSULE (FP) PO SCH ×3 (06:52→21:48)
[2019-02-11] MEDS: LEVOTHYROXINE 25 MCG, LEVOTHYROXINE 112 MCG PO SCH (06:53)
[2019-02-11] MEDS ORDERED: LEVOTHYROXINE NA 112 MCG TABLET (FP) PO SCH (07:00)
[2019-02-11] MEDS: PARoxetine HCL 20 MG TABLET (FP) PO SCH (09:34)
[2019-02-11] MEDS: CHOLECALCIFEROL (VITAMIN D3) 1,000 UNIT TABLET (FP) PO SCH (09:34)
[2019-02-11] MEDS: FOLIC ACID 1 MG TABLET (FP) PO SCH (09:34)
[2019-02-11] MEDS: NEBIVOLOL 5 MG TABLET (FP) PO SCH (09:34)
--- NOTE | 2019-02-11 10:32 | EKG ---
Test Reason : Blood Pressure : / mmHG Vent. Rate : 058 BPM Atrial Rate : 058 BPM P-R Int : 180 ms QRS Dur : 072 ms QT Int : 430 ms P-R-T Axes : 066 067 071 degrees QTc Int : 422 ms SINUS BRADYCARDIA OTHERWISE NORMAL ECG WHEN COMPARED WITH ECG OF 25-DEC-2018 09:45, NONSPECIFIC T WAVE ABNORMALITY NO LONGER EVIDENT IN ANTERIOR LEADS Confirmed by ESTUARDO SHRESTHA, JERRY ([id number]) on 02/11/2019 10:31:55 AM Referred By: Tita EMERSON Confirmed By:JERRY MARTE MD
--- NOTE | 2019-02-11 11:42 | PN ---
Progress Note, Physician Chief Complaint: patient seen and examined says she cannot walk - Current Medication List Current Medications: Active Medications Acetaminophen (Tylenol -) 500 mg PO Q6H PRN PRN Reason: PAIN LEVEL 1-5 Atorvastatin Calcium (Lipitor -) 20 mg PO HS [facility] Last Admin: 02/10/19 23:11 Dose: 20 mg Chlordiazepoxide HCl (Librium -) 5 mg PO [id number] PRN PRN Reason: WITHDRAWAL(CONT SUBST) Last Admin: 02/11/19 00:23 Dose: 5 mg Cholecalciferol (Vitamin D3 -) 1,000 unit PO DAILY [facility] Last Admin: 02/11/19 09:34 Dose: Not Given Folic Acid (Folic Acid -) 1 mg PO DAILY [facility] Last Admin: 02/11/19 09:34 Dose: Not Given Gabapentin (Neurontin -) 300 mg PO TID [facility] Last Admin: 02/11/19 06:52 Dose: 300 mg Sodium Chloride (Normal Saline -) 1,000 mls @ 100 mls/hr IV ASDIR [facility] Last Admin: 02/11/19 05:20 Dose: 100 mls/hr Levothyroxine Sodium 25 mcg/ (Levothyroxine Sodium 112 mcg) 137 mcg PO DAILY@ 0700 [facility] Last Admin: 02/11/19 06:53 Dose: 137 mcg Loperamide HCl (Imodium -) 2 mg PO Q8H PRN PRN Reason: DIARRHEA Nebivolol (Bystolic -) 5 mg PO DAILY [facility] Last Admin: 02/11/19 09:34 Dose: Not Given Paroxetine HCl (Paxil -) 40 mg PO DAILY [facility] Last Admin: 02/11/19 09:34 Dose: Not Given Trazodone HCl (Desyrel -) [address] [facility] Last Admin: 02/10/19 23:11 Dose: 50 mg - Objective Vital Signs: Vital Signs Temperature 98.8 F 02/11/19 09:40 Pulse Rate 67 02/11/19 09:40 Respiratory Rate 17 02/11/19 09:40 Blood Pressure 142/70 02/11/19 09:40 O2 Sat by Pulse Oximetry (%) 94 L 02/11/19 11:16 admitted for possible overdose claims she is tired and weak and cannot walk Constitutional: Yes: Calm Cardiovascular: Yes: Regular Rate and Rhythm, S1, S2 Respiratory: Yes: CTA Bilaterally Gastrointestinal: Yes: Normal Bowel Sounds, Soft Edema: No Neurological: Yes: Alert, Oriented Labs: CBC, BMP 02/10/19 08:30 02/10/19 08:30 INR, PTT INR 1.11 (0.83-1.09) H 02/10/19 08:30 Problem List - Problems (1) Altered mental status Assessment/Plan: psych consult dr martinez for possible opioid withdrawal librium PT eval possible snf given bradycardia jesús hold [facility] cardiology Code(s): R41.82 - ALTERED MENTAL STATUS, UNSPECIFIED Qualifiers: Altered mental status type: unspecified Qualified Code(s): R41.82 - Altered mental status, unspecified (2) Anxiety Assessment/Plan: dr aubrey fragoso Code(s): F41.9 - ANXIETY DISORDER, UNSPECIFIED (3) Hypothyroidism Assessment/Plan: check tsh synthroid Code(s): E03.9 - HYPOTHYROIDISM, UNSPECIFIED
--- NOTE | 2019-02-11 18:30 | CON.PSY ---
Psychiatry Consult Chief Complaint: 68 year old female with a history of DEmentia, Depression and Chron's Disesase and other medical conditions admitted with acute AMS secondary to excessive ingestion of Oxycodone. Patient denies that she was trying to kill herself but reports increased rectal pain. She is confusedcand not a good historian but vehemently denies that she tried to kill herself. She does see a Psych for Depressiojnh at a [facility]. Symptoms: reports: Impaired Concentration, Memory Impairment, Irritability - Previous Psychiatric Treatment Outpatient: Less than 6 mos ago Inpatient: None - Previous Substance Abuse Treatment Outpatient: None Inpatient: None - Reason for Previous Treatment Reason for Previous Treatment: Major Depression, Prescription Drug - Current Medications Current Medications: Active Medications Acetaminophen (Tylenol -) 500 mg PO Q6H PRN PRN Reason: PAIN LEVEL 1-5 Atorvastatin Calcium (Lipitor -) 20 mg PO HS [facility] Last Admin: 02/10/19 23:11 Dose: 20 mg Chlordiazepoxide HCl (Librium -) 5 mg PO [id number] PRN PRN Reason: WITHDRAWAL(CONT SUBST) Last Admin: 02/11/19 00:23 Dose: 5 mg Cholecalciferol (Vitamin D3 -) 1,000 unit PO DAILY [facility] Last Admin: 02/11/19 09:34 Dose: Not Given Folic Acid (Folic Acid -) 1 mg PO DAILY [facility] Last Admin: 02/11/19 09:34 Dose: Not Given Gabapentin (Neurontin -) 300 mg PO TID [facility] Last Admin: 02/11/19 14:16 Dose: Not Given Sodium Chloride (Normal Saline -) 1,000 mls @ 100 mls/hr IV ASDIR [facility] Last Admin: 02/11/19 05:20 Dose: 100 mls/hr Levothyroxine Sodium 25 mcg/ (Levothyroxine Sodium 112 mcg) 137 mcg PO DAILY@ 0700 [facility] Last Admin: 02/11/19 06:53 Dose: 137 mcg Loperamide HCl (Imodium -) 2 mg PO Q8H PRN PRN Reason: DIARRHEA Nebivolol (Bystolic -) 5 mg PO DAILY [facility] Last Admin: 02/11/19 09:34 Dose: Not Given Paroxetine HCl (Paxil -) 40 mg PO DAILY [facility] Last Admin: 02/11/19 09:34 Dose: Not Given Trazodone HCl (Desyrel -) 50 mg PO HS [facility] Last Admin: 02/10/19 23:11 Dose: 50 mg - Allergies Allergies: Allergies Allergy/AdvReac Type Severity Reaction Status Date / Time gluten Allergy Severe Vomiting Verified 02/10/19 00:04 morphine Allergy Severe Verified 02/10/19 00:04 Sulfa (Sulfonamide Allergy Verified 02/10/19 00:04 Antibiotics) - Current Living Status Usual Living Arrangement: Alone - Current Mental Status Evaluation Appearance: Disheveled Attitude: Guarded - Affect Affect: Constrictive Appropriateness: Not Appropriate - Mood Mood: Anxious - Speech/Language Expressive: Delayed - Psychomotor Activity Psychomotor Activity: Slowed - Thought Process Thought Process: Circumstantial - Thought Content Hallucinations: Absent Delusions: Absent - Self Perception Self Perception: No Impairment - Cognition Attention: Diminished Memory, Short Term: 1/3 Memory, Remote with Promptin/3 - Concentration Serial Sevens Intact: No Simple Calculations Intact: No - Abstraction Proverb Interpretation: Impaired Judgement: Moderately Impaired - Insight Insight: Impaired - Impulse Control Impulse Control: Moderately Impaired - Suicidal Ideation Suicidal Ideation: No - Homicidal Ideation Homicidal Ideation: No Assessment/Plan 1) Patient is not actively suiicidal at thistime. 2) she might have taken more pain pills to relieve Rectal pain. 3) She can be discharged home when medically clear. 4) call Ken Argueta my PRIMARY CARE PROVIDER should you want re evaluation.
[2019-02-11 18:46] VITALS: BMI 26.2
[2019-02-11] MEDS: traZODone HCL 50 MG TABLET (FP) PO SCH (21:48)
[2019-02-11] MEDS: ATORVASTATIN CA 20 MG TABLET (FP) PO SCH (21:48)
[2019-02-12] MEDS ORDERED: LEVOTHYROXINE NA 25 MCG TABLET (FP) ONE (05:22)
[2019-02-12] MEDS ORDERED: LEVOTHYROXINE NA 112 MCG TABLET (FP) ONE (05:22)
[2019-02-12] MEDS: SODIUM CHLORIDE 1,000 ML IV SCH (05:27)
[2019-02-12] MEDS: GABAPENTIN 300 MG CAPSULE (FP) PO SCH ×2 (05:28→14:11)
[2019-02-12] MEDS: LEVOTHYROXINE 25 MCG, LEVOTHYROXINE 112 MCG PO SCH (06:09)
[2019-02-12 07:33] LABS: BASO % 0.4 % (0-2.0); EOS % 1.5 % (0-4.5); HEMATOCRIT 32.3 % (32.4-45.2); HEMOGLOBIN 11.1 GM/dL (10.7-15.3); LYMPH % 22.4 % (8-40); MCH 29.6 pg (25.7-33.7); MCHC 34.4 g/dl (32.0-36.0); MEAN CELL VOLUME 85.9 fl (80-96); MEAN PLT VOLUME 7.5 fl (7.5-11.1); MONO % 7.4 % (3.8-10.2); NEUT % 68.3 % (42.8-82.8); PLATELET COUNT 214 K/MM3 (134-434); RBC 3.76 M/mm3 (3.60-5.2); RDW 15.1 % (11.6-15.6); WHITE BLOOD COUNT 5.1 K/mm3 (4.0-10.0)
[2019-02-12 08:30] LABS: ALK PHOS 125 U/L (45-117); ANION GAP 6 MMOL/L (8-16); BILIRUBIN,TOTAL 0.3 mg/dL (0.2-1); BLOOD UREA NITROGEN 15 mg/dL (7-18); CALCIUM 8.4 mg/dL (8.5-10.1); CHLORIDE 109 mmol/L (98-107); CO2 28 mmol/L (21-32); CREATININE 0.8 mg/dL (0.55-1.3); GLUCOSE,RANDOM 90 mg/dL (74-106); POTASSIUM 3.5 mmol/L (3.5-5.1); SGOT/AST 25 U/L (15-37); SGPT/ALT 32 U/L (13-61); SODIUM 143 mmol/L (136-145); TOT PROT 6.5 g/dl (6.4-8.2)
[2019-02-12] MEDS ORDERED: PT OWN MED DRAWER 7, Y5N ONE ×2 (10:19→14:00)
[2019-02-12] MEDS: NEBIVOLOL 5 MG TABLET (FP) PO SCH (10:25)
[2019-02-12] MEDS: PARoxetine HCL 20 MG TABLET (FP) PO SCH (10:25)
[2019-02-12] MEDS: CHOLECALCIFEROL (VITAMIN D3) 1,000 UNIT TABLET (FP) PO SCH (10:25)
[2019-02-12] MEDS: FOLIC ACID 1 MG TABLET (FP) PO SCH (10:25)
--- NOTE | 2019-02-12 15:43 | PN ---
Progress Note, Physician Chief Complaint: Hypotension AMS History of Present Illness: Previous notes and events reviewed awake and alert NAD BP noted to be elevated this morning, denies chest pain or SOB--IVF discontinued - Current Medication List Current Medications: Active Medications Acetaminophen (Tylenol -) 500 mg PO Q6H PRN PRN Reason: PAIN LEVEL 1-5 Atorvastatin Calcium (Lipitor -) 20 mg PO [facility] Last Admin: 02/11/19 21:48 Dose: 20 mg Chlordiazepoxide HCl (Librium -) 5 mg PO [id number] PRN PRN Reason: WITHDRAWAL(CONT SUBST) Last Admin: 02/11/19 00:23 Dose: 5 mg Cholecalciferol (Vitamin D3 -) 1,000 unit PO DAILY [facility] Last Admin: 02/12/19 10:25 Dose: 1,000 unit Folic Acid (Folic Acid -) 1 mg PO DAILY [facility] Last Admin: 02/12/19 10:25 Dose: 1 mg Gabapentin (Neurontin -) 300 mg PO TID [facility] Levothyroxine Sodium 25 mcg/ (Levothyroxine Sodium 112 mcg) 137 mcg PO DAILY@ 0700 [facility] Last Admin: 02/12/19 06:09 Dose: 137 mcg Loperamide HCl (Imodium -) 2 mg PO Q8H PRN PRN Reason: DIARRHEA Nebivolol (Bystolic -) 5 mg PO DAILY [facility] Last Admin: 02/12/19 10:25 Dose: 5 mg Paroxetine HCl (Paxil -) 40 mg PO DAILY [facility] Last Admin: 02/12/19 10:25 Dose: 40 mg Trazodone HCl (Desyrel -) 50 mg PO [facility] Last Admin: 02/11/19 21:48 Dose: 50 mg - Objective Vital Signs: Vital Signs Temperature 98.4 F 02/12/19 14:00 Pulse Rate 71 02/12/19 14:00 Respiratory Rate 20 02/12/19 14:00 Blood Pressure 160/80 02/12/19 14:00 O2 Sat by Pulse Oximetry (%) 97 02/12/19 11:00 Constitutional: Yes: No Distress, Calm Eyes: Yes: Conjunctiva Clear HENT: Yes: Atraumatic Cardiovascular: Yes: Regular Rate and Rhythm Respiratory: Yes: Regular, CTA Bilaterally Gastrointestinal: Yes: Normal Bowel Sounds, Soft, Tenderness (diffuse) Genitourinary: Yes: Incontinence Musculoskeletal: Yes: Muscle Weakness Extremities: Yes: WNL Edema: No Neurological: Yes: Alert, Oriented Psychiatric: Yes: Alert, Oriented Labs: CBC, BMP 02/12/19 06:30 02/12/19 06:30 INR, PTT INR 1.11 (0.83-1.09) H 02/10/19 08:30 Problem List - Problems (1) Altered mental status Assessment/Plan: -improving -psych on board -Head CT scan negative -PT eval Code(s): R41.82 - ALTERED MENTAL STATUS, UNSPECIFIED Qualifiers: Altered mental status type: unspecified Qualified Code(s): R41.82 - Altered mental status, unspecified (2) Hypothyroidism Assessment/Plan: -continue synthroid -TSH 0.81 Code(s): E03.9 - HYPOTHYROIDISM, UNSPECIFIED (3) Anxiety Assessment/Plan: -psych on board -continue Paxil and Trazodone Code(s): F41.9 - ANXIETY DISORDER, UNSPECIFIED Assessment/Plan see problem list dvt ppx after PT eval and BP improvement discharge to SNF for rehab
[2019-02-12] MEDS: traZODone HCL 50 MG TABLET (FP) PO SCH (21:05)
[2019-02-12] MEDS: GABAPENTIN 100 MG CAPSULE (FP) PO SCH (21:05)
[2019-02-12] MEDS: ATORVASTATIN CA 20 MG TABLET (FP) PO SCH (21:05)
[2019-02-12] MEDS: LOPERAMIDE HCL 2 MG CAPSULE PO PRN (21:05)
[2019-02-13] MEDS ORDERED: LEVOTHYROXINE NA 112 MCG TABLET (FP) ONE (05:01)
[2019-02-13] MEDS ORDERED: LEVOTHYROXINE NA 25 MCG TABLET (FP) ONE (05:01)
[2019-02-13] MEDS: GABAPENTIN 100 MG CAPSULE (FP) PO SCH ×2 (06:01→13:50)
[2019-02-13] MEDS: LEVOTHYROXINE 25 MCG, LEVOTHYROXINE 112 MCG PO SCH (06:02)
[2019-02-13 06:34] LABS: BASO % 0.3 % (0-2.0); HEMATOCRIT 31.7 % (32.4-45.2); HEMOGLOBIN 10.8 GM/dL (10.7-15.3); LYMPH % 28.7 % (8-40); MCH 29.5 pg (25.7-33.7); MCHC 33.9 g/dl (32.0-36.0); MEAN CELL VOLUME 86.8 fl (80-96); MEAN PLT VOLUME 7.5 fl (7.5-11.1); MONO % 9.5 % (3.8-10.2); NEUT % 59.5 % (42.8-82.8); PLATELET COUNT 209 K/MM3 (134-434); RBC 3.65 M/mm3 (3.60-5.2); RDW 15.7 % (11.6-15.6); WHITE BLOOD COUNT 4.4 K/mm3 (4.0-10.0)
[2019-02-13 07:15] LABS: ALBUMIN 2.8 g/dl (3.4-5.0); ALK PHOS 110 U/L (45-117); ANION GAP 6 MMOL/L (8-16); BILIRUBIN,TOTAL 0.3 mg/dL (0.2-1); BLOOD UREA NITROGEN 13 mg/dL (7-18); CALCIUM 8.6 mg/dL (8.5-10.1); CHLORIDE 111 mmol/L (98-107); CO2 28 mmol/L (21-32); CREATININE 0.8 mg/dL (0.55-1.3); GLUCOSE,RANDOM 95 mg/dL (74-106); POTASSIUM 3.3 mmol/L (3.5-5.1); SGOT/AST 19 U/L (15-37); SGPT/ALT 28 U/L (13-61); SODIUM 144 mmol/L (136-145)
--- NOTE | 2019-02-13 09:24 | DS ---
Physical Examination Vital Signs: Vital Signs Temperature 97.9 F 02/13/19 06:00 Pulse Rate 53 L 02/13/19 06:00 Respiratory Rate 18 02/13/19 06:00 Blood Pressure 150/81 02/13/19 06:00 O2 Sat by Pulse Oximetry (%) 97 02/13/19 03:00 Constitutional: Yes: No Distress Eyes: Yes: WNL HENT: Yes: WNL Neck: Yes: WNL Cardiovascular: Yes: WNL Respiratory: Yes: WNL Gastrointestinal: Yes: WNL Musculoskeletal: Yes: Back Pain Extremities: Yes: WNL Edema: No Peripheral Pulses WNL: Yes Integumentary: Yes: WNL Wound/Incision: Yes: Clean/Dry Neurological: Yes: Pre-Existing Deficit Psychiatric: Yes: Other Labs: CBC, BMP 02/13/19 05:30 02/13/19 05:30 Discharge Summary Reason For Visit: HYPOXIA, ALTERED MENTAL STATUS Current Active Problems Altered mental status (Acute) Procedures: Principal: HEAD CT Hospital Course: ADMITTED AMS, OPIOD USE FROM PAIN MED OUTPATIENT MAY HAVE CONTRIBUTED, WILL MONITOR OUTPATIENT PSYCHIATRY CLEARANCE TO GO HOME AND F/U OUTPATIENT Condition: Stable - Instructions Diet, Activity, Other Instructions: LOW SALT DIET SEE YOUR PRIMARY DOCTOR TODAY OR TOMORROW Disposition: HOME - Home Medications Comprehensive Discharge Medication List: Ambulatory Orders Acetaminophen [Tylenol .Extra-Strength -] 500 mg PO Q6H PRN tablet 12/10/18 Levothyroxine [Synthroid -] 150 mcg PO 0700 #30 tablet 12/10/18 Loperamide HCl [Imodium -] 2 mg PO Q8H #21 capsule 12/10/18 Albuterol Sulfate Inhaler - [Ventolin HFA Inhaler -] 2 inh PO Q6H PRN 12/14/18 Atorvastatin Ca [Lipitor] 20 mg PO HS 12/14/18 Gabapentin 300 mg PO TID 12/14/18 oxyCODONE HCL [Roxicodone -] 10 mg PO Q6H PRN MDD 4 12/14/18 Oxycodone HCl 5 mg PO Q6H PRN #120 tablet MDD 4 12/18/18 Loperamide HCl [Imodium -] 2 mg PO Q8H PRN #30 capsule MDD 2 12/27/18 Magnesium Oxide 400 mg PO BID #10 tablet MDD 2 12/27/18 Acetaminophen [Tylenol .Extra-Strength -] 500 mg PO Q6H PRN #90 tablet 02/13/19 Cholecalciferol (Vitamin D3) [Vitamin D3 -] 1,000 unit PO DAILY #30 tab Folic Acid 1 mg PO DAILY #30 tablet 02/13/19 Gabapentin [Neurontin -] 300 mg PO TID #90 capsule 02/13/19 Levothyroxine [Synthroid -] 137 mcg PO DAILY@0700 #30 tablet 02/13/19 Levothyroxine [Synthroid -] 137 mcg PO DAILY@0700 #30 tablet MDD 1 02/13/19 Nebivolol [Bystolic -] 5 mg PO DAILY #30 tab 02/13/19 Paroxetine HCl 40 mg PO DAILY #30 tablet 02/13/19 traZODone HCL [Desyrel -] 50 mg PO HS #0 tablet 02/13/19 traZODone HCL [Trazodone HCl] 50 mg PO HS #30 tablet 02/13/19
[2019-02-13] MEDS ORDERED: POTASSIUM CHLORIDE TABS 10 MEQ TABLET.ER (FP) PO ONE (10:00)
[2019-02-13] MEDS ORDERED: PT OWN MED DRAWER 7, Y5N ONE (10:16)
[2019-02-13] MEDS: NEBIVOLOL 5 MG TABLET (FP) PO SCH (10:17)
[2019-02-13] MEDS: FOLIC ACID 1 MG TABLET (FP) PO SCH (10:17)
[2019-02-13] MEDS: CHOLECALCIFEROL (VITAMIN D3) 1,000 UNIT TABLET (FP) PO SCH (10:18)
[2019-02-13] MEDS: PARoxetine HCL 20 MG TABLET (FP) PO SCH (10:18)
[2019-02-13 17:02] VITALS: BP 163/95; PULSE 54; TEMP 98.3
--- NOTE | 2019-02-13 17:19 | PN ---
Progress Note (short form) - Note Progress Note: I SPOKE WITH ELLY FIGUEROA THE PATIENT'S SON WHO UNDERSTANDS HIS MOM MAY HAVE TOOK PAIN KILLERS FROM HER PAIN MEDICINE DOCTOR. I TRIED TO REACH OUT TO THE PAIN MEDICINE SPECIALIST TO DISCUSS PATIENT SHIRLENE'S RECENT ADMISSION AND THAT SHE SHOULD REDUCE HER PAIN MEDICATIONS. THE PATIENT DOES NOT KNOW THE DOCTOR'S NAME AND WILL DISCUSS WITH HER PRIMARY DOCTOR. I HAVE INSTRUCTED MR. FIGUEROA TO BRING HIS MOM TO HER PMD TOMORROW MORNING TO EVALUATE IF SHE NEEDS FENTANYL PATCHES AND OPIOD PILLS FOR HER CHRONIC BACK PAIN. I ALSO HAVE SENT [facility] TO EVALUATE HER AT HOME AND HAVE A BEHAVIORAL PSYCH THERAPIST SEE HER AT HOME AND MONITOR HER CLOSELY. PSYCHIATRY HAS EVALUATED HER HERE DURING THE ADMISSION AND DEEMED COMPETENT TO MAKE DECISIONS.
[2019-02-13] MEDS: LOPERAMIDE HCL 2 MG CAPSULE PO PRN (17:44)
== END 2019-02-13 19:35 | disposition home or self-care (01) ==
LOC: JER 23:56 → INTOOBSV 02-10 03:26 → JERBED 02-10 03:26 → J8W 02-11 16:51
PROVIDERS: ADMIT Internal Medicine; ATTEND Family Medicine
PROC: 3E0337Z Introduction of Electrolytic and Water Balance Substance into Peripheral Vein, Percutaneous Approach (ICD-10-PCS; principal; 2019-02-10)
DX: R41.82 Altered mental status, unspecified (principal); F41.9 Anxiety disorder, unspecified; F11.90 Opioid use, unspecified, uncomplicated; E03.9 Hypothyroidism, unspecified; I10 Essential (primary) hypertension; E78.5 Hyperlipidemia, unspecified; G30.9 Alzheimer's disease, unspecified; F02.80 Dementia in other diseases classified elsewhere, unspecified severity, without behavioral disturbance, psychotic disturbance, mood disturbance, and anxiety; J44.9 Chronic obstructive pulmonary disease, unspecified; I48.91 Unspecified atrial fibrillation; M06.9 Rheumatoid arthritis, unspecified; K50.90 Crohn's disease, unspecified, without complications; K90.0 Celiac disease; Z88.5 Allergy status to narcotic agent; Z88.6 Allergy status to analgesic agent; Z86.19 Personal history of other infectious and parasitic diseases
CPT/HCPCS: 36415; 70450-TC; 71045-TC-FY; 80053; 80307; 81003; 82962; 83605; 84443; 85025; 85610; 87040; 87086; 93005; 93010; 97116-GP; 97161-GP; 99285-25; G0378; J7030

== ENCOUNTER 2019-06-17 12:42 | Inpatient (IN) | payer OTHER ==
--- NOTE | 2019-06-17 13:18 | PDOC ---
History of Present Illness - General Chief Complaint: Weakness Stated Complaint: Weakness - History of Present Illness Initial Comments: The pt is a 69F year old female with a past medical history of dementia, COPD, afib, RA, Crohns disease, celiac, Alzheimers, hypothyroid, Cdiff, ESBL, and pain disorder (on oxycodone) who presents for evaluation by EMS for concern of a fall and overdose. The pt and son report her taking a large number of pills today. The pt, son, EMS, and pt's aid are all unsure what she took. The pt confirms falling, states 'I want to ', but is unclear on if she took the pills for the reason of self-harm. Remainder of history limited 2/2 pt's medical condition. 06/17/19 13:26 Past History - Past Medical History Allergies/Adverse Reactions: Allergies Allergy/AdvReac Type Severity Reaction Status Date / Time gluten Allergy Severe Vomiting Verified 02/10/19 00:04 morphine Allergy Severe Verified 02/10/19 00:04 Sulfa (Sulfonamide Allergy Verified 02/10/19 00:04 Antibiotics) Home Medications: Ambulatory Orders Acetaminophen [Tylenol .Extra-Strength -] 500 mg PO Q6H PRN tablet 12/10/18 Levothyroxine [Synthroid -] 150 mcg PO 0700 #30 tablet 12/10/18 Loperamide HCl [Imodium -] 2 mg PO Q8H #21 capsule 12/10/18 Albuterol Sulfate Inhaler - [Ventolin HFA Inhaler -] 2 inh PO Q6H PRN 12/14/18 Atorvastatin Ca [Lipitor] 20 mg PO HS 12/14/18 Gabapentin 300 mg PO TID 12/14/18 oxyCODONE HCL [Roxicodone -] 10 mg PO Q6H PRN MDD 4 12/14/18 Oxycodone HCl 5 mg PO Q6H PRN #120 tablet MDD 4 12/18/18 Loperamide HCl [Imodium -] 2 mg PO Q8H PRN #30 capsule MDD 2 12/27/18 Magnesium Oxide 400 mg PO BID #10 tablet MDD 2 12/27/18 Acetaminophen [Tylenol .Extra-Strength -] 500 mg PO Q6H PRN #90 tablet 02/13/19 Cholecalciferol (Vitamin D3) [Vitamin D3 -] 1,000 unit PO DAILY #30 tab Folic Acid 1 mg PO DAILY #30 tablet 02/13/19 Gabapentin [Neurontin -] 300 mg PO TID #90 capsule 02/13/19 Levothyroxine [Synthroid -] 137 mcg PO DAILY@0700 #30 tablet 02/13/19 Levothyroxine [Synthroid -] 137 mcg PO DAILY@0700 #30 tablet MDD 1 02/13/19 Nebivolol [Bystolic -] 5 mg PO DAILY #30 tab 02/13/19 Paroxetine HCl 40 mg PO DAILY #30 tablet 02/13/19 traZODone HCL [Desyrel -] 50 mg PO HS #0 tablet 02/13/19 traZODone HCL [Trazodone HCl] 50 mg PO HS #30 tablet 02/13/19 Anemia: Yes Asthma: No Cancer: Yes (tumors of small intestine) Cardiac Disorders: No CVA: No COPD: Yes CHF: No Dementia: Yes Diabetes: No GI Disorders: Yes (CHROHN, RECTAL ULCER, celiac disease) Disorders: No HTN: Yes Hypercholesterolemia: Yes Liver Disease: No Seizures: No Thyroid Disease: Yes - Surgical History Abdominal Surgery: Yes (J POUCH) Appendectomy: Yes (1995) Cardiac Surgery: No Cholecystectomy: Yes (2001) Lung Surgery: No Neurologic Surgery: No Orthopedic Surgery: Yes (right femur kirby 2010,) - Immunization History Immunization Up to Date: Yes - Suicide/Smoking/Psychosocial Hx Smoking Status: No Smoking History: Unknown if ever smoked Have you smoked in the past 12 months: No Hx Alcohol Use: No Drug/Substance Use Hx: No Substance Use Type: None Hx Substance Use Treatment: No Review of Systems - Review of Systems Able to Perform ROS?: No (2/2 medical condition) *Physical Exam - Vital Signs Initial Vital Signs Temp Pulse Resp BP Pulse Ox 97.6 F 48 L 9 L 126/78 88 L 06/17/19 13:15 06/17/19 13:15 06/17/19 13:15 06/17/19 13:15 06/17/19 13:15 - Physical Exam Comments: GENERAL: Awake and oriented to person HEAD: No signs of trauma, normocephalic, atraumatic EYES: PERRLA, EOMI, sclera anicteric, conjunctiva clear ENT: Hearing grossly normal, nares patent, oropharynx clear without exudates. Moist mucosa LUNGS: No distress, speaks in full sentences, clear to auscultation bilaterally HEART: Bradycardic rate and regular rhythm, normal S1 and S2, no murmurs appreciated, peripheral pulses normal and equal bilaterally ABDOMEN: Soft, nontender, normoactive bowel sounds. No guarding, no rebound EXTREMITIES: Normal inspection, Normal range of motion, no edema. No clubbing or cyanosis NEUROLOGICAL: Cranial nerves II through XII grossly intact. Slurred speech SKIN: Warm, Dry 06/17/19 13:18 ED Treatment Course - LABORATORY CBC & Chemistry Diagram: 06/17/19 14:45 06/17/19 14:45 Medical Decision Making - Medical Decision Making The pt is a 69F year old female with a past medical history of dementia, COPD, afib, RA, Crohns disease, celiac, Alzheimers, hypothyroid, Cdiff, ESBL, and pain disorder (on oxycodone) who presents for evaluation by EMS for concern of a fall and overdose. ED Course Labs sent UA, UDS pending CT head CXR 2 US IV placed No indication for Narcan at this time, pt RR > 8 1:1 ordered Plan for admission for unknown substance Pending Psychiatric evaluation 06/17/19 14:59 Occurrence Report filled out for 1:1 Pt allowed visitors under policy for SI pt's Page sent through Dr. Sorto's service, awaiting call back 06/17/19 15:34 Case discussed w/ Dr. Sorto who will evaluate pt 06/17/19 15:45 No leukocytosis No anemia Lytes unremarkable No DORIE LFTs unremarkable Trop I neg Plan for admission for acute ingestion and Psych eval 06/17/19 15:46 Acetaminophen and Salicylates neg 06/17/19 17:31 *DC/Admit/Observation/Transfer Diagnosis at time of Disposition: Suicidal ideation Ingestion of substance Qualifiers: Encounter type: initial encounter Injury intent: intentional self-harm Qualified Code(s): T65.92XA - Toxic effect of unspecified substance, intentional self-harm, initial encounter Afib Qualifiers: Atrial fibrillation type: unspecified Qualified Code(s): I48.91 - Unspecified atrial fibrillation - Discharge Dispostion Condition at time of disposition: Fair Decision to Admit order: Yes - Referrals - Patient Instructions - Post Discharge Activity
--- NOTE | 2019-06-17 14:57 | PDOC ---
Attending Attestation - Resident Resident Name: Eric Chirinos - ED Attending Attestation I have performed the following: I have examined & evaluated the patient, The case was reviewed & discussed with the resident, I agree w/resident's findings & plan, Exceptions are as noted - HPI HPI: 06/17/19 14:52 Ms Delong is a 69F year old female with a past medical history of dementia, COPD, afib, RA, Crohns disease, celiac, Alzheimers, hypothyroid, Cdiff, ESBL, and pain disorder (on oxycodone) who presents for evaluation by EMS due to a fall. Upon assessment, the patient and son report that she took a "large number" of pills today. no one seems to be clear on what she took. Denies alcohol or drug use The patient states 'I want to ' It is unclear to me if she took these medications due to a desire to harm herself or if she got confused 06/17/19 13:26 - Physicial Exam PE: 06/17/19 14:57 GENERAL: Awake and oriented to person, somnolent but arousable to voice HEAD: No signs of trauma, normocephalic, atraumatic EYES: PERRLA, EOMI, sclera anicteric, conjunctiva clear ENT: Hearing grossly normal, nares patent, oropharynx clear without exudates. Moist mucosa LUNGS: No distress, speaks in full sentences, decreased respiratory rate HEART: Bradycardic rate and regular rhythm, normal S1 and S2, no murmurs appreciated, ABDOMEN: Soft, nontender, no guarding, no rebound EXTREMITIES: Normal inspection, Normal range of motion, no edema. NEUROLOGICAL: Cranial nerves II through XII grossly intact. Slurred speech SKIN: Warm, Dry - Medical Decision Making 06/17/19 14:58 69 yo F presenting due to medication overdoes (? intentional) Pt does state that she want to harm herself Will do labs will do EKG will do CT head Will do CXR Will plan to admit 06/17/19 15:30 EKG: Sinus bradycardia rate of 46 bpm, axis nml, no st elevation or depression, flattened t waves 06/19/19 08:27 Laboratory Tests 06/17/19 06/17/19 06/17/19 14:45 14:45 14:45 WBC 5.3 Hgb 11.2 Hct 33.8 Plt Count 210 BUN 9.7 Creatinine 1.3 Troponin I < 0.02 Salicylates <1.7 Opiates Screen Acetaminophen <2.0 06/18/19 04:00 WBC Hgb Hct Plt Count BUN Creatinine Troponin I Salicylates Opiates Screen Positive A* Acetaminophen
[2019-06-17 15:32] LABS: BASO % 0.7 % (0-2.0); EOS % 1.6 % (0-4.5); HEMATOCRIT 33.8 % (32.4-45.2); HEMOGLOBIN 11.2 GM/dL (10.7-15.3); LYMPH % 15.7 % (8-40); MCH 29.4 pg (25.7-33.7); MCHC 33.3 g/dl (32.0-36.0); MEAN CELL VOLUME 88.3 fl (80-96); MEAN PLT VOLUME 7.5 fl (7.5-11.1); MONO % 5.6 % (3.8-10.2); NEUT % 76.4 % (42.8-82.8); PLATELET COUNT 210 K/MM3 (134-434); RBC 3.82 M/mm3 (3.60-5.2); RDW 15.1 % (11.6-15.6); WHITE BLOOD COUNT 5.3 K/mm3 (4.0-10.0)
[2019-06-17 15:34] LABS: MAGNESIUM 1.8 mg/dL (1.8-2.4)
[2019-06-17 15:41] LABS: ALBUMIN 3.6 g/dl (3.4-5.0); ALK PHOS 87 U/L (45-117); ANION GAP 6 MMOL/L (8-16); BILIRUBIN,TOTAL 0.5 mg/dL (0.2-1); BLOOD UREA NITROGEN 9.7 mg/dL (7-18); CALCIUM 8.7 mg/dL (8.5-10.1); CHLORIDE 100 mmol/L (98-107); CO2 33 mmol/L (21-32); CREATININE 1.3 mg/dL (0.55-1.3); GLUCOSE,RANDOM 83 mg/dL (74-106); POTASSIUM 3.9 mmol/L (3.5-5.1); SGOT/AST 49 U/L (15-37); SGPT/ALT 29 U/L (13-61); SODIUM 140 mmol/L (136-145); TOT PROT 6.7 g/dl (6.4-8.2)
--- NOTE | 2019-06-17 16:24 | HP ---
Admitting History and Physical - Primary Care Physician PCP: Parker Barragan - Admission Chief Complaint: s/p fall and change in mental status History of Present Illness: Ms Delong is a 69F year old female with a past medical history of dementia, COPD, afib, RA, Crohns disease, celiac, Alzheimers, hypothyroid, Cdiff, ESBL, and pain disorder (on oxycodone) who presents for evaluation by EMS due to a fall. patient doesnot know why she is in hospital unable to tell me what happened all she knows is she picked herself off the floor, patient told me that she was having alot of back pain and wanted it to go away per ED notes the son said she took a large number of pills today History Source: Medical Record - Past Medical History Gastrointestinal: Yes: Crohn's Disease, Ulcerative Colitis - Smoking History Smoking history: Unknown if ever smoked Have you smoked in the past 12 months: No - Alcohol/Substance Use Hx Alcohol Use: No - Social History ADL: Independent Home Medications - Allergies Allergies/Adverse Reactions: Allergies Allergy/AdvReac Type Severity Reaction Status Date / Time gluten Allergy Severe Vomiting Verified 02/10/19 00:04 morphine Allergy Severe Verified 02/10/19 00:04 Sulfa (Sulfonamide Allergy Verified 02/10/19 00:04 Antibiotics) - Home Medications Home Medications: Ambulatory Orders Acetaminophen [Tylenol .Extra-Strength -] 500 mg PO Q6H PRN tablet 12/10/18 Levothyroxine [Synthroid -] 150 mcg PO 0700 #30 tablet 12/10/18 Loperamide HCl [Imodium -] 2 mg PO Q8H #21 capsule 12/10/18 Albuterol Sulfate Inhaler - [Ventolin HFA Inhaler -] 2 inh PO Q6H PRN 12/14/18 Atorvastatin Ca [Lipitor] 20 mg PO HS 12/14/18 Gabapentin 300 mg PO TID 12/14/18 oxyCODONE HCL [Roxicodone -] 10 mg PO Q6H PRN MDD 4 12/14/18 Oxycodone HCl 5 mg PO Q6H PRN #120 tablet MDD 4 12/18/18 Loperamide HCl [Imodium -] 2 mg PO Q8H PRN #30 capsule MDD 2 12/27/18 Magnesium Oxide 400 mg PO BID #10 tablet MDD 2 12/27/18 Acetaminophen [Tylenol .Extra-Strength -] 500 mg PO Q6H PRN #90 tablet 02/13/19 Cholecalciferol (Vitamin D3) [Vitamin D3 -] 1,000 unit PO DAILY #30 tab Folic Acid 1 mg PO DAILY #30 tablet 02/13/19 Gabapentin [Neurontin -] 300 mg PO TID #90 capsule 02/13/19 Levothyroxine [Synthroid -] 137 mcg PO DAILY@0700 #30 tablet 02/13/19 Levothyroxine [Synthroid -] 137 mcg PO DAILY@0700 #30 tablet MDD 1 02/13/19 Nebivolol [Bystolic -] 5 mg PO DAILY #30 tab 02/13/19 Paroxetine HCl 40 mg PO DAILY #30 tablet 02/13/19 traZODone HCL [Desyrel -] 50 mg PO HS #0 tablet 02/13/19 traZODone HCL [Trazodone HCl] 50 mg PO HS #30 tablet 02/13/19 Review of Systems Unable to obtain ROS, reason: sleepy confused Physical Examination Vital Signs: Vital Signs Temperature 97.6 F 06/17/19 13:15 Pulse Rate 50 L 06/17/19 13:43 Respiratory Rate 10 06/17/19 13:43 Blood Pressure 122/78 06/17/19 13:43 O2 Sat by Pulse Oximetry (%) 98 06/17/19 13:43 Constitutional: Yes: Calm, Thin Cardiovascular: Yes: Regular Rate and Rhythm, S1, S2 Respiratory: Yes: CTA Bilaterally Gastrointestinal: Yes: Normal Bowel Sounds, Soft Edema: No Neurological: Yes: Other (confused and sleepy but arousable) Labs: CBC, BMP 06/17/19 14:45 06/17/19 14:45 Problem List - Problems (1) Hypothyroidism Assessment/Plan: tsh syntroid Code(s): E03.9 - HYPOTHYROIDISM, UNSPECIFIED (2) Altered mental status Assessment/Plan: NPO for now until mental status improves ivf neurology consult psych consult for suicidal ideation 1;[address] head pain management for back pain hod all narcotics for now hold trazadone and paroxetine till mental status improved Code(s): R41.82 - ALTERED MENTAL STATUS, UNSPECIFIED Qualifiers: Altered mental status type: unspecified Qualified Code(s): R41.82 - Altered mental status, unspecified (3) Bradycardia Assessment/Plan: hold BB Code(s): R00.1 - BRADYCARDIA, UNSPECIFIED
[2019-06-17] MEDS: DEXTROSE 5%-0.45% SALINE 1,000 ML IV SCH (17:30)
[2019-06-18 03:11] VITALS: BMI 25.3
[2019-06-18 04:45] LABS: COCAINE, UR NEGATIVE ng/ml (CUTOFF=300); METHADONE, UR NEGATIVE ng/ml (CUTOFF=300); PHENCYCLIDINE,URINE NEGATIVE ng/ml (CUTOFF=25); URINE AMPHETAMINES NEGATIVE ng/ml (CUTOFF=500); URINE BARBITURATES NEGATIVE ng/ml (CUTOFF=200); URINE BENZODIAZEPINES NEGATIVE ng/ml (CUTOFF=200)
[2019-06-18 04:47] LABS: OPIATES, URI POSITIVE ng/ml (CUTOFF=300)
[2019-06-18 05:12] LABS: EPI CELLS 3.4 /HPF (0-5/HPF); HYALINE CASTS 27 /lpf (0-8); PH,URINE 5.5 (5.0-8.0); URINE APPEARANCE CLOUDY; URINE BACTERIA 2928.2 /hpf (NEGATIVE); URINE BILIRUBIN NEGATIVE (NEGATIVE); URINE COLOR YELLOW; URINE GLUCOSE (UA) NEGATIVE (NEGATIVE); URINE KETONE NEGATIVE (NEGATIVE); URINE LEUK ESTERASE 3+ (NEGATIVE); URINE NITRITE POSITIVE (NEGATIVE); URINE PROTEIN NEGATIVE (NEGATIVE); URINE RBC 6 /hpf (0-4); URINE UROBILINOGEN 0.2 mg/dL (0.2-1.0); URINE WBC 688 /hpf (0-5)
[2019-06-18 07:05] LABS: BASO % 0.4 % (0-2.0); EOS % 2.4 % (0-4.5); HEMATOCRIT 34.2 % (32.4-45.2); HEMOGLOBIN 11.5 GM/dL (10.7-15.3); LYMPH % 21.3 % (8-40); MCH 29.8 pg (25.7-33.7); MCHC 33.6 g/dl (32.0-36.0); MEAN CELL VOLUME 88.6 fl (80-96); MEAN PLT VOLUME 7.2 fl (7.5-11.1); MONO % 5.8 % (3.8-10.2); NEUT % 70.1 % (42.8-82.8); PLATELET COUNT 203 K/MM3 (134-434); RBC 3.86 M/mm3 (3.60-5.2); RDW 15.5 % (11.6-15.6)
[2019-06-18 07:59] LABS: INR 1.04 (0.83-1.09); PROTHROMBIN TIME (PATIENT) 12.3 SEC (9.7-13.0)
[2019-06-18 08:01] LABS: ACTIVATED PTT 33.3 SECONDS (25.2-36.5)
[2019-06-18 08:16] LABS: ALBUMIN 3.3 g/dl (3.4-5.0); BILIRUBIN,TOTAL 0.7 mg/dL (0.2-1); BLOOD UREA NITROGEN 8.3 mg/dL (7-18); CALCIUM 8.4 mg/dL (8.5-10.1); CREATININE 1.2 mg/dL (0.55-1.3); MAGNESIUM 1.6 mg/dL (1.8-2.4); POTASSIUM 3.5 mmol/L (3.5-5.1); TOT PROT 6.3 g/dl (6.4-8.2)
--- NOTE | 2019-06-18 08:24 | PN ---
Progress Note, Physician Chief Complaint: AWAKE LETHARGIC EVENTS REVIEWED - Current Medication List Current Medications: Active Medications Dextrose/Sodium Chloride (D5-1/2ns -) 1,000 mls @ 75 mls/hr IV ASDIR ALEX Last Admin: 06/17/19 17:30 Dose: 75 mls/hr - Objective Vital Signs: Vital Signs Temperature 97.7 F 06/18/19 06:33 Pulse Rate 50 L 06/18/19 06:33 Respiratory Rate 18 06/18/19 06:33 Blood Pressure 124/70 06/18/19 06:33 O2 Sat by Pulse Oximetry (%) 98 06/18/19 03:25 Constitutional: Yes: Mild Distress Cardiovascular: Yes: Bradycardia Respiratory: Yes: WNL Gastrointestinal: Yes: WNL Genitourinary: Yes: WNL Musculoskeletal: Yes: Muscle Weakness Edema: No Peripheral Pulses WNL: Yes Integumentary: Yes: WNL Wound/Incision: Yes: Clean/Dry Neurological: Yes: Confusion, Weakness ...Motor Strength: LLE, RLE Psychiatric: Yes: Other Labs: CBC, BMP 06/18/19 06:40 06/18/19 06:40 INR, PTT INR 1.04 (0.83-1.09) 06/18/19 06:40 Problem List - Problems (1) Bradycardia Code(s): R00.1 - BRADYCARDIA, UNSPECIFIED (2) Altered mental status Code(s): R41.82 - ALTERED MENTAL STATUS, UNSPECIFIED Qualifiers: Altered mental status type: unspecified Qualified Code(s): R41.82 - Altered mental status, unspecified (3) Anemia Code(s): D64.9 - ANEMIA, UNSPECIFIED (5) Hypothyroidism Code(s): E03.9 - HYPOTHYROIDISM, UNSPECIFIED Assessment/Plan NEUROLOGY W/UP H/O PARKINSONS? ENDOCRINE F/U HYPOTHYROID ON SYNTHROID FALL RISKS PT EVAL PSYCHIATRY EVAL FOR DEPRESSION FALL RISKS NEURO CHECK
[2019-06-18] MEDS ORDERED: ACETAMINOPHEN 325 MG TABLET (FP) PO PRN (08:36)
[2019-06-18] MEDS: DEXTROSE 5%-0.45% SALINE 1,000 ML IV SCH (11:03)
--- NOTE | 2019-06-18 11:30 | CON.CARD ---
Consult Consult Specialty:: Cardiology Referred by:: Dr. Barragan Reason for Consultation:: ams - History of Present Illness Chief Complaint: fall ams History of Present Illness: 69 year old female with a significant PMH of dementia, Cdiff, crohn's disease, hypothyroidism, RA, frequent UTIs, celiac disease, COPD, afib and UC s/p colectomy adm with a fall and ams. as per report pt was c/o back pain and as per her son had taken a large number of pain pills. she was seen and examined today in [place]. denies chest pain, sob, palpitations, lightheadedness, dizziness, pnd, orthopnea or le edema. - History Source History Provided By: Patient, Medical Record Limitations to Obtaining History: Poor Historian - Past Medical History Gastrointestinal: Yes: Crohn's Disease, Ulcerative Colitis - Alcohol/Substance Use Hx Alcohol Use: No - Smoking History Smoking history: Never smoked Have you smoked in the past 12 months: No - Social History Usual Living Arrangement: Alone ADL: Independent Home Medications - Allergies Allergies/Adverse Reactions: Allergies Allergy/AdvReac Type Severity Reaction Status Date / Time gluten Allergy Severe Vomiting Verified 02/10/19 00:04 morphine Allergy Severe Verified 02/10/19 00:04 Sulfa (Sulfonamide Allergy Verified 02/10/19 00:04 Antibiotics) - Home Medications Home Medications: Ambulatory Orders Acetaminophen [Tylenol .Extra-Strength -] 500 mg PO Q6H PRN tablet 12/10/18 Levothyroxine [Synthroid -] 150 mcg PO 0700 #30 tablet 12/10/18 Loperamide HCl [Imodium -] 2 mg PO Q8H #21 capsule 12/10/18 Albuterol Sulfate Inhaler - [Ventolin HFA Inhaler -] 2 inh PO Q6H PRN 12/14/18 Atorvastatin Ca [Lipitor] 20 mg PO HS 12/14/18 Gabapentin 300 mg PO TID 12/14/18 oxyCODONE HCL [Roxicodone -] 10 mg PO Q6H PRN MDD 4 12/14/18 Oxycodone HCl 5 mg PO Q6H PRN #120 tablet MDD 4 12/18/18 Loperamide HCl [Imodium -] 2 mg PO Q8H PRN #30 capsule MDD 2 12/27/18 Magnesium Oxide 400 mg PO BID #10 tablet MDD 2 12/27/18 Acetaminophen [Tylenol .Extra-Strength -] 500 mg PO Q6H PRN #90 tablet 02/13/19 Cholecalciferol (Vitamin D3) [Vitamin D3 -] 1,000 unit PO DAILY #30 tab Folic Acid 1 mg PO DAILY #30 tablet 02/13/19 Gabapentin [Neurontin -] 300 mg PO TID #90 capsule 02/13/19 Levothyroxine [Synthroid -] 137 mcg PO DAILY@0700 #30 tablet 02/13/19 Levothyroxine [Synthroid -] 137 mcg PO DAILY@0700 #30 tablet MDD 1 02/13/19 Nebivolol [Bystolic -] 5 mg PO DAILY #30 tab 02/13/19 Paroxetine HCl 40 mg PO DAILY #30 tablet 02/13/19 traZODone HCL [Desyrel -] 50 mg PO HS #0 tablet 02/13/19 traZODone HCL [Trazodone HCl] 50 mg PO HS #30 tablet 02/13/19 Family Disease History - Family Disease History Family History: Denies Review of Systems - Review of Systems Constitutional: reports: Weakness. denies: No Symptoms, Chills, Diaphoresis, Fever, Lethargy, Loss of Appetite, Malaise, Night Sweats, Unintentional Wgt. Loss, Other Eyes: denies: No Symptoms, Blind Spots, Blurred Vision, Double Vision, Eye Pain , Floaters, Photophobia, Recent Change in Vision, Other HENT: denies: No Symptoms, Difficult Swallowing, Ear Discharge, Ear Pain, Epistaxis, Gingival Bleeding, Hearing Loss, Mouth Swelling, Nasal Congestion, Ocular Prosthesis, Throat Pain, Toothache, Ringing in Ears, Other Neck: denies: No Symptoms, Decreased ROM, Lumps, Pain on Movement, Stiffness, Swollen Glands, Tenderness, Other Cardiovascular: denies: No Symptoms, Chest Pain, Edema, Palpitations, Shortness of Breath, Other Respiratory: denies: No Symptoms, Cough, Exercise Intolerance, Hemoptysis, Orthopnea, PND, Snoring, SOB, SOB on Exertion, Wheezing, Other Gastrointestinal: denies: No Symptoms, Abdominal Pain, Bloating, Constipation, Diarrhea, Dysphagia, Indigestion, Melena, Nausea, Rectal Bleeding, Vomiting, Vomiting Blood, Other Genitourinary: denies: No Symptoms, Burning, Discharge, Dysuria, Flank Pain, Frequency, Hematuria, Incontinence, Lesions, Menses, Pain, Testicular Mass, Testicular Pain, Testicular Swelling, Urgency, Vaginal Bleeding, Other Breasts: denies: No Symptoms Reported, See HPI, Breast Implants, Discharge from Nipple, Lumps, Pain, Skin Changes, Other Musculoskeletal: denies: No Symptoms, Back Pain, Crepitus, Decreased ROM, Extremity Pain, Joint Pain, Joint Swelling, Muscle Pain, Muscle Cramps, Muscle Weakness, Other Integumentary: denies: No Symptoms, Blister, Bruising, Change in Color, Eczema, Erythema, Incision, Lesions, Lump, Pallor, Pruritis, Rash, Wound, Other Neurological: reports: Change in LOC. denies: No Symptoms, Change in Speech, Confusion, Dizziness, Headache, Incoordination, Numbness, Parasthesia, Pre- Existing Deficit, Seizure, Syncope, Tremors, Unsteady Gait, Weakness, Other Endocrine: denies: No Symptoms, Excessive Sweating, Flushing, Increased Hunger, Increased Thirst, Intolerance to Cold, Intolerance to Heat, Unexplained Weight Gain, Unexplained Weight Loss, Other Hematology/Lymphatic: denies: No Symptoms, Easily Bruised, Excessive Bleeding, Swollen Glands, Other Psychiatric: denies: No Symptoms, Altered Sleep Pattern, Anxiety, Depression, Hallucinations, Panic, Paranoia, Suicidal, Other Vital Signs: Vital Signs Temperature 97.7 F 06/18/19 06:33 Pulse Rate 50 L 06/18/19 06:33 Respiratory Rate 18 06/18/19 06:33 Blood Pressure 124/70 06/18/19 06:33 O2 Sat by Pulse Oximetry (%) 98 06/18/19 03:25 Constitutional: Yes: No Distress, Calm HENT: Yes: Atraumatic, Normocephalic Respiratory: Yes: Regular, CTA Bilaterally. No: Rales, Rhonchi, SOB, Wheezes Gastrointestinal: Yes: Normal Bowel Sounds, Soft Cardiovascular: Yes: Regular Rate and Rhythm. No: Bradycardia, Tachycardia, Pulse Irregular, Gallop, Rub, Varicosities JVD: No Carotid Bruit: No PMI: Non-Displaced Heart Sounds: Yes: S1, S2. No: Split S2, S3, S4, Clicks, Gallop, Rub, Bruit Murmur: No: Systolic Murmur, Diastolic Murmur Extremities: Yes: WNL Edema: No Peripheral Pulses WNL: Yes Neurological: Yes: Alert Psychiatric: Yes: Alert - Other Data Labs, Other Data: CBC, BMP 06/18/19 06:40 06/18/19 06:40 INR, PTT INR 1.04 (0.83-1.09) 06/18/19 06:40 Troponin, BNP 06/17/19 06/18/19 14:45 06:40 Troponin I < 0.02 < 0.02 Troponin, BNP 06/17/19 06/18/19 14:45 06:40 Troponin I < 0.02 < 0.02 pending Imaging - Results Chest X-ray: Report Reviewed, Image Reviewed EKG: Report Reviewed, Image Reviewed Other: Report Reviewed, Image Reviewed Assessment/Plan 69 year old female with a significant PMH of dementia, Cdiff, crohn's disease, hypothyroidism, RA, frequent UTIs, celiac disease, COPD, afib and UC s/p colectomy adm with a fall and ams. as per report pt was c/o back pain and as per her son had taken a large number of pain pills. denies chest pain, sob, palpitations, lightheadedness, dizziness, pnd, orthopnea or le edema. Fall with AMS -presume due to medication overdose vs Hypothyroid -no apparent cardiac source Bradycardia -TSH 100 -evaluation of thyroid disorder -reported overdose on medications -stop AV jenise blockers (bblocker) -no indication for ppm as there are reversible causes of bradycardia No further inpatient cardiac work up is needed at this time Will see as needed. Please call with questions.
--- NOTE | 2019-06-18 12:32 | CONSULT ---
Admitting History and Physical - Primary Care Physician PCP: Parker Barragan - Admission History of Present Illness: Per EMR- Ms Delong is a 69F year old female with a past medical history of dementia, COPD, afib, RA, Crohns disease, celiac, Alzheimers, hypothyroid, Cdiff, ESBL, and pain disorder (on oxycodone) who presents for evaluation by EMS due to a fall. Pt knows she is in the "hospital" says she has "Parkinsons"? History Source: Medical Record Limitations to Obtaining History: Clinical Condition, Dementia - Past Medical History Gastrointestinal: Yes: Crohn's Disease, Ulcerative Colitis - Smoking History Smoking history: Never smoked Have you smoked in the past 12 months: No - Alcohol/Substance Use Hx Alcohol Use: No - Social History ADL: Independent History - Admission Reason For Visit: INGESTION OF SUBSTANCE/SUICIDAL IDEATION/ - Diagnostics X-ray: Report Reviewed CT Scan: Report Reviewed - General Mental Status: Awake and Alert, Able to Follow Commands, Forgetful, Vague Attention: Distractible, Mild Impairment Ability to Follow Directions: Fair Head/Neck Control: Fair - Hearing Hearing: Normal Speech Evaluation - Communication Primary Language: CYMRAES Communication: Yes: Dysarthria Oral Expression Ability: Yes: Moderate Impairment - Speech Production Dysarthria: Yes: Hypokinetic (possibly? No official dx of Parkinsons in chart. Speech is hypophonic, dysphonic, rapid, difficult to modify. Can also be sec to Dementia.) Able to Make Needs Known: Yes: Moderately Impaired Intelligibility: Yes: Moderately Impaired - Speech Characteristics Voice Loudness: Moderately Soft/Quiet Voice Pitch: Yes: Normal Voice Phonatory-based Quality: Yes: Dysphonia Speech Pattern: Impaired Speech Clarity: < 50% Nasal Resonance: Normal Articulation: Yes: Precise Rate of Speech: Too Fast - Language/Auditory Comprehension Follows: Yes: 1 Stage Simple Commands - Language/Verbal Expression Able to Communicate Wants and Needs: Yes: Moderately Impaired Functional Communication Status: Yes: Moderately Impaired - Swallow Evaluation/Bedside Assessment Current Nutritional Intake: Dysphagia Whole, Thin Liquids Oral Secretions: Yes: WFL Dentition: Yes: Adequate Facial Symmetry at Rest: Symmetrical Facial Symmetry on Retraction: Symmetrical Against Resistance Opening: Normal Against Resistance Closing: Normal Pucker Lips: Normal, Weak Smile: Normal, Weak Lingual Movement: Normal, Symmetric, Reduced Protrusion Lingual Speed of Movement: Normal Lingual Movement Strgth Against Opposition: Reduced Laryngeal Elevation: WFL Laryngeal Movement: Able to Palpate Bolus Size: WFL Labial Seal: WFL Chewing: Impaired (extended) Oral Prep Time: Increased A-P Transit: Impaired Pocketing: Present Bilaterally Timing of Swallow: Delayed Coughing/Throat Clear: No Change in Voice: No Recommendations - Speech Evaluation, Impression/Plan Impression: Hypophonic/dysphonic speech/rapid speech production. Pt says she has Parkinsons? Speech pattern can be c/w with Hypokinetic Dysarthria vs sec to Dementia. Extended mastication. Swallow seems delayed but brisk. - Disposition Discharge to: To be Determined - Dysphagia Impressions/Plan Swallowing Skills: Impaired Dysphagia Impressions: Mild Impairment, Moderate Impairment *Silent aspiration: cannot be R/O at bedside Dysphagia Treatment Plan: Small Bites, Chin Tuck/Down, Clear Pocket Food, Safe Rate, 1/2 tsp. at a time, Elevate HOB during feed - Recommendations Diet Consistency: Dysphagia Whole (if poor intake, or extended meal time, may need to downgrade to soft, moist,chopped.) Liquids: Thin Liquids Supplement: Ensure, Magic Cup, Ensure Pudding
--- NOTE | 2019-06-18 15:56 | EKG ---
Test Reason : Blood Pressure : / mmHG Vent. Rate : 048 BPM Atrial Rate : 048 BPM P-R Int : 194 ms QRS Dur : 086 ms QT Int : 518 ms P-R-T Axes : 049 026 034 degrees QTc Int : 462 ms SINUS BRADYCARDIA NONSPECIFIC T WAVE ABNORMALITY ABNORMAL ECG WHEN COMPARED WITH ECG OF 17-JUN-2019 15:17, NO SIGNIFICANT CHANGE WAS FOUND Confirmed by MD VIKASH, TAMICA ([id number]) on 06/18/2019 3:55:36 PM Referred By: Alf SNOW Confirmed By:TAMICA SUH MD
--- NOTE | 2019-06-18 16:16 | EKG ---
Test Reason : Blood Pressure : / mmHG Vent. Rate : 046 BPM Atrial Rate : 046 BPM P-R Int : 188 ms QRS Dur : 094 ms QT Int : 552 ms P-R-T Axes : 023 030 031 degrees QTc Int : 483 ms POOR DATA QUALITY, INTERPRETATION MAY BE ADVERSELY AFFECTED SINUS BRADYCARDIA NONSPECIFIC T WAVE ABNORMALITY ABNORMAL ECG WHEN COMPARED WITH ECG OF 10-FEB-2019 00:21, QT HAS LENGTHENED Confirmed by MD VIKASH, TAMICA ([id number]) on 06/18/2019 4:16:02 PM Referred By: Confirmed By:TAMICA SUH MD
--- NOTE | 2019-06-18 17:21 | CON.NEURO ---
Consult - History of Present Illness History of Present Illness: 69F year old female with a past medical history of dementia, COPD, afib, RA, Crohns disease, celiac," Alzheimers", hypothyroid, Cdiff, ESBL, and pain disorder (on oxycodone) who presents for evaluation by EMS due to a fall. she is sleepy and unable to elaborate further HX . per ED notes the son said she took a large number of pills today CT HD : maxillary sinus sutures, no acute pathology - History Source History Provided By: Medical Record - Past Medical History Gastrointestinal: Yes: Crohn's Disease, Ulcerative Colitis - Alcohol/Substance Use Hx Alcohol Use: No - Smoking History Smoking history: Never smoked Have you smoked in the past 12 months: No - Social History Usual Living Arrangement: Alone ADL: Independent Home Medications - Allergies Allergies/Adverse Reactions: Allergies Allergy/AdvReac Type Severity Reaction Status Date / Time gluten Allergy Severe Vomiting Verified 02/10/19 00:04 morphine Allergy Severe Verified 02/10/19 00:04 Sulfa (Sulfonamide Allergy Verified 02/10/19 00:04 Antibiotics) - Home Medications Home Medications: Ambulatory Orders Acetaminophen [Tylenol .Extra-Strength -] 500 mg PO Q6H PRN tablet 12/10/18 Levothyroxine [Synthroid -] 150 mcg PO 0700 #30 tablet 12/10/18 Loperamide HCl [Imodium -] 2 mg PO Q8H #21 capsule 12/10/18 Albuterol Sulfate Inhaler - [Ventolin HFA Inhaler -] 2 inh PO Q6H PRN 12/14/18 Atorvastatin Ca [Lipitor] 20 mg PO HS 12/14/18 Gabapentin 300 mg PO TID 12/14/18 oxyCODONE HCL [Roxicodone -] 10 mg PO Q6H PRN MDD 4 12/14/18 Oxycodone HCl 5 mg PO Q6H PRN #120 tablet MDD 4 12/18/18 Loperamide HCl [Imodium -] 2 mg PO Q8H PRN #30 capsule MDD 2 12/27/18 Magnesium Oxide 400 mg PO BID #10 tablet MDD 2 12/27/18 Acetaminophen [Tylenol .Extra-Strength -] 500 mg PO Q6H PRN #90 tablet 02/13/19 Cholecalciferol (Vitamin D3) [Vitamin D3 -] 1,000 unit PO DAILY #30 tab Folic Acid 1 mg PO DAILY #30 tablet 02/13/19 Gabapentin [Neurontin -] 300 mg PO TID #90 capsule 02/13/19 Levothyroxine [Synthroid -] 137 mcg PO DAILY@0700 #30 tablet 02/13/19 Levothyroxine [Synthroid -] 137 mcg PO DAILY@0700 #30 tablet MDD 1 02/13/19 Nebivolol [Bystolic -] 5 mg PO DAILY #30 tab 02/13/19 Paroxetine HCl 40 mg PO DAILY #30 tablet 02/13/19 traZODone HCL [Desyrel -] 50 mg PO HS #0 tablet 02/13/19 traZODone HCL [Trazodone HCl] 50 mg PO HS #30 tablet 02/13/19 Physical Exam-Neuro Vital Signs: Vital Signs Temperature 98.2 F 06/18/19 08:20 Pulse Rate 48 L 06/18/19 08:20 Respiratory Rate 18 06/18/19 08:20 Blood Pressure 107/52 L 06/18/19 08:20 O2 Sat by Pulse Oximetry (%) 98 06/18/19 03:25 Edema: Yes Labs: CBC, BMP 06/18/19 06:40 06/18/19 06:40 INR, PTT INR 1.04 (0.83-1.09) 06/18/19 06:40 - Neuro Exam Level Of Consciousness: Yes: Sedated, Stuporous (somnolent, not elaborating coherent HX , eyes may open, follows siomple requests only, no focal weakness in UE limited , LE --severe PVD chnages, absent reflxes throughout , no nuchal rigidity ) Problem List - Problems (1) Afib Code(s): I48.91 - UNSPECIFIED ATRIAL FIBRILLATION Qualifiers: Atrial fibrillation type: unspecified Qualified Code(s): I48.91 - Unspecified atrial fibrillation (2) Ingestion of substance Code(s): T65.91XA - TOXIC EFFECT OF UNSP SUBSTANCE, ACCIDENTAL, INIT Qualifiers: Encounter type: initial encounter Injury intent: intentional self-harm Qualified Code(s): T65.92XA - Toxic effect of unspecified substance, intentional self-harm, initial encounter (3) Altered mental status Code(s): R41.82 - ALTERED MENTAL STATUS, UNSPECIFIED Qualifiers: Altered mental status type: unspecified Qualified Code(s): R41.82 - Altered mental status, unspecified Assessment/Plan 69F year old female with a past medical history of dementia, COPD, afib, RA, Crohns disease, celiac," Alzheimers", hypothyroid, Cdiff, ESBL, and pain disorder (on oxycodone) who presents for evaluation by EMS due to a fall. she is sleepy and unable to elaborate further HX . per ED notes the son said she took a large number of pills today CT HD : maxillary sinus sutures, no acute pathology AP : toxic /metabolic delirium , no clear evidence of new cerebrovascular event /seizure ; opioid use vs hypothyroid use naloxone if needed ; endocrine FU pSYCH FU ; may require pain management--consider medical marijuana if opioid abuse at hand ? hx of afib-- and necessity of AC vascular FU DR KLEIN
--- NOTE | 2019-06-18 18:43 | CON.PSY ---
Psychiatry Consult Chief Complaint: 69 [place] old female with Partkinsons disease, Crohn's disese marky otrher Medicalm conditions includiong DEmentia admitted with ? Drug overdodse of unspecifierd meds../ ? opiates? Patient denies that she had no suicidal intentyions before or now. She apperas to have recovered well from OD. Has parkinsons facies and ? Dementia. Symptoms: reports: Impulsivity - Previous Psychiatric Treatment Outpatient: None Inpatient: None - Previous Substance Abuse Treatment Outpatient: None Inpatient: None - Reason for Previous Treatment Reason for Previous Treatment: Heroin or Other Narcotics - Current Medications Current Medications: Active Medications Acetaminophen (Tylenol -) 650 mg PO Q6H PRN PRN Reason: PAIN OR FEVER Last Admin: 06/18/19 09:26 Dose: 650 mg Dextrose/Sodium Chloride (D5-1/2ns -) 1,000 mls @ 75 mls/hr IV ASDIR ALEX Last Admin: 06/18/19 11:03 Dose: 75 mls/hr - Allergies Allergies: Allergies Allergy/AdvReac Type Severity Reaction Status Date / Time gluten Allergy Severe Vomiting Verified 02/10/19 00:04 morphine Allergy Severe Verified 02/10/19 00:04 Sulfa (Sulfonamide Allergy Verified 02/10/19 00:04 Antibiotics) - Current Living Status Usual Living Arrangement: With Child - Current Mental Status Evaluation Appearance: Well Groomed Attitude: Guarded - Affect Affect: Constrictive Appropriateness: Appropriate to Content - Mood Mood: Euthymic - Speech/Language Expressive: Coherent - Psychomotor Activity Psychomotor Activity: Slowed - Thought Process Thought Process: Circumstantial - Thought Content Hallucinations: Absent Delusions: Absent - Self Perception Self Perception: No Impairment - Cognition Attention: Diminished Orientation: Time Memory, Short Term: 2/3 Memory, Remote with Promptin/3 - Concentration Serial Sevens Intact: No Simple Calculations Intact: Yes - Abstraction Proverb Interpretation: Intact Judgement: Minimally Impaired - Insight Insight: Impaired - Impulse Control Impulse Control: Moderately Impaired - Suicidal Ideation Suicidal Ideation: No - Homicidal Ideation Homicidal Ideation: No Assessment/Plan 1) d/c 1:1. 2) Hisatory is confusing as patient denies any opiate use. Socila workerr to get more info from Patients SON.
--- NOTE | 2019-06-19 00:51 | CONSULT ---
Consult Consult Specialty:: endocrine Referred by:: dr.rabadi interiano Reason for Consultation:: severe hypothyroidism - History of Present Illness Chief Complaint: weakness and forgetful History of Present Illness: 69F year old female with a past medical history of hypothyroidism,dementia, COPD , afib, RA, Crohns disease, celiac, Cdiff, ESBL, and pain disorder (on oxycodone) who presents for evaluation by EMS due to a fall.has had pain and took medication to relieve the pain unsure what she took.she has not been compliant with her thyroid medication.she denies nausea, vomiting , or,chest pain - Past Medical History Gastrointestinal: Yes: Crohn's Disease, Ulcerative Colitis - Alcohol/Substance Use Hx Alcohol Use: No - Smoking History Smoking history: Never smoked Have you smoked in the past 12 months: No - Social History Usual Living Arrangement: Alone ADL: Independent Home Medications - Allergies Allergies/Adverse Reactions: Allergies Allergy/AdvReac Type Severity Reaction Status Date / Time gluten Allergy Severe Vomiting Verified 02/10/19 00:04 morphine Allergy Severe Verified 02/10/19 00:04 Sulfa (Sulfonamide Allergy Verified 02/10/19 00:04 Antibiotics) - Home Medications Home Medications: Ambulatory Orders Acetaminophen [Tylenol .Extra-Strength -] 500 mg PO Q6H PRN tablet 12/10/18 Levothyroxine [Synthroid -] 150 mcg PO 0700 #30 tablet 12/10/18 Loperamide HCl [Imodium -] 2 mg PO Q8H #21 capsule 12/10/18 Albuterol Sulfate Inhaler - [Ventolin HFA Inhaler -] 2 inh PO Q6H PRN 12/14/18 Atorvastatin Ca [Lipitor] 20 mg PO HS 12/14/18 Gabapentin 300 mg PO TID 12/14/18 oxyCODONE HCL [Roxicodone -] 10 mg PO Q6H PRN MDD 4 12/14/18 Oxycodone HCl 5 mg PO Q6H PRN #120 tablet MDD 4 12/18/18 Loperamide HCl [Imodium -] 2 mg PO Q8H PRN #30 capsule MDD 2 12/27/18 Magnesium Oxide 400 mg PO BID #10 tablet MDD 2 12/27/18 Acetaminophen [Tylenol .Extra-Strength -] 500 mg PO Q6H PRN #90 tablet 04/17/19 Cholecalciferol (Vitamin D3) [Vitamin D3 -] 1,000 unit PO DAILY #30 tab Folic Acid 1 mg PO DAILY #30 tablet 02/13/19 Gabapentin [Neurontin -] 300 mg PO TID #90 capsule 02/13/19 Levothyroxine [Synthroid -] 137 mcg PO DAILY@0700 #30 tablet 02/13/19 Levothyroxine [Synthroid -] 137 mcg PO DAILY@0700 #30 tablet MDD 1 02/13/19 Nebivolol [Bystolic -] 5 mg PO DAILY #30 tab 02/13/19 Paroxetine HCl 40 mg PO DAILY #30 tablet 02/13/19 traZODone HCL [Desyrel -] 50 mg PO HS #0 tablet 02/13/19 traZODone HCL [Trazodone HCl] 50 mg PO HS #30 tablet 02/13/19 Review of Systems - Review of Systems Constitutional: reports: Lethargy, Weakness Eyes: reports: No Symptoms HENT: reports: No Symptoms Neck: reports: No Symptoms Cardiovascular: reports: Shortness of Breath Respiratory: reports: Exercise Intolerance, SOB on Exertion Gastrointestinal: reports: Constipation Genitourinary: reports: No Symptoms Musculoskeletal: reports: Muscle Cramps, Muscle Weakness Psychiatric: reports: Altered Sleep Pattern Physical Exam Vital Signs: Vital Signs Temperature 98.2 F 06/18/19 20:45 Pulse Rate 58 L 06/18/19 20:45 Respiratory Rate 16 06/18/19 20:45 Blood Pressure 144/71 06/18/19 20:45 O2 Sat by Pulse Oximetry (%) 98 06/18/19 21:00 Constitutional: Yes: Calm Eyes: Yes: EOM Intact HENT: Yes: Normocephalic Neck: Yes: Trachea Midline Cardiovascular: Yes: Bradycardia Respiratory: Yes: CTA Bilaterally Gastrointestinal: Yes: Normal Bowel Sounds ...Rectal Exam: Yes: Deferred Renal/: Yes: WNL Musculoskeletal: Yes: Back Pain, Muscle Weakness Extremities: Yes: WNL Edema: No Neurological: Yes: Alert, Oriented, Weakness Labs: CBC, BMP 06/18/19 06:40 06/18/19 06:40 Problem List - Problems (1) Adult onset hypothyroidism Code(s): E03.8 - OTHER SPECIFIED HYPOTHYROIDISM (2) Anemia Code(s): D64.9 - ANEMIA, UNSPECIFIED (3) Altered mental status Code(s): R41.82 - ALTERED MENTAL STATUS, UNSPECIFIED Qualifiers: Altered mental status type: unspecified Qualified Code(s): R41.82 - Altered mental status, unspecified (4) Bradycardia Code(s): R00.1 - BRADYCARDIA, UNSPECIFIED Assessment/Plan Current Active Problems hypothyrodism severe Afib (Acute) Bradycardia (Acute) Ingestion of substance (Acute) Suicidal ideation (Acute) Abnormal Lab Results 06/18/19 06/18/19 06/18/19 04:00 04:00 06:40 MPV 7.2 L Carbon Dioxide Anion Gap Calcium Magnesium AST Total Protein Albumin TSH Urine Nitrite Positive H Ur Leukocyte Esterase 3+ H Opiates Screen Positive A* 06/18/19 06:40 MPV Carbon Dioxide 35 H Anion Gap 5 L Calcium 8.4 L Magnesium 1.6 L AST 39 H Total Protein 6.3 L Albumin 3.3 L TSH 100.00 H Urine Nitrite Ur Leukocyte Esterase Opiates Screen Laboratory Results - last 24 hr 06/18/19 06/18/19 06/18/19 04:00 04:00 06:40 WBC 6.0 RBC 3.86 Hgb 11.5 Hct 34.2 MCV 88.6 MCH 29.8 MCHC 33.6 RDW 15.5 Plt Count 203 MPV 7.2 L Absolute Neuts (auto) 4.2 Neutrophils % 70.1 Lymphocytes % 21.3 D Monocytes % 5.8 Eosinophils % 2.4 Basophils % 0.4 Nucleated RBC % 0 PT with INR INR PTT (Actin FS) Sodium Potassium Chloride Carbon Dioxide Anion Gap BUN Creatinine Est GFR (CKD-EPI)AfAm Est GFR (CKD-EPI)NonAf Random Glucose Calcium Phosphorus Magnesium Total Bilirubin AST ALT Alkaline Phosphatase Troponin I Total Protein Albumin TSH Urine Color Yellow Urine Appearance Cloudy Urine pH 5.5 Ur Specific [place] 1.011 Urine Protein Negative Urine Glucose (UA) Negative Urine Ketones Negative Urine Blood Trace Urine Nitrite Positive H Urine Bilirubin Negative Urine Urobilinogen 0.2 Ur Leukocyte Esterase 3+ H Urine WBC (Auto) 688 Urine RBC (Auto) 6 Urine Casts (Auto) 27 U Pathogenic Cast Auto None seen U Epithel Cells (Auto) 3.4 Urine Bacteria (Auto) 2928.2 Opiates Screen Positive A* Methadone Screen Negative Barbiturate Screen Negative Phencyclidine Screen Negative Ur Amphetamines Screen Negative MDMA (Ecstasy) Screen Negative Benzodiazepines Screen Negative Cocaine Screen Negative U Marijuana (THC) Screen Negative 06/18/19 06/18/19 06/18/19 06:40 06:40 06:40 WBC RBC Hgb Hct MCV MCH MCHC RDW Plt Count MPV Absolute Neuts (auto) Neutrophils % Lymphocytes % Monocytes % Eosinophils % Basophils % Nucleated RBC % PT with INR 12.30 INR 1.04 PTT (Actin FS) 33.3 Sodium 139 Potassium 3.5 Chloride 99 Carbon Dioxide 35 H Anion Gap 5 L BUN 8.3 Creatinine 1.2 Est GFR (CKD-EPI)AfAm 53.78 Est GFR (CKD-EPI)NonAf 46.40 Random Glucose 96 Calcium 8.4 L Phosphorus 3.0 Magnesium 1.6 L Total Bilirubin 0.7 AST 39 H ALT 36 Alkaline Phosphatase 81 Troponin I < 0.02 Total Protein 6.3 L Albumin 3.3 L TSH 100.00 H Urine Color Urine Appearance Urine pH Ur Specific [place] Urine Protein Urine Glucose (UA) Urine Ketones Urine Blood Urine Nitrite Urine Bilirubin Urine Urobilinogen Ur Leukocyte Esterase Urine WBC (Auto) Urine RBC (Auto) Urine Casts (Auto) U Pathogenic Cast Auto U Epithel Cells (Auto) Urine Bacteria (Auto) Opiates Screen Methadone Screen Barbiturate Screen Phencyclidine Screen Ur Amphetamines Screen MDMA (Ecstasy) Screen Benzodiazepines Screen Cocaine Screen U Marijuana (THC) Screen plan: synthroid 200mcg daily compliance with medication vns and family support pain management ck ft4
[2019-06-19] MEDS: DEXTROSE 5%-0.45% SALINE 1,000 ML IV SCH (01:05)
[2019-06-19] MEDS: LEVOTHYROXINE NA 200 MCG TABLET PO SCH (06:51)
--- NOTE | 2019-06-19 08:27 | PN ---
Progress Note, Physician Chief Complaint: AWAKE MORE ALERT BLUNT AFFECT - Current Medication List Current Medications: Active Medications Acetaminophen (Tylenol -) 650 mg PO Q6H PRN PRN Reason: PAIN OR FEVER Last Admin: 06/18/19 09:26 Dose: 650 mg Dextrose/Sodium Chloride (D5-1/2ns -) 1,000 mls @ 75 mls/hr IV ASDIR [facility] Last Admin: 06/19/19 01:05 Dose: 75 mls/hr Levothyroxine Sodium (Synthroid -) 200 mcg PO DAILY@0700 [facility] Last Admin: 06/19/19 06:51 Dose: 200 mcg - Objective Vital Signs: Vital Signs Temperature 98.6 F 06/19/19 06:38 Pulse Rate 55 L 06/19/19 06:38 Respiratory Rate 20 06/19/19 06:38 Blood Pressure 147/92 06/19/19 06:38 O2 Sat by Pulse Oximetry (%) 98 06/18/19 21:00 Constitutional: Yes: Mild Distress Cardiovascular: Yes: Bradycardia Respiratory: Yes: WNL Gastrointestinal: Yes: WNL Genitourinary: Yes: WNL Musculoskeletal: Yes: Back Pain Edema: No Peripheral Pulses WNL: Yes Integumentary: Yes: WNL Wound/Incision: Yes: Clean/Dry Neurological: Yes: Dysarthria, Pre-Existing Deficit ...Motor Strength: LLE, RLE Psychiatric: Yes: Other Labs: CBC, BMP 06/18/19 06:40 06/18/19 06:40 INR, PTT INR 1.04 (0.83-1.09) 06/18/19 06:40 Problem List - Problems (1) Bradycardia Code(s): R00.1 - BRADYCARDIA, UNSPECIFIED (2) Altered mental status Code(s): R41.82 - ALTERED MENTAL STATUS, UNSPECIFIED Qualifiers: Altered mental status type: unspecified Qualified Code(s): R41.82 - Altered mental status, unspecified (3) Anemia Code(s): D64.9 - ANEMIA, UNSPECIFIED (5) Hypothyroidism Code(s): E03.9 - HYPOTHYROIDISM, UNSPECIFIED Assessment/Plan NEUROLOGY W/UP H/O PARKINSONS? ENDOCRINE F/U HYPOTHYROID ON SYNTHROID FALL RISKS PT EVAL PSYCHIATRY EVAL FOR DEPRESSION FALL RISKS NEURO CHECK
--- NOTE | 2019-06-19 12:44 | PN ---
Progress Note, [facility] - Note Progress Note: Selected Entries 06/18/19 06/18/19 06/18/19 02:32 06:33 08:20 Breakfast Intake, Oral Amount Temperature 98.2 F 97.7 F 98.2 F 06/18/19 06/18/19 06/19/19 20:45 23:00 06:38 Breakfast Intake, Oral 0 Amount Temperature 98.2 F 98.6 F 06/19/19 10:00 Breakfast 25% Intake, Oral Amount Temperature Laboratory Tests 06/18/19 06:40 WBC 6.0 Not eating a lot. Did not touch her sandwich. Tolerating what she accepts. May need more assistance/encouragement/softer diet. REC:Pt would benefit from very soft, whole food eg -pasta, mac/cheese. muffin, quiche, fish. Supplements b/n meals. RD f/u.
--- NOTE | 2019-06-19 15:19 | HOL ---
Hook-up date: 2019-06-18 12:00:00 Duration: 23:34:00 Test Indications: BRADYCARDIA R/O ARRHYTHMIA Medications: 58499 QRS complexes 8 Ventricular ectopics which represent <1 % of total QRS comp. 18 Supraventricular ectopics which represent <1 % of total QRS comp. * Paced QRS complexs which represent % of total QRS comp. * % of Time Classified as Noise VENTRICULAR ECTOPY 8 Isolated 0 Bigeminal Cycles 0 Couplets 0 Runs 0 Beats in Runs * Beats LONGEST at * BPM at :: -- * Beats FASTEST at * BPM at :: -- SUPRAVENTRICULAR ECTOPY 18 Isolated 0 Couplets 0 Runs 0 Beats in Runs * Beats LONGEST at * BPM at :: -- * Beats FASTEST at * BPM at :: -- HEART RATES 46 MIN at 02:17:31 2019-06-19 56 AVG 83 MAX at 23:34:31 2019-06-18 LONGEST RR 1.648 secs at 06:29:11 2019-06-19 SCANNED BY: JULISA 06/19/19 Baseline rhythm is sinus bradycardia minimun hr 46 avarage 56 8 isolated vpcs 18 isolated apcs no evidence of AV block Confirmed by ELGIN PETERSON MD ([id number]) on 06/19/2019 3:19:08 PM Referred By: Alf FELIX Overread By: ELGIN PETERSON MD
--- NOTE | 2019-06-19 18:55 | PN ---
Progress Note (short form) - Note Progress Note: 69F year old female with a past medical history of dementia, COPD, afib, RA, Crohns disease, celiac," Alzheimers", hypothyroid, Cdiff, ESBL, and pain disorder (on oxycodone) who presents for evaluation by EMS due to a fall. she is sleepy and unable to elaborate further HX . per ED notes the son said she took a large number of pills today CT HD : maxillary sinus sutures, no acute pathology FU : more awake, but still gets confused in conversation states she lives with her , does finances, - History Source History Provided By: Medical Record - Past Medical History Gastrointestinal: Yes: Crohn's Disease, Ulcerative Colitis - Alcohol/Substance Use Hx Alcohol Use: No - Smoking History Smoking history: Never smoked Have you smoked in the past 12 months: No - Social History Usual Living Arrangement: Alone ADL: Independent Home Medications - Allergies Allergies/Adverse Reactions: Allergies Allergy/AdvReac Type Severity Reaction Status Date / Time gluten Allergy Severe Vomiting Verified 02/10/19 00:04 morphine Allergy Severe Verified 02/10/19 00:04 Sulfa (Sulfonamide Allergy Verified 02/10/19 00:04 Antibiotics) - Home Medications Home Medications: Ambulatory Orders Acetaminophen [Tylenol .Extra-Strength -] 500 mg PO Q6H PRN tablet 12/10/18 Levothyroxine [Synthroid -] 150 mcg PO 0700 #30 tablet 12/10/18 Loperamide HCl [Imodium -] 2 mg PO Q8H #21 capsule 12/10/18 Albuterol Sulfate Inhaler - [Ventolin HFA Inhaler -] 2 inh PO Q6H PRN 12/14/18 Atorvastatin Ca [Lipitor] 20 mg PO HS 12/14/18 Gabapentin 300 mg PO TID 12/14/18 oxyCODONE HCL [Roxicodone -] 10 mg PO Q6H PRN MDD 4 12/14/18 Oxycodone HCl 5 mg PO Q6H PRN #120 tablet MDD 4 12/18/18 Loperamide HCl [Imodium -] 2 mg PO Q8H PRN #30 capsule MDD 2 12/27/18 Magnesium Oxide 400 mg PO BID #10 tablet MDD 2 12/27/18 Acetaminophen [Tylenol .Extra-Strength -] 500 mg PO Q6H PRN #90 tablet 02/13/19 Cholecalciferol (Vitamin D3) [Vitamin D3 -] 1,000 unit PO DAILY #30 tab Folic Acid 1 mg PO DAILY #30 tablet 02/13/19 Gabapentin [Neurontin -] 300 mg PO TID #90 capsule 02/13/19 Levothyroxine [Synthroid -] 137 mcg PO DAILY@0700 #30 tablet 02/13/19 Levothyroxine [Synthroid -] 137 mcg PO DAILY@0700 #30 tablet MDD 1 02/13/19 Nebivolol [Bystolic -] 5 mg PO DAILY #30 tab 02/13/19 Paroxetine HCl 40 mg PO DAILY #30 tablet 02/13/19 traZODone HCL [Desyrel -] 50 mg PO HS #0 tablet 02/13/19 traZODone HCL [Trazodone HCl] 50 mg PO HS #30 tablet 02/13/19 Physical Exam-Neuro Vital Signs: Vital Signs Temperature 98.2 F 06/19/19 15:00 Pulse Rate 79 06/19/19 15:00 Respiratory Rate 20 06/19/19 15:00 Blood Pressure 158/73 06/19/19 15:00 O2 Sat by Pulse Oximetry (%) 98 06/19/19 09:00 Edema: Yes Labs: CBCD WBC 6.0 K/mm3 (4.0-10.0) 06/18/19 06:40 RBC 3.86 M/mm3 (3.60-5.2) 06/18/19 06:40 Hgb 11.5 GM/dL (10.7-15.3) 06/18/19 06:40 Hct 34.2 % (32.4-45.2) 06/18/19 06:40 MCV 88.6 fl (80-96) 06/18/19 06:40 MCHC 33.6 g/dl (32.0-36.0) 06/18/19 06:40 RDW 15.5 % (11.6-15.6) 06/18/19 06:40 Plt Count 203 K/MM3 (134-434) 06/18/19 06:40 MPV 7.2 fl (7.5-11.1) L 06/18/19 06:40 CMP Sodium 139 mmol/L (136-145) 06/18/19 06:40 Potassium 3.5 mmol/L (3.5-5.1) 06/18/19 06:40 Chloride 99 mmol/L (98-107) 06/18/19 06:40 Carbon Dioxide 35 mmol/L (21-32) H 06/18/19 06:40 Anion Gap 5 MMOL/L (8-16) L 06/18/19 06:40 BUN 8.3 mg/dL (7-18) 06/18/19 06:40 Creatinine 1.2 mg/dL (0.55-1.3) 06/18/19 06:40 Calcium 8.4 mg/dL (8.5-10.1) L 06/18/19 06:40 Total Bilirubin 0.7 mg/dL (0.2-1) 06/18/19 06:40 AST 39 U/L (15-37) H 06/18/19 06:40 ALT 36 U/L (13-61) 06/18/19 06:40 Alkaline Phosphatase 81 U/L (45-117) 06/18/19 06:40 Total Protein 6.3 g/dl (6.4-8.2) L 06/18/19 06:40 Albumin 3.3 g/dl (3.4-5.0) L 06/18/19 06:40 - Neuro Exam Level Of Consciousness: Yes: Sedated, Stuporous (somnolent, not elaborating coherent HX , eyes may open, follows siomple requests only, no focal weakness in UE limited , LE --severe PVD chnages, absent reflxes throughout , no nuchal rigidity ) Problem List - Problems (1) Afib Code(s): I48.91 - UNSPECIFIED ATRIAL FIBRILLATION Qualifiers: Atrial fibrillation type: unspecified Qualified Code(s): I48.91 - Unspecified atrial fibrillation (2) Ingestion of substance Code(s): T65.91XA - TOXIC EFFECT OF UNSP SUBSTANCE, ACCIDENTAL, INIT Qualifiers: Encounter type: initial encounter Injury intent: intentional self-harm Qualified Code(s): T65.92XA - Toxic effect of unspecified substance, intentional self-harm, initial encounter (3) Altered mental status Code(s): R41.82 - ALTERED MENTAL STATUS, UNSPECIFIED Qualifiers: Altered mental status type: unspecified Qualified Code(s): R41.82 - Altered mental status, unspecified Assessment/Plan 69F year old female with a past medical history of dementia, COPD, afib, RA, Crohns disease, celiac," Alzheimers", hypothyroid, Cdiff, ESBL, and pain disorder (on oxycodone) who presents for evaluation by EMS due to a fall. she is sleepy and unable to elaborate further HX . per ED notes the son said she took a large number of pills today CT HD : maxillary sinus sutures, no acute pathology AP : toxic /metabolic delirium , no clear evidence of new cerebrovascular event /seizure ; possible underlying dementia; no signs of PD opioid use vs hypothyroid endocrine FU ? hx of afib-- and necessity of AC vascular FU DR KLEIN Problem List - Problems (1) Afib Code(s): I48.91 - UNSPECIFIED ATRIAL FIBRILLATION Qualifiers: Atrial fibrillation type: unspecified Qualified Code(s): I48.91 - Unspecified atrial fibrillation (2) Ingestion of substance Code(s): T65.91XA - TOXIC EFFECT OF UNSP SUBSTANCE, ACCIDENTAL, INIT Qualifiers: Encounter type: initial encounter Injury intent: intentional self-harm Qualified Code(s): T65.92XA - Toxic effect of unspecified substance, intentional self-harm, initial encounter (3) Altered mental status Code(s): R41.82 - ALTERED MENTAL STATUS, UNSPECIFIED Qualifiers: Altered mental status type: unspecified Qualified Code(s): R41.82 - Altered mental status, unspecified
[2019-06-20] MEDS ORDERED: PT OWN MED DRAWER 7, Y5N ONE (06:02)
[2019-06-20] MEDS: LEVOTHYROXINE NA 200 MCG TABLET PO SCH (06:06)
--- NOTE | 2019-06-20 12:44 | PN ---
Progress Note, PROCESS CHEMIST - Note Progress Note: Selected Entries 06/19/19 06/19/19 06/19/19 06:38 10:00 15:00 Breakfast 25% Supper Temperature 98.6 F 98.2 F 98.2 F 06/19/19 06/19/19 06/19/19 17:13 21:14 22:00 Breakfast Supper 50% Temperature 98.0 F 98.1 F 06/20/19 05:30 Breakfast Supper Temperature 98.4 F Laboratory Tests 06/18/19 06:40 WBC 6.0 Appreciate neurology input. Pt actually much improved since evaluation, speaking intelligibly with good volume. Appetite limited. Needs encouragement.
[2019-06-20] MEDS ORDERED: clonazePAM 0.5 MG TABLET PO PRN (14:00)
--- NOTE | 2019-06-20 14:00 | PN ---
Progress Note, Physician Chief Complaint: pateint seen and examined claims she is having a panic attack - Current Medication List Current Medications: Active Medications Acetaminophen (Tylenol -) 650 mg PO Q6H PRN PRN Reason: PAIN OR FEVER Last Admin: 06/18/19 09:26 Dose: 650 mg Levothyroxine Sodium (Synthroid -) 200 mcg PO DAILY@0700 ALEX Last Admin: 06/20/19 06:06 Dose: 200 mcg - Objective Vital Signs: Vital Signs Temperature 98.4 F 06/20/19 05:30 Pulse Rate 62 06/20/19 05:30 Respiratory Rate 18 06/20/19 05:30 Blood Pressure 150/79 06/20/19 05:30 O2 Sat by Pulse Oximetry (%) 98 06/19/19 21:00 Constitutional: Yes: Thin Cardiovascular: Yes: Regular Rate and Rhythm, S1, S2 Respiratory: Yes: CTA Bilaterally Gastrointestinal: Yes: Normal Bowel Sounds, Soft Edema: No Neurological: Yes: Alert Labs: CBC, BMP 06/18/19 06:40 06/18/19 06:40 INR, PTT INR 1.04 (0.83-1.09) 06/18/19 06:40 Problem List - Problems (1) Hypothyroidism Assessment/Plan: tsh noted syntroid dose increased Code(s): E03.9 - HYPOTHYROIDISM, UNSPECIFIED (2) Altered mental status Assessment/Plan: mental status back to normal jesús restart her psych meds and have psych follow up Code(s): R41.82 - ALTERED MENTAL STATUS, UNSPECIFIED Qualifiers: Altered mental status type: unspecified Qualified Code(s): R41.82 - Altered mental status, unspecified (3) Bradycardia Assessment/Plan: hold BB appreicate cardiology note Code(s): R00.1 - BRADYCARDIA, UNSPECIFIED (4) Panic attack Assessment/Plan: psych eval Code(s): F41.0 - PANIC DISORDER [EPISODIC PAROXYSMAL ANXIETY] Assessment/Plan patient will need snf placement
[2019-06-20] MEDS ORDERED: MAGNESIUM OXIDE 400 MG TABLET (FP) PO ONE (15:43)
--- NOTE | 2019-06-20 15:46 | DS ---
Physical Examination Vital Signs: Vital Signs Temperature 99.1 F 06/20/19 10:49 Pulse Rate 69 06/20/19 10:49 Respiratory Rate 18 06/20/19 10:49 Blood Pressure 142/81 06/20/19 10:49 O2 Sat by Pulse Oximetry (%) 98 06/20/19 09:00 Constitutional: Yes: Calm, Thin Cardiovascular: Yes: Regular Rate and Rhythm, S1, S2 Respiratory: Yes: CTA Bilaterally Gastrointestinal: Yes: Normal Bowel Sounds, Soft Edema: No Neurological: Yes: Alert, Oriented Labs: CBC, BMP 06/18/19 06:40 06/18/19 06:40 Discharge Summary Reason For Visit: INGESTION OF SUBSTANCE/SUICIDAL IDEATION/ Current Active Problems Adult onset hypothyroidism (Acute) Afib (Acute) Bradycardia (Acute) Ingestion of substance (Acute) Panic attack (Acute) Suicidal ideation (Acute) Hospital Course: - Primary Care Physician PCP: Parker Barragan - Admission Chief Complaint: s/p fall and change in mental status History of Present Illness: Ms Delong is a 69F year old female with a past medical history of dementia, COPD, afib, RA, Crohns disease, celiac, Alzheimers, hypothyroid, Cdiff, ESBL, and pain disorder (on oxycodone) who presents for evaluation by EMS due to a fall. patient doesnot know why she is in hospital unable to tell me what happened all she knows is she picked herself off the floor, patient told me that she was having alot of back pain and wanted it to go away per ED notes the son said she took a large number of pills today patient seen by psych stated her psych medications hypothyroid tsh elevated dose asdjusted low magnesium will give patient oral magnesium needs snf placement for frequent falls Condition: Fair - Instructions Diet, Activity, Other Instructions: check magensium level on monday and check tsh in 3 weeks Disposition: ASSISTED FACILITY - Home Medications Comprehensive Discharge Medication List: Ambulatory Orders Acetaminophen [Tylenol .Extra-Strength -] 500 mg PO Q6H PRN tablet 12/10/18 Levothyroxine [Synthroid -] 150 mcg PO 0700 #30 tablet 12/10/18 Loperamide HCl [Imodium -] 2 mg PO Q8H #21 capsule 12/10/18 Albuterol Sulfate Inhaler - [Ventolin HFA Inhaler -] 2 inh PO Q6H PRN 12/14/18 Atorvastatin Ca [Lipitor] 20 mg PO HS 12/14/18 Gabapentin 300 mg PO TID 12/14/18 oxyCODONE HCL [Roxicodone -] 10 mg PO Q6H PRN MDD 4 12/14/18 Oxycodone HCl 5 mg PO Q6H PRN #120 tablet MDD 4 12/18/18 Loperamide HCl [Imodium -] 2 mg PO Q8H PRN #30 capsule MDD 2 12/27/18 Magnesium Oxide 400 mg PO BID #10 tablet MDD 2 12/27/18 Acetaminophen [Tylenol .Extra-Strength -] 500 mg PO Q6H PRN #90 tablet 02/13/19 Cholecalciferol (Vitamin D3) [Vitamin D3 -] 1,000 unit PO DAILY #30 tab Folic Acid 1 mg PO DAILY #30 tablet 02/13/19 Gabapentin [Neurontin -] 300 mg PO TID #90 capsule 02/13/19 Levothyroxine [Synthroid -] 137 mcg PO DAILY@0700 #30 tablet 02/13/19 Levothyroxine [Synthroid -] 137 mcg PO DAILY@0700 #30 tablet MDD 1 02/13/19 Nebivolol [Bystolic -] 5 mg PO DAILY #30 tab 02/13/19 Paroxetine HCl 40 mg PO DAILY #30 tablet 02/13/19 traZODone HCL [Desyrel -] 50 mg PO HS #0 tablet 02/13/19 traZODone HCL [Trazodone HCl] 50 mg PO HS #30 tablet 02/13/19
[2019-06-20 17:59] VITALS: BP 159/89; PULSE 63; TEMP 98.6
[2019-06-20] MEDS ORDERED: traZODone HCL 50 MG TABLET (FP) PO SCH (22:00)
[2019-06-21] MEDS ORDERED: PARoxetine HCL 20 MG TABLET PO SCH (10:00)
== END 2019-06-20 19:25 | DRG 918 ==
LOC: JER 12:42 → JERBED 14:57 → J8W 21:04
PROVIDERS: ADMIT Family Medicine; ATTEND Family Medicine
DX: T50.902A Poisoning by unspecified drugs, medicaments and biological substances, intentional self-harm, initial encounter (principal); K50.90 Crohn's disease, unspecified, without complications; R45.851 Suicidal ideations; J44.9 Chronic obstructive pulmonary disease, unspecified; I48.91 Unspecified atrial fibrillation; M06.9 Rheumatoid arthritis, unspecified; G30.9 Alzheimer's disease, unspecified; F02.80 Dementia in other diseases classified elsewhere, unspecified severity, without behavioral disturbance, psychotic disturbance, mood disturbance, and anxiety; E03.9 Hypothyroidism, unspecified; K90.0 Celiac disease; Y92.122 Bedroom in nursing home as the place of occurrence of the external cause; R00.1 Bradycardia, unspecified; Z91.14 Patient's other noncompliance with medication regimen; F41.0 Panic disorder [episodic paroxysmal anxiety]
CPT/HCPCS: 36415; 70450-TC; 71045-TC-FY; 80053; 80307; 81003; 83690; 83735; 84100; 84436; 84443; 84484; 85025; 85610; 85730; 93005; 93010; 93225; 93226; 97116-GP; 97162-GP; 99285-25

== ENCOUNTER 2019-12-20 20:09 | Inpatient (IN) | payer OTHER ==
--- NOTE | 2019-12-20 21:43 | PDOC ---
History of Present Illness - General Chief Complaint: Pain Stated Complaint: ABDOMINAL PAIN - History of Present Illness Initial Comments: The pt is a 69F w/ a history of COPD, reported paroxysmal? afib (no AC), history of colon cancer s/p resection, Crohns disease, hypothyroid, and chronic back pain (on oxycodone) presents for evaluation s/p fall at home and inability to get up until EMS arrived. She states she was on the ground for 3 hours. Endorses several days of worsening generalized weakness +diarrhea, +NBNB vomiting Denies dysuria, hematuria, chest pain, worsening breathing 12/20/19 21:44 Past History - Past Medical History Allergies/Adverse Reactions: Allergies Allergy/AdvReac Type Severity Reaction Status Date / Time gluten Allergy Severe Vomiting Verified 02/10/19 00:04 morphine Allergy Severe Verified 02/10/19 00:04 Sulfa (Sulfonamide Allergy Verified 02/10/19 00:04 Antibiotics) Home Medications: Ambulatory Orders Acetaminophen [Tylenol .Extra-Strength -] 500 mg PO Q6H PRN tablet 12/10/18 Albuterol Sulfate Inhaler - [Ventolin HFA Inhaler -] 2 inh PO Q6H PRN 12/14/18 Atorvastatin Ca [Lipitor] 20 mg PO HS 12/14/18 Magnesium Oxide 400 mg PO BID #10 tablet MDD 2 12/27/18 Cholecalciferol (Vitamin D3) [Vitamin D3 -] 1,000 unit PO DAILY #30 tab Folic Acid 1 mg PO DAILY #30 tablet 02/13/19 Gabapentin [Neurontin -] 300 mg PO TID #90 capsule 02/13/19 Paroxetine HCl 40 mg PO DAILY #30 tablet 02/13/19 traZODone HCL [Desyrel -] 50 mg PO HS #0 tablet 02/13/19 traZODone HCL [Trazodone HCl] 50 mg PO HS #30 tablet 02/13/19 Levothyroxine [Synthroid -] 200 mcg PO DAILY@0700 #30 tablet 06/20/19 Paroxetine HCl [Paxil -] 40 mg PO DAILY tablet 06/20/19 traZODone HCL [Desyrel -] 50 mg PO HS tablet 06/20/19 Anemia: Yes Asthma: No Cancer: Yes (tumors of small intestine) Cardiac Disorders: No CVA: No COPD: Yes CHF: No Dementia: Yes Diabetes: No GI Disorders: Yes (CHROHN, RECTAL ULCER, celiac disease) Disorders: No HTN: Yes Hypercholesterolemia: Yes Liver Disease: No Seizures: No Thyroid Disease: Yes - Surgical History Abdominal Surgery: Yes (J POUCH) Appendectomy: Yes (1995) Cardiac Surgery: No Cholecystectomy: Yes (2001) Lung Surgery: No Neurologic Surgery: No Orthopedic Surgery: Yes (right femur kirby 2010,) - Immunization History Immunization Up to Date: Yes - Psycho Social/Smoking Cessation Hx Smoking Status: No Smoking History: Never smoked Have you smoked in the past 12 months: No Hx Alcohol Use: No Drug/Substance Use Hx: No Substance Use Type: None Hx Substance Use Treatment: No Review of Systems - Review of Systems Able to Perform ROS?: Yes Comments:: GENERAL/CONSTITUTIONAL: No fever or chills HEAD, EYES, EARS, NOSE AND THROAT: No change in vision. No change in hearing. 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 MUSCULOSKELETAL: +chronic arthritis and back pain SKIN: No rash NEUROLOGIC: No headache, loss of consciousness ENDOCRINE: No increased thirst HEMATOLOGIC/LYMPHATIC: +hx of DVT, +reported anemia; no AC ALLERGIC/IMMUNOLOGIC: No hives or skin allergy 12/20/19 21:43 Is the patient limited Maori proficient: No *Physical Exam - Vital Signs Last Vital Signs Temp Pulse Resp BP Pulse Ox 97.7 F 100 H 20 129/96 95 12/20/19 20:25 12/20/19 20:25 12/20/19 20:25 12/20/19 20:25 12/20/19 20:25 - Physical Exam GENERAL: Awake, alert, and oriented to person/place/time, in no acute distress HEAD: No signs of trauma, normocephalic, atraumatic EYES: PERRLA, EOMI, sclera anicteric, conjunctiva clear ENT: Hearing grossly normal, nares patent, oropharynx clear without exudates. No uvular deviation. Moist mucosa LUNGS: No distress, speaks in full sentences, clear to auscultation bilaterally HEART: Regular rate and rhythm, normal S1 and S2, no murmurs appreciated, peripheral pulses normal and equal bilaterally ABDOMEN: Soft, mild generalized TTP w/o rebound or guarding; multiple well healed surgical incisions EXTREMITIES: Normal inspection, Normal range of motion, no edema. No clubbing or cyanosis NEUROLOGICAL: Cranial nerves II through XII grossly intact. Normal speech, no focal sensorimotor deficits SKIN: Warm, Dry 12/20/19 21:43 ED Treatment Course - LABORATORY CBC & Chemistry Diagram: 12/20/19 23:08 12/20/19 23:08 Medical Decision Making - Medical Decision Making The pt is a 69F w/ a history of COPD, reported paroxysmal? afib (no AC), history of colon cancer s/p resection, Crohns disease, hypothyroid, and chronic back pain (on oxycodone) presents for evaluation s/p fall at home and generalized weakness ED Course Labs sent CT head and c-spine CXR, abd XR ECG Dilaudid for pain ECG w/ NSR; HR 71, normal axis, no acute ischemia No leukocytosis No anemia Lytes overall unremarkable Cr and CK elevated -Pt receiving IVF Trop I neg Lipase not elevated Pt likely with rhabdo with DORIE CT head and c-spine w/o acute pathology Abdominal film w/o obstructive pattern CXR w/o PNA, effusion, PNX Pt signed out to [facility] Admitting 12/21/19 06:09 Discharge - Discharge Information Problems reviewed: Yes Clinical Impression/Diagnosis: Rhabdomyolysis Qualifiers: Rhabdomyolysis type: non-traumatic Qualified Code(s): M62.82 - Rhabdomyolysis Fall Qualifiers: Encounter type: subsequent encounter Qualified Code(s): W19.XXXD - Unspecified fall, subsequent encounter Condition: Fair - Admission Yes - Follow up/Referral - Patient Discharge Instructions - Post Discharge Activity
[2019-12-20 23:18] LABS: BASO % 0.2 % (0-2.0); EOS % 2.2 % (0-4.5); HEMATOCRIT 33.6 % (32.4-45.2); HEMOGLOBIN 11.4 GM/dL (10.7-15.3); LYMPH % 18.2 % (8-40); MCH 30.9 pg (25.7-33.7); MCHC 33.8 g/dl (32.0-36.0); MEAN CELL VOLUME 91.3 fl (80-96); MEAN PLT VOLUME 6.8 fl (7.5-11.1); MONO % 6.1 % (3.8-10.2); NEUT % 73.3 % (42.8-82.8); PLATELET COUNT 277 K/MM3 (134-434); RBC 3.68 M/mm3 (3.60-5.2); RDW 16.2 % (11.6-15.6); WHITE BLOOD COUNT 7.4 K/mm3 (4.0-10.0)
[2019-12-20] MEDS ORDERED: HYDROmorphone HCL CARPU-JECT 2 MG/1 ML DISP.SYRIN IVPUSH ONE (23:25)
[2019-12-20 23:39] LABS: ACTIVATED PTT 28.4 SECONDS (25.2-36.5); INR 1.04 (0.83-1.09); PROTHROMBIN TIME (PATIENT) 12.3 SEC (9.7-13.0)
[2019-12-21 00:02] LABS: ALBUMIN 3.8 g/dl (3.4-5.0); BILIRUBIN,TOTAL 0.5 mg/dL (0.2-1); BLOOD UREA NITROGEN 9.7 mg/dL (7-18); CALCIUM 9.1 mg/dL (8.5-10.1); CREATININE 1.4 mg/dL (0.55-1.3); POTASSIUM 3.6 mmol/L (3.5-5.1)
[2019-12-21] MEDS ORDERED: HYDROmorphone HCl 2 MG/ML VIAL ONE (00:09)
[2019-12-21] MEDS ORDERED: SODIUM CHLORIDE 0.9% 500 ML INFUS.BAG IV ONE (00:25)
--- NOTE | 2019-12-21 02:02 | PN ---
Teaching Attending Note Name of Resident: Agustín Radford ATTENDING PHYSICIAN STATEMENT I saw and evaluated the patient. I reviewed the resident's note and discussed the case with the resident. I agree with the resident's findings and plan as documented. SUBJECTIVE: 61-year-old woman with a history of atrial fibrillation not on anticoagulation( Suspected because of multiple falls), rheumatoid arthritis, Crohn's disease, hypothyroidism, C difficile colitis, chronic back pain, COPD presents status post fall at home and inability to stand up. EMS was called patient was allegedly on the ground for 3 hours. Endorses diarrhea, multiple vomiting episodes.Patient noted to have multiple hospital admissions and has had multiple falls in the past. Patient reports constipation and is not having diarrhea at this time OBJECTIVE: Last Vital Signs Temp Pulse Resp BP Pulse Ox 97.7 F 100 H 20 129/96 95 12/20/19 20:25 12/20/19 20:25 12/20/19 20:25 12/20/19 20:25 12/20/19 20:25 On physical exam patient was an elderly woman, not in any acute distress. Appeared nontoxic, head was normocephalic with no signs of trauma. Neck was supple. S1, S2 with no murmurs on cardiovascular exam. Lungs are clear to auscultation bilaterally. Abdomen with vertical scar, soft, nontender. Lower extremities without any pedal edema. Abnormal Lab Results 12/20/19 12/20/19 12/20/19 23:08 23:08 23:08 RDW 16.2 H MPV 6.8 L D Sodium 133 L Chloride 96 L Anion Gap 6 L Creatinine 1.4 H Creatine Kinase 1833 H Lipase 65 L Imaging studies reviewedhead CT, C-spine CT initially with prelim read negative for any acute fractures pending official reads ASSESSMENT AND PLAN: Status post fall with mild rhabdomyolysis with resultant DORIE Admit to Medr IV fluid hydration Send urine myoglobin Repeat CK Avoid nephrotoxins Bedrest and fall precautions Physical therapy evaluation #Hypothyroidismsuspected to be uncontrolled, extremely high TSH of 100 on 2018 labs. At this time must repeat TSH and free T4 levels, consult endocrinology. Do not suspect patient is in myxedema coma at this time. Continue with home dose levothyroxine Send TSH, free T4 Endocrine consult #Atrial fibrillation off of anticoagulation due to recurrent fallsrate is borderline controlled at this time. #Rheumatoid arthritis/Crohn's disease not on medications as per patientWe will verify with patient's pharmacy and PCP during the day DVT prophylaxisheparin subcutaneously
--- NOTE | 2019-12-21 02:07 | PDOC ---
Documentation entered by Yves Erickson SCRIBE, acting as scribe for Kvng Mcclelland DO. Kvng Mcclelland DO: This documentation has been prepared by the Dre byers Daniel, SCRIBE, under my direction and personally reviewed by me in its entirety. I confirm that the documentation accurately reflects all work, treatment, procedures, and medical decision making performed by me. Attending Attestation - Resident Resident Name: AmeemmaEric - ED Attending Attestation I have performed the following: I have examined & evaluated the patient, The case was reviewed & discussed with the resident, I agree w/resident's findings & plan, Exceptions are as noted - HPI HPI: 12/21/19 00:28 The patient is a 69 year old female here for generalized weakness and fall. Patient states that she felt weak, fell, and hit her head. She denies any loss of consciousness. Patient not on blood thinners. - Physicial Exam PE: 12/21/19 00:28 GENERAL: Awake, alert, and fully oriented, in no acute distress HEAD: No signs of trauma EYES: PERRLA, EOMI, sclera anicteric, conjunctiva clear ENT: Auricles normal inspection, hearing grossly normal, nares patent, oropharynx clear without exudates. Moist mucosa NECK: Normal ROM, supple, no lymphadenopathy, JVD, or masses LUNGS: Breath sounds equal, clear to auscultation bilaterally. No wheezes, and no crackles HEART: Regular rate and rhythm, normal S1 and S2, no murmurs, rubs or gallops ABDOMEN: Soft, nontender, normoactive bowel sounds. No guarding, no rebound. No masses EXTREMITIES: Normal range of motion, no edema. No clubbing or cyanosis. No cords, erythema, or tenderness NEUROLOGICAL: Cranial nerves II through XII grossly intact. Moving all extremities. Normal speech, normal gait SKIN: Warm, Dry, normal turgor, no rashes or lesions noted. - Medical Decision Making 12/21/19 00:28 69 year old female here for fall and generalized weakness. Will evaluate for UTI vs atypical ACS vs infection. Will obtain chest xray, pelvic xray, c-spine CT, head CT, CPK, troponin. Patient has chronic pain from known cancer and was given dilaudid. EKG Normal sinus 71, normal axis and intervals, no acute ischemia, no brugada, normal QT [id number]
[2019-12-21] MEDS ORDERED: SODIUM CHLORIDE 1,000 ML IV SCH ×2 (03:00→03:10)
--- NOTE | 2019-12-21 04:41 | HP ---
CHIEF COMPLAINT: s/p Fall PCP: Dr. Gutierrez HISTORY OF PRESENT ILLNESS: 69 y/o F, pmh of a-fib not on AC, RA, crohns disease, hypothyroiism, C-diff enteritis?, COPD, hx of ESBL, hx of multiple falls, presented to the s/p Fall. Pt reports that she was on the toilet and when she go up, her legs became weak and she dropped to the floor. She admits to hitting her head but no LOC. She states that she remained on the floor for 3 hours before her son's friend arrived and called EMS. Pt was struggling to get back up but was unable to do so due to extreme weakness. She remembers the entire event. She also reports that she has been unable to eat food adequately due to what she believes is "obstruction" of her bowel. 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 She has seen gastroenterolgoist in the past, including Dr. Sorenson at [facility]. Endorses diarrhea, multiple vomiting episodes. Patient noted to have multiple hospital admissions and has had multiple falls in the past mostly mechanical in nature. At the moment, pt reports constipation. She denies any seizures, LOC, amnesia, f /c/n/v/d/sob/cp. ER course was notable for: (1)CT head- as per [facility] read- no acute findings (2)CT spine- [facility] read- neg (3)EKG: NSR Recent Travel: denies PAST MEDICAL HISTORY: a-fib not on AC, RA, crohns disease, hypothyroiism, C-diff colitis, COPD, hx of ESBL, hx of multiple falls PAST SURGICAL HISTORY: colon resection, hardware on right hip, Social History: Smoking: denies Alcohol: denies Drugs: denies Allergies gluten Allergy (Severe, Verified 02/10/19 00:04) Vomiting morphine Allergy (Severe, Verified 02/10/19 00:04) Sulfa (Sulfonamide Antibiotics) Allergy (Verified 02/10/19 00:04) HOME MEDICATIONS: Home Medications Medication Instructions Recorded Acetaminophen [Tylenol 500 mg PO Q6H PRN tablet 12/10/18 .Extra-Strength -] Albuterol Sulfate Inhaler - 2 inh PO Q6H PRN 12/14/18 [Ventolin HFA Inhaler -] Atorvastatin Ca [Lipitor] 20 mg PO HS 12/14/18 Magnesium Oxide 400 mg PO BID #10 tablet MDD 2 12/27/18 Cholecalciferol (Vitamin D3) 1,000 unit PO DAILY #30 tab 02/13/19 [Vitamin D3 -] Folic Acid 1 mg PO DAILY #30 tablet 02/13/19 Gabapentin [Neurontin -] 300 mg PO TID #90 capsule 02/13/19 Paroxetine HCl 40 mg PO DAILY #30 tablet 02/13/19 traZODone HCL [Desyrel -] 50 mg PO HS #0 tablet 02/13/19 traZODone HCL [Trazodone HCl] 50 mg PO HS #30 tablet 02/13/19 Levothyroxine [Synthroid -] 200 mcg PO DAILY@0700 #30 tablet 06/20/19 Paroxetine HCl [Paxil -] 40 mg PO DAILY tablet 06/20/19 traZODone HCL [Desyrel -] 50 mg PO HS tablet 06/20/19 REVIEW OF SYSTEMS CONSTITUTIONAL: Admits: generalized weakness, Absent: fever, chills, diaphoresis, CARDIOVASCULAR: Absent: chest pain, syncope, palpitations, irregular heart rate, peripheral edema RESPIRATORY: Absent: cough, shortness of breath, dyspnea with exertion, orthopnea, wheezing, stridor, hemoptysis GASTROINTESTINAL: Admits: hemorrhoid bleeds Absent: abdominal pain, abdominal distension, nausea, vomiting, diarrhea, constipation, GENITOURINARY: Admits: dysuria, Absent: frequency, urgency, NEUROLOGIC: Absent: headache, focal weakness or paresthesias, dizziness, seizure, mental status changes PSYCHIATRIC: Absent: anxiety, depression, suicidal PHYSICAL EXAMINATION Vital Signs - 24 hr 12/20/19 20:25 Temperature 97.7 F Pulse Rate 100 H Respiratory 20 Rate Blood Pressure 129/96 O2 Sat by Pulse 95 Oximetry (%) GENERAL: Awake, alert, and fully oriented, in no acute distress. Very anxious HEAD: Normal with no signs of trauma. EYES: Pupils equal, round and reactive to light, extraocular movements intact, No lid lag. EARS, NOSE, THROAT: Moist mucous membranes. NECK: Normal range of motion, supple without lymphadenopathy LUNGS: Breath sounds equal, clear to auscultation bilaterally. No wheezes, and no crackles. HEART: Regular rate and rhythm, normal S1 and S2 without murmur, rub or gallop. ABDOMEN: Soft, nontender, not distended, normoactive bowel sounds, no guarding, no rebound, no masses. UPPER EXTREMITIES: 2+ pulses, warm, well-perfused. No peripheral edema. LOWER EXTREMITIES: 2+ pulses, warm, well-perfused. No calf tenderness. No peripheral edema. NEUROLOGICAL: Normal speech. Normal gait. PSYCHIATRIC: Cooperative SKIN: Warm, dry, normal turgor, Laboratory Results - last 24 hr 12/20/19 12/20/19 12/20/19 23:08 23:08 23:08 WBC 7.4 RBC 3.68 Hgb 11.4 Hct 33.6 MCV 91.3 MCH 30.9 MCHC 33.8 RDW 16.2 H Plt Count 277 D MPV 6.8 L D Absolute Neuts (auto) 5.4 Neutrophils % 73.3 Lymphocytes % 18.2 Monocytes % 6.1 Eosinophils % 2.2 Basophils % 0.2 Nucleated RBC % 0 PT with INR 12.30 INR 1.04 PTT (Actin FS) 28.4 Sodium 133 L Potassium 3.6 Chloride 96 L Carbon Dioxide 30 Anion Gap 6 L BUN 9.7 Creatinine 1.4 H Est GFR (CKD-EPI)AfAm 44.63 Est GFR (CKD-EPI)NonAf 38.51 Random Glucose 91 Calcium 9.1 Total Bilirubin 0.5 AST 31 ALT 23 Alkaline Phosphatase 76 Creatine Kinase Creatine Kinase Index CK-MB (CK-2) Troponin I Total Protein 7.0 Albumin 3.8 Lipase 65 L Blood Type Antibody Screen 12/20/19 12/20/19 23:08 23:08 WBC RBC Hgb Hct MCV MCH MCHC RDW Plt Count MPV Absolute Neuts (auto) Neutrophils % Lymphocytes % Monocytes % Eosinophils % Basophils % Nucleated RBC % PT with INR INR PTT (Actin FS) Sodium Potassium Chloride Carbon Dioxide Anion Gap BUN Creatinine Est GFR (CKD-EPI)AfAm Est GFR (CKD-EPI)NonAf Random Glucose Calcium Total Bilirubin AST ALT Alkaline Phosphatase Creatine Kinase 1833 H Creatine Kinase Index 0.1 CK-MB (CK-2) 2.9 Troponin I < 0.02 Total Protein Albumin Lipase Blood Type Cancelled Antibody Screen Cancelled ASSESSMENT/PLAN: 69 y/o F, pmh of a-fib not on AC, RA, crohns disease, hypothyroidism, C-diff enteritis?, COPD, hx of ESBL, hx of multiple falls, presented to the s/p Fall is admitted for rhabdo #Rhabdomyolysis likely 2/[address] neg C-spine neg IVF at 100 Urine Myoglobin pending CPK f/u in am U tox fall risk precaution Isolation precaution- hx of esbl and c-diff enteritis #DORIE liekly 2/2 ot Rhabdo CPK in am cmp, cbc UA, UCx #Hypothyroidism TSH in the past was 100- extremely elevated TSH r/p in am Free T4 cont Levothyroxine 200 mcg daily HLD lipitor Crohns s/p colectomy COPD rec meds and continue #RA cont neurontin #Anxiety cont paxil DVT ppx scds FEN monitor lytes IVF gluten/lactose restricted diet Dispo: f/u CMP, TSH, free T4, renal fxn Visit type - Emergency Visit Emergency Visit: Yes ED Registration Date: 12/21/19 Care time: The patient presented to the Emergency Department on the above date and was hospitalized for further evaluation of their emergent condition. - New Patient This patient is new to me today: Yes Date on this admission: 12/23/19 - Critical Care Critical Care patient: No ATTENDING PHYSICIAN STATEMENT I saw and evaluated the patient. I reviewed the resident's note and discussed the case with the resident. I agree with the resident's findings and plan as documented. SUBJECTIVE: OBJECTIVE: ASSESSMENT AND PLAN:
[2019-12-21] MEDS: GABAPENTIN 300 MG CAPSULE PO SCH ×3 (06:30→22:47)
[2019-12-21] MEDS: LEVOTHYROXINE NA 200 MCG TABLET PO SCH (06:30)
[2019-12-21 07:19] LABS: BASO % 0.4 % (0-2.0); EOS % 3.2 % (0-4.5); HEMATOCRIT 28.6 % (32.4-45.2); HEMOGLOBIN 9.6 GM/dL (10.7-15.3); LYMPH % 24.7 % (8-40); MCH 30.9 pg (25.7-33.7); MCHC 33.7 g/dl (32.0-36.0); MEAN CELL VOLUME 91.9 fl (80-96); MEAN PLT VOLUME 6.9 fl (7.5-11.1); NEUT % 63.7 % (42.8-82.8); PLATELET COUNT 238 K/MM3 (134-434); RBC 3.12 M/mm3 (3.60-5.2); WHITE BLOOD COUNT 5.6 K/mm3 (4.0-10.0)
[2019-12-21 08:00] LABS: ALBUMIN 3.3 g/dl (3.4-5.0); BILIRUBIN,TOTAL 0.5 mg/dL (0.2-1); BLOOD UREA NITROGEN 8.5 mg/dL (7-18); CALCIUM 8.6 mg/dL (8.5-10.1); CREATININE 0.9 mg/dL (0.55-1.3); MAGNESIUM 1.4 mg/dL (1.8-2.4); PHOSPHOROUS 2.8 mg/dL (2.5-4.9); POTASSIUM 3.6 mmol/L (3.5-5.1); TOT PROT 5.5 g/dl (6.4-8.2)
[2019-12-21] MEDS: SODIUM CHLORIDE 1,000 ML IV SCH ×2 (09:25→22:51)
--- NOTE | 2019-12-21 10:34 | EKG ---
Test Reason : Blood Pressure : / mmHG Vent. Rate : 071 BPM Atrial Rate : 071 BPM P-R Int : 168 ms QRS Dur : 070 ms QT Int : 376 ms P-R-T Axes : 057 029 050 degrees QTc Int : 408 ms NORMAL SINUS RHYTHM NORMAL ECG WHEN COMPARED WITH ECG OF 18-JUN-2019 09:50, VENT. RATE HAS INCREASED BY 23 BPM NONSPECIFIC T WAVE ABNORMALITY NO LONGER EVIDENT IN INFERIOR LEADS NONSPECIFIC T WAVE ABNORMALITY NO LONGER EVIDENT IN ANTEROLATERAL LEADS QT HAS SHORTENED Confirmed by JERRY MARTE MD ([id number]) on 12/21/2019 10:33:51 AM Referred By: Confirmed By:JERRY MARTE MD
[2019-12-21] MEDS: FOLIC ACID 1 MG TABLET (FP) PO SCH (11:54)
[2019-12-21] MEDS: PARoxetine HCL 20 MG TABLET PO SCH (11:54)
--- NOTE | 2019-12-21 12:39 | PN ---
Progress Note, Physician Chief Complaint: Rhabdomyolysis Fall Lower Extremity Weakness History of Present Illness: Previous notes and events reviewed awake and alert NAD complain of left sided abdominal pain with diarrhea denies chest pain or dizziness CK-MB showing uptrend - Current Medication List Current Medications: Active Medications Atorvastatin Calcium (Lipitor -) 20 mg PO [facility] Folic Acid (Folic Acid -) 1 mg PO DAILY [facility] Last Admin: 12/21/19 11:54 Dose: 1 mg Gabapentin (Neurontin -) 300 mg PO TID [facility] Last Admin: 12/21/19 06:30 Dose: 300 mg Sodium Chloride (Normal Saline -) 1,000 mls @ 100 mls/hr IV ASDIR [facility] Last Admin: 12/21/19 09:25 Dose: 100 mls/hr Levothyroxine Sodium (Synthroid -) 200 mcg PO DAILY@0700 [facility] Last Admin: 12/21/19 06:30 Dose: 200 mcg Paroxetine HCl (Paxil -) 40 mg PO DAILY [facility] Last Admin: 12/21/19 11:54 Dose: 40 mg Trazodone HCl (Desyrel -) 50 mg PO [facility] - Objective Vital Signs: Vital Signs Temperature 97.8 F 12/21/19 07:03 Pulse Rate 67 12/21/19 07:03 Respiratory Rate 18 12/21/19 07:03 Blood Pressure 108/67 12/21/19 07:03 O2 Sat by Pulse Oximetry (%) 97 12/21/19 07:03 Constitutional: Yes: No Distress, Calm Eyes: Yes: Conjunctiva Clear HENT: Yes: Atraumatic Cardiovascular: Yes: Regular Rate and Rhythm Respiratory: Yes: Regular, CTA Bilaterally Gastrointestinal: Yes: Normal Bowel Sounds, Soft, Tenderness (left side of abdomen) Genitourinary: Yes: Incontinence Musculoskeletal: Yes: Muscle Weakness Extremities: Yes: WNL Edema: No Neurological: Yes: Alert, Pre-Existing Deficit Psychiatric: Yes: Alert Labs: CBC, BMP 12/21/19 05:55 12/21/19 05:55 INR, PTT INR 1.04 (0.83-1.09) 12/20/19 23:08 Problem List - Problems (1) Fall Assessment/Plan: PT Fall Precaution UC pending Code(s): W19.XXXA - UNSPECIFIED FALL, INITIAL ENCOUNTER Qualifiers: Encounter type: subsequent encounter Qualified Code(s): W19.XXXD - Unspecified fall, subsequent encounter (2) Rhabdomyolysis Assessment/Plan: Cardiology consult uptrend in CK-MB 3~2073 IV hydration monitor CK-MB for downtrend Code(s): M62.82 - RHABDOMYOLYSIS Qualifiers: Rhabdomyolysis type: non-traumatic Qualified Code(s): M62.82 - Rhabdomyolysis (3) Afib Assessment/Plan: not on AC Cardiology consult Code(s): I48.91 - UNSPECIFIED ATRIAL FIBRILLATION Qualifiers: Atrial fibrillation type: unspecified Qualified Code(s): I48.91 - Unspecified atrial fibrillation (4) Anemia Assessment/Plan: Hg 9.6, downtrend from 11.4 monitor Hg daily transfuse for Hg <8.0 Anemia profile stool OB GI and Hematology consult Code(s): D64.9 - ANEMIA, UNSPECIFIED (5) Hypothyroidism Assessment/Plan: Levothyroxine TSH 0.12 Endocrinology consult Code(s): E03.9 - HYPOTHYROIDISM, UNSPECIFIED (6) Diarrhea Assessment/Plan: GI consult Stool O&P, Stool Culture IV hydration Code(s): R19.7 - DIARRHEA, UNSPECIFIED Assessment/Plan see problem list dvt ppx
[2019-12-21] MEDS ORDERED: PT OWN MED DRAWER 7, Y5N ONE (12:57)
--- NOTE | 2019-12-21 13:12 | CON.CARD ---
Consult Consult Specialty:: cardiology Reason for Consultation:: Rhabdo - History of Present Illness History of Present Illness: 69 y/o F, pmh of paroxysmal a-fib not on AC, RA, crohns disease, hypothyroiism, C-diff enteritis?, COPD, hx of ESBL, hx of multiple falls, presented to the s/p Fall. While on the toilet and when she go up, her legs became weak and she dropped to the floor. She admits to hitting her head but no LOC. There is no history of ischemia and stress test in 2018 was normal. Noted to have elevated CPK with nl TP. ECG is normal. - History Source History Provided By: Patient - Past Medical History Gastrointestinal: Yes: Crohn's Disease, Ulcerative Colitis - Alcohol/Substance Use Hx Alcohol Use: No - Smoking History Smoking history: Never smoked Have you smoked in the past 12 months: No - Social History Usual Living Arrangement: Alone ADL: Independent Home Medications - Allergies Allergies/Adverse Reactions: Allergies Allergy/AdvReac Type Severity Reaction Status Date / Time gluten Allergy Severe Vomiting Verified 02/10/19 00:04 morphine Allergy Severe Verified 02/10/19 00:04 Sulfa (Sulfonamide Allergy Verified 02/10/19 00:04 Antibiotics) - Home Medications Home Medications: Ambulatory Orders Acetaminophen [Tylenol .Extra-Strength -] 500 mg PO Q6H PRN tablet 12/10/18 Albuterol Sulfate Inhaler - [Ventolin HFA Inhaler -] 2 inh PO Q6H PRN 12/14/18 Atorvastatin Ca [Lipitor] 20 mg PO HS 12/14/18 Magnesium Oxide 400 mg PO BID #10 tablet MDD 2 12/27/18 Cholecalciferol (Vitamin D3) [Vitamin D3 -] 1,000 unit PO DAILY #30 tab Folic Acid 1 mg PO DAILY #30 tablet 02/13/19 Gabapentin [Neurontin -] 300 mg PO TID #90 capsule 02/13/19 traZODone HCL [Desyrel -] 50 mg PO HS #0 tablet 02/13/19 Levothyroxine [Synthroid -] 200 mcg PO DAILY@0700 #30 tablet 06/20/19 Paroxetine HCl [Paxil -] 40 mg PO DAILY tablet 06/20/19 Clonazepam 1 mg PO TID 12/21/19 Oxycodone HCl 10 mg PO TID 12/21/19 Review of Systems - Review of Systems Constitutional: reports: No Symptoms Eyes: reports: No Symptoms HENT: reports: No Symptoms Neck: reports: No Symptoms Cardiovascular: denies: Chest Pain, Edema, Palpitations, Shortness of Breath Respiratory: denies: Cough, SOB Gastrointestinal: reports: Abdominal Pain Vital Signs: Vital Signs Temperature 97.8 F 12/21/19 07:03 Pulse Rate 67 12/21/19 07:03 Respiratory Rate 18 12/21/19 07:03 Blood Pressure 108/67 12/21/19 07:03 O2 Sat by Pulse Oximetry (%) 97 12/21/19 07:03 Constitutional: Yes: Well Nourished, No Distress Eyes: Yes: Conjunctiva Clear HENT: Yes: Atraumatic, Normocephalic Neck: Yes: Supple, Trachea Midline Respiratory: Yes: Regular, CTA Bilaterally Gastrointestinal: Yes: Normal Bowel Sounds JVD: No Carotid Bruit: No PMI: Non-Displaced Heart Sounds: Yes: S1, S2 Murmur: No: Systolic Murmur, Diastolic Murmur Edema: No - Other Data Labs, Other Data: CBC, BMP 12/21/19 05:55 12/21/19 05:55 INR, PTT INR 1.04 (0.83-1.09) 12/20/19 23:08 Troponin, BNP 12/20/19 23:08 Troponin I < 0.02 Troponin, BNP 12/20/19 23:08 Troponin I < 0.[address] T changes. Problem List - Problems (1) Rhabdomyolysis Code(s): M62.82 - RHABDOMYOLYSIS Qualifiers: Rhabdomyolysis type: non-traumatic Qualified Code(s): M62.82 - Rhabdomyolysis Assessment/Plan 69 F with remote history of Afib not palced on AC, ho colitis. Admitted with a fall and elevated CPK without TP elevation due to rhabdomyolysis. ECG is normal No signs of myocardial injury or ischemia. No heart murmurs Continue with IVF. Will see as needed.
[2019-12-21] MEDS ORDERED: clonazePAM 0.5 MG TABLET ONE (18:19)
[2019-12-21] MEDS ORDERED: oxyCODONE HCL 5 MG TABLET ONE (18:20)
[2019-12-21] MEDS: clonazePAM 0.5 MG TABLET PO SCH ×2 (18:22→22:47)
[2019-12-21] MEDS: oxyCODONE HCL 5 MG TABLET PO SCH ×2 (18:22→22:42)
[2019-12-21] MEDS ORDERED: PATIENT'S OWN MEDICATION (NON-FORMULARY) (Clonazepam [Clonazepam] 1 MG) PO SCH (22:00)
[2019-12-21] MEDS ORDERED: PATIENT'S OWN MEDICATION (NON-FORMULARY) (Magnesium Oxide [Magnesium Oxide] 400 MG) PO SCH (22:00)
[2019-12-21] MEDS ORDERED: PATIENT'S OWN MEDICATION (NON-FORMULARY) (Oxycodone Hcl [Oxycodone Hcl] 10 MG) PO SCH (22:00)
[2019-12-21] MEDS: traZODone HCL 50 MG TABLET (FP) PO SCH (22:47)
[2019-12-21] MEDS: MAGNESIUM OXIDE 400 MG TABLET (FP) PO SCH (22:47)
[2019-12-21] MEDS: ATORVASTATIN CA 20 MG TABLET (FP) PO SCH (22:47)
[2019-12-22] MEDS: clonazePAM 0.5 MG TABLET PO SCH ×3 (05:42→22:08)
[2019-12-22] MEDS: oxyCODONE HCL 5 MG TABLET PO SCH ×3 (05:43→22:07)
[2019-12-22] MEDS: GABAPENTIN 300 MG CAPSULE PO SCH ×3 (05:43→22:08)
[2019-12-22] MEDS: LEVOTHYROXINE NA 200 MCG TABLET PO SCH (06:25)
[2019-12-22 07:52] LABS: HEMATOCRIT 27.4 % (32.4-45.2); HEMOGLOBIN 9.2 GM/dL (10.7-15.3); MCHC 33.6 g/dl (32.0-36.0); MEAN CELL VOLUME 92.2 fl (80-96); MEAN PLT VOLUME 7.3 fl (7.5-11.1); PLATELET COUNT 225 K/MM3 (134-434); RBC 2.98 M/mm3 (3.60-5.2); RDW 16.4 % (11.6-15.6); WHITE BLOOD COUNT 4.1 K/mm3 (4.0-10.0)
[2019-12-22 08:24] LABS: ALBUMIN 2.9 g/dl (3.4-5.0); BILIRUBIN,TOTAL 0.4 mg/dL (0.2-1); CALCIUM 8.8 mg/dL (8.5-10.1); CREATININE 0.7 mg/dL (0.55-1.3); POTASSIUM 3.7 mmol/L (3.5-5.1); TOT PROT 5.1 g/dl (6.4-8.2)
[2019-12-22] MEDS: SODIUM CHLORIDE 1,000 ML IV SCH ×2 (10:05→22:11)
[2019-12-22] MEDS: FOLIC ACID 1 MG TABLET (FP) PO SCH (10:06)
[2019-12-22] MEDS: MAGNESIUM OXIDE 400 MG TABLET (FP) PO SCH ×2 (10:06→22:08)
[2019-12-22] MEDS: CHOLECALCIFEROL (VIT D3) 1,000 UNIT (25 MCG) TABLET PO SCH (10:08)
[2019-12-22] MEDS: PARoxetine HCL 20 MG TABLET PO SCH (10:08)
--- NOTE | 2019-12-22 10:13 | PN ---
Progress Note, Physician Chief Complaint: Rhabdomyolysis Fall Lower Extremity Weakness History of Present Illness: Previous notes and events reviewed awake and alert NAD patient continue with diarrhea denies chest pain or dizziness no leukocytosis - Current Medication List Current Medications: Active Medications Atorvastatin Calcium (Lipitor -) 20 mg PO [facility] Last Admin: 12/21/19 22:47 Dose: 20 mg Cholecalciferol (Vitamin D3 -) 1,000 unit PO DAILY [facility] Last Admin: 12/22/19 10:08 Dose: 1,000 unit Clonazepam (Klonopin -) 1 mg PO TID [facility] Last Admin: 12/22/19 05:42 Dose: 1 mg Folic Acid (Folic Acid -) 1 mg PO DAILY [facility] Last Admin: 12/22/19 10:06 Dose: 1 mg Gabapentin (Neurontin -) 300 mg PO TID [facility] Last Admin: 12/22/19 05:43 Dose: 300 mg Sodium Chloride (Normal Saline -) 1,000 mls @ 100 mls/hr IV ASDIR [facility] Last Admin: 12/22/19 10:05 Dose: 100 mls/hr Levothyroxine Sodium (Synthroid -) 200 mcg PO DAILY@0700 [facility] Last Admin: 12/22/19 06:25 Dose: 200 mcg Magnesium Oxide (Mag-Ox -) 400 mg PO BID [facility] Last Admin: 12/22/19 10:06 Dose: 400 mg Oxycodone HCl (Roxicodone -) 10 mg PO TID [facility] Last Admin: 12/22/19 05:43 Dose: 10 mg Paroxetine HCl (Paxil -) 40 mg PO DAILY [facility] Last Admin: 12/22/19 10:08 Dose: 40 mg Trazodone HCl (Desyrel -) 50 mg PO [facility] Last Admin: 12/21/19 22:47 Dose: 50 mg - Objective Vital Signs: Vital Signs Temperature 98.0 F 12/22/19 06:00 Pulse Rate 56 L 12/22/19 06:00 Respiratory Rate 18 12/22/19 08:44 Blood Pressure 110/59 L 12/22/19 06:00 O2 Sat by Pulse Oximetry (%) 94 L 12/22/19 08:44 Constitutional: Yes: No Distress, Calm, Poor Hygeine HENT: Yes: Atraumatic Cardiovascular: Yes: Regular Rate and Rhythm Respiratory: Yes: Regular, CTA Bilaterally Gastrointestinal: Yes: Normal Bowel Sounds, Soft Genitourinary: Yes: Incontinence Musculoskeletal: Yes: Muscle Weakness Extremities: Yes: WNL Edema: No Neurological: Yes: Alert, Oriented Psychiatric: Yes: Alert, Oriented Labs: CBC, BMP 12/22/19 06:40 12/22/19 06:40 INR, PTT INR 1.04 (0.83-1.09) 12/20/19 23:08 Microbiology 12/22/19 00:05 Stool Clostridioides difficile Antigen - Final 12/22/19 00:05 Stool Clostridioides difficile Toxin Assay - Final Problem List - Problems (1) Fall Assessment/Plan: PT Fall Precaution UC pending Code(s): W19.XXXA - UNSPECIFIED FALL, INITIAL ENCOUNTER Qualifiers: Encounter type: subsequent encounter Qualified Code(s): W19.XXXD - Unspecified fall, subsequent encounter (2) Rhabdomyolysis Assessment/Plan: Cardiology on board uptrend in CK-MB 1833~2074 IV hydration monitor CK-MB for downtrend Code(s): M62.82 - RHABDOMYOLYSIS Qualifiers: Rhabdomyolysis type: non-traumatic Qualified Code(s): M62.82 - Rhabdomyolysis (3) Afib Assessment/Plan: not on AC due to h/o colitis Cardiology on board Code(s): I48.91 - UNSPECIFIED ATRIAL FIBRILLATION Qualifiers: Atrial fibrillation type: unspecified Qualified Code(s): I48.91 - Unspecified atrial fibrillation (4) Anemia Assessment/Plan: Hg 9.2 monitor Hg daily transfuse for Hg <8.0 Anemia profile shows low Iron and low Iron Sat stool OB GI and Hematology consult Code(s): D64.9 - ANEMIA, UNSPECIFIED (5) Hypothyroidism Assessment/Plan: Levothyroxine TSH 0.12 Endocrinology consult Code(s): E03.9 - HYPOTHYROIDISM, UNSPECIFIED (6) Diarrhea Assessment/Plan: GI consult Stool O&P, Stool Culture pending C-diff neg IV hydration Code(s): R19.7 - DIARRHEA, UNSPECIFIED Assessment/Plan see problem list dvt ppx
--- NOTE | 2019-12-22 10:35 | CON.PULM ---
Consult Consult Specialty:: PULMONARY Referred by:: Dr Barragan Reason for Consultation:: shortness of breath - History of Present Illness Chief Complaint: s/p fall History of Present Illness: 69yo female with h/o COPD, atrial fibrillation, rheumatoid arthritis, Crohn's disease, hypothyroidism who was admitted s/p fall. Found to have elevated CPK with acute kidney injury. Currently denies shortness of breath, cough or wheezing. No fevers, chills or sweats. No chest pain or discomfort. States she is a never smoker. Does not remember which inhalers she uses at home. - History Source History Provided By: Patient, Medical Record Limitations to Obtaining History: No Limitations - Past Medical History Gastrointestinal: Yes: Crohn's Disease, Ulcerative Colitis - Alcohol/Substance Use Hx Alcohol Use: No - Smoking History Smoking history: Never smoked Have you smoked in the past 12 months: No - Social History Usual Living Arrangement: Alone ADL: Independent Home Medications - Allergies Allergies/Adverse Reactions: Allergies Allergy/AdvReac Type Severity Reaction Status Date / Time gluten Allergy Severe Vomiting Verified 02/10/19 00:04 morphine Allergy Severe Verified 02/10/19 00:04 Sulfa (Sulfonamide Allergy Verified 02/10/19 00:04 Antibiotics) - Home Medications Home Medications: Ambulatory Orders Acetaminophen [Tylenol .Extra-Strength -] 500 mg PO Q6H PRN tablet 12/10/18 Albuterol Sulfate Inhaler - [Ventolin HFA Inhaler -] 2 inh PO Q6H PRN 12/14/18 Atorvastatin Ca [Lipitor] 20 mg PO HS 12/14/18 Magnesium Oxide 400 mg PO BID #10 tablet MDD 2 12/27/18 Cholecalciferol (Vitamin D3) [Vitamin D3 -] 1,000 unit PO DAILY #30 tab Folic Acid 1 mg PO DAILY #30 tablet 02/13/19 Gabapentin [Neurontin -] 300 mg PO TID #90 capsule 02/13/19 traZODone HCL [Desyrel -] 50 mg PO HS #0 tablet 02/13/19 Levothyroxine [Synthroid -] 200 mcg PO DAILY@0700 #30 tablet 06/20/19 Paroxetine HCl [Paxil -] 40 mg PO DAILY tablet 06/20/19 Clonazepam 1 mg PO TID 12/21/19 Oxycodone HCl 10 mg PO TID 12/21/19 Review of Systems - Review of Systems Constitutional: reports: Weakness. denies: Chills, Fever Eyes: denies: Recent Change in Vision HENT: reports: Throat Pain. denies: Nasal Congestion Neck: denies: Stiffness, Tenderness Cardiovascular: denies: Chest Pain, Shortness of Breath Respiratory: denies: Cough, Hemoptysis, SOB, Wheezing Gastrointestinal: denies: Abdominal Pain, Nausea, Vomiting Genitourinary: denies: Dysuria, Hematuria Neurological: denies: Dizziness, Headache Endocrine: denies: Unexplained Weight Loss Physical Exam Vital Sings: Vital Signs Temperature 98 F 12/22/19 10:00 Pulse Rate 56 L 12/22/19 06:00 Respiratory Rate 18 12/22/19 10:00 Blood Pressure 115/86 12/22/19 10:00 O2 Sat by Pulse Oximetry (%) 94 L 12/22/19 08:44 Constitutional: Yes: Calm Eyes: Yes: Conjunctiva Clear, EOM Intact HENT: Yes: Atraumatic, Normocephalic Neck: Yes: Supple, Trachea Midline Cardiovascular: Yes: Regular Rate and Rhythm Respiratory: Yes: Regular, CTA Bilaterally ...Clubbing: No Gastrointestinal: Yes: Normal Bowel Sounds, Soft. No: Tenderness Edema: No Neurological: Yes: Alert, Oriented Labs: CBC, BMP 12/22/19 06:40 12/22/19 06:40 Imaging - Results Chest X-ray: Report Reviewed, Image Reviewed (no infiltrates) Problem List - Problems (1) Rhabdomyolysis Code(s): M62.82 - RHABDOMYOLYSIS Qualifiers: Rhabdomyolysis type: non-traumatic Qualified Code(s): M62.82 - Rhabdomyolysis Assessment/Plan s/p Fall Rhabdomyolysis Acute Kidney Injury improving COPD Atrial Fibrillation Rheumatoid Arthritis Crohn's Disease Hypothyroidism Anemia - IVF - monitor CPK - monitor urine output, creatinine - inhaled bronchodilators as needed - O2 to keep Spo2 >90% - DVT prophylaxis Thank you for this consult Diony Ledezma MD
--- NOTE | 2019-12-22 11:12 | CON.GI ---
Consult Consult Specialty:: GI Referred by:: Dr Alf Barragan Reason for Consultation:: Anemia; inflammatory bowel disease - History of Present Illness Chief Complaint: Pt admitted after falls at home. Consultation called for anemia. History of Present Illness: This 69 year old woman has a complicated GI history, as follows: 1) She was diagnosed with celiac disease at an early age and has been on a gluten free diet most of her life. The details of her initial diagnosis are unknown. 2) She developed ulcerative colitis at some point and in 1997 had a subtotal colectomy in [place], [place]. She is not completely certain why the subtotal colectomy was performed; it may have been for colon cancer. 3) Subsequent to the colectomy and J-pouch formation she developed Crohn's disease in the ileum. This is a known, not altogether unusual but unfortunate sequela that can occur to someone with ulcerative colitis after a colectomy and J-pouch. It may be related to the fecalization of the terminal ileum but that is just a hypothesis. Her Crohn's has been complicated by episodes of small bowel obstruction as well as enterovaginal fistulization. She says stool comes out of her vagina. She also complains of bleeding with defecation. Until recently she was followed by Dr Greg Lee at [facility]. Dr Lee retired last year; she has seen his replacement once, as well as a surgeon at [facility] who, she said, told her that she has a rectal cancer, supposedly felt on rectal exam. She has made it clear that she does not want any sigmoidoscopy or other intervention aimed at her Crohn's now. She says she has "tried everything" including IV treatments (presumably infliximab, possibly ustekiniumab) and has failed everything. - History Source History Provided By: Patient, Medical Record Limitations to Obtaining History: Other (Pt vague about some details of her history.) - Past Medical History Gastrointestinal: Yes: Crohn's Disease, Ulcerative Colitis, Other ( enterovaginal fistula; celiac disease) - Past Surgical History Past Surgical History: Yes: Colectomy - Alcohol/Substance Use Hx Alcohol Use: No - Smoking History Smoking history: Never smoked Have you smoked in the past 12 months: No - Social History Usual Living Arrangement: Alone ADL: Independent Home Medications - Allergies Allergies/Adverse Reactions: Allergies Allergy/AdvReac Type Severity Reaction Status Date / Time gluten Allergy Severe Vomiting Verified 02/10/19 00:04 morphine Allergy Severe Verified 02/10/19 00:04 Sulfa (Sulfonamide Allergy Verified 02/10/19 00:04 Antibiotics) - Home Medications Home Medications: Ambulatory Orders Acetaminophen [Tylenol .Extra-Strength -] 500 mg PO Q6H PRN tablet 12/10/18 Albuterol Sulfate Inhaler - [Ventolin HFA Inhaler -] 2 inh PO Q6H PRN 12/14/18 Atorvastatin Ca [Lipitor] 20 mg PO HS 12/14/18 Magnesium Oxide 400 mg PO BID #10 tablet MDD 2 12/27/18 Cholecalciferol (Vitamin D3) [Vitamin D3 -] 1,000 unit PO DAILY #30 tab Folic Acid 1 mg PO DAILY #30 tablet 02/13/19 Gabapentin [Neurontin -] 300 mg PO TID #90 capsule 02/13/19 traZODone HCL [Desyrel -] 50 mg PO HS #0 tablet 02/13/19 Levothyroxine [Synthroid -] 200 mcg PO DAILY@0700 #30 tablet 06/20/19 Paroxetine HCl [Paxil -] 40 mg PO DAILY tablet 06/20/19 Clonazepam 1 mg PO TID 12/21/19 Oxycodone HCl 10 mg PO TID 12/21/19 Physical Exam-GI Vital Signs: Vital Signs Temperature 98 F 12/22/19 10:00 Pulse Rate 56 L 12/22/19 06:00 Respiratory Rate 18 12/22/19 10:00 Blood Pressure 115/86 12/22/19 10:00 O2 Sat by Pulse Oximetry (%) 94 L 12/22/19 08:44 Gastrointestinal Inspection: Yes: Scars ...Auscultate: Yes: Normoactive Bowel Sounds ...Rectal Exam: Yes: Other (Excoriated perianal skin; no perianal fistulae. Digital exam->light yellow-brown mucus, no stool or blood, no masses palpable. Pt found digital exam extremely painful.) Labs: CBC, BMP 12/22/19 06:40 12/22/19 06:40 INR, PTT INR 1.04 (0.83-1.09) 12/20/19 23:08 Problem List - Problems (1) Crohn's disease (regional enteritis) Code(s): K50.90 - CROHN'S DISEASE, UNSPECIFIED, WITHOUT COMPLICATIONS Assessment/Plan Pt with longstanding Crohn's disease, states she bleeds with defecation. Last sigmoidoscopy that was performed here was in 08/2013. 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 I do not feel a mass on current rectal exam. She also has made it clear she will not consent to any treatment or diagnosis of her Crohn's here. Will no longer follow. Please call again should she change her mind about a workup here.
[2019-12-22] MEDS: ATORVASTATIN CA 20 MG TABLET (FP) PO SCH (22:08)
[2019-12-22] MEDS: traZODone HCL 50 MG TABLET (FP) PO SCH (22:08)
--- NOTE | 2019-12-22 22:08 | CONSULT ---
Consult Consult Specialty:: endocrine Referred by:: bashir romano Reason for Consultation:: hypothyroidism - History of Present Illness Chief Complaint: fell at home History of Present Illness: 69 y/o F, pmh of hypothyroidism, a-fib not on AC, RA, crohns disease, C-diff enteritis?, COPD, hx of ESBL, hx of multiple falls, presented to the s/p Fall. Pt reports that she was on the toilet and when she go up, her legs became weak and she dropped to the floor. she has had frequent falls in past.feels her gi problem cause her malabsorption of medication and nutrtients. - Past Medical History Gastrointestinal: Yes: Crohn's Disease, Ulcerative Colitis, Other ( enterovaginal fistula; celiac disease) - Past Surgical History Past Surgical History: Yes: Colectomy - Alcohol/Substance Use Hx Alcohol Use: No - Smoking History Smoking history: Never smoked Have you smoked in the past 12 months: No - Social History Usual Living Arrangement: Alone ADL: Independent Home Medications - Allergies Allergies/Adverse Reactions: Allergies Allergy/AdvReac Type Severity Reaction Status Date / Time gluten Allergy Severe Vomiting Verified 02/10/19 00:04 morphine Allergy Severe Verified 02/10/19 00:04 Sulfa (Sulfonamide Allergy Verified 02/10/19 00:04 Antibiotics) - Home Medications Home Medications: Ambulatory Orders Acetaminophen [Tylenol .Extra-Strength -] 500 mg PO Q6H PRN tablet 12/10/18 Albuterol Sulfate Inhaler - [Ventolin HFA Inhaler -] 2 inh PO Q6H PRN 12/14/18 Atorvastatin Ca [Lipitor] 20 mg PO HS 12/14/18 Magnesium Oxide 400 mg PO BID #10 tablet MDD 2 12/27/18 Cholecalciferol (Vitamin D3) [Vitamin D3 -] 1,000 unit PO DAILY #30 tab Folic Acid 1 mg PO DAILY #30 tablet 02/13/19 Gabapentin [Neurontin -] 300 mg PO TID #90 capsule 02/13/19 traZODone HCL [Desyrel -] 50 mg PO HS #0 tablet 02/13/19 Levothyroxine [Synthroid -] 200 mcg PO DAILY@0700 #30 tablet 06/20/19 Paroxetine HCl [Paxil -] 40 mg PO DAILY tablet 08/22/19 Clonazepam 1 mg PO TID 12/21/19 Oxycodone HCl 10 mg PO TID 12/21/19 Review of Systems - Review of Systems Constitutional: reports: Lethargy, Weakness Eyes: reports: No Symptoms HENT: reports: No Symptoms Neck: reports: No Symptoms Cardiovascular: reports: Shortness of Breath Respiratory: reports: Exercise Intolerance, SOB on Exertion Gastrointestinal: reports: Diarrhea Genitourinary: reports: No Symptoms Breasts: reports: No Symptoms Reported Musculoskeletal: reports: Muscle Cramps, Muscle Weakness Integumentary: reports: No Symptoms Neurological: reports: Numbness, Weakness Endocrine: reports: Unexplained Weight Loss Physical Exam Vital Signs: Vital Signs Temperature 98.0 F 12/22/19 19:33 Pulse Rate 66 12/22/19 19:33 Respiratory Rate 18 12/22/19 19:33 Blood Pressure 122/78 12/22/19 19:33 O2 Sat by Pulse Oximetry (%) 94 L 12/22/19 08:44 Constitutional: Yes: Calm Eyes: Yes: EOM Intact HENT: Yes: Normocephalic Neck: Yes: Trachea Midline Cardiovascular: Yes: Regular Rate and Rhythm Respiratory: Yes: CTA Bilaterally Gastrointestinal: Yes: Normal Bowel Sounds ...Rectal Exam: Yes: Deferred Renal/: Yes: WNL Musculoskeletal: Yes: Muscle Weakness Neurological: Yes: Alert, Oriented Labs: CBC, BMP 12/22/19 06:40 12/22/19 06:40 Problem List - Problems (1) Crohn's disease (regional enteritis) Problems reviewed: Yes Code(s): K50.90 - CROHN'S DISEASE, UNSPECIFIED, WITHOUT COMPLICATIONS (2) Diarrhea Problems reviewed: Yes Code(s): R19.7 - DIARRHEA, UNSPECIFIED (3) Adult onset hypothyroidism Problems reviewed: Yes Code(s): E03.8 - OTHER SPECIFIED HYPOTHYROIDISM Assessment/Plan Current Active Problems hypothyroidism thyroiditis Crohn's disease (regional enteritis) (Acute) Diarrhea (Acute) Fall (Acute) Rhabdomyolysis (Acute) Laboratory Results - last 24 hr 12/22/19 12/22/19 06:40 06:40 WBC 4.1 RBC 2.98 L Hgb 9.2 L Hct 27.4 L MCV 92.2 MCH 31.0 MCHC 33.6 RDW 16.4 H Plt Count 225 MPV 7.3 L Sodium 142 Potassium 3.7 Chloride 108 H Carbon Dioxide 30 Anion Gap 4 L BUN 4.0 L Creatinine 0.7 Est GFR (CKD-EPI)AfAm 103.18 Est GFR (CKD-EPI)NonAf 89.03 Random Glucose 81 Calcium 8.8 Iron 42 L TIBC 251 Iron Saturation 16 L Unsaturated IBC 209 Ferritin 37.8 Total Bilirubin 0.4 AST 36 ALT 21 Alkaline Phosphatase 57 Total Protein 5.1 L Albumin 2.9 L Laboratory Tests 06/18/19 12/21/19 12/21/19 06:40 05:55 05:55 TSH 100.00 H 0.12 L Free T4 1.18 plan: synthyroid q am alone 200mcg daily follow free t4 as tsh when illness can cause confusion
[2019-12-23] MEDS: oxyCODONE HCL 5 MG TABLET PO SCH ×3 (06:19→21:36)
[2019-12-23] MEDS: GABAPENTIN 300 MG CAPSULE PO SCH ×3 (06:19→21:37)
[2019-12-23] MEDS: LEVOTHYROXINE NA 200 MCG TABLET PO SCH (06:19)
[2019-12-23] MEDS: clonazePAM 0.5 MG TABLET PO SCH ×3 (06:19→21:36)
[2019-12-23 08:28] LABS: MCH 30.9 pg (25.7-33.7); MCHC 33.3 g/dl (32.0-36.0); MEAN CELL VOLUME 92.7 fl (80-96); MEAN PLT VOLUME 7.1 fl (7.5-11.1); PLATELET COUNT 251 K/MM3 (134-434); RBC 3.23 M/mm3 (3.60-5.2); RDW 16.6 % (11.6-15.6); WHITE BLOOD COUNT 5.1 K/mm3 (4.0-10.0)
[2019-12-23 08:57] LABS: BILIRUBIN,TOTAL 0.3 mg/dL (0.2-1); BLOOD UREA NITROGEN 3.4 mg/dL (7-18); CHLORIDE 111 mmol/L (98-107); POTASSIUM 3.7 mmol/L (3.5-5.1); SODIUM 145 mmol/L (136-145)
[2019-12-23] MEDS: SODIUM CHLORIDE 1,000 ML IV SCH (09:46)
[2019-12-23] MEDS: MAGNESIUM OXIDE 400 MG TABLET (FP) PO SCH ×2 (09:47→21:37)
[2019-12-23] MEDS: CHOLECALCIFEROL (VIT D3) 1,000 UNIT (25 MCG) TABLET PO SCH (09:47)
[2019-12-23] MEDS: PARoxetine HCL 20 MG TABLET PO SCH (09:47)
[2019-12-23] MEDS: FOLIC ACID 1 MG TABLET (FP) PO SCH (09:47)
--- NOTE | 2019-12-23 10:44 | PN ---
Progress Note (short form) - Note Progress Note: PULMONARY Denies shortness of breath, cough or wheeze. Vital Signs Period Temp Pulse Resp BP Sys/Crystal Pulse Last 24 Hr 97.5 F-98.2 F 58-73 18-20 115-138/65-80 94 Gen: NAD at rest Heart: RRR Lung: decreased breath sounds at the bases Abd: soft, nontender Ext: no edema CBC, BMP 12/23/19 07:25 12/23/19 07:25 Active Medications Atorvastatin Calcium (Lipitor -) 20 mg PO [facility] Last Admin: 12/22/19 22:08 Dose: 20 mg Cholecalciferol (Vitamin D3 -) 1,000 unit PO DAILY [facility] Last Admin: 12/23/19 09:47 Dose: 1,000 unit Clonazepam (Klonopin -) 1 mg PO TID [facility] Last Admin: 12/23/19 06:19 Dose: 1 mg Folic Acid (Folic Acid -) 1 mg PO DAILY [facility] Last Admin: 12/23/19 09:47 Dose: 1 mg Gabapentin (Neurontin -) 300 mg PO TID [facility] Last Admin: 12/23/19 06:19 Dose: 300 mg Sodium Chloride (Normal Saline -) 1,000 mls @ 100 mls/hr IV ASDIR [facility] Last Admin: 12/23/19 09:46 Dose: Not Given Levothyroxine Sodium (Synthroid -) 200 mcg PO DAILY@0700 [facility] Last Admin: 12/23/19 06:19 Dose: 200 mcg Magnesium Oxide (Mag-Ox -) 400 mg PO BID [facility] Last Admin: 12/23/19 09:47 Dose: 400 mg Oxycodone HCl (Roxicodone -) 10 mg PO TID [facility] Last Admin: 12/23/19 06:19 Dose: 10 mg Paroxetine HCl (Paxil -) 40 mg PO DAILY [facility] Last Admin: 12/23/19 09:47 Dose: 40 mg Trazodone HCl (Desyrel -) 50 mg PO [facility] Last Admin: 12/22/19 22:08 Dose: 50 mg A/P s/p Fall Rhabdomyolysis Acute Kidney Injury improving COPD Atrial Fibrillation Rheumatoid Arthritis Crohn's Disease Hypothyroidism Anemia - IVF - monitor CPK - monitor urine output, creatinine - inhaled bronchodilators as needed - O2 to keep Spo2 >90% - DVT prophylaxis Problem List - Problems (1) Rhabdomyolysis Code(s): M62.82 - RHABDOMYOLYSIS Qualifiers: Rhabdomyolysis type: non-traumatic Qualified Code(s): M62.82 - Rhabdomyolysis
[2019-12-23 12:42] LABS: ALBUMIN 3.2 g/dl (3.4-5.0); ALK PHOS 65 U/L (45-117); ANION GAP 9 MMOL/L (8-16); CALCIUM 8.3 mg/dL (8.5-10.1); CO2 25 mmol/L (21-32); CREATININE 0.8 mg/dL (0.55-1.3); GLUCOSE,RANDOM 82 mg/dL (74-106); SGOT/AST 27 U/L (15-37); SGPT/ALT 23 U/L (13-61); TOT PROT 5.7 g/dl (6.4-8.2)
--- NOTE | 2019-12-23 15:24 | PN ---
Progress Note, Physician Chief Complaint: fall at home History of Present Illness: 69 year old female with PMH afib, ra, crohns, hypothyroidism, cdiff? , copd, esbl presents to the ED s/p fall. she has been seen by pulmonology. GI, edno, cardiology. - Current Medication List Current Medications: Active Medications Atorvastatin Calcium (Lipitor -) 20 mg PO HS [facility] Last Admin: 12/22/19 22:08 Dose: 20 mg Cholecalciferol (Vitamin D3 -) 1,000 unit PO DAILY [facility] Last Admin: 12/23/19 09:47 Dose: 1,000 unit Clonazepam (Klonopin -) 1 mg PO TID [facility] Last Admin: 12/23/19 14:00 Dose: 1 mg Folic Acid (Folic Acid -) 1 mg PO DAILY [facility] Last Admin: 12/23/19 09:47 Dose: 1 mg Gabapentin (Neurontin -) 300 mg PO TID [facility] Last Admin: 12/23/19 14:00 Dose: 300 mg Sodium Chloride (Normal Saline -) 1,000 mls @ 100 mls/hr IV ASDIR [facility] Last Admin: 12/23/19 09:46 Dose: Not Given Levothyroxine Sodium (Synthroid -) 200 mcg PO DAILY@0700 [facility] Last Admin: 12/23/19 06:19 Dose: 200 mcg Magnesium Oxide (Mag-Ox -) 400 mg PO BID [facility] Last Admin: 12/23/19 09:47 Dose: 400 mg Oxycodone HCl (Roxicodone -) 10 mg PO TID [facility] Last Admin: 12/23/19 14:00 Dose: 10 mg Paroxetine HCl (Paxil -) 40 mg PO DAILY [facility] Last Admin: 12/23/19 09:47 Dose: 40 mg Trazodone HCl (Desyrel -) 50 mg PO [facility] Last Admin: 12/22/19 22:08 Dose: 50 mg - Objective Vital Signs: Vital Signs Temperature 98.3 F 12/23/19 14:09 Pulse Rate 67 12/23/19 14:09 Respiratory Rate 18 12/23/19 14:09 Blood Pressure 113/54 L 12/23/19 14:09 O2 Sat by Pulse Oximetry (%) 94 L 12/23/19 09:00 Constitutional: Yes: Well Nourished, No Distress HENT: Yes: Atraumatic, Normocephalic Neck: Yes: Supple Cardiovascular: Yes: Regular Rate and Rhythm Respiratory: Yes: Regular Gastrointestinal: Yes: Normal Bowel Sounds Musculoskeletal: Yes: Back Pain, Muscle Pain, Muscle Weakness Neurological: Yes: Alert Labs: CBC, BMP 12/23/19 07:25 12/23/19 07:25 INR, PTT INR 1.04 (0.83-1.09) 12/20/19 23:08 Problem List - Problems (1) Fall Assessment/Plan: PT eval for dispo has [employer] 7 days weekly Code(s): W19.XXXA - UNSPECIFIED FALL, INITIAL ENCOUNTER Qualifiers: Encounter type: subsequent encounter Qualified Code(s): W19.XXXD - Unspecified fall, subsequent encounter (2) DORIE (acute kidney injury) Assessment/Plan: IV hydration check ckmb PT eval- may need str Code(s): N17.9 - ACUTE KIDNEY FAILURE, UNSPECIFIED (3) Afib Assessment/Plan: appreciate cardiology consult rate control no a/c Code(s): I48.91 - UNSPECIFIED ATRIAL FIBRILLATION Qualifiers: Atrial fibrillation type: unspecified Qualified Code(s): I48.91 - Unspecified atrial fibrillation (4) Diarrhea Assessment/Plan: Appreciate GI consult longstanding Crohns Code(s): R19.7 - DIARRHEA, UNSPECIFIED (5) Rhabdomyolysis Assessment/Plan: monitor cpk IV hydration PT eval Code(s): M62.82 - RHABDOMYOLYSIS Qualifiers: Rhabdomyolysis type: non-traumatic Qualified Code(s): M62.82 - Rhabdomyolysis (6) Adult onset hypothyroidism Assessment/Plan: endocrine eval appreciated levothyroxine Code(s): E03.8 - OTHER SPECIFIED HYPOTHYROIDISM
[2019-12-23 17:43] LABS: COCAINE, UR NEGATIVE ng/ml (CUTOFF=300); METHADONE, UR NEGATIVE ng/ml (CUTOFF=300); OPIATES, URI NEGATIVE ng/ml (CUTOFF=300); PHENCYCLIDINE,URINE NEGATIVE ng/ml (CUTOFF=25); URINE AMPHETAMINES NEGATIVE ng/ml (CUTOFF=500); URINE BARBITURATES NEGATIVE ng/ml (CUTOFF=200); URINE BENZODIAZEPINES NEGATIVE ng/ml (CUTOFF=200)
[2019-12-23] MEDS: traZODone HCL 50 MG TABLET (FP) PO SCH (21:36)
[2019-12-23] MEDS: ATORVASTATIN CA 20 MG TABLET (FP) PO SCH (21:37)
[2019-12-24] MEDS: oxyCODONE HCL 5 MG TABLET PO SCH ×2 (05:25→14:03)
[2019-12-24] MEDS: clonazePAM 0.5 MG TABLET PO SCH ×2 (05:26→14:37)
[2019-12-24] MEDS: GABAPENTIN 300 MG CAPSULE PO SCH ×2 (05:26→14:03)
[2019-12-24] MEDS: LEVOTHYROXINE NA 200 MCG TABLET PO SCH (06:45)
[2019-12-24 07:15] LABS: BASO % 0.6 % (0-2.0); EOS % 4.4 % (0-4.5); HEMATOCRIT 29.7 % (32.4-45.2); HEMOGLOBIN 9.9 GM/dL (10.7-15.3); MCH 30.9 pg (25.7-33.7); MCHC 33.3 g/dl (32.0-36.0); MEAN CELL VOLUME 92.9 fl (80-96); MEAN PLT VOLUME 8.1 fl (7.5-11.1); MONO % 6.9 % (3.8-10.2); NEUT % 51.1 % (42.8-82.8); PLATELET COUNT 73 K/MM3 (134-434); RBC 3.19 M/mm3 (3.60-5.2); RDW 16.4 % (11.6-15.6); WHITE BLOOD COUNT 4.4 K/mm3 (4.0-10.0)
[2019-12-24 08:13] LABS: BILIRUBIN,TOTAL 0.3 mg/dL (0.2-1); BLOOD UREA NITROGEN 5.5 mg/dL (7-18); CALCIUM 8.4 mg/dL (8.5-10.1); CREATININE 0.7 mg/dL (0.55-1.3); TOT PROT 5.7 g/dl (6.4-8.2)
[2019-12-24] MEDS: PARoxetine HCL 20 MG TABLET PO SCH (09:32)
[2019-12-24] MEDS: FOLIC ACID 1 MG TABLET (FP) PO SCH (09:32)
[2019-12-24] MEDS: MAGNESIUM OXIDE 400 MG TABLET (FP) PO SCH (09:32)
[2019-12-24] MEDS: CHOLECALCIFEROL (VIT D3) 1,000 UNIT (25 MCG) TABLET PO SCH (09:32)
[2019-12-24 09:41] VITALS: BMI 23.6
[2019-12-24 13:51] VITALS: BP 112/58; PULSE 71; TEMP 97.5
[2019-12-24] MEDS ORDERED: ONDANSETRON 4 MG TABLET PO ONE (14:28)
--- NOTE | 2019-12-24 15:32 | DS ---
Physical Examination Vital Signs: Vital Signs Temperature 97.5 F L 12/24/19 13:49 Pulse Rate 71 12/24/19 13:49 Respiratory Rate 18 12/24/19 13:49 Blood Pressure 112/58 L 12/24/19 13:49 O2 Sat by Pulse Oximetry (%) 96 12/24/19 09:00 Constitutional: Yes: No Distress HENT: Yes: Atraumatic, Normocephalic Neck: Yes: Supple Cardiovascular: Yes: Regular Rate and Rhythm Respiratory: Yes: Regular, CTA Bilaterally Gastrointestinal: Yes: Normal Bowel Sounds Musculoskeletal: Yes: WNL Extremities: Yes: WNL Integumentary: Yes: WNL Neurological: Yes: Alert Labs: CBC, BMP 12/24/19 06:25 12/24/19 06:25 Discharge Summary Problems reviewed: Yes Reason For Visit: ACUTE KIDNEY INJURY, RHABDOMYOLYSIS, FALL Current Active Problems DORIE (acute kidney injury) (Acute) Crohn's disease (regional enteritis) (Acute) Diarrhea (Acute) Fall (Acute) Rhabdomyolysis (Acute) Hospital Course: patient was seen and evaluated by pulmonology, gi, endocrine, cardiology. she was treated with aggressive IV hydration, levothyroxine, and declined further work up for pancreatic cyst. she worked with physical therapy, walked over 50 ft. she is stable for dc. Condition: Improved - Instructions Referrals: Diony Gutierrez [Primary Care Provider] - Disposition: VNS/HOME HEALTH CARE - Home Medications Comprehensive Discharge Medication List: Ambulatory Orders Acetaminophen [Tylenol .Extra-Strength -] 500 mg PO Q6H PRN tablet 12/10/18 Albuterol Sulfate Inhaler - [Ventolin HFA Inhaler -] 2 inh PO Q6H PRN 12/14/18 Atorvastatin Ca [Lipitor] 20 mg PO HS 12/14/18 Magnesium Oxide 400 mg PO BID #10 tablet MDD 2 12/27/18 Cholecalciferol (Vitamin D3) [Vitamin D3 -] 1,000 unit PO DAILY #30 tab Folic Acid 1 mg PO DAILY #30 tablet 02/13/19 Gabapentin [Neurontin -] 300 mg PO TID #90 capsule 02/13/19 traZODone HCL [Desyrel -] 50 mg PO HS #0 tablet 02/13/19 Levothyroxine [Synthroid -] 200 mcg PO DAILY@0700 #30 tablet 06/20/19 Paroxetine HCl [Paxil -] 40 mg PO DAILY tablet 06/20/19 Clonazepam 1 mg PO TID 12/21/19 Oxycodone HCl 10 mg PO TID 12/21/19 Prescription Drug Monitoring Program (I-STOP) results: I-STOP not reviewed
== END 2019-12-24 19:08 | disposition home health service (06) | DRG 683 ==
LOC: JER 20:09 → JERBED 12-21 02:15 → J7W 12-21 21:03
PROVIDERS: ADMIT Internal Medicine; ATTEND Family Medicine
DX: N17.9 Acute kidney failure, unspecified (principal); M62.82 Rhabdomyolysis; K50.90 Crohn's disease, unspecified, without complications; E03.9 Hypothyroidism, unspecified; M06.9 Rheumatoid arthritis, unspecified; R19.7 Diarrhea, unspecified; I48.91 Unspecified atrial fibrillation; D64.9 Anemia, unspecified; E78.5 Hyperlipidemia, unspecified; F41.9 Anxiety disorder, unspecified; J44.9 Chronic obstructive pulmonary disease, unspecified
CPT/HCPCS: 36415; 70450-TC; 71045-TC-FY; 72125-TC; 72170-TC-FY; 74019-TC-FY; 76700-TC; 80053; 80307; 82550; 82553; 82728; 83540; 83550; 83690; 83735; 83874; 84100; 84439; 84443; 84484; 85025; 85027; 85610; 85730; 86850; 86870; 86900; 86901; 86902; 87045; 87046; 87086; 87177; 87186; 87209; 87324; 87449; 93005; 93010; 97116-GP; 97162-GP; 99285-25; J7030

== ENCOUNTER 2021-01-20 13:56 | Emergency (ER) | payer OTHER ==
[2021-01-20 14:04] VITALS: BP 123/74; PULSE 93; TEMP 98.1; BMI 22.6
[2021-01-20] MEDS ORDERED: LIDOCAINE 5% TOPICAL PATCH TP ONE (15:26)
[2021-01-20] MEDS ORDERED: ACETAMINOPHEN 500 MG TABLET (FP) PO ONE (15:26)
[2021-01-20 15:36] LABS: EPI CELLS 5 /uL (0-25.1); HYALINE CASTS 2 /uL (0-3.1); PH,URINE 5.5 (5.0-8.0); URINE APPEARANCE CLOUDY; URINE BACTERIA 5500 /uL (0-1359); URINE BILIRUBIN NEGATIVE (NEGATIVE); URINE COLOR DK YELLOW; URINE GLUCOSE (UA) NEGATIVE (NEGATIVE); URINE KETONE TRACE (NEGATIVE); URINE LEUK ESTERASE 2+ (NEGATIVE); URINE NITRITE NEGATIVE (NEGATIVE); URINE PROTEIN NEGATIVE (NEGATIVE); URINE UROBILINOGEN 0.2 mg/dL (0.2-1.0); URINE WBC 1371 /uL (0-25.8)
[2021-01-20 15:48] LABS: URINE RBC 17.8 /uL (0-23.9)
[2021-01-20] MEDS ORDERED: LIDOCAINE 5% TOPICAL PATCH ONE (16:01)
[2021-01-20] MEDS ORDERED: ACETAMINOPHEN 500 MG TABLET (FP) ONE (16:02)
[2021-01-21] MEDS ORDERED: LIDOCAINE PATCH REMOVAL MC SCH (03:30)
== END 2021-01-20 16:15 | disposition home or self-care (01) ==
LOC: JER 13:56
DX: R30.0 Dysuria (principal); M54.6 Pain in thoracic spine
CPT/HCPCS: 72070-TC-FY; 72100-TC-FY; 81003; 87086; 87186; 99284-25

== ENCOUNTER 2021-04-06 20:32 | Observation (INO) | payer OTHER ==
[2021-04-06] MEDS ORDERED: ONDANSETRON 4 MG/2 ML VIAL IVPUSH ONE (21:16)
[2021-04-06] MEDS ORDERED: SODIUM CHLORIDE 0.9% 500 ML INFUS.BAG IV ONE (21:17)
[2021-04-06] MEDS ORDERED: ONDANSETRON 4 MG/2 ML VIAL ONE (21:19)
[2021-04-06 22:19] LABS: BASO % 0.1 % (0-2.0); EOS % 0.1 % (0-4.5); HEMATOCRIT 35.3 % (32.4-45.2); HEMOGLOBIN 11.9 GM/dL (10.7-15.3); LYMPH % 4.6 % (8-40); MCH 28.6 pg (25.7-33.7); MCHC 33.8 g/dl (32.0-36.0); MEAN CELL VOLUME 84.6 fl (80-96); MEAN PLT VOLUME 7.5 fl (7.5-11.1); MONO % 5.8 % (3.8-10.2); NEUT % 89.4 % (42.8-82.8); PLATELET COUNT 372 K/MM3 (134-434); RBC 4.17 M/mm3 (3.60-5.2); RDW 14.7 % (11.6-15.6); WHITE BLOOD COUNT 12.9 K/mm3 (4.0-10.0)
[2021-04-06 22:26] LABS: INR 1.05 (0.83-1.09); PROTHROMBIN TIME (PATIENT) 12.7 SEC (9.7-13.0)
[2021-04-06 22:29] LABS: ACTIVATED PTT 23.6 SECONDS (25.2-36.5)
[2021-04-06 22:38] LABS: CHLORIDE 83 mmol/L (98-107)
[2021-04-06 22:40] LABS: ALBUMIN 4.2 g/dl (3.4-5.0); BLOOD UREA NITROGEN 17.2 mg/dL (7-18); CALCIUM 9.4 mg/dL (8.5-10.1); CO2 24 mmol/L (21-32); GLUCOSE,RANDOM 118 mg/dL (74-106)
[2021-04-06 22:43] LABS: SGOT/AST 42 U/L (15-37); SGPT/ALT 113 U/L (13-61)
[2021-04-06 22:45] LABS: BILIRUBIN,TOTAL 0.4 mg/dL (0.2-1)
[2021-04-06 22:46] LABS: ALK PHOS 126 U/L (45-117)
[2021-04-06 23:08] LABS: URINE APPEARANCE CLEAR; URINE BILIRUBIN NEGATIVE (NEGATIVE); URINE COLOR YELLOW; URINE GLUCOSE (UA) NEGATIVE (NEGATIVE); URINE KETONE NEGATIVE (NEGATIVE); URINE LEUK ESTERASE NEGATIVE (NEGATIVE); URINE NITRITE NEGATIVE (NEGATIVE); URINE PROTEIN NEGATIVE (NEGATIVE); URINE UROBILINOGEN 0.2 mg/dL (0.2-1.0)
[2021-04-06 23:09] LABS: ANION GAP 12 MMOL/L (8-16); SODIUM 118 mmol/L (136-145)
[2021-04-06] MEDS ORDERED: morphine CARPU-JECT 4 MG/1 ML DISP.SYRIN IVPUSH ONE (23:58)
[2021-04-07 00:37] LABS: ANION GAP 12 MMOL/L (8-16); CALCIUM 9.4 mg/dL (8.5-10.1); CHLORIDE 85 mmol/L (98-107); CO2 24 mmol/L (21-32); GLUCOSE,RANDOM 105 mg/dL (74-106); SODIUM 121 mmol/L (136-145)
[2021-04-07 00:38] LABS: BLOOD UREA NITROGEN 15.9 mg/dL (7-18)
[2021-04-07] MEDS ORDERED: oxyCODONE HCL 5 MG TABLET PO ONE (05:10)
[2021-04-07] MEDS ORDERED: oxyCODONE HCL 5 MG TABLET ONE (05:15)
[2021-04-07] MEDS ORDERED: MORPHINE SULFATE 2 MG/ML VIAL IVPUSH ONE (05:23)
[2021-04-07 06:13] LABS: BASO % 0.3 % (0-2.0); EOS % 0.5 % (0-4.5); HEMATOCRIT 35.6 % (32.4-45.2); HEMOGLOBIN 11.9 GM/dL (10.7-15.3); LYMPH % 9.7 % (8-40); MCH 28.5 pg (25.7-33.7); MCHC 33.5 g/dl (32.0-36.0); MEAN CELL VOLUME 85.2 fl (80-96); MEAN PLT VOLUME 7.2 fl (7.5-11.1); MONO % 7.7 % (3.8-10.2); NEUT % 81.8 % (42.8-82.8); PLATELET COUNT 312 K/MM3 (134-434); RBC 4.18 M/mm3 (3.60-5.2); RDW 14.2 % (11.6-15.6); WHITE BLOOD COUNT 9.6 K/mm3 (4.0-10.0)
[2021-04-07 06:15] LABS: CHLORIDE 91 mmol/L (98-107); SODIUM 121 mmol/L (136-145)
[2021-04-07 06:18] LABS: CALCIUM 8.3 mg/dL (8.5-10.1)
[2021-04-07 06:19] LABS: ALBUMIN 3.8 g/dl (3.4-5.0); ANION GAP 10 MMOL/L (8-16); CO2 20 mmol/L (21-32); GLUCOSE,RANDOM 99 mg/dL (74-106)
[2021-04-07] MEDS: GABAPENTIN 300 MG CAPSULE PO SCH ×3 (06:21→21:52)
[2021-04-07 06:22] LABS: CREATININE 0.8 mg/dL (0.55-1.3); SGOT/AST 45 U/L (15-37); SGPT/ALT 100 U/L (13-61)
[2021-04-07 06:24] LABS: BILIRUBIN,TOTAL 0.2 mg/dL (0.2-1); TOT PROT 7.3 g/dl (6.4-8.2)
[2021-04-07 06:25] LABS: ALK PHOS 121 U/L (45-117)
[2021-04-07] MEDS: LEVOTHYROXINE 100 MCG, LEVOTHYROXINE 75 MCG PO SCH (06:52)
[2021-04-07] MEDS ORDERED: LEVOTHYROXINE NA 150 MCG TABLET PO SCH (07:00)
[2021-04-07] MEDS ORDERED: PANTOPRAZOLE 40 MG TABLET ONE (09:11)
[2021-04-07] MEDS ORDERED: FOLIC ACID 1 MG TABLET (FP) ONE (09:11)
[2021-04-07] MEDS ORDERED: LIDOCAINE 5% TOPICAL PATCH ONE (09:12)
[2021-04-07] MEDS: LIDOCAINE 5% TOPICAL PATCH TP SCH (09:19)
[2021-04-07] MEDS: PANTOPRAZOLE 40 MG TABLET PO SCH (09:19)
[2021-04-07] MEDS: FLUoxetine HCL 20 MG CAPSULE PO SCH (09:19)
[2021-04-07] MEDS: FOLIC ACID 1 MG TABLET (FP) PO SCH (09:19)
[2021-04-07 11:27] LABS: MAGNESIUM QNS mg/dL (1.8-2.4)
[2021-04-07] MEDS: SODIUM CHLORIDE 1,000 ML IV SCH ×2 (11:35→23:07)
[2021-04-07] MEDS ORDERED: MORPHINE SULFATE 2 MG/ML VIAL ONE ×3 (12:28→17:12)
[2021-04-07] MEDS: MORPHINE SULFATE 2 MG/ML VIAL IVPUSH PRN ×3 (12:29→21:51)
[2021-04-07 15:03] LABS: MAGNESIUM 1.7 mg/dL (1.8-2.4)
[2021-04-07] MEDS ORDERED: oxyCODONE HCL 5 MG TABLET PO PRN (17:00)
[2021-04-07] MEDS: traZODone HCL 50 MG TABLET (FP) PO SCH (21:53)
[2021-04-07] MEDS: LIDOCAINE PATCH REMOVAL MC SCH (22:00)
[2021-04-07] MEDS ORDERED: ATORVASTATIN CA 40 MG TABLET (FP) PO SCH (22:00)
[2021-04-07] MEDS ORDERED: clonazePAM 0.5 MG TABLET PO ONE (22:28)
[2021-04-08] MEDS ORDERED: LEVOTHYROXINE NA 100 MCG TABLET (FP) ONE (05:37)
[2021-04-08] MEDS ORDERED: LEVOTHYROXINE NA 75 MCG TABLET (FP) ONE (05:37)
[2021-04-08] MEDS: GABAPENTIN 300 MG CAPSULE PO SCH ×3 (06:07→21:24)
[2021-04-08] MEDS: LEVOTHYROXINE 100 MCG, LEVOTHYROXINE 75 MCG PO SCH (06:07)
[2021-04-08] MEDS: MORPHINE SULFATE 2 MG/ML VIAL IVPUSH PRN ×3 (06:08→17:31)
[2021-04-08] MEDS ORDERED: PT OWN MED DRAWER 7, Y5N ONE (06:54)
[2021-04-08 09:02] LABS: CALCIUM 7.4 mg/dL (8.5-10.1)
[2021-04-08 09:05] LABS: CREATININE 0.6 mg/dL (0.55-1.3)
[2021-04-08 09:07] LABS: BILIRUBIN,TOTAL 0.2 mg/dL (0.2-1); TOT PROT 5.9 g/dl (6.4-8.2)
[2021-04-08] MEDS: FLUoxetine HCL 20 MG CAPSULE PO SCH (11:05)
[2021-04-08] MEDS: PANTOPRAZOLE 40 MG TABLET PO SCH (11:05)
[2021-04-08] MEDS: FOLIC ACID 1 MG TABLET (FP) PO SCH (11:05)
[2021-04-08] MEDS: LIDOCAINE 5% TOPICAL PATCH TP SCH (11:06)
[2021-04-08] MEDS: DEXTROSE 5%-WATER - 1,000 ML IV SCH (12:45)
[2021-04-08] MEDS ORDERED: clonazePAM 2 MG TABLET PO ONE (21:15)
[2021-04-08] MEDS: traZODone HCL 50 MG TABLET (FP) PO SCH (21:24)
[2021-04-08] MEDS: LIDOCAINE PATCH REMOVAL MC SCH (22:00)
[2021-04-09] MEDS ORDERED: LEVOTHYROXINE NA 75 MCG TABLET (FP) ONE (06:04)
[2021-04-09] MEDS ORDERED: LEVOTHYROXINE NA 100 MCG TABLET (FP) ONE (06:04)
[2021-04-09] MEDS: DEXTROSE 5%-WATER - 1,000 ML IV SCH ×2 (06:37→13:12)
[2021-04-09] MEDS: GABAPENTIN 300 MG CAPSULE PO SCH ×3 (06:41→22:36)
[2021-04-09] MEDS: LEVOTHYROXINE 100 MCG, LEVOTHYROXINE 75 MCG PO SCH (06:41)
[2021-04-09 09:34] LABS: BLOOD UREA NITROGEN 8.5 mg/dL (7-18); CALCIUM 7.6 mg/dL (8.5-10.1)
[2021-04-09 09:37] LABS: CREATININE 0.6 mg/dL (0.55-1.3)
[2021-04-09 09:39] LABS: BILIRUBIN,TOTAL 0.3 mg/dL (0.2-1); TOT PROT 5.9 g/dl (6.4-8.2)
[2021-04-09] MEDS: PANTOPRAZOLE 40 MG TABLET PO SCH (09:57)
[2021-04-09] MEDS: FLUoxetine HCL 20 MG CAPSULE PO SCH (09:57)
[2021-04-09] MEDS: FOLIC ACID 1 MG TABLET (FP) PO SCH (09:57)
[2021-04-09] MEDS: MORPHINE SULFATE 2 MG/ML VIAL IVPUSH PRN (09:57)
[2021-04-09] MEDS: LIDOCAINE 5% TOPICAL PATCH TP SCH (09:57)
[2021-04-09] MEDS: MINERAL OIL/PET HY-PHL TOPICAL OINTMENT 454 GM JAR TP SCH (11:34)
[2021-04-09] MEDS: ONDANSETRON 4 MG/2 ML VIAL IVPUSH PRN (13:13)
[2021-04-09] MEDS ORDERED: DOCUSATE NA 100 MG/10 ML UNIT-DOSE CUPS PO PRN (14:41)
[2021-04-09] MEDS ORDERED: DOCUSATE NA 100 MG/10 ML UNIT-DOSE CUPS PO SCH (14:45)
[2021-04-09] MEDS: POLYETHYLENE GLYCOL 3350 119 GM BTL PO SCH (15:35)
[2021-04-09] MEDS: oxyCODONE HCL 5 MG TABLET PO PRN ×2 (15:35→23:54)
[2021-04-09 16:05] LABS: EPI CELLS 4 /uL (0-25.1); HYALINE CASTS 1 /uL (0-3.1); URINE APPEARANCE TURBID; URINE BACTERIA >9,000 /uL (0-1359); URINE BILIRUBIN NEGATIVE (NEGATIVE); URINE COLOR YELLOW; URINE GLUCOSE (UA) NEGATIVE (NEGATIVE); URINE KETONE NEGATIVE (NEGATIVE); URINE LEUK ESTERASE 3+ (NEGATIVE); URINE NITRITE NEGATIVE (NEGATIVE); URINE PROTEIN 1+ (NEGATIVE); URINE RBC 122 /uL (0-23.9); URINE UROBILINOGEN 0.2 mg/dL (0.2-1.0); URINE WBC 9031 /uL (0-25.8)
[2021-04-09] MEDS: clonazePAM 2 MG TABLET PO SCH (22:36)
[2021-04-09] MEDS: traZODone HCL 50 MG TABLET (FP) PO SCH (22:36)
[2021-04-09] MEDS: LIDOCAINE PATCH REMOVAL MC SCH (23:56)
[2021-04-10] MEDS ORDERED: SODIUM CHLORIDE 500 ML IV STA ×2 (05:09→08:34)
[2021-04-10] MEDS ORDERED: LEVOTHYROXINE NA 75 MCG TABLET (FP) ONE (06:40)
[2021-04-10] MEDS ORDERED: LEVOTHYROXINE NA 100 MCG TABLET (FP) ONE (06:40)
[2021-04-10] MEDS: LEVOTHYROXINE 100 MCG, LEVOTHYROXINE 75 MCG PO SCH (06:43)
[2021-04-10] MEDS: clonazePAM 0.5 MG TABLET PO SCH (06:43)
[2021-04-10] MEDS: GABAPENTIN 300 MG CAPSULE PO SCH ×4 (06:43→21:11)
[2021-04-10] MEDS: MINERAL OIL/PET HY-PHL TOPICAL OINTMENT 454 GM JAR TP SCH (10:09)
[2021-04-10] MEDS: LIDOCAINE 5% TOPICAL PATCH TP SCH (10:10)
[2021-04-10] MEDS: PANTOPRAZOLE 40 MG TABLET PO SCH (10:10)
[2021-04-10] MEDS: FLUoxetine HCL 20 MG CAPSULE PO SCH (10:10)
[2021-04-10] MEDS: FOLIC ACID 1 MG TABLET (FP) PO SCH (10:10)
[2021-04-10] MEDS: FLUTICASONE/UMECLIDIN/VILANTER (TRELEGY ELLIPTA 200-62.5-25) INAHLER IH SCH (10:12)
[2021-04-10] MEDS: POLYETHYLENE GLYCOL 3350 119 GM BTL PO SCH ×2 (10:12→13:53)
[2021-04-10 10:29] LABS: CALCIUM 7.5 mg/dL (8.5-10.1)
[2021-04-10 10:30] LABS: BLOOD UREA NITROGEN 8.2 mg/dL (7-18); MAGNESIUM 1.8 mg/dL (1.8-2.4)
[2021-04-10 10:33] LABS: CREATININE 0.6 mg/dL (0.55-1.3); PHOSPHOROUS 1.3 mg/dL (2.5-4.9)
[2021-04-10 12:58] LABS: HEMATOCRIT 32.2 % (32.4-45.2); HEMOGLOBIN 10.5 GM/dL (10.7-15.3); MCHC 32.7 g/dl (32.0-36.0); MEAN CELL VOLUME 85.6 fl (80-96); MEAN PLT VOLUME 7.1 fl (7.5-11.1); PLATELET COUNT 313 K/MM3 (134-434); RBC 3.76 M/mm3 (3.60-5.2); RDW 14.7 % (11.6-15.6); WHITE BLOOD COUNT 6.1 K/mm3 (4.0-10.0)
[2021-04-10] MEDS ORDERED: morphine SULFATE 4 MG/ML VIAL IVPUSH ONE (13:46)
[2021-04-10] MEDS ORDERED: POTASSIUM PHOSPHATE 15 MM in DEXTROSE 5%-WATER - 250 ML IVPB ONE (13:50)
[2021-04-10] MEDS ORDERED: NAPH,MB-DB/K PH,MBDB POWDER PACKET PO SCH (14:00)
[2021-04-10 14:08] LABS: HEP B CORE AB, TOT Negative (Negative)
[2021-04-10] MEDS: traZODone HCL 50 MG TABLET (FP) PO SCH (21:11)
[2021-04-10] MEDS: clonazePAM 2 MG TABLET PO SCH (21:12)
[2021-04-10] MEDS: LIDOCAINE PATCH REMOVAL MC SCH (21:14)
[2021-04-11 05:08] VITALS: TEMP 97.9
[2021-04-11] MEDS ORDERED: LEVOTHYROXINE NA 100 MCG TABLET (FP) ONE (05:50)
[2021-04-11] MEDS ORDERED: LEVOTHYROXINE NA 75 MCG TABLET (FP) ONE (05:50)
[2021-04-11] MEDS: LEVOTHYROXINE 100 MCG, LEVOTHYROXINE 75 MCG PO SCH (06:09)
[2021-04-11] MEDS: GABAPENTIN 300 MG CAPSULE PO SCH (06:09)
[2021-04-11] MEDS: clonazePAM 0.5 MG TABLET PO SCH (06:09)
[2021-04-11 08:10] LABS: HEMOGLOBIN 10.7 GM/dL (10.7-15.3); MCHC 32.4 g/dl (32.0-36.0); MEAN CELL VOLUME 86.3 fl (80-96); PLATELET COUNT 288 K/MM3 (134-434); RBC 3.82 M/mm3 (3.60-5.2); RDW 14.7 % (11.6-15.6); WHITE BLOOD COUNT 4.4 K/mm3 (4.0-10.0)
[2021-04-11 08:37] LABS: ALBUMIN 3.2 g/dl (3.4-5.0); BLOOD UREA NITROGEN 8.6 mg/dL (7-18); CALCIUM 7.9 mg/dL (8.5-10.1)
[2021-04-11 08:40] LABS: CREATININE 0.6 mg/dL (0.55-1.3); PHOSPHOROUS 1.5 mg/dL (2.5-4.9)
[2021-04-11 08:42] LABS: BILIRUBIN,TOTAL 0.2 mg/dL (0.2-1); TOT PROT 6.3 g/dl (6.4-8.2)
[2021-04-11] MEDS: ONDANSETRON 4 MG/2 ML VIAL IVPUSH PRN (08:46)
[2021-04-11] MEDS ORDERED: NAPH,MB-DB/K PH,MBDB POWDER PACKET PO ONE (09:06)
[2021-04-11] MEDS ORDERED: POTASSIUM PHOSPHATE 30 MM in DEXTROSE 5%-WATER - 500 ML IVPB ONE (09:09)
[2021-04-11] MEDS: LIDOCAINE 5% TOPICAL PATCH TP SCH (09:23)
[2021-04-11] MEDS: FOLIC ACID 1 MG TABLET (FP) PO SCH (09:27)
[2021-04-11] MEDS: PANTOPRAZOLE 40 MG TABLET PO SCH (09:27)
[2021-04-11] MEDS: POLYETHYLENE GLYCOL 3350 119 GM BTL PO SCH (09:27)
[2021-04-11] MEDS: FLUoxetine HCL 20 MG CAPSULE PO SCH (09:27)
[2021-04-11] MEDS: MINERAL OIL/PET HY-PHL TOPICAL OINTMENT 454 GM JAR TP SCH (09:27)
[2021-04-11] MEDS: FLUTICASONE/UMECLIDIN/VILANTER (TRELEGY ELLIPTA 200-62.5-25) INAHLER IH SCH (09:32)
[2021-04-11] MEDS ORDERED: SODIUM PHOSPHATE - 15 MM in DEXTROSE 5%-WATER - 250 ML IVPB ONE (10:00)
[2021-04-11 11:45] VITALS: BP 97/57; PULSE 86
[2021-04-11 13:49] VITALS: BMI 19.7
[2021-04-14 22:06] LABS: HEP B CORE AB, TOT Negative (Negative)
== END 2021-04-11 14:01 | disposition home health service (06) ==
LOC: JER 20:32 → JERBED 21:20 → INTOOBSV 21:20 → UNDOADMOB 21:20 → JERBED 04-07 10:54 → J6S 04-07 18:01
PROVIDERS: ADMIT Internal Medicine; ATTEND Student in an Organized Health Care Education/Training Program
PROC: 3E033NZ Introduction of Analgesics, Hypnotics, Sedatives into Peripheral Vein, Percutaneous Approach (ICD-10-PCS; principal; 2021-04-07)
PROC: 3E033GC Introduction of Other Therapeutic Substance into Peripheral Vein, Percutaneous Approach (ICD-10-PCS; 2021-04-07)
PROC: 3E0337Z Introduction of Electrolytic and Water Balance Substance into Peripheral Vein, Percutaneous Approach (ICD-10-PCS; 2021-04-07)
DX: K56.609 Unspecified intestinal obstruction, unspecified as to partial versus complete obstruction (principal); J44.9 Chronic obstructive pulmonary disease, unspecified; R79.89 Other specified abnormal findings of blood chemistry; E87.1 Hypo-osmolality and hyponatremia; I48.91 Unspecified atrial fibrillation; K50.90 Crohn's disease, unspecified, without complications; K90.0 Celiac disease; G89.29 Other chronic pain; Z91.14 Patient's other noncompliance with medication regimen; R10.9 Unspecified abdominal pain; K76.0 Fatty (change of) liver, not elsewhere classified; R74.8 Abnormal levels of other serum enzymes; M54.9 Dorsalgia, unspecified; F11.90 Opioid use, unspecified, uncomplicated; Z86.718 Personal history of other venous thrombosis and embolism; D21.9 Benign neoplasm of connective and other soft tissue, unspecified; Z93.3 Colostomy status; D64.9 Anemia, unspecified; Z85.89 Personal history of malignant neoplasm of other organs and systems; Z91.018 Allergy to other foods; Z85.038 Personal history of other malignant neoplasm of large intestine; Z98.890 Other specified postprocedural states; Z88.2 Allergy status to sulfonamides; R74.01 Elevation of levels of liver transaminase levels; N39.0 Urinary tract infection, site not specified; E03.9 Hypothyroidism, unspecified; Z29.9 Encounter for prophylactic measures, unspecified
CPT/HCPCS: 36415; 74177-TC; 76700-TC; 80048; 80053; 81003; 82436; 82550; 82553; 82962; 83516; 83605; 83690; 83735; 83930; 83935; 84100; 84133; 84300; 84443; 84484; 85025; 85027; 85610; 85730; 86038; 86704; 86705; 86706; 86707; 86708; 86709; 86803; 87086; 87186; 87340; 93005; 93010; 96361; 96365; 96372; 96375; 96376; 97116-GP; 99285-25; C9803; G0378; Q9967; U0003; U0005

== ENCOUNTER 2021-04-24 00:55 | Inpatient (IN) | payer OTHER ==
[2021-04-24] MEDS ORDERED: morphine SULFATE 4 MG/ML VIAL IVPUSH ONE ×2 (01:26→03:10)
[2021-04-24] MEDS ORDERED: SODIUM CHLORIDE 0.9% 500 ML INFUS.BAG IV ONE (01:26)
[2021-04-24] MEDS ORDERED: ACETAMINOPHEN 1000 MG/100 ML VIAL (NON FORMULARY) IVPB ONE (01:44)
[2021-04-24] MEDS ORDERED: ACETAMINOPHEN INJECTION 100 ML IVPB ONE (01:54)
[2021-04-24 02:19] LABS: BASO % 0.2 % (0-2.0); EOS % 0.3 % (0-4.5); HEMATOCRIT 39.2 % (32.4-45.2); HEMOGLOBIN 12.9 GM/dL (10.7-15.3); LYMPH % 15.8 % (8-40); MCH 27.6 pg (25.7-33.7); MCHC 32.9 g/dl (32.0-36.0); MEAN CELL VOLUME 84.1 fl (80-96); MEAN PLT VOLUME 7.2 fl (7.5-11.1); MONO % 8.2 % (3.8-10.2); NEUT % 75.5 % (42.8-82.8); PLATELET COUNT 335 10^3/uL (134-434); RBC 4.65 M/mm3 (3.60-5.2); RDW 16.2 % (11.6-15.6); WHITE BLOOD COUNT 7.8 K/mm3 (4.0-10.0)
[2021-04-24 03:00] LABS: ALBUMIN 5.1 g/dl (3.4-5.0); ALK PHOS 104 U/L (45-117); ANION GAP 15 MMOL/L (8-16); BILIRUBIN,TOTAL 0.6 mg/dL (0.2-1); BLOOD UREA NITROGEN 18.2 mg/dL (7-18); CALCIUM 10.6 mg/dL (8.5-10.1); CHLORIDE 89 mmol/L (98-107); CO2 19 mmol/L (21-32); GLUCOSE,RANDOM 105 mg/dL (74-106); LIPASE 115 U/L (73-393); SGOT/AST 28 U/L (15-37); SGPT/ALT 57 U/L (13-61); SODIUM 123 mmol/L (136-145); TOT PROT 9.3 g/dl (6.4-8.2)
[2021-04-24] MEDS ORDERED: MORPHINE SULFATE 2 MG/ML VIAL ONE ×2 (03:14→05:13)
[2021-04-24] MEDS ORDERED: morphine CARPU-JECT 2 MG/1 ML DISP.SYRIN IVPUSH ONE (05:05)
[2021-04-24 07:18] LABS: CALCIUM 9.7 mg/dL (8.5-10.1)
[2021-04-24 07:19] LABS: MAGNESIUM 1.7 mg/dL (1.8-2.4)
[2021-04-24 07:22] LABS: PHOSPHOROUS 4.1 mg/dL (2.5-4.9)
[2021-04-24] MEDS: SODIUM CHLORIDE 1,000 ML IV SCH ×2 (08:24→11:10)
[2021-04-24] MEDS ORDERED: ONDANSETRON *ODT* 4 MG TABLET SL PRN (09:32)
[2021-04-24] MEDS ORDERED: GABAPENTIN 300 MG CAPSULE PO PRN ×2 (09:32→09:54)
[2021-04-24] MEDS ORDERED: ERGOCALCIFEROL (VIT D2) 50,000 UNIT (1.25 MG) CAPSULE PO SCH (10:00)
[2021-04-24] MEDS ORDERED: PT OWN MED DRAWER 7, Y5N ONE ×2 (10:02→14:27)
[2021-04-24] MEDS: oxyCODONE HCL 10 MG SUSTAINED ACTING TABLET PO SCH ×2 (10:08→21:29)
[2021-04-24] MEDS: LEVOTHYROXINE NA 150 MCG TABLET PO SCH (10:08)
[2021-04-24] MEDS: clonazePAM 0.5 MG TABLET PO PRN ×2 (10:09→21:29)
[2021-04-24] MEDS: FLUoxetine HCL 20 MG CAPSULE PO SCH (10:09)
[2021-04-24] MEDS: PANTOPRAZOLE 40 MG TABLET PO SCH (10:09)
[2021-04-24] MEDS: HEPARIN NA (PORCINE) 5,000 UNITS/ML 1ML VIAL SQ SCH ×2 (10:10→21:30)
[2021-04-24 10:51] VITALS: BMI 19.3
[2021-04-24] MEDS: BACLOFEN 10 MG TABLET (FP) PO SCH ×2 (13:06→21:30)
[2021-04-24] MEDS: PREGABALIN 75 MG CAPSULE PO SCH ×2 (13:07→17:32)
[2021-04-24 13:32] LABS: URINE APPEARANCE CLEAR; URINE BILIRUBIN NEGATIVE (NEGATIVE); URINE COLOR YELLOW; URINE GLUCOSE (UA) NEGATIVE (NEGATIVE); URINE KETONE TRACE (NEGATIVE); URINE LEUK ESTERASE NEGATIVE (NEGATIVE); URINE NITRITE NEGATIVE (NEGATIVE); URINE PROTEIN NEGATIVE (NEGATIVE); URINE UROBILINOGEN 0.2 mg/dL (0.2-1.0)
[2021-04-24 14:28] LABS: CALCIUM 8.4 mg/dL (8.5-10.1)
[2021-04-24] MEDS: FLUTICASONE/UMECLIDIN/VILANTER (TRELEGY ELLIPTA 200-62.5-25) INAHLER IH SCH (14:28)
[2021-04-24 14:29] LABS: BLOOD UREA NITROGEN 17.2 mg/dL (7-18)
[2021-04-24 14:32] LABS: CREATININE 0.7 mg/dL (0.55-1.3)
[2021-04-24] MEDS ORDERED: SODIUM CHLORIDE 0.45% 1,000 ML IV SCH (16:00)
[2021-04-24] MEDS ORDERED: MORPHINE SULFATE 2 MG/ML VIAL IVPUSH ONE (16:53)
[2021-04-24 17:10] LABS: CALCIUM 8.6 mg/dL (8.5-10.1)
[2021-04-24 17:11] LABS: BLOOD UREA NITROGEN 18.2 mg/dL (7-18)
[2021-04-24 17:14] LABS: CREATININE 0.8 mg/dL (0.55-1.3)
[2021-04-24] MEDS: traZODone HCL 50 MG TABLET (FP) PO SCH (21:29)
[2021-04-24] MEDS: ATORVASTATIN CA 40 MG TABLET (FP) PO SCH ×2 (21:30→21:33)
[2021-04-24 22:23] LABS: CALCIUM 8.2 mg/dL (8.5-10.1)
[2021-04-24 22:24] LABS: BLOOD UREA NITROGEN 15.6 mg/dL (7-18)
[2021-04-24 22:27] LABS: CREATININE 0.7 mg/dL (0.55-1.3)
[2021-04-25] MEDS: PREGABALIN 75 MG CAPSULE PO SCH ×4 (00:30→18:06)
[2021-04-25 00:54] LABS: BLOOD UREA NITROGEN 14.6 mg/dL (7-18)
[2021-04-25 00:57] LABS: CREATININE 0.6 mg/dL (0.55-1.3)
[2021-04-25 05:37] LABS: BLOOD UREA NITROGEN 13.8 mg/dL (7-18); CALCIUM 8.2 mg/dL (8.5-10.1)
[2021-04-25 05:41] LABS: CREATININE 0.6 mg/dL (0.55-1.3)
[2021-04-25] MEDS: BACLOFEN 10 MG TABLET (FP) PO SCH ×3 (06:06→21:25)
[2021-04-25] MEDS: LEVOTHYROXINE NA 150 MCG TABLET PO SCH (06:07)
[2021-04-25] MEDS: PANTOPRAZOLE 40 MG TABLET PO SCH (10:14)
[2021-04-25] MEDS: FLUoxetine HCL 20 MG CAPSULE PO SCH (10:14)
[2021-04-25] MEDS: HEPARIN NA (PORCINE) 5,000 UNITS/ML 1ML VIAL SQ SCH ×2 (10:15→21:25)
[2021-04-25] MEDS: oxyCODONE HCL 10 MG SUSTAINED ACTING TABLET PO SCH ×2 (10:19→21:25)
[2021-04-25 10:55] LABS: BASO % 0.8 % (0-2.0); HEMATOCRIT 33.6 % (32.4-45.2); HEMOGLOBIN 11.2 GM/dL (10.7-15.3); LYMPH % 25.9 % (8-40); MCHC 33.5 g/dl (32.0-36.0); MEAN CELL VOLUME 83.6 fl (80-96); MEAN PLT VOLUME 6.7 fl (7.5-11.1); MONO % 10.2 % (3.8-10.2); NEUT % 62.1 % (42.8-82.8); PLATELET COUNT 296 10^3/uL (134-434); RBC 4.01 M/mm3 (3.60-5.2); RDW 16.5 % (11.6-15.6); WHITE BLOOD COUNT 3.9 K/mm3 (4.0-10.0)
[2021-04-25 11:11] LABS: BLOOD UREA NITROGEN 12.3 mg/dL (7-18)
[2021-04-25 11:13] LABS: CREATININE 0.7 mg/dL (0.55-1.3)
[2021-04-25 11:15] LABS: BILIRUBIN,TOTAL 0.4 mg/dL (0.2-1)
[2021-04-25 11:19] LABS: ALBUMIN 3.7 g/dl (3.4-5.0); TOT PROT 6.9 g/dl (6.4-8.2)
[2021-04-25] MEDS: FLUTICASONE/UMECLIDIN/VILANTER (TRELEGY ELLIPTA 200-62.5-25) INAHLER IH SCH (12:10)
[2021-04-25] MEDS: clonazePAM 0.5 MG TABLET PO PRN ×2 (12:14→21:25)
[2021-04-25] MEDS ORDERED: SODIUM CHLORIDE 1,000 ML IV SCH (13:30)
[2021-04-25] MEDS ORDERED: MORPHINE SULFATE 2 MG/ML VIAL IVPUSH ONE (14:37)
[2021-04-25] MEDS ORDERED: ACETAMINOPHEN 1000 MG/100 ML VIAL (NON FORMULARY) IVPB ONE (20:16)
[2021-04-25] MEDS: ATORVASTATIN CA 40 MG TABLET (FP) PO SCH (21:24)
[2021-04-25] MEDS: traZODone HCL 50 MG TABLET (FP) PO SCH (21:24)
[2021-04-26] MEDS: PREGABALIN 75 MG CAPSULE PO SCH ×2 (00:05→06:20)
[2021-04-26] MEDS: LEVOTHYROXINE NA 150 MCG TABLET PO SCH (06:20)
[2021-04-26] MEDS: BACLOFEN 10 MG TABLET (FP) PO SCH (06:20)
[2021-04-26 07:25] LABS: HEMATOCRIT 30.7 % (32.4-45.2); MCH 27.6 pg (25.7-33.7); MCHC 32.5 g/dl (32.0-36.0); MEAN PLT VOLUME 6.7 fl (7.5-11.1); PLATELET COUNT 273 10^3/uL (134-434); RBC 3.61 M/mm3 (3.60-5.2); RDW 16.3 % (11.6-15.6); WHITE BLOOD COUNT 2.3 K/mm3 (4.0-10.0)
[2021-04-26 07:37] LABS: CALCIUM 7.4 mg/dL (8.5-10.1)
[2021-04-26 07:38] LABS: ALBUMIN 3.2 g/dl (3.4-5.0); BLOOD UREA NITROGEN 8.8 mg/dL (7-18)
[2021-04-26 07:41] LABS: CREATININE 0.6 mg/dL (0.55-1.3)
[2021-04-26 07:43] LABS: BILIRUBIN,TOTAL 0.3 mg/dL (0.2-1); TOT PROT 5.9 g/dl (6.4-8.2)
[2021-04-26 09:12] VITALS: BP 111/67; PULSE 74; TEMP 97.5
[2021-04-26] MEDS: PANTOPRAZOLE 40 MG TABLET PO SCH (09:35)
[2021-04-26] MEDS: FLUoxetine HCL 20 MG CAPSULE PO SCH (09:35)
[2021-04-26] MEDS: oxyCODONE HCL 10 MG SUSTAINED ACTING TABLET PO SCH (09:35)
[2021-04-26] MEDS: HEPARIN NA (PORCINE) 5,000 UNITS/ML 1ML VIAL SQ SCH (09:36)
[2021-04-26] MEDS: clonazePAM 0.5 MG TABLET PO PRN (09:41)
[2021-04-26] MEDS: FLUTICASONE/UMECLIDIN/VILANTER (TRELEGY ELLIPTA 200-62.5-25) INAHLER IH SCH (09:43)
== END 2021-04-26 11:47 | disposition home or self-care (01) | DRG 386 ==
LOC: JER 00:55 → JERBED 05:24 → J6S 08:32
PROVIDERS: ADMIT Hospitalist; ATTEND Family Medicine
DX: K51.90 Ulcerative colitis, unspecified, without complications (principal); E87.1 Hypo-osmolality and hyponatremia; N17.9 Acute kidney failure, unspecified; I48.0 Paroxysmal atrial fibrillation; J44.9 Chronic obstructive pulmonary disease, unspecified; K90.0 Celiac disease; D64.9 Anemia, unspecified; E78.5 Hyperlipidemia, unspecified; M54.5 Low back pain; E03.9 Hypothyroidism, unspecified; I65.29 Occlusion and stenosis of unspecified carotid artery; Z85.068 Personal history of other malignant neoplasm of small intestine; R10.9 Unspecified abdominal pain; Z86.718 Personal history of other venous thrombosis and embolism; Z93.2 Ileostomy status
CPT/HCPCS: 36415; 74018-TC-FY; 74176-TC; 80048; 80053; 81003; 82550; 83690; 83735; 84100; 84484; 85025; 85027; 87086; 93005; 93010; 99285-25; C9803; J0131; J0475; J1644; U0003; U0005

== ENCOUNTER 2021-05-09 13:49 | Emergency (ER) | payer OTHER ==
[2021-05-09 14:00] VITALS: TEMP 98; BMI 20.1
[2021-05-09] MEDS ORDERED: SODIUM CHLORIDE 0.9% 500 ML INFUS.BAG IV ONE (15:01)
[2021-05-09] MEDS ORDERED: morphine CARPU-JECT 2 MG/1 ML DISP.SYRIN IM ONE ×2 (15:04→17:21)
[2021-05-09] MEDS ORDERED: MORPHINE SULFATE 2 MG/ML VIAL ONE (15:08)
[2021-05-09 16:21] LABS: BASO % 0.7 % (0-2.0); HEMATOCRIT 29.1 % (32.4-45.2); HEMOGLOBIN 9.5 GM/dL (10.7-15.3); LYMPH % 19.5 % (8-40); MCH 27.6 pg (25.7-33.7); MCHC 32.6 g/dl (32.0-36.0); MEAN CELL VOLUME 84.7 fl (80-96); MEAN PLT VOLUME 6.7 fl (7.5-11.1); MONO % 8.1 % (3.8-10.2); NEUT % 70.7 % (42.8-82.8); PLATELET COUNT 324 10^3/uL (134-434); RBC 3.44 M/mm3 (3.60-5.2); RDW 17.3 % (11.6-15.6); WHITE BLOOD COUNT 6.7 K/mm3 (4.0-10.0)
[2021-05-09 16:42] LABS: ALBUMIN 3.5 g/dl (3.4-5.0); BLOOD UREA NITROGEN 6.2 mg/dL (7-18)
[2021-05-09 16:45] LABS: CREATININE 0.8 mg/dL (0.55-1.3)
[2021-05-09 16:46] LABS: BILIRUBIN,TOTAL 0.3 mg/dL (0.2-1); TOT PROT 6.4 g/dl (6.4-8.2)
[2021-05-09 16:58] LABS: CALCIUM 8.7 mg/dL (8.5-10.1)
[2021-05-09] MEDS ORDERED: LIDOCAINE 5% TOPICAL PATCH TP ONE (17:22)
[2021-05-09 17:32] VITALS: BP 109/63; PULSE 63
[2021-05-09] MEDS ORDERED: LIDOCAINE 5% TOPICAL PATCH ONE (17:37)
[2021-05-09] MEDS ORDERED: morphine SULFATE 4 MG/ML VIAL ONE (17:37)
[2021-05-09] MEDS ORDERED: LIDOCAINE PATCH REMOVAL MC SCH (22:00)
== END 2021-05-09 21:50 | disposition home or self-care (01) ==
LOC: JER 13:49
PROC: 3E023NZ Introduction of Analgesics, Hypnotics, Sedatives into Muscle, Percutaneous Approach (ICD-10-PCS; principal; 2021-05-09)
PROC: 3E023NZ Introduction of Analgesics, Hypnotics, Sedatives into Muscle, Percutaneous Approach (ICD-10-PCS; 2021-05-09)
DX: M25.552 Pain in left hip (principal)
CPT/HCPCS: 36415; 72192-TC; 73523-TC-FY; 80053; 85025; 93005; 93010; 99285-25

== ENCOUNTER 2021-06-08 20:35 | Emergency (ER) | payer OTHER ==
[2021-06-08 21:03] VITALS: BP 100/58; PULSE 73; TEMP 97.1; BMI 19.2
[2021-06-08] MEDS ORDERED: ONDANSETRON 4 MG/2 ML VIAL IVPUSH ONE (21:22)
[2021-06-08] MEDS ORDERED: ONDANSETRON 4 MG/2 ML VIAL ONE (21:26)
[2021-06-08] MEDS ORDERED: ACETAMINOPHEN 1000 MG/100 ML VIAL (NON FORMULARY) IVPB ONE (22:43)
[2021-06-08 22:46] LABS: BASO % 0.4 % (0-2.0); EOS % 0.7 % (0-4.5); HEMATOCRIT 31.2 % (32.4-45.2); HEMOGLOBIN 10.2 GM/dL (10.7-15.3); LYMPH % 8.8 % (8-40); MCH 27.9 pg (25.7-33.7); MCHC 32.7 g/dl (32.0-36.0); MEAN CELL VOLUME 85.1 fl (80-96); MEAN PLT VOLUME 7.1 fl (7.5-11.1); NEUT % 84.1 % (42.8-82.8); PLATELET COUNT 276 10^3/uL (134-434); RBC 3.67 M/mm3 (3.60-5.2); WHITE BLOOD COUNT 11.3 K/mm3 (4.0-10.0)
[2021-06-08] MEDS ORDERED: ACETAMINOPHEN INJECTION 100 ML IVPB ONE (22:59)
[2021-06-08 23:18] LABS: CALCIUM 8.6 mg/dL (8.5-10.1)
[2021-06-08 23:19] LABS: ALBUMIN 3.5 g/dl (3.4-5.0); MAGNESIUM 1.5 mg/dL (1.8-2.4)
[2021-06-08 23:22] LABS: CREATININE 0.9 mg/dL (0.55-1.3); PHOSPHOROUS 3.3 mg/dL (2.5-4.9)
[2021-06-08 23:23] LABS: BILIRUBIN,TOTAL 0.3 mg/dL (0.2-1); TOT PROT 6.6 g/dl (6.4-8.2)
[2021-06-08] MEDS ORDERED: MAGNESIUM OXIDE 400 MG TABLET (FP) PO SCH (23:45)
[2021-06-08] MEDS ORDERED: POTASSIUM CHLORIDE TABS 20 MEQ TABLET.ER (FP) PO ONE (23:52)
[2021-06-09] MEDS ORDERED: POTASSIUM CHLORIDE TABS 20 MEQ TABLET.ER (FP) PO ONE (00:21)
[2021-06-09] MEDS ORDERED: MAGNESIUM OXIDE 400 MG TABLET (FP) ONE (00:22)
== END 2021-06-09 00:58 | disposition home or self-care (01) ==
LOC: JER 20:35
PROC: 3E0333Z Introduction of Anti-inflammatory into Peripheral Vein, Percutaneous Approach (ICD-10-PCS; principal; 2021-06-08)
PROC: 3E033GC Introduction of Other Therapeutic Substance into Peripheral Vein, Percutaneous Approach (ICD-10-PCS; 2021-06-08)
DX: R53.1 Weakness (principal)
CPT/HCPCS: 36415; 80053; 83735; 84100; 85025; 93005; 93010; 99284-25; C9803; J0131; U0003; U0005

== ENCOUNTER 2021-06-20 13:20 | Inpatient (IN) | payer OTHER ==
[2021-06-20] MEDS ORDERED: SODIUM CHLORIDE 0.9% 500 ML INFUS.BAG IV ONE (14:33)
[2021-06-20 15:27] LABS: BASO % 0.3 % (0-2.0); EOS % 0.4 % (0-4.5); HEMATOCRIT 38.5 % (32.4-45.2); HEMOGLOBIN 12.8 GM/dL (10.7-15.3); MCH 28.5 pg (25.7-33.7); MCHC 33.4 g/dl (32.0-36.0); MEAN CELL VOLUME 85.3 fl (80-96); MEAN PLT VOLUME 7.4 fl (7.5-11.1); MONO % 6.5 % (3.8-10.2); NEUT % 82.8 % (42.8-82.8); PLATELET COUNT 439 10^3/uL (134-434); RBC 4.51 M/mm3 (3.60-5.2); RDW 18.5 % (11.6-15.6); WHITE BLOOD COUNT 7.6 K/mm3 (4.0-10.0)
[2021-06-20 15:35] LABS: INR 0.95 (0.83-1.09); PROTHROMBIN TIME (PATIENT) 11.5 SEC (9.7-13.0)
[2021-06-20 15:37] LABS: ACTIVATED PTT 33.4 SECONDS (25.2-36.5)
[2021-06-20 15:45] LABS: CHLORIDE 97 mmol/L (98-107); SODIUM 133 mmol/L (136-145)
[2021-06-20 15:48] LABS: ANION GAP 8 MMOL/L (8-16); CALCIUM 9.3 mg/dL (8.5-10.1); CO2 27 mmol/L (21-32); GLUCOSE,RANDOM 106 mg/dL (74-106); LIPASE 139 U/L (73-393); MAGNESIUM 1.9 mg/dL (1.8-2.4)
[2021-06-20 15:51] LABS: CREATININE 0.7 mg/dL (0.55-1.3); SGOT/AST 31 U/L (15-37); SGPT/ALT 38 U/L (13-61)
[2021-06-20 15:53] LABS: BILIRUBIN,TOTAL 0.6 mg/dL (0.2-1); TOT PROT 8.5 g/dl (6.4-8.2)
[2021-06-20 15:54] LABS: ALK PHOS 76 U/L (45-117)
[2021-06-20 16:22] LABS: ALBUMIN 4.5 g/dl (3.4-5.0)
[2021-06-20 16:43] LABS: PH,URINE 6.5 (5.0-8.0); URINE APPEARANCE CLEAR; URINE BILIRUBIN NEGATIVE (NEGATIVE); URINE COLOR YELLOW; URINE GLUCOSE (UA) NEGATIVE (NEGATIVE); URINE KETONE NEGATIVE (NEGATIVE); URINE LEUK ESTERASE NEGATIVE (NEGATIVE); URINE NITRITE NEGATIVE (NEGATIVE); URINE PROTEIN NEGATIVE (NEGATIVE); URINE UROBILINOGEN 0.2 mg/dL (0.2-1.0)
[2021-06-20 16:49] LABS: URINE AMPHETAMINES NEGATIVE (NEGATIVE)
[2021-06-20 16:50] LABS: COCAINE, UR NEGATIVE (NEGATIVE); METHADONE, UR NEGATIVE (NEGATIVE); OPIATES, URI NEGATIVE (NEGATIVE); PHENCYCLIDINE,URINE NEGATIVE (NEGATIVE); URINE BENZODIAZEPINES NEGATIVE (NEGATIVE)
[2021-06-20 16:57] LABS: URINE BARBITURATES NEGATIVE (NEGATIVE)
[2021-06-20] MEDS ORDERED: GABAPENTIN 300 MG CAPSULE PO PRN (21:00)
[2021-06-20] MEDS ORDERED: clonazePAM 0.5 MG TABLET PO PRN (21:00)
[2021-06-20] MEDS ORDERED: ATORVASTATIN CA 40 MG TABLET (FP) ONE (22:40)
[2021-06-20] MEDS ORDERED: oxyCODONE HCL 5 MG TABLET ONE (22:40)
[2021-06-20] MEDS ORDERED: BACLOFEN 10 MG TABLET (FP) ONE (22:40)
[2021-06-20] MEDS: traZODone HCL 50 MG TABLET (FP) PO SCH (22:51)
[2021-06-20] MEDS: BACLOFEN 10 MG TABLET (FP) PO SCH (22:51)
[2021-06-20] MEDS: ATORVASTATIN CA 40 MG TABLET (FP) PO SCH (22:52)
[2021-06-20] MEDS: oxyCODONE HCL 10 MG SUSTAINED ACTING TABLET PO SCH (22:52)
[2021-06-21] MEDS: BACLOFEN 10 MG TABLET (FP) PO SCH ×3 (05:45→21:10)
[2021-06-21] MEDS: oxyCODONE HCL 10 MG SUSTAINED ACTING TABLET PO SCH ×2 (09:25→21:37)
[2021-06-21] MEDS: PANTOPRAZOLE 40 MG TABLET PO SCH (09:26)
[2021-06-21] MEDS: FLUoxetine HCL 20 MG CAPSULE PO SCH (09:26)
[2021-06-21] MEDS: ENOXAPARIN NA (PORCINE) 40 MG/0.4 ML DISP.SYRIN SQ SCH (09:26)
[2021-06-21] MEDS ORDERED: PT OWN MED DRAWER 7, Y5N ONE (11:27)
[2021-06-21] MEDS: FLUTICASONE/UMECLIDIN/VILANTER(200-62.5-25 TRELEGY ELLIPTA) INAHLER IH SCH (11:30)
[2021-06-21 13:29] LABS: BLOOD UREA NITROGEN 11.3 mg/dL (7-18); CALCIUM 8.3 mg/dL (8.5-10.1); CREATININE 0.6 mg/dL (0.55-1.3)
[2021-06-21] MEDS: ATORVASTATIN CA 40 MG TABLET (FP) PO SCH (21:10)
[2021-06-21] MEDS: traZODone HCL 50 MG TABLET (FP) PO SCH (21:10)
[2021-06-22] MEDS ORDERED: ACETAMINOPHEN 325 MG TABLET (FP) ONE (05:46)
[2021-06-22] MEDS: BACLOFEN 10 MG TABLET (FP) PO SCH (05:56)
[2021-06-22 08:39] VITALS: BMI 19.0
[2021-06-22] MEDS ORDERED: PT OWN MED DRAWER 7, Y5N ONE (10:46)
[2021-06-22] MEDS: ENOXAPARIN NA (PORCINE) 40 MG/0.4 ML DISP.SYRIN SQ SCH (10:47)
[2021-06-22] MEDS: oxyCODONE HCL 10 MG SUSTAINED ACTING TABLET PO SCH ×2 (10:48→21:01)
[2021-06-22] MEDS: FLUoxetine HCL 20 MG CAPSULE PO SCH (10:49)
[2021-06-22] MEDS: PANTOPRAZOLE 40 MG TABLET PO SCH (10:49)
[2021-06-22] MEDS: FLUTICASONE/UMECLIDIN/VILANTER(200-62.5-25 TRELEGY ELLIPTA) INAHLER IH SCH (10:53)
[2021-06-22 17:43] LABS: BASO % 0.6 % (0-2.0); EOS % 0.4 % (0-4.5); HEMATOCRIT 32.7 % (32.4-45.2); HEMOGLOBIN 10.7 GM/dL (10.7-15.3); LYMPH % 14.3 % (8-40); MCH 28.5 pg (25.7-33.7); MCHC 32.7 g/dl (32.0-36.0); MEAN CELL VOLUME 87.1 fl (80-96); MEAN PLT VOLUME 7.5 fl (7.5-11.1); MONO % 8.9 % (3.8-10.2); NEUT % 75.8 % (42.8-82.8); PLATELET COUNT 364 10^3/uL (134-434); RBC 3.75 M/mm3 (3.60-5.2); RDW 18.8 % (11.6-15.6); WHITE BLOOD COUNT 5.1 K/mm3 (4.0-10.0)
[2021-06-22 18:03] LABS: BLOOD UREA NITROGEN 18.6 mg/dL (7-18); CALCIUM 8.4 mg/dL (8.5-10.1); MAGNESIUM 1.9 mg/dL (1.8-2.4)
[2021-06-22 18:07] LABS: CREATININE 0.8 mg/dL (0.55-1.3)
[2021-06-22] MEDS: ATORVASTATIN CA 40 MG TABLET (FP) PO SCH (21:01)
[2021-06-22] MEDS: traZODone HCL 50 MG TABLET (FP) PO SCH (21:01)
[2021-06-23] MEDS: oxyCODONE HCL 10 MG SUSTAINED ACTING TABLET PO SCH ×2 (09:53→21:13)
[2021-06-23] MEDS: FLUoxetine HCL 20 MG CAPSULE PO SCH (09:53)
[2021-06-23] MEDS: ENOXAPARIN NA (PORCINE) 40 MG/0.4 ML DISP.SYRIN SQ SCH (09:53)
[2021-06-23] MEDS: PANTOPRAZOLE 40 MG TABLET PO SCH (09:53)
[2021-06-23] MEDS: FLUTICASONE/UMECLIDIN/VILANTER(200-62.5-25 TRELEGY ELLIPTA) INAHLER IH SCH (09:54)
[2021-06-23] MEDS: traZODone HCL 50 MG TABLET (FP) PO SCH (21:15)
[2021-06-23] MEDS: ATORVASTATIN CA 40 MG TABLET (FP) PO SCH (21:15)
[2021-06-24 00:51] VITALS: BP 142/88; PULSE 97; TEMP 98.1
[2021-06-27] MEDS ORDERED: ERGOCALCIFEROL (VIT D2) 50,000 UNIT (1.25 MG) CAPSULE PO SCH (10:00)
== END 2021-06-24 01:38 | DRG 884 ==
LOC: JER 13:20 → OBSVTOIN 20:38 → JERBED 20:38 → J8W 06-21 04:20
PROVIDERS: ADMIT Internal Medicine; ATTEND Family Medicine
DX: F03.90 Unspecified dementia, unspecified severity, without behavioral disturbance, psychotic disturbance, mood disturbance, and anxiety (principal); K50.90 Crohn's disease, unspecified, without complications; R41.82 Altered mental status, unspecified; R51.9 Headache, unspecified; R32 Unspecified urinary incontinence; J44.9 Chronic obstructive pulmonary disease, unspecified; R30.0 Dysuria; E03.9 Hypothyroidism, unspecified
CPT/HCPCS: 36415; 70450-TC; 71045-TC-FY; 80048; 80053; 80307; 81003; 82140; 82550; 82553; 83605; 83690; 83735; 84439; 84443; 84481; 84484; 85025; 85610; 85730; 86850; 86870; 86900; 86901; 86902; 87040; 87086; 93005; 93010; 97116-GP; 97161-GP; 99285-25; C9803; J0475; U0003; U0005

== ENCOUNTER 2021-11-03 16:41 | Inpatient (IN) | payer OTHER ==
[2021-11-03 19:28] LABS: BASO % 0.2 % (0-2.0); EOS % 0.8 % (0-4.5); HEMATOCRIT 33.5 % (32.4-45.2); HEMOGLOBIN 11.3 GM/dL (10.7-15.3); LYMPH % 10.8 % (8-40); MCHC 33.8 g/dl (32.0-36.0); MEAN CELL VOLUME 85.7 fl (80-96); MONO % 6.8 % (3.8-10.2); NEUT % 81.4 % (42.8-82.8); RBC 3.91 M/mm3 (3.60-5.2); RDW 16.1 % (11.6-15.6); WHITE BLOOD COUNT 7.6 K/mm3 (4.0-10.0)
[2021-11-03 19:34] LABS: INR 1.03 (0.83-1.09); PROTHROMBIN TIME (PATIENT) 12.1 SEC (9.7-13.0)
[2021-11-03 19:45] LABS: CHLORIDE 88 mmol/L (98-107); SODIUM 126 mmol/L (136-145)
[2021-11-03 19:51] LABS: ALBUMIN 3.8 g/dl (3.4-5.0); ANION GAP 11 MMOL/L (8-16); BLOOD UREA NITROGEN 8.5 mg/dL (7-18); CALCIUM 8.9 mg/dL (8.5-10.1); CO2 27 mmol/L (21-32); GLUCOSE,RANDOM 88 mg/dL (74-106)
[2021-11-03 19:52] LABS: LIPASE 96 U/L (73-393)
[2021-11-03 19:53] LABS: CREATININE 0.9 mg/dL (0.55-1.3)
[2021-11-03 19:54] LABS: SGPT/ALT 33 U/L (13-61)
[2021-11-03] MEDS ORDERED: ACETAMINOPHEN 1000 MG/100 ML BAG IVPB ONE (19:54)
[2021-11-03] MEDS ORDERED: ACETAMINOPHEN INJECTION 100 ML IVPB ONE (19:54)
[2021-11-03 19:55] LABS: BILIRUBIN,TOTAL 0.6 mg/dL (0.2-1); SGOT/AST 31 U/L (15-37); TOT PROT 6.9 g/dl (6.4-8.2)
[2021-11-03 19:56] LABS: ALK PHOS 90 U/L (45-117)
[2021-11-03 20:18] LABS: MEAN PLT VOLUME 7.7 fl (7.5-11.1); PLATELET COUNT 230 10^3/uL (134-434); PLATELET ESTIMATE DECREASED
[2021-11-03] MEDS ORDERED: morphine SULFATE 4 MG/ML VIAL IVPUSH ONE (22:25)
[2021-11-03 22:52] LABS: EPI CELLS 2 /uL (0-25.1); HYALINE CASTS 0 /uL (0-3.1); URINE APPEARANCE CLOUDY; URINE BACTERIA >9,000 /uL (0-1359); URINE BILIRUBIN NEGATIVE (NEGATIVE); URINE COLOR YELLOW; URINE GLUCOSE (UA) NEGATIVE (NEGATIVE); URINE KETONE NEGATIVE (NEGATIVE); URINE LEUK ESTERASE 3+ (NEGATIVE); URINE NITRITE NEGATIVE (NEGATIVE); URINE PROTEIN NEGATIVE (NEGATIVE); URINE RBC 18 /uL (0-23.9); URINE UROBILINOGEN 0.2 mg/dL (0.2-1.0); URINE WBC 2433 /uL (0-25.8)
[2021-11-04 08:47] LABS: BASO % 0.3 % (0-2.0); EOS % 2.5 % (0-4.5); HEMATOCRIT 31.6 % (32.4-45.2); HEMOGLOBIN 10.2 GM/dL (10.7-15.3); LYMPH % 19.1 % (8-40); MCHC 32.4 g/dl (32.0-36.0); MEAN CELL VOLUME 86.5 fl (80-96); MEAN PLT VOLUME 7.2 fl (7.5-11.1); MONO % 8.7 % (3.8-10.2); NEUT % 69.4 % (42.8-82.8); PLATELET COUNT 238 10^3/uL (134-434); RBC 3.65 M/mm3 (3.60-5.2); RDW 16.2 % (11.6-15.6); WHITE BLOOD COUNT 4.7 K/mm3 (4.0-10.0)
[2021-11-04 09:07] LABS: CHLORIDE 99 mmol/L (98-107); SODIUM 135 mmol/L (136-145)
[2021-11-04 09:12] LABS: ALBUMIN 3.3 g/dl (3.4-5.0)
[2021-11-04 09:13] LABS: BLOOD UREA NITROGEN 6.6 mg/dL (7-18); CALCIUM 8.4 mg/dL (8.5-10.1)
[2021-11-04 09:14] LABS: ANION GAP 7 MMOL/L (8-16); CO2 29 mmol/L (21-32); GLUCOSE,RANDOM 82 mg/dL (74-106); MAGNESIUM 1.7 mg/dL (1.8-2.4)
[2021-11-04] MEDS ORDERED: SODIUM CHLORIDE 1,000 ML IV SCH (09:15)
[2021-11-04 09:16] LABS: CREATININE 0.7 mg/dL (0.55-1.3); SGOT/AST 19 U/L (15-37); SGPT/ALT 29 U/L (13-61)
[2021-11-04 09:17] LABS: BILIRUBIN,TOTAL 0.6 mg/dL (0.2-1)
[2021-11-04 09:18] LABS: ALK PHOS 81 U/L (45-117); TOT PROT 6.1 g/dl (6.4-8.2)
[2021-11-04] MEDS ORDERED: CEFTRIAXONE 1 GM in DEXTROSE 5%-WATER - 50 ML IVPB ONE (10:00)
[2021-11-04] MEDS ORDERED: PANTOPRAZOLE 40 MG TABLET ONE (10:18)
[2021-11-04] MEDS ORDERED: ACETAMINOPHEN INJECTION 100 ML IVPB ONE (10:18)
[2021-11-04] MEDS ORDERED: LEVOTHYROXINE NA 25 MCG TABLET (FP) ONE (10:18)
[2021-11-04] MEDS ORDERED: CEFTRIAXONE 1 GM/50 ML BAG ONE (10:19)
[2021-11-04] MEDS: FLUTICASONE/UMECLIDIN/VILANTER(200-62.5-25 TRELEGY ELLIPTA) INAHLER IH SCH (11:00)
[2021-11-04] MEDS: PANTOPRAZOLE 40 MG TABLET PO SCH (11:00)
[2021-11-04] MEDS: LEVOTHYROXINE NA 150 MCG TABLET PO SCH (11:38)
[2021-11-04] MEDS: ACETAMINOPHEN 1000 MG/100 ML BAG IVPB PRN ×2 (16:06→22:00)
[2021-11-04] MEDS: SODIUM CHLORIDE 0.45% 1,000 ML IV SCH (16:06)
[2021-11-04 19:03] LABS: CALCIUM 8.7 mg/dL (8.5-10.1)
[2021-11-04 19:04] LABS: ALBUMIN 3.8 g/dl (3.4-5.0); BLOOD UREA NITROGEN 7.8 mg/dL (7-18)
[2021-11-04 19:07] LABS: CREATININE 0.8 mg/dL (0.55-1.3)
[2021-11-04 19:08] LABS: BILIRUBIN,TOTAL 0.3 mg/dL (0.2-1); TOT PROT 7.1 g/dl (6.4-8.2)
[2021-11-04] MEDS: ATORVASTATIN CA 40 MG TABLET (FP) PO SCH (21:19)
[2021-11-04] MEDS ORDERED: clonazePAM 0.5 MG TABLET PO ONE (21:33)
[2021-11-04] MEDS: traZODone HCL 50 MG TABLET (FP) PO SCH (22:23)
[2021-11-04 22:46] VITALS: BMI 22.0
[2021-11-05] MEDS: LEVOTHYROXINE NA 150 MCG TABLET PO SCH (06:12)
[2021-11-05] MEDS ORDERED: DEXTROSE 5%-WATER - 50 ML IVPB ONE (09:56)
[2021-11-05] MEDS ORDERED: cefTRIAXone SODIUM 1 GM VIAL ONE (09:56)
[2021-11-05] MEDS: PANTOPRAZOLE 40 MG TABLET PO SCH (10:09)
[2021-11-05] MEDS: CEFTRIAXONE 1 GM in DEXTROSE 5%-WATER - 50 ML IVPB SCH (10:09)
[2021-11-05] MEDS: FLUTICASONE/UMECLIDIN/VILANTER(200-62.5-25 TRELEGY ELLIPTA) INAHLER IH SCH (11:28)
[2021-11-05] MEDS: clonazePAM 0.5 MG TABLET PO PRN ×2 (12:39→22:10)
[2021-11-05] MEDS: FLUoxetine HCL 20 MG CAPSULE PO SCH (12:39)
[2021-11-05] MEDS: GABAPENTIN 300 MG CAPSULE PO SCH ×3 (14:10→22:10)
[2021-11-05] MEDS: SODIUM CHLORIDE 0.45% 1,000 ML IV SCH (15:30)
[2021-11-05] MEDS ORDERED: POTASSIUM CHLORIDE TABS 20 MEQ TABLET.ER (FP) PO ONE (15:50)
[2021-11-05 17:57] LABS: BASO % 0.4 % (0-2.0); EOS % 0.6 % (0-4.5); HEMATOCRIT 31.9 % (32.4-45.2); HEMOGLOBIN 10.5 GM/dL (10.7-15.3); LYMPH % 17.7 % (8-40); MCH 28.3 pg (25.7-33.7); MCHC 32.9 g/dl (32.0-36.0); MEAN PLT VOLUME 7.2 fl (7.5-11.1); MONO % 8.2 % (3.8-10.2); NEUT % 73.1 % (42.8-82.8); PLATELET COUNT 255 10^3/uL (134-434); RBC 3.71 M/mm3 (3.60-5.2); RDW 16.2 % (11.6-15.6); WHITE BLOOD COUNT 4.9 K/mm3 (4.0-10.0)
[2021-11-05 18:13] LABS: CALCIUM 8.1 mg/dL (8.5-10.1)
[2021-11-05 18:14] LABS: ALBUMIN 3.4 g/dl (3.4-5.0); BLOOD UREA NITROGEN 4.4 mg/dL (7-18)
[2021-11-05 18:16] LABS: CREATININE 0.7 mg/dL (0.55-1.3)
[2021-11-05 18:18] LABS: BILIRUBIN,TOTAL 0.2 mg/dL (0.2-1); TOT PROT 6.2 g/dl (6.4-8.2)
[2021-11-05] MEDS: traZODone HCL 50 MG TABLET (FP) PO SCH (22:10)
[2021-11-05] MEDS: ATORVASTATIN CA 40 MG TABLET (FP) PO SCH (22:10)
[2021-11-06] MEDS: SODIUM CHLORIDE 0.45% 1,000 ML IV SCH ×2 (02:30→15:30)
[2021-11-06] MEDS: LEVOTHYROXINE NA 150 MCG TABLET PO SCH (06:10)
[2021-11-06] MEDS ORDERED: cefTRIAXone SODIUM 1 GM VIAL ONE (08:58)
[2021-11-06] MEDS ORDERED: DEXTROSE 5%-WATER - 50 ML IVPB ONE (08:58)
[2021-11-06] MEDS: FLUoxetine HCL 20 MG CAPSULE PO SCH (09:01)
[2021-11-06] MEDS: PANTOPRAZOLE 40 MG TABLET PO SCH ×2 (09:01→21:53)
[2021-11-06] MEDS: clonazePAM 0.5 MG TABLET PO PRN ×2 (09:01→21:53)
[2021-11-06] MEDS: CEFTRIAXONE 1 GM in DEXTROSE 5%-WATER - 50 ML IVPB SCH (09:01)
[2021-11-06] MEDS: GABAPENTIN 300 MG CAPSULE PO SCH ×4 (09:01→21:53)
[2021-11-06] MEDS: FLUTICASONE/UMECLIDIN/VILANTER(200-62.5-25 TRELEGY ELLIPTA) INAHLER IH SCH (09:04)
[2021-11-06 13:03] LABS: CALCIUM 8.5 mg/dL (8.5-10.1)
[2021-11-06 13:07] LABS: CREATININE 0.6 mg/dL (0.55-1.3)
[2021-11-06] MEDS: oxyCODONE HCL 5 MG TABLET PO PRN ×2 (13:31→21:59)
[2021-11-06] MEDS: traZODone HCL 50 MG TABLET (FP) PO SCH (21:53)
[2021-11-06] MEDS: ATORVASTATIN CA 40 MG TABLET (FP) PO SCH (21:53)
[2021-11-07] MEDS: LEVOTHYROXINE NA 150 MCG TABLET PO SCH (06:41)
[2021-11-07] MEDS: SODIUM CHLORIDE 0.45% 1,000 ML IV SCH ×2 (07:03→15:30)
[2021-11-07] MEDS ORDERED: DEXTROSE 5%-WATER - 50 ML IVPB ONE (09:08)
[2021-11-07] MEDS ORDERED: cefTRIAXone SODIUM 1 GM VIAL ONE (09:08)
[2021-11-07] MEDS: oxyCODONE HCL 5 MG TABLET PO PRN ×3 (09:13→21:21)
[2021-11-07] MEDS: FLUoxetine HCL 20 MG CAPSULE PO SCH (09:13)
[2021-11-07] MEDS: CEFTRIAXONE 1 GM in DEXTROSE 5%-WATER - 50 ML IVPB SCH (09:13)
[2021-11-07] MEDS: FLUTICASONE/UMECLIDIN/VILANTER(200-62.5-25 TRELEGY ELLIPTA) INAHLER IH SCH (09:13)
[2021-11-07] MEDS: clonazePAM 0.5 MG TABLET PO PRN ×2 (09:13→21:21)
[2021-11-07] MEDS: PANTOPRAZOLE 40 MG TABLET PO SCH ×2 (09:13→21:17)
[2021-11-07] MEDS: GABAPENTIN 300 MG CAPSULE PO SCH ×4 (09:13→21:17)
[2021-11-07] MEDS ORDERED: FENTANYL PATCH WASTE MC PRN (13:51)
[2021-11-07] MEDS ORDERED: ONDANSETRON *ODT* 4 MG TABLET SL PRN (13:59)
[2021-11-07] MEDS ORDERED: POLYETHYLENE GLYCOL 3350 119 GM BTL PO SCH (14:00)
[2021-11-07] MEDS ORDERED: fentaNYL 12mcg/hr PATCH.TD72 TD SCH (14:00)
[2021-11-07] MEDS: POLYETHYLENE GLYCOL (HEALTHYLAX) 3350 17 GM PACKET PO SCH ×2 (14:33→21:37)
[2021-11-07] MEDS: traZODone HCL 50 MG TABLET (FP) PO SCH (21:17)
[2021-11-07] MEDS: ATORVASTATIN CA 40 MG TABLET (FP) PO SCH (21:17)
[2021-11-08] MEDS: oxyCODONE HCL 5 MG TABLET PO PRN ×2 (03:30→09:28)
[2021-11-08] MEDS: LEVOTHYROXINE NA 150 MCG TABLET PO SCH (06:49)
[2021-11-08 09:06] LABS: CALCIUM 8.6 mg/dL (8.5-10.1)
[2021-11-08 09:07] LABS: ALBUMIN 3.2 g/dl (3.4-5.0); BLOOD UREA NITROGEN 4.1 mg/dL (7-18)
[2021-11-08 09:09] LABS: BASO % 0.3 % (0-2.0); EOS % 2.5 % (0-4.5); HEMATOCRIT 32.6 % (32.4-45.2); HEMOGLOBIN 10.6 GM/dL (10.7-15.3); LYMPH % 18.1 % (8-40); MCH 28.3 pg (25.7-33.7); MCHC 32.6 g/dl (32.0-36.0); MEAN CELL VOLUME 86.9 fl (80-96); MEAN PLT VOLUME 7.1 fl (7.5-11.1); MONO % 13.6 % (3.8-10.2); NEUT % 65.5 % (42.8-82.8); PLATELET COUNT 194 10^3/uL (134-434); RBC 3.75 M/mm3 (3.60-5.2); RDW 16.5 % (11.6-15.6); WHITE BLOOD COUNT 2.9 K/mm3 (4.0-10.0)
[2021-11-08 09:10] LABS: CREATININE 0.7 mg/dL (0.55-1.3)
[2021-11-08 09:11] LABS: BILIRUBIN,TOTAL 0.2 mg/dL (0.2-1)
[2021-11-08] MEDS: POLYETHYLENE GLYCOL (HEALTHYLAX) 3350 17 GM PACKET PO SCH (09:20)
[2021-11-08] MEDS ORDERED: cefTRIAXone SODIUM 1 GM VIAL ONE (09:21)
[2021-11-08] MEDS ORDERED: DEXTROSE 5%-WATER - 50 ML IVPB ONE (09:22)
[2021-11-08] MEDS: GABAPENTIN 300 MG CAPSULE PO SCH ×2 (09:28→14:02)
[2021-11-08] MEDS: FLUoxetine HCL 20 MG CAPSULE PO SCH (09:28)
[2021-11-08] MEDS: CEFTRIAXONE 1 GM in DEXTROSE 5%-WATER - 50 ML IVPB SCH (09:29)
[2021-11-08] MEDS: PANTOPRAZOLE 40 MG TABLET PO SCH (09:29)
[2021-11-08] MEDS: FLUTICASONE/UMECLIDIN/VILANTER(200-62.5-25 TRELEGY ELLIPTA) INAHLER IH SCH (09:34)
[2021-11-08] MEDS: clonazePAM 0.5 MG TABLET PO PRN (14:02)
[2021-11-08 15:21] VITALS: BP 107/68; PULSE 80; TEMP 98.9
== END 2021-11-08 17:15 | disposition home or self-care (01) | DRG 690 ==
LOC: JER 16:41 → INTOOBSV 22:30 → JERBED 22:30 → UNDOADMOB 22:30 → JERBED 11-04 19:37 → J4W 11-04 19:37 → JERBED 11-06 13:12 → OBSVTOIN 11-06 13:12 → INTOOBSV 11-06 13:12
PROVIDERS: ADMIT Internal Medicine; ATTEND Family Medicine
DX: N39.0 Urinary tract infection, site not specified (principal); K50.90 Crohn's disease, unspecified, without complications; E87.1 Hypo-osmolality and hyponatremia; R64 Cachexia; I95.9 Hypotension, unspecified; M32.9 Systemic lupus erythematosus, unspecified; E78.5 Hyperlipidemia, unspecified; E11.9 Type 2 diabetes mellitus without complications; B96.20 Unspecified Escherichia coli [E. coli] as the cause of diseases classified elsewhere; J44.9 Chronic obstructive pulmonary disease, unspecified; R55 Syncope and collapse; I48.0 Paroxysmal atrial fibrillation; M54.50 Low back pain, unspecified; E03.9 Hypothyroidism, unspecified; E86.0 Dehydration; Z85.038 Personal history of other malignant neoplasm of large intestine; Z68.22 Body mass index [BMI] 22.0-22.9, adult; Z86.718 Personal history of other venous thrombosis and embolism
CPT/HCPCS: 36415; 70450-TC; 71045-TC-FY; 72125-TC; 72128-TC; 72131-TC; 74177-TC; 80048; 80053; 81003; 82550; 82728; 83540; 83550; 83605; 83690; 83735; 84443; 84484; 85025; 85610; 85730; 87040; 87086; 87186; 93005; 93010; 93880-TC; 99285-25; C9803-CS; Q9967; U0003; U0005

== ENCOUNTER 2022-01-27 20:49 | Emergency (ER) | payer OTHER ==
[2022-01-27] MEDS ORDERED: ACETAMINOPHEN 1000 MG/100 ML BAG IVPB ONE (21:18)
[2022-01-27 21:30] VITALS: BP 114/57; PULSE 60; TEMP 97.1; BMI 25.6
[2022-01-27] MEDS ORDERED: ACETAMINOPHEN INJECTION 100 ML IVPB ONE (22:20)
[2022-01-27 22:24] LABS: PH,URINE 5.5 (5.0-8.0); URINE APPEARANCE CLEAR; URINE BILIRUBIN NEGATIVE (NEGATIVE); URINE COLOR DK YELLOW; URINE GLUCOSE (UA) NEGATIVE (NEGATIVE); URINE KETONE TRACE (NEGATIVE); URINE LEUK ESTERASE NEGATIVE (NEGATIVE); URINE NITRITE NEGATIVE (NEGATIVE); URINE PROTEIN TRACE (NEGATIVE); URINE UROBILINOGEN 0.2 mg/dL (0.2-1.0)
[2022-01-27 22:32] LABS: BASO % 0.4 % (0-2.0); EOS % 2.1 % (0-4.5); HEMATOCRIT 32.1 % (32.4-45.2); HEMOGLOBIN 10.5 GM/dL (10.7-15.3); LYMPH % 21.1 % (8-40); MCH 29.3 pg (25.7-33.7); MCHC 32.7 g/dl (32.0-36.0); MEAN CELL VOLUME 89.5 fl (80-96); MEAN PLT VOLUME 7.2 fl (7.5-11.1); MONO % 7.6 % (3.8-10.2); NEUT % 68.8 % (42.8-82.8); PLATELET COUNT 274 10^3/uL (134-434); RBC 3.59 M/mm3 (3.60-5.2); RDW 14.8 % (11.6-15.6); WHITE BLOOD COUNT 6.5 K/mm3 (4.0-10.0)
[2022-01-27] MEDS ORDERED: SODIUM CHLORIDE 0.9% 500 ML INFUS.BAG IV ONE (22:44)
[2022-01-27 22:53] LABS: CALCIUM 9.1 mg/dL (8.5-10.1)
[2022-01-27 22:54] LABS: ALBUMIN 3.5 g/dl (3.4-5.0); MAGNESIUM 1.9 mg/dL (1.8-2.4)
[2022-01-27 22:57] LABS: CREATININE 1.2 mg/dL (0.55-1.3)
[2022-01-27 22:58] LABS: BILIRUBIN,TOTAL 0.4 mg/dL (0.2-1); TOT PROT 6.9 g/dl (6.4-8.2)
[2022-01-28] MEDS ORDERED: LIDOCAINE 5% TOPICAL PATCH TP ONE (00:18)
[2022-01-28] MEDS ORDERED: diazePAM 5 MG TABLET PO ONE (00:18)
[2022-01-28] MEDS ORDERED: LIDOCAINE 5% TOPICAL PATCH ONE (00:36)
[2022-01-28] MEDS ORDERED: diazePAM 5 MG TABLET ONE (00:36)
[2022-01-28] MEDS ORDERED: LIDOCAINE PATCH REMOVAL MC SCH (22:00)
== END 2022-01-28 01:29 | disposition home or self-care (01) ==
LOC: JER 20:49
PROC: 3E033GC Introduction of Other Therapeutic Substance into Peripheral Vein, Percutaneous Approach (ICD-10-PCS; principal; 2022-01-27)
DX: M54.89 Other dorsalgia (principal); M81.0 Age-related osteoporosis without current pathological fracture
CPT/HCPCS: 36415; 72131-TC; 74177-TC; 80053; 81003; 83605; 83735; 85025; 87086; 93005; 93010; 99285-25

== ENCOUNTER 2022-03-29 10:39 | Day surgery (SDC) | payer OTHER ==
[2022-03-29] MEDS ORDERED: FERRIC CARBOXYMALTOSE 750 MG in SODIUM CHLORIDE 250 ML IVPB ONE (11:15)
[2022-03-29 11:37] VITALS: TEMP 97.4
[2022-03-29 13:28] VITALS: BP 112/69; PULSE 70
== END 2022-03-29 13:00 | disposition home or self-care (01) ==
LOC: FINFUSION 10:39 → FM/S 10:42 → FINFUSION 13:00
PROVIDERS: ATTEND Family Medicine
PROC: 3E033GC Introduction of Other Therapeutic Substance into Peripheral Vein, Percutaneous Approach (ICD-10-PCS; principal; 2022-03-29)
DX: D50.9 Iron deficiency anemia, unspecified (principal)
CPT/HCPCS: 96365; J1439

== ENCOUNTER 2022-03-31 13:46 | Emergency (ER) | payer OTHER ==
[2022-03-31 14:17] VITALS: BP 96/60; PULSE 75; TEMP 98.4; BMI 22.8
[2022-03-31] MEDS ORDERED: KETOCONAZOLE 2 % SHAMPOO 120 ML BOTTLE TP ONE (15:49)
[2022-03-31] MEDS ORDERED: CLOTRIMAZOLE 1% CREAM TP SCH (22:00)
== END 2022-03-31 16:22 | disposition home or self-care (01) ==
LOC: JER 13:46 → JERFT 13:46
DX: B35.0 Tinea barbae and tinea capitis (principal)
CPT/HCPCS: 99281-25

== ENCOUNTER 2022-04-05 10:51 | Day surgery (SDC) | payer OTHER ==
[2022-04-05] MEDS ORDERED: FERRIC CARBOXYMALTOSE 750 MG in SODIUM CHLORIDE 250 ML IVPB ONE (11:30)
[2022-04-05 12:49] VITALS: TEMP 97.6
[2022-04-05 14:32] VITALS: BP 116/69; PULSE 66
== END 2022-04-05 14:32 | disposition home or self-care (01) ==
LOC: FINFUSION 10:51 → FM/S 10:52 → FINFUSION 14:32
PROVIDERS: ATTEND Family Medicine
PROC: 3E033GC Introduction of Other Therapeutic Substance into Peripheral Vein, Percutaneous Approach (ICD-10-PCS; principal; 2022-04-05)
DX: D50.9 Iron deficiency anemia, unspecified (principal)
CPT/HCPCS: 96365; J1439

== ENCOUNTER 2022-04-08 20:14 | Observation (INO) | payer OTHER ==
[2022-04-08 23:54] LABS: BASO % 0.2 % (0-2.0); EOS % 2.8 % (0-4.5); HEMATOCRIT 34.7 % (32.4-45.2); HEMOGLOBIN 11.5 GM/dL (10.7-15.3); LYMPH % 26.4 % (8-40); MCH 30.5 pg (25.7-33.7); MCHC 33.2 g/dl (32.0-36.0); MEAN CELL VOLUME 91.7 fl (80-96); MONO % 9.6 % (3.8-10.2); PLATELET COUNT 239 10^3/uL (134-434); RBC 3.78 M/mm3 (3.60-5.2); RDW 16.8 % (11.6-15.6); WHITE BLOOD COUNT 5.5 K/mm3 (4.0-10.0)
[2022-04-09] MEDS ORDERED: ACETAMINOPHEN INJECTION 100 ML IVPB ONE (00:01)
[2022-04-09 00:05] LABS: INR 1.01 (0.83-1.09); PROTHROMBIN TIME (PATIENT) 11.6 SEC (9.7-13.0)
[2022-04-09 00:07] LABS: ACTIVATED PTT 27.1 SECONDS (25.2-36.5)
[2022-04-09 00:17] LABS: ALBUMIN 4.1 g/dl (3.4-5.0); CALCIUM 9.4 mg/dL (8.5-10.1); MAGNESIUM 1.8 mg/dL (1.8-2.4)
[2022-04-09 00:18] LABS: BLOOD UREA NITROGEN 24.3 mg/dL (7-18)
[2022-04-09 00:20] LABS: CREATININE 0.8 mg/dL (0.55-1.3)
[2022-04-09 00:22] LABS: BILIRUBIN,TOTAL 0.3 mg/dL (0.2-1); TOT PROT 7.4 g/dl (6.4-8.2)
[2022-04-09] MEDS ORDERED: IBUPROFEN 600 MG TABLET (FP) PO ONE ×2 (00:50→01:26)
[2022-04-09] MEDS ORDERED: ACETAMINOPHEN 500 MG TABLET (FP) PO PRN (06:17)
[2022-04-09] MEDS ORDERED: MELATONIN 5 MG TABLETS PO PRN (06:18)
[2022-04-09] MEDS: INSULIN SLIDING SCALE (NOVOLOG) 1 VIAL SQ SCH ×4 (07:15→23:35)
[2022-04-09 09:27] LABS: BASO % 0.4 % (0-2.0); EOS % 3.4 % (0-4.5); HEMOGLOBIN 10.8 GM/dL (10.7-15.3); LYMPH % 25.1 % (8-40); MCH 31.2 pg (25.7-33.7); MCHC 33.9 g/dl (32.0-36.0); MEAN PLT VOLUME 7.4 fl (7.5-11.1); MONO % 9.2 % (3.8-10.2); NEUT % 61.9 % (42.8-82.8); PLATELET COUNT 206 10^3/uL (134-434); RBC 3.48 M/mm3 (3.60-5.2); RDW 16.6 % (11.6-15.6); WHITE BLOOD COUNT 3.9 K/mm3 (4.0-10.0)
[2022-04-09 10:20] LABS: BLOOD UREA NITROGEN 17.5 mg/dL (7-18)
[2022-04-09 10:21] LABS: CALCIUM 8.6 mg/dL (8.5-10.1); CREATININE 0.7 mg/dL (0.55-1.3)
[2022-04-09 10:22] LABS: ALBUMIN 3.4 g/dl (3.4-5.0); BILIRUBIN,TOTAL 0.4 mg/dL (0.2-1); TOT PROT 6.1 g/dl (6.4-8.2)
[2022-04-09 10:34] LABS: MAGNESIUM 1.6 mg/dL (1.8-2.4); PHOSPHOROUS 1.9 mg/dL (2.5-4.9)
[2022-04-09] MEDS ORDERED: ENOXAPARIN NA (PORCINE) 40 MG/0.4 ML DISP.SYRIN SQ ONE (12:53)
[2022-04-09] MEDS: ENOXAPARIN NA (PORCINE) 40 MG/0.4 ML DISP.SYRIN SQ SCH (12:58)
[2022-04-09] MEDS: traZODone HCL 50 MG TABLET (FP) PO SCH ×2 (23:34→23:50)
[2022-04-09] MEDS: clonazePAM 0.5 MG TABLET PO PRN (23:35)
[2022-04-09] MEDS: ATORVASTATIN CA 40 MG TABLET (FP) PO SCH (23:35)
[2022-04-10] MEDS ORDERED: MAGNESIUM 1GM/D5W - 1 GM/100 ML IVPB IVPB ONE (02:11)
[2022-04-10] MEDS: LEVOTHYROXINE NA 125 MCG TABLET (FP) PO SCH (06:35)
[2022-04-10] MEDS: INSULIN SLIDING SCALE (NOVOLOG) 1 VIAL SQ SCH ×4 (06:37→21:07)
[2022-04-10] MEDS: ENOXAPARIN NA (PORCINE) 40 MG/0.4 ML DISP.SYRIN SQ SCH (09:29)
[2022-04-10] MEDS: oxyCODONE HCL 5 MG TABLET PO PRN ×3 (09:30→23:05)
[2022-04-10 13:05] LABS: BASO % 0.3 % (0-2.0); EOS % 0.4 % (0-4.5); HEMATOCRIT 35.9 % (32.4-45.2); HEMOGLOBIN 11.7 GM/dL (10.7-15.3); LYMPH % 18.9 % (8-40); MCHC 32.7 g/dl (32.0-36.0); MEAN CELL VOLUME 91.9 fl (80-96); MEAN PLT VOLUME 7.1 fl (7.5-11.1); MONO % 6.1 % (3.8-10.2); NEUT % 74.3 % (42.8-82.8); PLATELET COUNT 240 10^3/uL (134-434); RBC 3.91 M/mm3 (3.60-5.2); RDW 16.9 % (11.6-15.6); WHITE BLOOD COUNT 3.8 K/mm3 (4.0-10.0)
[2022-04-10 14:13] LABS: ALBUMIN 3.6 g/dl (3.4-5.0); BLOOD UREA NITROGEN 10.5 mg/dL (7-18); CALCIUM 8.6 mg/dL (8.5-10.1); MAGNESIUM 1.7 mg/dL (1.8-2.4)
[2022-04-10 14:16] LABS: CREATININE 0.7 mg/dL (0.55-1.3); PHOSPHOROUS 1.6 mg/dL (2.5-4.9)
[2022-04-10 14:18] LABS: BILIRUBIN,TOTAL 0.4 mg/dL (0.2-1); TOT PROT 6.7 g/dl (6.4-8.2)
[2022-04-10] MEDS ORDERED: FLUoxetine HCL 20 MG CAPSULE PO ONE (15:36)
[2022-04-10] MEDS ORDERED: clonazePAM 0.5 MG TABLET PO ONE (15:37)
[2022-04-10] MEDS: clonazePAM 0.5 MG TABLET PO PRN (21:01)
[2022-04-10] MEDS: ATORVASTATIN CA 40 MG TABLET (FP) PO SCH (21:01)
[2022-04-10] MEDS: traZODone HCL 50 MG TABLET (FP) PO SCH (21:01)
[2022-04-11] MEDS: oxyCODONE HCL 5 MG TABLET PO PRN ×2 (05:41→12:58)
[2022-04-11] MEDS: ACETAMINOPHEN 325 MG TABLET (FP) PO PRN ×2 (05:42→12:56)
[2022-04-11] MEDS ORDERED: clonazePAM 0.5 MG TABLET PO SCH (06:00)
[2022-04-11] MEDS: INSULIN SLIDING SCALE (NOVOLOG) 1 VIAL SQ SCH ×2 (06:07→13:12)
[2022-04-11] MEDS: LEVOTHYROXINE NA 125 MCG TABLET (FP) PO SCH (06:07)
[2022-04-11] MEDS ORDERED: FLUoxetine HCL 20 MG CAPSULE PO SCH (10:00)
[2022-04-11] MEDS: ENOXAPARIN NA (PORCINE) 40 MG/0.4 ML DISP.SYRIN SQ SCH (10:39)
[2022-04-11 13:53] LABS: BASO % 0.6 % (0-2.0); EOS % 1.5 % (0-4.5); HEMATOCRIT 33.9 % (32.4-45.2); HEMOGLOBIN 11.3 GM/dL (10.7-15.3); LYMPH % 21.3 % (8-40); MCH 30.6 pg (25.7-33.7); MCHC 33.2 g/dl (32.0-36.0); MEAN CELL VOLUME 92.3 fl (80-96); MEAN PLT VOLUME 7.4 fl (7.5-11.1); MONO % 8.5 % (3.8-10.2); NEUT % 68.1 % (42.8-82.8); PLATELET COUNT 239 10^3/uL (134-434); RBC 3.68 M/mm3 (3.60-5.2); RDW 17.2 % (11.6-15.6); WHITE BLOOD COUNT 3.7 K/mm3 (4.0-10.0)
[2022-04-11 13:59] VITALS: BP 108/66; PULSE 75; TEMP 98.2
[2022-04-11 14:41] LABS: CALCIUM 8.7 mg/dL (8.5-10.1)
[2022-04-11 14:42] LABS: ALBUMIN 3.4 g/dl (3.4-5.0); BLOOD UREA NITROGEN 7.4 mg/dL (7-18); MAGNESIUM 1.7 mg/dL (1.8-2.4)
[2022-04-11 14:45] LABS: CREATININE 0.7 mg/dL (0.55-1.3)
[2022-04-11 14:47] LABS: BILIRUBIN,TOTAL 0.4 mg/dL (0.2-1); TOT PROT 6.2 g/dl (6.4-8.2)
== END 2022-04-11 15:08 | disposition home health service (06) ==
LOC: JER 20:14 → JERBED 04-09 04:52 → J4W 04-09 21:01
PROVIDERS: ADMIT Internal Medicine; ATTEND Nurse Practitioner Acute Care
PROC: 3E023GC Introduction of Other Therapeutic Substance into Muscle, Percutaneous Approach (ICD-10-PCS; principal; 2022-04-09)
PROC: 3E033GC Introduction of Other Therapeutic Substance into Peripheral Vein, Percutaneous Approach (ICD-10-PCS; 2022-04-09)
DX: R55 Syncope and collapse (principal); W18.39XA Other fall on same level, initial encounter; Y92.89 Other specified places as the place of occurrence of the external cause; Y93.89 Activity, other specified; R10.13 Epigastric pain; M32.9 Systemic lupus erythematosus, unspecified; J44.9 Chronic obstructive pulmonary disease, unspecified; E11.9 Type 2 diabetes mellitus without complications; K50.90 Crohn's disease, unspecified, without complications; K90.0 Celiac disease; K56.609 Unspecified intestinal obstruction, unspecified as to partial versus complete obstruction; Z90.49 Acquired absence of other specified parts of digestive tract; Z98.0 Intestinal bypass and anastomosis status; R06.02 Shortness of breath; R10.9 Unspecified abdominal pain; R42 Dizziness and giddiness; R00.1 Bradycardia, unspecified; Z88.2 Allergy status to sulfonamides; Z91.018 Allergy to other foods; Z86.19 Personal history of other infectious and parasitic diseases; Z87.19 Personal history of other diseases of the digestive system; Z29.8 Encounter for other specified prophylactic measures; E03.9 Hypothyroidism, unspecified; I10 Essential (primary) hypertension; M48.50XA Collapsed vertebra, not elsewhere classified, site unspecified, initial encounter for fracture
CPT/HCPCS: 36415; 70450-TC; 72125-TC; 80053; 82962; 83735; 84100; 84443; 84484; 85025; 85610; 85730; 86850; 86870; 86900; 86901; 86902; 93005; 93010; 93880-TC; 96365; 96372; 97116-GP; 97161-GP; 99285-25; C9803-CS; G0378; U0003; U0005

== ENCOUNTER 2022-06-29 10:01 | Inpatient (IN) | payer OTHER ==
[2022-06-29] MEDS ORDERED: SODIUM CHLORIDE 1,000 ML IV STA (11:10)
[2022-06-29] MEDS ORDERED: ACETAMINOPHEN 1000 MG/100 ML BAG IVPB ONE ×2 (11:10→21:21)
[2022-06-29] MEDS ORDERED: ACETAMINOPHEN INJECTION 100 ML IVPB ONE ×2 (11:12→21:43)
[2022-06-29] MEDS ORDERED: NALOXONE HCL 0.4 MG/ML VIAL ONE ×3 (11:38→15:26)
[2022-06-29 11:51] LABS: HEMOGLOBIN 15.2 GM/dL (10.7-15.3); LYMPH % 2.4 % (8-40); MCH 34.2 pg (25.7-33.7); MCHC 34.4 g/dl (32.0-36.0); MEAN CELL VOLUME 99.3 fl (80-96); MEAN PLT VOLUME 8.3 fl (7.5-11.1); MONO % 8.3 % (3.8-10.2); NEUT % 89.3 % (42.8-82.8); PLATELET COUNT 210 10^3/uL (134-434); RBC 4.43 M/mm3 (3.60-5.2); RDW 13.9 % (11.6-15.6); WHITE BLOOD COUNT 14.2 K/mm3 (4.0-10.0)
[2022-06-29] MEDS ORDERED: NALOXONE HCL 0.4 MG/ML VIAL IVPUSH ONE ×3 (11:59→15:25)
[2022-06-29 12:10] LABS: CHLORIDE 107 mmol/L (98-107); SODIUM 137 mmol/L (136-145)
[2022-06-29 12:28] LABS: ALBUMIN 3.9 g/dl (3.4-5.0); ANION GAP 15 MMOL/L (8-16); BLOOD UREA NITROGEN 28.2 mg/dL (7-18); CALCIUM 8.9 mg/dL (8.5-10.1); CO2 16 mmol/L (21-32); GLUCOSE,RANDOM 118 mg/dL (74-106); MAGNESIUM 1.7 mg/dL (1.8-2.4)
[2022-06-29 12:30] LABS: SGPT/ALT 146 U/L (13-61)
[2022-06-29 12:31] LABS: CREATININE 1.8 mg/dL (0.55-1.3); SGOT/AST 389 U/L (15-37)
[2022-06-29 12:32] LABS: BILIRUBIN,TOTAL 0.6 mg/dL (0.2-1); TOT PROT 7.3 g/dl (6.4-8.2)
[2022-06-29 12:33] LABS: ALK PHOS 87 U/L (45-117)
[2022-06-29] MEDS ORDERED: MAGNESIUM SULF 50% (8.12 MEQ/2 ML-1 GM VIAL) IVPB ONE (12:58)
[2022-06-29 13:13] LABS: EPI CELLS 4 /uL (0-25.1); HYALINE CASTS 2 /uL (0-3.1); PH,URINE 5.5 (5.0-8.0); URINE APPEARANCE CLOUDY; URINE BACTERIA 4 /uL (0-1359); URINE BILIRUBIN 1+ (NEGATIVE); URINE COLOR DK YELLOW; URINE GLUCOSE (UA) NEGATIVE (NEGATIVE); URINE KETONE 1+ (NEGATIVE); URINE LEUK ESTERASE TRACE (NEGATIVE); URINE NITRITE NEGATIVE (NEGATIVE); URINE PROTEIN 2+ (NEGATIVE); URINE UROBILINOGEN 0.2 mg/dL (0.2-1.0); URINE WBC 16 /uL (0-25.8)
[2022-06-29] MEDS ORDERED: MAGNESIUM 1GM/D5W - 1 GM/100 ML IVPB IVPB ONE (13:26)
[2022-06-29 13:41] LABS: URINE RBC 479 /uL (0-23.9)
[2022-06-29] MEDS ORDERED: DEXTROSE 5%-0.45% SALINE 1,000 ML IV SCH (15:30)
[2022-06-29 15:54] LABS: CHLORIDE 102 mmol/L (98-107); SODIUM 137 mmol/L (136-145)
[2022-06-29 15:59] LABS: ALBUMIN 3.8 g/dl (3.4-5.0); CALCIUM 8.8 mg/dL (8.5-10.1)
[2022-06-29 16:00] LABS: ANION GAP 16 MMOL/L (8-16); BLOOD UREA NITROGEN 27.8 mg/dL (7-18); CO2 19 mmol/L (21-32); GLUCOSE,RANDOM 95 mg/dL (74-106)
[2022-06-29 16:04] LABS: BILIRUBIN,TOTAL 0.8 mg/dL (0.2-1); CREATININE 1.9 mg/dL (0.55-1.3); SGOT/AST 470 U/L (15-37); SGPT/ALT 181 U/L (13-61); TOT PROT 7.2 g/dl (6.4-8.2)
[2022-06-29 16:06] LABS: ALK PHOS 91 U/L (45-117)
[2022-06-29] MEDS ORDERED: SODIUM BICARBONATE 8.4% 50 MEQ/50 ML DISP.SYRIN IVPUSH ONE (16:31)
[2022-06-29] MEDS ORDERED: SODIUM BICARBONATE 8.4% 50 MEQ/50 ML VIAL ONE (16:38)
[2022-06-29] MEDS ORDERED: DEXTROSE 5%-WATER - 1,000 ML IV SCH (16:45)
[2022-06-29 18:16] LABS: ARTERIAL BLD GAS O2 SATURATION 97.3 % (95-98); ARTERIAL BLOOD GAS BASE EXCESS -8.7 mmol/L (-2-2); ARTERIAL BLOOD GAS PO2 97.8 mmHg (80-100)
[2022-06-29 18:19] LABS: ALLENS TEST POSITIVE
[2022-06-29 22:36] LABS: CSF APPEARANCE CLEAR (CLEAR); CSF COLOR COLORLESS (COLORLESS)
[2022-06-29 22:37] LABS: CSF WBC 2 mm3 (0-5)
[2022-06-29 23:45] VITALS: BMI 22.6
[2022-06-30] MEDS ORDERED: oxyCODONE HCL 5 MG TABLET PO PRN (00:49)
[2022-06-30] MEDS: SODIUM CHLORIDE 1,000 ML IV SCH ×2 (03:32→15:07)
[2022-06-30] MEDS: HEPARIN NA (PORCINE) 5,000 UNITS/ML 1ML VIAL SQ SCH ×3 (05:55→21:40)
[2022-06-30] MEDS: GABAPENTIN 300 MG CAPSULE PO SCH ×3 (05:55→21:41)
[2022-06-30] MEDS: LEVOTHYROXINE NA 125 MCG TABLET (FP) PO SCH (06:13)
[2022-06-30] MEDS: INSULIN SLIDING SCALE (NOVOLOG) 1 VIAL SQ SCH ×4 (06:57→21:46)
[2022-06-30 08:28] LABS: BASO % 0.2 % (0-2.0); EOS % 0.3 % (0-4.5); HEMATOCRIT 44.6 % (32.4-45.2); HEMOGLOBIN 15.2 GM/dL (10.7-15.3); LYMPH % 13.7 % (8-40); MCH 34.1 pg (25.7-33.7); MCHC 34.2 g/dl (32.0-36.0); MEAN CELL VOLUME 99.7 fl (80-96); MEAN PLT VOLUME 8.5 fl (7.5-11.1); MONO % 8.9 % (3.8-10.2); NEUT % 76.9 % (42.8-82.8); PLATELET COUNT 192 10^3/uL (134-434); RBC 4.47 M/mm3 (3.60-5.2); RDW 13.9 % (11.6-15.6); WHITE BLOOD COUNT 9.7 K/mm3 (4.0-10.0)
[2022-06-30 08:38] LABS: INR 1.04 (0.83-1.09)
[2022-06-30 08:40] LABS: ACTIVATED PTT 23.5 SECONDS (25.2-36.5)
[2022-06-30 08:49] LABS: CHLORIDE 106 mmol/L (98-107); SODIUM 139 mmol/L (136-145)
[2022-06-30 08:51] LABS: ANION GAP 9 MMOL/L (8-16); BLOOD UREA NITROGEN 28.1 mg/dL (7-18); CO2 24 mmol/L (21-32); GLUCOSE,RANDOM 103 mg/dL (74-106); MAGNESIUM 1.6 mg/dL (1.8-2.4)
[2022-06-30 08:53] LABS: CREATININE 1.7 mg/dL (0.55-1.3)
[2022-06-30 08:54] LABS: SGOT/AST 524 U/L (15-37); SGPT/ALT 249 U/L (13-61)
[2022-06-30 08:55] LABS: BILIRUBIN,TOTAL 0.4 mg/dL (0.2-1); TOT PROT 5.3 g/dl (6.4-8.2)
[2022-06-30 08:56] LABS: ALK PHOS 76 U/L (45-117)
[2022-06-30 09:23] LABS: ALBUMIN 2.7 g/dl (3.4-5.0)
[2022-06-30] MEDS: LIDOCAINE 5% TOPICAL PATCH TP SCH (10:53)
[2022-06-30 12:07] LABS: OPIATES, URI NEGATIVE (NEGATIVE); URINE BARBITURATES NEGATIVE (NEGATIVE)
[2022-06-30 12:08] LABS: COCAINE, UR NEGATIVE (NEGATIVE); METHADONE, UR NEGATIVE (NEGATIVE); PHENCYCLIDINE,URINE NEGATIVE (NEGATIVE); URINE AMPHETAMINES NEGATIVE (NEGATIVE)
[2022-06-30 12:09] LABS: URINE BENZODIAZEPINES POSITIVE (NEGATIVE)
[2022-06-30] MEDS: traMADol HCL 50 MG TABLET PO PRN (15:31)
[2022-06-30] MEDS: ATORVASTATIN CA 40 MG TABLET (FP) PO SCH (21:41)
[2022-06-30] MEDS: clonazePAM 0.5 MG TABLET PO PRN (21:41)
[2022-06-30] MEDS: traZODone HCL 50 MG TABLET (FP) PO SCH (21:41)
[2022-06-30] MEDS: LIDOCAINE PATCH REMOVAL MC SCH (21:42)
[2022-07-01] MEDS: SODIUM CHLORIDE 1,000 ML IV SCH ×3 (02:00→13:45)
[2022-07-01] MEDS: traMADol HCL 50 MG TABLET PO PRN ×2 (02:39→16:11)
[2022-07-01] MEDS: INSULIN SLIDING SCALE (NOVOLOG) 1 VIAL SQ SCH ×4 (06:45→21:48)
[2022-07-01] MEDS: LEVOTHYROXINE NA 125 MCG TABLET (FP) PO SCH (06:45)
[2022-07-01] MEDS: HEPARIN NA (PORCINE) 5,000 UNITS/ML 1ML VIAL SQ SCH ×3 (06:45→21:48)
[2022-07-01] MEDS: GABAPENTIN 300 MG CAPSULE PO SCH ×3 (06:45→21:49)
[2022-07-01 07:33] LABS: BASO % 0.2 % (0-2.0); EOS % 1.6 % (0-4.5); HEMATOCRIT 35.2 % (32.4-45.2); HEMOGLOBIN 11.9 GM/dL (10.7-15.3); LYMPH % 15.1 % (8-40); MCH 33.6 pg (25.7-33.7); MCHC 33.8 g/dl (32.0-36.0); MEAN CELL VOLUME 99.4 fl (80-96); MEAN PLT VOLUME 8.2 fl (7.5-11.1); MONO % 7.8 % (3.8-10.2); NEUT % 75.3 % (42.8-82.8); PLATELET COUNT 156 10^3/uL (134-434); RBC 3.54 M/mm3 (3.60-5.2); RDW 13.7 % (11.6-15.6)
[2022-07-01 08:22] LABS: MAGNESIUM 1.2 mg/dL (1.8-2.4)
[2022-07-01 08:23] LABS: ALBUMIN 2.2 g/dl (3.4-5.0); CALCIUM 7.5 mg/dL (8.5-10.1)
[2022-07-01 08:24] LABS: BLOOD UREA NITROGEN 17.7 mg/dL (7-18)
[2022-07-01 08:25] LABS: CREATININE 0.8 mg/dL (0.55-1.3)
[2022-07-01 08:27] LABS: PHOSPHOROUS 2.2 mg/dL (2.5-4.9); TOT PROT 4.5 g/dl (6.4-8.2)
[2022-07-01 08:28] LABS: BILIRUBIN,TOTAL 0.5 mg/dL (0.2-1)
[2022-07-01] MEDS: clonazePAM 0.5 MG TABLET PO PRN ×2 (09:40→21:48)
[2022-07-01] MEDS: LIDOCAINE 5% TOPICAL PATCH TP SCH (09:48)
[2022-07-01] MEDS ORDERED: MAGNESIUM 2GM/50ML STERILE WATER IVPB IVPB ONE (12:44)
[2022-07-01] MEDS ORDERED: MAGNESIUM OXIDE 400 MG TABLET (FP) PO ONE (12:44)
[2022-07-01] MEDS ORDERED: POTASSIUM PHOSPHATE 15 MM in DEXTROSE 5%-WATER - 250 ML IVPB ONE (13:30)
[2022-07-01] MEDS: NAPH,MB-DB/K PH,MBDB POWDER PACKET PO SCH ×2 (13:45→22:00)
[2022-07-01] MEDS ORDERED: LEVOTHYROXINE NA 100 MCG TABLET (FP) PO SCH (16:27)
[2022-07-01] MEDS: traZODone HCL 50 MG TABLET (FP) PO SCH (21:47)
[2022-07-01] MEDS: ATORVASTATIN CA 40 MG TABLET (FP) PO SCH (21:49)
[2022-07-01] MEDS: LIDOCAINE PATCH REMOVAL MC SCH (21:50)
[2022-07-02] MEDS: HEPARIN NA (PORCINE) 5,000 UNITS/ML 1ML VIAL SQ SCH ×3 (06:50→22:21)
[2022-07-02] MEDS: GABAPENTIN 300 MG CAPSULE PO SCH ×3 (06:50→22:22)
[2022-07-02] MEDS: LEVOTHYROXINE NA 125 MCG TABLET (FP) PO SCH (06:51)
[2022-07-02] MEDS: INSULIN SLIDING SCALE (NOVOLOG) 1 VIAL SQ SCH ×4 (06:55→22:12)
[2022-07-02] MEDS: traMADol HCL 50 MG TABLET PO PRN ×2 (06:58→15:09)
[2022-07-02 07:34] LABS: BASO % 0.5 % (0-2.0); HEMATOCRIT 33.7 % (32.4-45.2); HEMOGLOBIN 11.8 GM/dL (10.7-15.3); LYMPH % 23.5 % (8-40); MCH 34.9 pg (25.7-33.7); MCHC 35.1 g/dl (32.0-36.0); MEAN CELL VOLUME 99.4 fl (80-96); MEAN PLT VOLUME 8.5 fl (7.5-11.1); MONO % 6.6 % (3.8-10.2); NEUT % 66.4 % (42.8-82.8); PLATELET COUNT 157 10^3/uL (134-434); RBC 3.39 M/mm3 (3.60-5.2); RDW 13.7 % (11.6-15.6); WHITE BLOOD COUNT 6.1 K/mm3 (4.0-10.0)
[2022-07-02 07:43] LABS: ALBUMIN 2.2 g/dl (3.4-5.0); CALCIUM 7.8 mg/dL (8.5-10.1); MAGNESIUM 1.5 mg/dL (1.8-2.4)
[2022-07-02 07:46] LABS: CREATININE 0.6 mg/dL (0.55-1.3); PHOSPHOROUS 2.6 mg/dL (2.5-4.9)
[2022-07-02] MEDS ORDERED: MAGNESIUM OXIDE 400 MG TABLET (FP) PO ONE (07:47)
[2022-07-02 07:48] LABS: BILIRUBIN,TOTAL 0.4 mg/dL (0.2-1); TOT PROT 4.6 g/dl (6.4-8.2)
[2022-07-02] MEDS: NAPH,MB-DB/K PH,MBDB POWDER PACKET PO SCH (10:01)
[2022-07-02] MEDS: clonazePAM 0.5 MG TABLET PO PRN ×2 (10:01→22:22)
[2022-07-02] MEDS: LIDOCAINE 5% TOPICAL PATCH TP SCH (10:02)
[2022-07-02] MEDS: ATORVASTATIN CA 40 MG TABLET (FP) PO SCH (22:22)
[2022-07-02] MEDS: traZODone HCL 50 MG TABLET (FP) PO SCH (22:22)
[2022-07-02] MEDS: LIDOCAINE PATCH REMOVAL MC SCH (22:23)
[2022-07-02] MEDS: ACETAMINOPHEN 325 MG TABLET (FP) PO PRN (22:27)
[2022-07-03] MEDS: GABAPENTIN 300 MG CAPSULE PO SCH ×3 (06:28→21:12)
[2022-07-03] MEDS: LEVOTHYROXINE NA 125 MCG TABLET (FP) PO SCH (06:29)
[2022-07-03] MEDS: HEPARIN NA (PORCINE) 5,000 UNITS/ML 1ML VIAL SQ SCH ×3 (06:29→21:12)
[2022-07-03] MEDS: clonazePAM 0.5 MG TABLET PO PRN (06:34)
[2022-07-03] MEDS: metoPROLOL SUCCINATE 25 MG TAB.SR.24H (FP) PO SCH (09:48)
[2022-07-03] MEDS: traMADol HCL 50 MG TABLET PO PRN ×2 (09:49→21:17)
[2022-07-03] MEDS: LIDOCAINE 5% TOPICAL PATCH TP SCH (09:56)
[2022-07-03] MEDS: INSULIN SLIDING SCALE (NOVOLOG) 1 VIAL SQ SCH ×3 (12:35→22:00)
[2022-07-03] MEDS: ACETAMINOPHEN 325 MG TABLET (FP) PO PRN (15:39)
[2022-07-03] MEDS ORDERED: traMADol HCL 50 MG TABLET PO ONE (16:48)
[2022-07-03 17:01] LABS: BASO % 0.3 % (0-2.0); MCH 34.6 pg (25.7-33.7); MCHC 34.6 g/dl (32.0-36.0); MEAN CELL VOLUME 100.2 fl (80-96); MEAN PLT VOLUME 8.7 fl (7.5-11.1); MONO % 5.2 % (3.8-10.2); NEUT % 73.5 % (42.8-82.8); PLATELET COUNT 164 10^3/uL (134-434); RBC 3.19 M/mm3 (3.60-5.2); RDW 13.6 % (11.6-15.6); WHITE BLOOD COUNT 5.7 K/mm3 (4.0-10.0)
[2022-07-03] MEDS: SODIUM CHLORIDE 1,000 ML IV SCH (17:04)
[2022-07-03 17:18] LABS: CALCIUM 7.5 mg/dL (8.5-10.1)
[2022-07-03 17:19] LABS: ALBUMIN 1.8 g/dl (3.4-5.0); BLOOD UREA NITROGEN 12.8 mg/dL (7-18)
[2022-07-03 17:21] LABS: CREATININE 0.6 mg/dL (0.55-1.3); PHOSPHOROUS 2.5 mg/dL (2.5-4.9)
[2022-07-03 17:24] LABS: BILIRUBIN,TOTAL 0.5 mg/dL (0.2-1)
[2022-07-03] MEDS ORDERED: MAGNESIUM OXIDE 400 MG TABLET (FP) PO ONE (17:28)
[2022-07-03] MEDS: traZODone HCL 50 MG TABLET (FP) PO SCH (21:12)
[2022-07-03] MEDS: ATORVASTATIN CA 40 MG TABLET (FP) PO SCH (21:12)
[2022-07-03] MEDS: MAGNESIUM OXIDE 400 MG TABLET (FP) PO SCH (21:12)
[2022-07-03] MEDS: LIDOCAINE PATCH REMOVAL MC SCH (21:13)
[2022-07-04] MEDS: LEVOTHYROXINE NA 125 MCG TABLET (FP) PO SCH (06:42)
[2022-07-04] MEDS: HEPARIN NA (PORCINE) 5,000 UNITS/ML 1ML VIAL SQ SCH ×3 (06:42→21:19)
[2022-07-04] MEDS: GABAPENTIN 300 MG CAPSULE PO SCH ×3 (06:42→21:30)
[2022-07-04] MEDS: INSULIN SLIDING SCALE (NOVOLOG) 1 VIAL SQ SCH ×4 (06:46→21:34)
[2022-07-04] MEDS: traMADol HCL 50 MG TABLET PO PRN ×4 (06:49→21:31)
[2022-07-04 07:36] LABS: BASO % 0.5 % (0-2.0); EOS % 4.4 % (0-4.5); HEMATOCRIT 33.7 % (32.4-45.2); HEMOGLOBIN 11.5 GM/dL (10.7-15.3); LYMPH % 35.8 % (8-40); MCH 34.4 pg (25.7-33.7); MCHC 34.2 g/dl (32.0-36.0); MEAN CELL VOLUME 100.7 fl (80-96); MEAN PLT VOLUME 7.8 fl (7.5-11.1); MONO % 6.6 % (3.8-10.2); NEUT % 52.7 % (42.8-82.8); PLATELET COUNT 179 10^3/uL (134-434); RBC 3.34 M/mm3 (3.60-5.2); RDW 13.5 % (11.6-15.6); WHITE BLOOD COUNT 5.1 K/mm3 (4.0-10.0)
[2022-07-04 08:29] LABS: BLOOD UREA NITROGEN 17.9 mg/dL (7-18)
[2022-07-04 08:30] LABS: CREATININE 0.7 mg/dL (0.55-1.3); MAGNESIUM 1.1 mg/dL (1.8-2.4)
[2022-07-04 08:32] LABS: BILIRUBIN,TOTAL 0.5 mg/dL (0.2-1); TOT PROT 4.2 g/dl (6.4-8.2)
[2022-07-04 08:33] LABS: PHOSPHOROUS 2.8 mg/dL (2.5-4.9)
[2022-07-04] MEDS ORDERED: MAGNESIUM OXIDE 400 MG TABLET (FP) PO ONE (08:43)
[2022-07-04] MEDS: metoPROLOL SUCCINATE 25 MG TAB.SR.24H (FP) PO SCH (09:42)
[2022-07-04] MEDS: clonazePAM 0.5 MG TABLET PO PRN (09:43)
[2022-07-04] MEDS: LIDOCAINE 5% TOPICAL PATCH TP SCH (09:44)
[2022-07-04] MEDS: MAGNESIUM OXIDE 400 MG TABLET (FP) PO SCH ×2 (10:00→21:30)
[2022-07-04] MEDS ORDERED: oxyCODONE HCL 5 MG TABLET PO ONE (12:04)
[2022-07-04] MEDS: SODIUM CHLORIDE 1,000 ML IV SCH (12:45)
[2022-07-04] MEDS: ATORVASTATIN CA 40 MG TABLET (FP) PO SCH (21:30)
[2022-07-04] MEDS: LIDOCAINE PATCH REMOVAL MC SCH (21:33)
[2022-07-04] MEDS: traZODone HCL 50 MG TABLET (FP) PO SCH (21:34)
[2022-07-05] MEDS: traMADol HCL 50 MG TABLET PO PRN ×3 (03:43→17:41)
[2022-07-05] MEDS: clonazePAM 0.5 MG TABLET PO PRN ×2 (03:44→22:28)
[2022-07-05] MEDS: INSULIN SLIDING SCALE (NOVOLOG) 1 VIAL SQ SCH ×5 (06:45→22:41)
[2022-07-05] MEDS: HEPARIN NA (PORCINE) 5,000 UNITS/ML 1ML VIAL SQ SCH ×3 (06:46→22:28)
[2022-07-05] MEDS: GABAPENTIN 300 MG CAPSULE PO SCH ×3 (06:47→22:28)
[2022-07-05] MEDS: LEVOTHYROXINE NA 125 MCG TABLET (FP) PO SCH (06:47)
[2022-07-05 08:17] LABS: BASO % 0.5 % (0-2.0); EOS % 4.8 % (0-4.5); HEMATOCRIT 34.8 % (32.4-45.2); HEMOGLOBIN 11.6 GM/dL (10.7-15.3); LYMPH % 31.6 % (8-40); MCH 33.4 pg (25.7-33.7); MCHC 33.2 g/dl (32.0-36.0); MEAN CELL VOLUME 100.6 fl (80-96); MEAN PLT VOLUME 8.5 fl (7.5-11.1); MONO % 6.8 % (3.8-10.2); NEUT % 56.3 % (42.8-82.8); PLATELET COUNT 198 10^3/uL (134-434); RBC 3.46 M/mm3 (3.60-5.2); RDW 13.5 % (11.6-15.6)
[2022-07-05 08:34] LABS: ALBUMIN 2.2 g/dl (3.4-5.0); CALCIUM 8.1 mg/dL (8.5-10.1); MAGNESIUM 1.1 mg/dL (1.8-2.4)
[2022-07-05 08:38] LABS: CREATININE 0.7 mg/dL (0.55-1.3)
[2022-07-05 08:39] LABS: BILIRUBIN,TOTAL 0.5 mg/dL (0.2-1); TOT PROT 4.4 g/dl (6.4-8.2)
[2022-07-05] MEDS ORDERED: MAGNESIUM OXIDE 400 MG TABLET (FP) PO ONE (09:35)
[2022-07-05] MEDS: metoPROLOL SUCCINATE 25 MG TAB.SR.24H (FP) PO SCH (09:37)
[2022-07-05] MEDS: LIDOCAINE 5% TOPICAL PATCH TP SCH (09:46)
[2022-07-05] MEDS: MAGNESIUM OXIDE 400 MG TABLET (FP) PO SCH ×2 (09:46→22:28)
[2022-07-05 11:24] LABS: URINE APPEARANCE TURBID; URINE BILIRUBIN NEGATIVE (NEGATIVE); URINE COLOR YELLOW; URINE GLUCOSE (UA) NEGATIVE (NEGATIVE); URINE KETONE NEGATIVE (NEGATIVE)
[2022-07-05 11:27] LABS: URINE PROTEIN 2+ (NEGATIVE)
[2022-07-05 11:28] LABS: URINE LEUK ESTERASE 3+ (NEGATIVE); URINE NITRITE NEGATIVE (NEGATIVE); URINE RBC 314.1 /uL (0-23.9); URINE UROBILINOGEN 0.2 mg/dL (0.2-1.0)
[2022-07-05 11:29] LABS: EPI CELLS 5.1 /uL (0-25.1); HYALINE CASTS 1234.17 /uL (0-3.1); URINE BACTERIA 4196.5 /uL (0-1359); URINE CRYSTALS NONE SEEN /hpf
[2022-07-05] MEDS: SODIUM CHLORIDE 1,000 ML IV SCH (13:00)
[2022-07-05] MEDS ORDERED: MAGNESIUM SULF 50% (8.12 MEQ/2 ML-1 GM VIAL) IVPB ONE (13:12)
[2022-07-05] MEDS: NITROFURANTOIN MACROCRYSTAL 50 MG CAPSULE (FP) PO SCH ×2 (13:34→17:41)
[2022-07-05] MEDS: ATORVASTATIN CA 40 MG TABLET (FP) PO SCH (22:28)
[2022-07-05] MEDS: traZODone HCL 50 MG TABLET (FP) PO SCH (22:28)
[2022-07-05] MEDS: LIDOCAINE PATCH REMOVAL MC SCH (22:40)
[2022-07-06] MEDS: NITROFURANTOIN MACROCRYSTAL 50 MG CAPSULE (FP) PO SCH ×2 (00:06→06:42)
[2022-07-06] MEDS: traMADol HCL 50 MG TABLET PO PRN ×2 (00:07→06:41)
[2022-07-06] MEDS: HEPARIN NA (PORCINE) 5,000 UNITS/ML 1ML VIAL SQ SCH (06:42)
[2022-07-06] MEDS: LEVOTHYROXINE NA 125 MCG TABLET (FP) PO SCH (06:42)
[2022-07-06] MEDS: INSULIN SLIDING SCALE (NOVOLOG) 1 VIAL SQ SCH (06:42)
[2022-07-06] MEDS: GABAPENTIN 300 MG CAPSULE PO SCH (06:42)
[2022-07-06] MEDS: MAGNESIUM OXIDE 400 MG TABLET (FP) PO SCH (09:20)
[2022-07-06] MEDS: clonazePAM 0.5 MG TABLET PO PRN (09:20)
[2022-07-06] MEDS: metoPROLOL SUCCINATE 25 MG TAB.SR.24H (FP) PO SCH (09:20)
[2022-07-06] MEDS: LIDOCAINE 5% TOPICAL PATCH TP SCH (09:20)
[2022-07-06 11:46] VITALS: BP 105/62; PULSE 69; RESP 15; TEMP 98.2
== END 2022-07-06 10:00 | disposition home or self-care (01) | DRG 682 ==
LOC: JER 10:01 → JERBED 20:41 → J5S 06-30 00:19 → J2W 06-30 02:38
PROVIDERS: ADMIT Internal Medicine; ATTEND Nurse Practitioner Acute Care
PROC: 009U3ZX Drainage of Spinal Canal, Percutaneous Approach, Diagnostic (ICD-10-PCS; principal; 2022-06-30)
DX: N17.9 Acute kidney failure, unspecified (principal); G92.8 Other toxic encephalopathy; N39.0 Urinary tract infection, site not specified; T83.511A Infection and inflammatory reaction due to indwelling urethral catheter, initial encounter; K50.90 Crohn's disease, unspecified, without complications; M62.82 Rhabdomyolysis; E78.5 Hyperlipidemia, unspecified; E11.9 Type 2 diabetes mellitus without complications; J44.9 Chronic obstructive pulmonary disease, unspecified; D72.829 Elevated white blood cell count, unspecified; M32.9 Systemic lupus erythematosus, unspecified; R41.82 Altered mental status, unspecified; M81.0 Age-related osteoporosis without current pathological fracture; E87.5 Hyperkalemia; E03.9 Hypothyroidism, unspecified; M25.551 Pain in right hip; I48.0 Paroxysmal atrial fibrillation; I65.29 Occlusion and stenosis of unspecified carotid artery; R53.1 Weakness; F41.8 Other specified anxiety disorders; R94.5 Abnormal results of liver function studies; E83.42 Hypomagnesemia; M54.59 Other low back pain; B96.1 Klebsiella pneumoniae [K. pneumoniae] as the cause of diseases classified elsewhere; B96.20 Unspecified Escherichia coli [E. coli] as the cause of diseases classified elsewhere; M48.54XG Collapsed vertebra, not elsewhere classified, thoracic region, subsequent encounter for fracture with delayed healing; M50.30 Other cervical disc degeneration, unspecified cervical region; S70.01XA Contusion of right hip, initial encounter; T43.641A Poisoning by ecstasy, accidental (unintentional), initial encounter; T42.4X1A Poisoning by benzodiazepines, accidental (unintentional), initial encounter; W18.30XA Fall on same level, unspecified, initial encounter; Z86.718 Personal history of other venous thrombosis and embolism; Z93.2 Ileostomy status; Y84.8 Other medical procedures as the cause of abnormal reaction of the patient, or of later complication, without mention of misadventure at the time of the procedure; Y92.091 Bathroom in other non-institutional residence as the place of occurrence of the external cause; Z85.038 Personal history of other malignant neoplasm of large intestine
CPT/HCPCS: 36415; 36600; 70450-TC; 70551-TC; 71045-TC-FY; 72125-TC; 72170-TC-FY; 73502-TC-RT-FY; 73552-TC-RT-FY; 73700-TC-RT; 76700-TC; 80053; 80061; 80307; 81003; 82140; 82436; 82550; 82553; 82803; 82962; 83036; 83605; 83735; 83930; 84100; 84133; 84300; 84439; 84443; 84481; 84484; 85025; 85610; 85730; 86663; 86664; 86665; 86694; 86705; 86707; 86708; 86735; 86765; 86787; 86788; 86789; 87070; 87086; 87186; 87205; 87252; 87350; 87517; 87522; 87529; 93005; 93010; 93306-TC; 93880-TC; 93970-TC; 97116-GP; 97162-GP; 99285-25; C9803-CS; G0480; J1644; U0003; U0005

== ENCOUNTER 2022-07-09 17:15 | Inpatient (IN) | payer OTHER ==
[2022-07-09] MEDS ORDERED: ACETAMINOPHEN 1000 MG/100 ML BAG IVPB ONE (18:31)
[2022-07-09] MEDS ORDERED: SODIUM CHLORIDE 0.9% 500 ML INFUS.BAG IV ONE (18:31)
[2022-07-09] MEDS ORDERED: CEFTRIAXONE 1,000 MG in DEXTROSE 5%-WATER - 50 ML IVPB ONE (19:15)
[2022-07-09 19:17] LABS: BASO % 0.4 % (0-2.0); EOS % 2.1 % (0-4.5); HEMOGLOBIN 10.7 GM/dL (10.7-15.3); LYMPH % 20.1 % (8-40); MCH 35.6 pg (25.7-33.7); MCHC 34.6 g/dl (32.0-36.0); MEAN CELL VOLUME 102.9 fl (80-96); MEAN PLT VOLUME 7.3 fl (7.5-11.1); MONO % 11.2 % (3.8-10.2); NEUT % 66.2 % (42.8-82.8); PLATELET COUNT 267 10^3/uL (134-434); RBC 3.01 M/mm3 (3.60-5.2); RDW 13.8 % (11.6-15.6); URINE APPEARANCE CLEAR; URINE BILIRUBIN NEGATIVE (NEGATIVE); URINE COLOR DK YELLOW; URINE GLUCOSE (UA) NEGATIVE (NEGATIVE); URINE KETONE 1+ (NEGATIVE); URINE LEUK ESTERASE NEGATIVE (NEGATIVE); URINE NITRITE NEGATIVE (NEGATIVE); URINE PROTEIN NEGATIVE (NEGATIVE); URINE UROBILINOGEN 0.2 mg/dL (0.2-1.0); WHITE BLOOD COUNT 6.7 K/mm3 (4.0-10.0)
[2022-07-09 19:32] LABS: BLOOD UREA NITROGEN 12.6 mg/dL (7-18); CALCIUM 8.6 mg/dL (8.5-10.1)
[2022-07-09 19:33] LABS: ALBUMIN 2.4 g/dl (3.4-5.0)
[2022-07-09 19:36] LABS: CREATININE 0.8 mg/dL (0.55-1.3)
[2022-07-09 19:37] LABS: BILIRUBIN,TOTAL 0.4 mg/dL (0.2-1); TOT PROT 4.7 g/dl (6.4-8.2)
[2022-07-09] MEDS ORDERED: ACETAMINOPHEN INJECTION 100 ML IVPB ONE (21:03)
[2022-07-09 21:59] LABS: INR 1.05 (0.83-1.09); PROTHROMBIN TIME (PATIENT) 12.1 SEC (9.7-13.0)
[2022-07-09] MEDS ORDERED: HEPARIN NA (PORCINE) 5,000 UNITS/ML 1ML VIAL SQ SCH (22:00)
[2022-07-09 22:01] LABS: ACTIVATED PTT 25.1 SECONDS (25.2-36.5)
[2022-07-09] MEDS ORDERED: MEROPENEM 1 GM in DEXTROSE 5%-WATER 100 ML IVPB ONE (23:13)
[2022-07-10] MEDS: traZODone HCL 50 MG TABLET (FP) PO SCH ×2 (00:12→22:01)
[2022-07-10] MEDS: POLYETHYLENE GLYCOL (HEALTHYLAX) 3350 17 GM PACKET PO SCH ×3 (00:12→22:02)
[2022-07-10 02:58] VITALS: BMI 27.6
[2022-07-10] MEDS: LEVOTHYROXINE NA 125 MCG TABLET (FP) PO SCH (06:25)
[2022-07-10] MEDS ORDERED: INSULIN SLIDING SCALE (NOVOLOG) 1 VIAL SQ SCH (07:00)
[2022-07-10] MEDS ORDERED: PIPERACILLIN/TAZOBACTAM 3.375 GM VIAL IVPB ONE (09:43)
[2022-07-10 09:54] LABS: HEMATOCRIT 32.8 % (32.4-45.2); MCH 34.4 pg (25.7-33.7); MCHC 33.5 g/dl (32.0-36.0); MEAN CELL VOLUME 102.5 fl (80-96); MEAN PLT VOLUME 7.9 fl (7.5-11.1); PLATELET COUNT 298 10^3/uL (134-434); RDW 13.5 % (11.6-15.6); WHITE BLOOD COUNT 4.9 K/mm3 (4.0-10.0)
[2022-07-10 09:57] LABS: CALCIUM 8.5 mg/dL (8.5-10.1); MAGNESIUM 1.4 mg/dL (1.8-2.4)
[2022-07-10 09:58] LABS: BLOOD UREA NITROGEN 9.2 mg/dL (7-18)
[2022-07-10 10:00] LABS: PHOSPHOROUS 4.2 mg/dL (2.5-4.9)
[2022-07-10] MEDS ORDERED: VANCOMYCIN/WATER FOR INJ (PEG) 1,000 MG/200 ML BAG IVPB SCH (10:00)
[2022-07-10] MEDS ORDERED: VANCOMYCIN 1 GM in D5W (PRE-DOCKED) 1,000 MG/250 ML IVPB SCH (10:00)
[2022-07-10] MEDS ORDERED: PIPERACILLIN/TAZOB 3.375 GM 3.375 GM in DEXTROSE 5%-WATER - 50 ML IVPB SCH (10:00)
[2022-07-10 10:01] LABS: CREATININE 0.7 mg/dL (0.55-1.3)
[2022-07-10] MEDS: ENOXAPARIN NA (PORCINE) 40 MG/0.4 ML DISP.SYRIN SQ SCH (10:31)
[2022-07-10] MEDS ORDERED: POTASSIUM CHLORIDE TABS 20 MEQ TABLET.ER (FP) PO ONE (10:45)
[2022-07-10] MEDS: MAGNESIUM OXIDE 400 MG TABLET (FP) PO SCH ×2 (10:48→22:01)
[2022-07-10] MEDS ORDERED: ACETAMINOPHEN 1000 MG/100 ML BAG IVPB PRN (12:58)
[2022-07-10] MEDS: LIDOCAINE 5% TOPICAL PATCH TP SCH (15:52)
[2022-07-10] MEDS: GABAPENTIN 300 MG CAPSULE PO SCH ×2 (15:53→22:00)
[2022-07-10] MEDS: BACLOFEN 10 MG TABLET (FP) PO SCH ×2 (15:53→22:01)
[2022-07-10] MEDS: traMADol HCL 50 MG TABLET PO PRN (15:55)
[2022-07-10] MEDS: CEFAZOLIN 1 GM in DEXTROSE 5%-WATER - 50 ML IVPB SCH (19:04)
[2022-07-10] MEDS ORDERED: MAGNESIUM OXIDE 400 MG TABLET (FP) PO SCH (22:00)
[2022-07-10] MEDS: ATORVASTATIN CA 40 MG TABLET (FP) PO SCH (22:01)
[2022-07-10] MEDS: LIDOCAINE PATCH REMOVAL MC SCH (22:01)
[2022-07-10] MEDS ORDERED: MELATONIN 5 MG TABLETS PO ONE (22:14)
[2022-07-11] MEDS: CEFAZOLIN 1 GM in DEXTROSE 5%-WATER - 50 ML IVPB SCH ×3 (03:36→18:50)
[2022-07-11] MEDS: GABAPENTIN 300 MG CAPSULE PO SCH ×3 (06:20→23:39)
[2022-07-11] MEDS: LEVOTHYROXINE NA 125 MCG TABLET (FP) PO SCH (06:21)
[2022-07-11] MEDS: BACLOFEN 10 MG TABLET (FP) PO SCH ×3 (06:21→23:40)
[2022-07-11] MEDS: MAGNESIUM OXIDE 400 MG TABLET (FP) PO SCH ×2 (10:44→23:40)
[2022-07-11] MEDS: ENOXAPARIN NA (PORCINE) 40 MG/0.4 ML DISP.SYRIN SQ SCH (10:44)
[2022-07-11] MEDS: POLYETHYLENE GLYCOL (HEALTHYLAX) 3350 17 GM PACKET PO SCH ×2 (10:44→23:41)
[2022-07-11] MEDS: LIDOCAINE 5% TOPICAL PATCH TP SCH (10:44)
[2022-07-11] MEDS: traMADol HCL 50 MG TABLET PO PRN ×2 (10:49→19:07)
[2022-07-11] MEDS: metoPROLOL SUCCINATE 25 MG TAB.SR.24H (FP) PO SCH (10:49)
[2022-07-11 12:42] LABS: BASO % 0.7 % (0-2.0); EOS % 1.9 % (0-4.5); HEMATOCRIT 27.5 % (32.4-45.2); HEMOGLOBIN 9.5 GM/dL (10.7-15.3); LYMPH % 17.5 % (8-40); MCH 35.2 pg (25.7-33.7); MCHC 34.5 g/dl (32.0-36.0); MEAN CELL VOLUME 102.1 fl (80-96); MEAN PLT VOLUME 7.3 fl (7.5-11.1); MONO % 6.9 % (3.8-10.2); PLATELET COUNT 293 10^3/uL (134-434); RBC 2.69 M/mm3 (3.60-5.2); RDW 13.4 % (11.6-15.6); WHITE BLOOD COUNT 4.7 K/mm3 (4.0-10.0)
[2022-07-11 13:12] LABS: ALBUMIN 2.2 g/dl (3.4-5.0); BLOOD UREA NITROGEN 8.4 mg/dL (7-18); MAGNESIUM 1.4 mg/dL (1.8-2.4)
[2022-07-11 13:15] LABS: CREATININE 0.7 mg/dL (0.55-1.3)
[2022-07-11 13:17] LABS: BILIRUBIN,TOTAL 0.2 mg/dL (0.2-1); TOT PROT 4.2 g/dl (6.4-8.2)
[2022-07-11] MEDS: clonazePAM 0.5 MG TABLET PO PRN ×2 (15:47→23:39)
[2022-07-11] MEDS: AMINO ACIDS/PROTEIN HYDROLYS 30 ML LIQUID.PKT PO SCH (18:42)
[2022-07-11] MEDS: traZODone HCL 50 MG TABLET (FP) PO SCH (23:39)
[2022-07-11] MEDS: ATORVASTATIN CA 40 MG TABLET (FP) PO SCH (23:39)
[2022-07-11] MEDS: LIDOCAINE PATCH REMOVAL MC SCH (23:40)
[2022-07-12] MEDS: CEFAZOLIN 1 GM in DEXTROSE 5%-WATER - 50 ML IVPB SCH ×4 (01:08→17:39)
[2022-07-12] MEDS: GABAPENTIN 300 MG CAPSULE PO SCH ×3 (06:37→21:06)
[2022-07-12] MEDS: LEVOTHYROXINE NA 125 MCG TABLET (FP) PO SCH (06:38)
[2022-07-12] MEDS: traMADol HCL 50 MG TABLET PO PRN ×2 (06:38→15:08)
[2022-07-12] MEDS: BACLOFEN 10 MG TABLET (FP) PO SCH ×3 (06:38→21:06)
[2022-07-12 08:53] LABS: BASO % 0.5 % (0-2.0); EOS % 3.6 % (0-4.5); HEMATOCRIT 29.2 % (32.4-45.2); HEMOGLOBIN 9.7 GM/dL (10.7-15.3); MCH 34.3 pg (25.7-33.7); MCHC 33.1 g/dl (32.0-36.0); MEAN CELL VOLUME 103.4 fl (80-96); MEAN PLT VOLUME 7.7 fl (7.5-11.1); MONO % 6.8 % (3.8-10.2); NEUT % 63.1 % (42.8-82.8); PLATELET COUNT 325 10^3/uL (134-434); RBC 2.82 M/mm3 (3.60-5.2); RDW 14.3 % (11.6-15.6); WHITE BLOOD COUNT 5.7 K/mm3 (4.0-10.0)
[2022-07-12 09:19] LABS: ALBUMIN 2.3 g/dl (3.4-5.0); BLOOD UREA NITROGEN 10.9 mg/dL (7-18); CALCIUM 8.1 mg/dL (8.5-10.1); MAGNESIUM 1.4 mg/dL (1.8-2.4)
[2022-07-12 09:22] LABS: CREATININE 0.6 mg/dL (0.55-1.3)
[2022-07-12 09:24] LABS: BILIRUBIN,TOTAL 0.3 mg/dL (0.2-1); TOT PROT 4.4 g/dl (6.4-8.2)
[2022-07-12] MEDS: ENOXAPARIN NA (PORCINE) 40 MG/0.4 ML DISP.SYRIN SQ SCH (10:44)
[2022-07-12] MEDS: POLYETHYLENE GLYCOL (HEALTHYLAX) 3350 17 GM PACKET PO SCH ×2 (10:44→21:10)
[2022-07-12] MEDS: AMINO ACIDS/PROTEIN HYDROLYS 30 ML LIQUID.PKT PO SCH ×3 (10:44→17:39)
[2022-07-12] MEDS: metoPROLOL SUCCINATE 25 MG TAB.SR.24H (FP) PO SCH ×2 (10:44→10:47)
[2022-07-12] MEDS: MAGNESIUM OXIDE 400 MG TABLET (FP) PO SCH ×2 (10:44→21:07)
[2022-07-12] MEDS: LIDOCAINE 5% TOPICAL PATCH TP SCH (10:44)
[2022-07-12] MEDS ORDERED: WITCH HAZEL 50% (TUCKS) 40 PAD/JAR PAD TP PRN (16:31)
[2022-07-12] MEDS: traZODone HCL 50 MG TABLET (FP) PO SCH (21:06)
[2022-07-12] MEDS: LIDOCAINE PATCH REMOVAL MC SCH (21:06)
[2022-07-12] MEDS: ATORVASTATIN CA 40 MG TABLET (FP) PO SCH (21:07)
[2022-07-12] MEDS: CEPHALEXIN MONOHYDRATE 500 MG CAPSULE (UD) PO SCH (21:07)
[2022-07-12] MEDS: clonazePAM 0.5 MG TABLET PO PRN (21:13)
[2022-07-13] MEDS: LEVOTHYROXINE NA 125 MCG TABLET (FP) PO SCH (06:06)
[2022-07-13] MEDS: GABAPENTIN 300 MG CAPSULE PO SCH ×3 (06:06→21:46)
[2022-07-13] MEDS: BACLOFEN 10 MG TABLET (FP) PO SCH ×3 (06:06→21:47)
[2022-07-13] MEDS: CEPHALEXIN MONOHYDRATE 500 MG CAPSULE (UD) PO SCH ×3 (06:06→21:46)
[2022-07-13] MEDS: PRAMOXINE HCL/MINERAL OIL/ZNOX 30 GM TUBE RC SCH ×2 (06:52→21:53)
[2022-07-13] MEDS ORDERED: CEPHALEXIN MONOHYDRATE 500 MG CAPSULE (UD) PO SCH (10:00)
[2022-07-13] MEDS: ENOXAPARIN NA (PORCINE) 40 MG/0.4 ML DISP.SYRIN SQ SCH (10:55)
[2022-07-13] MEDS: POLYETHYLENE GLYCOL (HEALTHYLAX) 3350 17 GM PACKET PO SCH ×2 (10:55→21:54)
[2022-07-13 10:56] LABS: BASO % 0.5 % (0-2.0); EOS % 3.5 % (0-4.5); HEMATOCRIT 32.3 % (32.4-45.2); HEMOGLOBIN 10.9 GM/dL (10.7-15.3); LYMPH % 21.5 % (8-40); MCH 34.9 pg (25.7-33.7); MCHC 33.8 g/dl (32.0-36.0); MEAN CELL VOLUME 103.2 fl (80-96); MEAN PLT VOLUME 7.4 fl (7.5-11.1); MONO % 5.9 % (3.8-10.2); NEUT % 68.6 % (42.8-82.8); PLATELET COUNT 350 10^3/uL (134-434); RBC 3.13 M/mm3 (3.60-5.2); RDW 14.2 % (11.6-15.6); WHITE BLOOD COUNT 5.2 K/mm3 (4.0-10.0)
[2022-07-13] MEDS: AMINO ACIDS/PROTEIN HYDROLYS 30 ML LIQUID.PKT PO SCH ×3 (10:56→18:08)
[2022-07-13] MEDS: MAGNESIUM OXIDE 400 MG TABLET (FP) PO SCH ×2 (10:56→21:46)
[2022-07-13] MEDS: metoPROLOL SUCCINATE 25 MG TAB.SR.24H (FP) PO SCH ×2 (10:57→11:00)
[2022-07-13] MEDS: LIDOCAINE 5% TOPICAL PATCH TP SCH (10:57)
[2022-07-13 11:16] LABS: CHLORIDE 110 mmol/L (98-107); SODIUM 146 mmol/L (136-145)
[2022-07-13 11:18] LABS: CALCIUM 8.2 mg/dL (8.5-10.1)
[2022-07-13 11:19] LABS: ALBUMIN 2.4 g/dl (3.4-5.0); ANION GAP 6 MMOL/L (8-16); BLOOD UREA NITROGEN 15.3 mg/dL (7-18); CO2 30 mmol/L (21-32); GLUCOSE,RANDOM 85 mg/dL (74-106); MAGNESIUM 1.4 mg/dL (1.8-2.4)
[2022-07-13 11:22] LABS: CREATININE 0.6 mg/dL (0.55-1.3); SGOT/AST 30 U/L (15-37); SGPT/ALT 64 U/L (13-61)
[2022-07-13 11:24] LABS: BILIRUBIN,TOTAL 0.4 mg/dL (0.2-1); TOT PROT 4.7 g/dl (6.4-8.2)
[2022-07-13 11:25] LABS: ALK PHOS 59 U/L (45-117)
[2022-07-13] MEDS: traMADol HCL 50 MG TABLET PO PRN ×3 (11:56→23:56)
[2022-07-13] MEDS ORDERED: MAGNESIUM OXIDE 400 MG TABLET (FP) PO ONE (12:04)
[2022-07-13] MEDS: clonazePAM 0.5 MG TABLET PO PRN ×2 (12:07→21:53)
[2022-07-13] MEDS: ATORVASTATIN CA 40 MG TABLET (FP) PO SCH (21:46)
[2022-07-13] MEDS: traZODone HCL 50 MG TABLET (FP) PO SCH (21:52)
[2022-07-13] MEDS: LIDOCAINE PATCH REMOVAL MC SCH (21:53)
[2022-07-14] MEDS: BACLOFEN 10 MG TABLET (FP) PO SCH ×3 (04:59→21:58)
[2022-07-14] MEDS: GABAPENTIN 300 MG CAPSULE PO SCH ×3 (05:00→22:03)
[2022-07-14] MEDS: CEPHALEXIN MONOHYDRATE 500 MG CAPSULE (UD) PO SCH ×3 (05:00→21:59)
[2022-07-14] MEDS: LEVOTHYROXINE NA 125 MCG TABLET (FP) PO SCH (06:17)
[2022-07-14] MEDS: traMADol HCL 50 MG TABLET PO PRN ×3 (06:17→18:56)
[2022-07-14] MEDS: LIDOCAINE 5% TOPICAL PATCH TP SCH (10:42)
[2022-07-14] MEDS: AMINO ACIDS/PROTEIN HYDROLYS 30 ML LIQUID.PKT PO SCH ×3 (10:43→18:16)
[2022-07-14] MEDS: ENOXAPARIN NA (PORCINE) 40 MG/0.4 ML DISP.SYRIN SQ SCH (10:43)
[2022-07-14] MEDS: MAGNESIUM OXIDE 400 MG TABLET (FP) PO SCH ×2 (10:43→21:59)
[2022-07-14] MEDS: POLYETHYLENE GLYCOL (HEALTHYLAX) 3350 17 GM PACKET PO SCH ×3 (10:43→22:14)
[2022-07-14] MEDS: metoPROLOL SUCCINATE 25 MG TAB.SR.24H (FP) PO SCH (10:45)
[2022-07-14] MEDS: clonazePAM 0.5 MG TABLET PO PRN ×2 (10:55→21:59)
[2022-07-14 12:00] LABS: BASO % 0.7 % (0-2.0); EOS % 2.9 % (0-4.5); HEMOGLOBIN 9.9 GM/dL (10.7-15.3); LYMPH % 26.1 % (8-40); MCH 34.3 pg (25.7-33.7); MCHC 32.9 g/dl (32.0-36.0); MEAN CELL VOLUME 104.2 fl (80-96); MEAN PLT VOLUME 7.8 fl (7.5-11.1); MONO % 6.6 % (3.8-10.2); NEUT % 63.7 % (42.8-82.8); PLATELET COUNT 361 10^3/uL (134-434); RBC 2.88 M/mm3 (3.60-5.2); RDW 14.5 % (11.6-15.6); WHITE BLOOD COUNT 5.1 K/mm3 (4.0-10.0)
[2022-07-14 12:23] LABS: ALBUMIN 2.5 g/dl (3.4-5.0); BLOOD UREA NITROGEN 18.5 mg/dL (7-18); MAGNESIUM 1.2 mg/dL (1.8-2.4)
[2022-07-14 12:26] LABS: CREATININE 0.7 mg/dL (0.55-1.3)
[2022-07-14 12:27] LABS: BILIRUBIN,TOTAL 0.6 mg/dL (0.2-1)
[2022-07-14 12:28] LABS: TOT PROT 4.8 g/dl (6.4-8.2)
[2022-07-14] MEDS ORDERED: metoPROLOL SUCCINATE 25 MG TAB.SR.24H (FP) PO SCH (16:57)
[2022-07-14 18:25] LABS: URINE APPEARANCE CLEAR; URINE BILIRUBIN NEGATIVE (NEGATIVE); URINE COLOR YELLOW; URINE GLUCOSE (UA) NEGATIVE (NEGATIVE); URINE KETONE NEGATIVE (NEGATIVE)
[2022-07-14 18:26] LABS: URINE LEUK ESTERASE NEGATIVE (NEGATIVE); URINE NITRITE NEGATIVE (NEGATIVE); URINE PROTEIN NEGATIVE (NEGATIVE); URINE UROBILINOGEN 0.2 mg/dL (0.2-1.0)
[2022-07-14 18:43] VITALS: RESP 18
[2022-07-14] MEDS: ACETAMINOPHEN 500 MG TABLET (FP) PO SCH (21:59)
[2022-07-14] MEDS: ATORVASTATIN CA 40 MG TABLET (FP) PO SCH (22:03)
[2022-07-14] MEDS: traZODone HCL 50 MG TABLET (FP) PO SCH (22:03)
[2022-07-14] MEDS: LIDOCAINE PATCH REMOVAL MC SCH (22:04)
[2022-07-14] MEDS: PRAMOXINE HCL/MINERAL OIL/ZNOX 30 GM TUBE RC SCH (22:05)
[2022-07-15] MEDS: traMADol HCL 50 MG TABLET PO PRN ×2 (00:52→10:19)
[2022-07-15] MEDS: GABAPENTIN 300 MG CAPSULE PO SCH (06:12)
[2022-07-15] MEDS: BACLOFEN 10 MG TABLET (FP) PO SCH (06:12)
[2022-07-15] MEDS: LEVOTHYROXINE NA 125 MCG TABLET (FP) PO SCH (06:12)
[2022-07-15] MEDS: ACETAMINOPHEN 500 MG TABLET (FP) PO SCH (06:12)
[2022-07-15] MEDS: CEPHALEXIN MONOHYDRATE 500 MG CAPSULE (UD) PO SCH (06:12)
[2022-07-15] MEDS ORDERED: MAGNESIUM OXIDE 400 MG TABLET (FP) PO ONE (08:26)
[2022-07-15] MEDS: POLYETHYLENE GLYCOL (HEALTHYLAX) 3350 17 GM PACKET PO SCH (10:17)
[2022-07-15] MEDS: AMINO ACIDS/PROTEIN HYDROLYS 30 ML LIQUID.PKT PO SCH (10:18)
[2022-07-15] MEDS: ENOXAPARIN NA (PORCINE) 40 MG/0.4 ML DISP.SYRIN SQ SCH (10:19)
[2022-07-15] MEDS: MAGNESIUM OXIDE 400 MG TABLET (FP) PO SCH (10:19)
[2022-07-15] MEDS: LIDOCAINE 5% TOPICAL PATCH TP SCH (10:20)
[2022-07-15 12:30] LABS: BASO % 0.8 % (0-2.0); EOS % 3.5 % (0-4.5); HEMATOCRIT 28.3 % (32.4-45.2); HEMOGLOBIN 9.4 GM/dL (10.7-15.3); LYMPH % 25.8 % (8-40); MCH 34.4 pg (25.7-33.7); MCHC 33.2 g/dl (32.0-36.0); MEAN CELL VOLUME 103.7 fl (80-96); MEAN PLT VOLUME 7.9 fl (7.5-11.1); MONO % 5.5 % (3.8-10.2); NEUT % 64.4 % (42.8-82.8); PLATELET COUNT 330 10^3/uL (134-434); RBC 2.73 M/mm3 (3.60-5.2); RDW 14.4 % (11.6-15.6); WHITE BLOOD COUNT 4.6 K/mm3 (4.0-10.0)
[2022-07-15 12:59] LABS: ALBUMIN 2.3 g/dl (3.4-5.0)
[2022-07-15 13:00] LABS: BLOOD UREA NITROGEN 20.7 mg/dL (7-18); CALCIUM 7.7 mg/dL (8.5-10.1); MAGNESIUM 1.2 mg/dL (1.8-2.4)
[2022-07-15 13:01] LABS: CREATININE 0.7 mg/dL (0.55-1.3)
[2022-07-15 13:02] LABS: BILIRUBIN,TOTAL 0.5 mg/dL (0.2-1); TOT PROT 4.5 g/dl (6.4-8.2)
[2022-07-15 17:06] VITALS: BP 86/49; PULSE 70; TEMP 97.7
== END 2022-07-15 12:50 | disposition home or self-care (01) | DRG 603 ==
LOC: JER 17:15 → JERBED 21:36 → J8W 23:27 → OBSVTOIN 07-11 13:54 → J5S 07-11 18:26
PROVIDERS: ADMIT Internal Medicine; ATTEND Nurse Practitioner Family
DX: L03.115 Cellulitis of right lower limb (principal); K50.90 Crohn's disease, unspecified, without complications; I87.2 Venous insufficiency (chronic) (peripheral); E03.9 Hypothyroidism, unspecified; E11.9 Type 2 diabetes mellitus without complications; I48.91 Unspecified atrial fibrillation; I10 Essential (primary) hypertension
CPT/HCPCS: 36415; 71045-TC-FY; 73552-TC-RT-FY; 73590-TC-RT-FY; 74177-TC; 80048; 80053; 81003; 82962; 83605; 83690; 83735; 84100; 85025; 85027; 85610; 85730; 86140; 87086; 93005; 93010; 93971; 93971-TC; 93978; 97116-GP; 97161-GP; 99285-25; C9803-CS; G0378; J0475; Q9967; U0003; U0005

== ENCOUNTER 2022-08-05 09:40 | Observation (INO) | payer OTHER ==
[2022-08-05] MEDS ORDERED: ACETAMINOPHEN 1000 MG/100 ML BAG IVPB ONE (10:03)
[2022-08-05] MEDS ORDERED: ACETAMINOPHEN INJECTION 100 ML IVPB ONE (10:28)
[2022-08-05] MEDS ORDERED: SODIUM CHLORIDE 0.9% 500 ML INFUS.BAG IV ONE (11:47)
[2022-08-05 12:05] LABS: BASO % 0.4 % (0-2.0); EOS % 2.1 % (0-4.5); HEMATOCRIT 39.5 % (32.4-45.2); HEMOGLOBIN 13.2 GM/dL (10.7-15.3); INR 0.9 (0.83-1.09); LYMPH % 10.6 % (8-40); MCH 34.7 pg (25.7-33.7); MCHC 33.5 g/dl (32.0-36.0); MEAN CELL VOLUME 103.6 fl (80-96); MEAN PLT VOLUME 8.2 fl (7.5-11.1); MONO % 8.7 % (3.8-10.2); NEUT % 78.2 % (42.8-82.8); PLATELET COUNT 202 10^3/uL (134-434); PROTHROMBIN TIME (PATIENT) 10.3 SEC (9.7-13.0); RBC 3.81 M/mm3 (3.60-5.2); RDW 12.9 % (11.6-15.6); WHITE BLOOD COUNT 7.1 K/mm3 (4.0-10.0)
[2022-08-05 12:08] LABS: ACTIVATED PTT 25.9 SECONDS (25.2-36.5)
[2022-08-05 12:24] LABS: CALCIUM 9.7 mg/dL (8.5-10.1)
[2022-08-05 12:25] LABS: ALBUMIN 4.2 g/dl (3.4-5.0); BLOOD UREA NITROGEN 11.7 mg/dL (7-18); MAGNESIUM 1.9 mg/dL (1.8-2.4)
[2022-08-05 12:28] LABS: CREATININE 0.9 mg/dL (0.55-1.3); PHOSPHOROUS 4.1 mg/dL (2.5-4.9); TOT PROT 7.3 g/dl (6.4-8.2)
[2022-08-05 12:29] LABS: BILIRUBIN,TOTAL 0.4 mg/dL (0.2-1)
[2022-08-05] MEDS ORDERED: PATIENT'S OWN MEDICATION (NON-FORMULARY) (Clonazepam [Clonazepam] 1 MG Tablet) PO PRN (17:11)
[2022-08-05] MEDS ORDERED: [UNRECOGNIZED DRUG - OTHER] IJ SCH (17:15)
[2022-08-05] MEDS ORDERED: POTASSIUM CHLORIDE ORAL LIQUID 20 MEQ/15 ML PO ONE (17:15)
[2022-08-05] MEDS ORDERED: clonazePAM 0.5 MG TABLET PO PRN (17:19)
[2022-08-05] MEDS: traMADol HCL 50 MG TABLET PO PRN (17:24)
[2022-08-05] MEDS ORDERED: traMADol HCL 50 MG TABLET ONE (17:30)
[2022-08-05] MEDS ORDERED: POTASSIUM CHLORIDE ORAL LIQUID 20 MEQ/15 ML ONE (17:31)
[2022-08-05 17:56] LABS: EPI CELLS 2 /uL (0-25.1); HYALINE CASTS 0 /uL (0-3.1); URINE APPEARANCE CLEAR; URINE BACTERIA 3 /uL (0-1359); URINE BILIRUBIN NEGATIVE (NEGATIVE); URINE COLOR DK YELLOW; URINE GLUCOSE (UA) NEGATIVE (NEGATIVE); URINE KETONE NEGATIVE (NEGATIVE); URINE LEUK ESTERASE TRACE (NEGATIVE); URINE NITRITE NEGATIVE (NEGATIVE); URINE PROTEIN NEGATIVE (NEGATIVE); URINE RBC 6 /uL (0-23.9); URINE UROBILINOGEN 0.2 mg/dL (0.2-1.0); URINE WBC 63 /uL (0-25.8)
[2022-08-05 23:58] VITALS: BMI 22.6
[2022-08-06] MEDS: HEPARIN NA (PORCINE) 5,000 UNITS/ML 1ML VIAL SQ SCH ×4 (00:12→21:17)
[2022-08-06] MEDS: traZODone HCL 50 MG TABLET (FP) PO SCH ×2 (00:12→21:16)
[2022-08-06] MEDS: LIDOCAINE PATCH REMOVAL MC SCH ×2 (00:12→22:09)
[2022-08-06] MEDS: BACLOFEN 10 MG TABLET (FP) PO SCH ×4 (00:13→21:16)
[2022-08-06] MEDS: ATORVASTATIN CA 40 MG TABLET (FP) PO SCH ×2 (00:13→21:16)
[2022-08-06] MEDS: MAGNESIUM OXIDE 400 MG TABLET (FP) PO SCH ×3 (00:14→21:16)
[2022-08-06] MEDS: GABAPENTIN 300 MG CAPSULE PO SCH ×4 (00:14→21:16)
[2022-08-06] MEDS: CLOTRIMAZOLE/BETAMET DIPROP 15 GM TUBE TP SCH ×3 (01:03→21:22)
[2022-08-06] MEDS: ACETAMINOPHEN 325 MG TABLET (FP) PO PRN ×3 (02:45→19:01)
[2022-08-06] MEDS: traMADol HCL 50 MG TABLET PO PRN ×3 (04:04→19:00)
[2022-08-06] MEDS: LEVOTHYROXINE NA 125 MCG TABLET (FP) PO SCH (06:20)
[2022-08-06] MEDS: LIDOCAINE 5% TOPICAL PATCH TP SCH (09:11)
[2022-08-06] MEDS: POLYETHYLENE GLYCOL (HEALTHYLAX) 3350 17 GM PACKET PO SCH ×2 (09:18→21:19)
[2022-08-06] MEDS ORDERED: LEVOTHYROXINE SODIUM 150 MCG PO SCH (10:00)
[2022-08-06 10:18] LABS: BASO % 0.5 % (0-2.0); EOS % 4.9 % (0-4.5); HEMATOCRIT 35.1 % (32.4-45.2); HEMOGLOBIN 11.4 GM/dL (10.7-15.3); LYMPH % 28.9 % (8-40); MCH 33.8 pg (25.7-33.7); MCHC 32.6 g/dl (32.0-36.0); MEAN CELL VOLUME 103.6 fl (80-96); MEAN PLT VOLUME 8.5 fl (7.5-11.1); MONO % 7.1 % (3.8-10.2); NEUT % 58.6 % (42.8-82.8); PLATELET COUNT 164 10^3/uL (134-434); RBC 3.39 M/mm3 (3.60-5.2); RDW 12.9 % (11.6-15.6); WHITE BLOOD COUNT 4.3 K/mm3 (4.0-10.0)
[2022-08-06 10:47] LABS: CALCIUM 8.3 mg/dL (8.5-10.1)
[2022-08-06 10:50] LABS: CREATININE 0.7 mg/dL (0.55-1.3)
[2022-08-06 10:52] LABS: BILIRUBIN,TOTAL 0.4 mg/dL (0.2-1); TOT PROT 5.6 g/dl (6.4-8.2)
[2022-08-06 11:08] LABS: ALBUMIN 3.2 g/dl (3.4-5.0)
[2022-08-06 21:42] VITALS: RESP 18
[2022-08-07 05:51] VITALS: BP 110/50; PULSE 65; TEMP 97.9
[2022-08-07] MEDS: GABAPENTIN 300 MG CAPSULE PO SCH ×2 (06:22→13:05)
[2022-08-07] MEDS: BACLOFEN 10 MG TABLET (FP) PO SCH ×2 (06:22→13:05)
[2022-08-07] MEDS: LEVOTHYROXINE NA 125 MCG TABLET (FP) PO SCH (06:22)
[2022-08-07] MEDS: HEPARIN NA (PORCINE) 5,000 UNITS/ML 1ML VIAL SQ SCH ×2 (06:22→13:05)
[2022-08-07] MEDS: POLYETHYLENE GLYCOL (HEALTHYLAX) 3350 17 GM PACKET PO SCH ×2 (07:53→09:01)
[2022-08-07] MEDS: LIDOCAINE 5% TOPICAL PATCH TP SCH (09:02)
[2022-08-07] MEDS: MAGNESIUM OXIDE 400 MG TABLET (FP) PO SCH (09:03)
[2022-08-07] MEDS: CLOTRIMAZOLE/BETAMET DIPROP 15 GM TUBE TP SCH (09:10)
[2022-08-07] MEDS: traMADol HCL 50 MG TABLET PO PRN (10:45)
[2022-08-07] MEDS: ACETAMINOPHEN 325 MG TABLET (FP) PO PRN (13:05)
[2022-08-07] MEDS ORDERED: clonazePAM 0.5 MG TABLET PO PRN (13:25)
[2022-08-07] MEDS: clonazePAM 0.5 MG TABLET PO ONE ×2 (13:30→13:59)
[2022-08-12] MEDS ORDERED: ERGOCALCIFEROL (VIT D2) 50,000 UNIT (1.25 MG) CAPSULE PO SCH (10:00)
== END 2022-08-07 17:00 | disposition home health service (06) ==
LOC: JER 09:40 → JERBED 16:29 → UNDOADMOB 16:29 → OBSVTOIN 17:15 → INTOOBSV 17:15 → JERBED 23:25 → J8W 23:25 → JERBED 08-06 09:23
PROVIDERS: ADMIT Internal Medicine; ATTEND Nurse Practitioner Acute Care
PROC: 3E033NZ Introduction of Analgesics, Hypnotics, Sedatives into Peripheral Vein, Percutaneous Approach (ICD-10-PCS; principal; 2022-08-06)
PROC: 3E023GC Introduction of Other Therapeutic Substance into Muscle, Percutaneous Approach (ICD-10-PCS; 2022-08-06)
PROC: 3E0337Z Introduction of Electrolytic and Water Balance Substance into Peripheral Vein, Percutaneous Approach (ICD-10-PCS; 2022-08-06)
DX: K50.90 Crohn's disease, unspecified, without complications (principal); K90.0 Celiac disease; I48.91 Unspecified atrial fibrillation; R55 Syncope and collapse; R53.1 Weakness; I10 Essential (primary) hypertension; E03.9 Hypothyroidism, unspecified; W18.39XA Other fall on same level, initial encounter; Y93.89 Activity, other specified; Y92.89 Other specified places as the place of occurrence of the external cause; Z90.49 Acquired absence of other specified parts of digestive tract; Z91.018 Allergy to other foods; Z88.2 Allergy status to sulfonamides
CPT/HCPCS: 0241U-QW; 36415; 70450-TC; 71045-TC-FY; 72125-TC; 72170-TC-FY; 73521-TC-FY; 80053; 81003; 82962; 83735; 84100; 84484; 85025; 85610; 85730; 86850; 86870; 86900; 86901; 86902; 87086; 93005; 93010; 96372; 96374; 99285-25; G0378; J0475; J1644

== ENCOUNTER 2024-04-03 17:34 | Observation (INO) | payer OTHER ==
[2024-04-03 17:53] VITALS: BMI 22.6
[2024-04-03] MEDS ORDERED: ACETAMINOPHEN INJECTION 100 ML IVPB ONE (17:58)
[2024-04-03] MEDS ORDERED: ALBUTEROL SO4 2.5/IPRATROPIUM 0.5 INH SOL 3 ML VIAL.NEB. NEB ONE (18:57)
[2024-04-03] MEDS: ACETAMINOPHEN 1000 MG/100 ML BAG IVPB ONE (19:09)
[2024-04-03] MEDS: ALBUTEROL SO4 2.5/IPRATROPIUM 0.5 INH SOL 3 ML VIAL.NEB. NEB SCH (19:09)
[2024-04-03] MEDS: SODIUM CHLORIDE 0.9% 500 ML INFUS.BAG IV ONE (19:09)
[2024-04-03 19:17] LABS: BASO % 0.4 % (0-2.0); HEMATOCRIT 38.1 % (32.4-45.2); HEMOGLOBIN 12.7 GM/dL (10.7-15.3); LYMPH % 20.9 % (8-40); MCH 33.2 pg (25.7-33.7); MCHC 33.4 g/dl (32.0-36.0); MEAN CELL VOLUME 99.4 fl (80-96); MEAN PLT VOLUME 7.7 fl (7.5-11.1); MONO % 7.7 % (3.8-10.2); PLATELET COUNT 198 10^3/uL (134-434); RBC 3.84 M/mm3 (3.60-5.2); RDW 12.9 % (11.6-15.6); WHITE BLOOD COUNT 4.7 K/mm3 (4.0-10.0)
[2024-04-03 19:22] LABS: INR 0.94 (0.83-1.09); PROTHROMBIN TIME (PATIENT) 10.6 SEC (9.7-13.0)
[2024-04-03 19:25] LABS: ACTIVATED PTT 27.5 SECONDS (25.2-36.5)
[2024-04-03 19:29] LABS: POTASSIUM 3.3 mmol/L (3.5-5.1)
[2024-04-03 19:31] LABS: CALCIUM 9.3 mg/dL (8.5-10.1)
[2024-04-03 19:32] LABS: ALBUMIN 4.2 g/dl (3.4-5.0)
[2024-04-03 19:35] LABS: CREATININE 0.8 mg/dL (0.55-1.3)
[2024-04-03 19:37] LABS: BILIRUBIN,TOTAL 0.5 mg/dL (0.2-1); TOT PROT 7.3 g/dl (6.4-8.2)
[2024-04-03 19:40] LABS: N-TERMINAL BNP 266.7 pg/ml (5-125)
[2024-04-03 20:14] LABS: MAGNESIUM 1.6 mg/dL (1.8-2.4)
[2024-04-03] MEDS ORDERED: POTASSIUM CHLORIDE ORAL LIQUID 20 MEQ/15 ML ONE (20:33)
[2024-04-03] MEDS: POTASSIUM CHLORIDE ORAL LIQUID 20 MEQ/15 ML PO ONE (20:39)
[2024-04-03] MEDS ORDERED: methylPREDNISolone NA SUCC 125 MG/2 ML VIAL ONE (21:46)
[2024-04-03] MEDS ORDERED: MAGNESIUM SULFATE IN WATER 2 GM/50 ML IVPB IVPB ONE (21:46)
[2024-04-03] MEDS ORDERED: AZITHROMYCIN IVPB 500 MG/250 ML BAG IVPB ONE (21:46)
[2024-04-03] MEDS ORDERED: ALBUTEROL SO4 0.083% IH SOL 2.5 MG/3 ML VIAL.NEB. NEB ONE (21:46)
[2024-04-03] MEDS: ALBUTEROL SO4 0.083% IH SOL 2.5 MG/3 ML VIAL.NEB. NEB ONE (22:23)
[2024-04-03 22:57] LABS: VENOUS BASE EXCESS 1.6 mmol/L (-2-2); VENOUS O2 SATURATION 64.1 % (70-80); VENOUS PCO2 60.3 mmHg (38-52); VENOUS PH 7.302 (7.310-7.410)
[2024-04-03 23:55] LABS: URINE APPEARANCE CLEAR; URINE BILIRUBIN NEGATIVE (NEGATIVE); URINE COLOR YELLOW; URINE GLUCOSE (UA) NEGATIVE (NEGATIVE); URINE KETONE NEGATIVE (NEGATIVE); URINE LEUK ESTERASE NEGATIVE (NEGATIVE); URINE NITRITE NEGATIVE (NEGATIVE); URINE PROTEIN NEGATIVE (NEGATIVE); URINE UROBILINOGEN 0.2 mg/dL (0.2-1.0)
[2024-04-04] MEDS ORDERED: ALBUTEROL SO4 0.083% IH SOL 2.5 MG/3 ML VIAL.NEB. NEB PRN (05:45)
[2024-04-04 07:09] LABS: BASO % 0.1 % (0-2.0); HEMATOCRIT 34.6 % (32.4-45.2); HEMOGLOBIN 11.6 GM/dL (10.7-15.3); LYMPH % 8.9 % (8-40); MCH 33.5 pg (25.7-33.7); MCHC 33.5 g/dl (32.0-36.0); MEAN CELL VOLUME 99.9 fl (80-96); MEAN PLT VOLUME 7.4 fl (7.5-11.1); MONO % 1.4 % (3.8-10.2); NEUT % 89.6 % (42.8-82.8); PLATELET COUNT 173 10^3/uL (134-434); RBC 3.46 M/mm3 (3.60-5.2); WHITE BLOOD COUNT 2.6 K/mm3 (4.0-10.0)
[2024-04-04 07:19] LABS: POTASSIUM 3.4 mmol/L (3.5-5.1)
[2024-04-04 07:25] LABS: CALCIUM 8.6 mg/dL (8.5-10.1)
[2024-04-04 07:29] LABS: CREATININE 0.8 mg/dL (0.55-1.3)
[2024-04-04] MEDS: POTASSIUM CHLORIDE ORAL LIQUID 20 MEQ/15 ML PO ONE (10:57)
[2024-04-04] MEDS: FLUoxetine HCL 20 MG CAPSULE PO SCH (10:58)
[2024-04-04] MEDS: UMECLIDINIUM/VILANTEROL (ANORO) 62.5/25 MCG INHALER IH SCH (10:59)
[2024-04-04] MEDS: LEVOTHYROXINE NA 125 MCG TABLET (FP) PO SCH (10:59)
[2024-04-04] MEDS: methylPREDNISolone NA SUCC 40 MG/1 ML VIAL IVPUSH SCH (12:00)
[2024-04-04] MEDS: AZITHROMYCIN IVPB 500 MG/250 ML BAG IVPB SCH (12:03)
[2024-04-04] MEDS: clonazePAM 0.5 MG TABLET PO SCH (15:41)
[2024-04-04] MEDS: GABAPENTIN 300 MG CAPSULE PO SCH (15:41)
[2024-04-04] MEDS: ACETAMINOPHEN 1000 MG/100 ML BAG IVPB PRN (15:42)
[2024-04-04] MEDS: ALBUTEROL SO4 0.083% IH SOL 2.5 MG/3 ML VIAL.NEB. NEB SCH (16:43)
[2024-04-04] MEDS ORDERED: ATORVASTATIN CA 40 MG TABLET (FP) PO SCH (22:00)
[2024-04-04] MEDS: traZODone HCL 50 MG TABLET (FP) PO SCH (22:40)
[2024-04-04] MEDS: EZETIMIBE 10 MG TABLET (FP) PO SCH (22:40)
[2024-04-04] MEDS: ATORVASTATIN CA 40 MG TABLET (FP) PO SCH (22:40)
[2024-04-05] MEDS: AZITHROMYCIN IVPB 500 MG in DEXTROSE 5%-WATER - 250 ML IVPB ONE (06:32)
[2024-04-05] MEDS: EZETIMIBE 10 MG TABLET (FP) PO SCH (06:32)
[2024-04-05] MEDS: AZITHROMYCIN IVPB 500 MG in DEXTROSE 5%-WATER - 250 ML IVPB SCH (06:32)
[2024-04-05] MEDS: methylPREDNISolone NA SUCC 125 MG/2 ML VIAL IVPUSH ONE (06:32)
[2024-04-05] MEDS: MAGNESIUM SULF 50% (8.12 MEQ/2 ML-1 GM VIAL) IVPB ONE (06:33)
[2024-04-05 06:44] LABS: HEMATOCRIT 35.5 % (32.4-45.2); MCH 33.6 pg (25.7-33.7); MCHC 33.7 g/dl (32.0-36.0); MEAN CELL VOLUME 99.7 fl (80-96); MEAN PLT VOLUME 7.8 fl (7.5-11.1); PLATELET COUNT 199 10^3/uL (134-434); RBC 3.56 M/mm3 (3.60-5.2); WHITE BLOOD COUNT 6.4 K/mm3 (4.0-10.0)
[2024-04-05 07:04] LABS: CALCIUM 8.9 mg/dL (8.5-10.1)
[2024-04-05 07:07] LABS: CREATININE 0.6 mg/dL (0.55-1.3)
[2024-04-05 07:08] LABS: BLOOD UREA NITROGEN 14.1 mg/dL (7-18)
[2024-04-05 07:09] LABS: BILIRUBIN,TOTAL 0.2 mg/dL (0.2-1); TOT PROT 5.8 g/dl (6.4-8.2)
[2024-04-05 07:13] LABS: N-TERMINAL BNP 1226.3 pg/ml (5-125)
[2024-04-05 07:23] LABS: ALBUMIN 3.2 g/dl (3.4-5.0)
[2024-04-05 09:36] LABS: ANISOCYTOSIS 0; MACROCYTOSIS 0
[2024-04-05] MEDS: ACETAMINOPHEN 1000 MG/100 ML BAG IVPB PRN (20:12)
[2024-04-06] MEDS: LEVOTHYROXINE NA 88 MCG TABLET (FP) PO SCH (06:33)
[2024-04-06 08:37] LABS: BASO % 0.1 % (0-2.0); HEMATOCRIT 41.6 % (32.4-45.2); HEMOGLOBIN 14.2 GM/dL (10.7-15.3); LYMPH % 6.3 % (8-40); MCH 33.9 pg (25.7-33.7); MCHC 34.2 g/dl (32.0-36.0); MEAN CELL VOLUME 99.3 fl (80-96); MEAN PLT VOLUME 8.1 fl (7.5-11.1); MONO % 1.6 % (3.8-10.2); PLATELET COUNT 218 10^3/uL (134-434); RBC 4.19 M/mm3 (3.60-5.2); RDW 13.4 % (11.6-15.6); WHITE BLOOD COUNT 6.8 K/mm3 (4.0-10.0)
[2024-04-06 09:00] LABS: POTASSIUM 4.5 mmol/L (3.5-5.1)
[2024-04-06 09:19] LABS: CALCIUM 9.2 mg/dL (8.5-10.1)
[2024-04-06 09:20] LABS: ALBUMIN 3.6 g/dl (3.4-5.0); BLOOD UREA NITROGEN 21.6 mg/dL (7-18)
[2024-04-06 09:23] LABS: CREATININE 0.8 mg/dL (0.55-1.3)
[2024-04-06 09:24] LABS: BILIRUBIN,TOTAL 0.5 mg/dL (0.2-1)
[2024-04-06 09:25] LABS: TOT PROT 7.2 g/dl (6.4-8.2)
[2024-04-06 10:17] LABS: ANISOCYTOSIS 0; HELMET CELLS 0; HOWELL-JOLLY BODIES 0; MACROCYTOSIS 0; OVALOCYTE 0; ROULEAU 0; SICKELED CELLS 0; TARGET CELLS 0; TEAR DROP CELLS 0; TOXIC GRANULATION 0
[2024-04-06] MEDS: POLYETHYLENE GLYCOL (HEALTHYLAX) 3350 17 GM PACKET PO SCH (16:22)
[2024-04-06] MEDS: BISACODYL 5 MG TABLET.DR (FP) PO PRN (17:25)
[2024-04-06] MEDS: ACETAMINOPHEN 1000 MG/100 ML BAG IVPB ONE (19:51)
[2024-04-06] MEDS: ACETAMINOPHEN 325 MG TABLET (FP) PO ONE (19:54)
[2024-04-06] MEDS: methylPREDNISolone NA SUCC 40 MG/1 ML VIAL IVPUSH SCH (22:13)
[2024-04-07 07:58] VITALS: RESP 18
[2024-04-07] MEDS: metoPROLOL SUCCINATE 25 MG TAB.SR.24H (FP) PO SCH (09:44)
[2024-04-07] MEDS: FLUTICASONE/UMECLIDIN/VILANTER(200-62.5-25 TRELEGY ELLIPTA) INAHLER IH SCH (09:45)
[2024-04-07] MEDS: ACETAMINOPHEN 1000 MG/100 ML BAG IVPB PRN (12:14)
[2024-04-08 08:35] VITALS: TEMP 98.2
[2024-04-08] MEDS: predniSONE 20 MG TABLET (UD) PO SCH (09:24)
[2024-04-08 12:08] VITALS: BP 135/67; PULSE 66
== END 2024-04-08 15:48 | disposition home or self-care (01) ==
LOC: JER 17:34 → JERBED 21:49 → J4S 04-04 02:26
PROVIDERS: ADMIT Internal Medicine; ATTEND Internal Medicine
PROC: 3E033NZ Introduction of Analgesics, Hypnotics, Sedatives into Peripheral Vein, Percutaneous Approach (ICD-10-PCS; principal; 2024-04-03)
PROC: 3E0F7GC Introduction of Other Therapeutic Substance into Respiratory Tract, Via Natural or Artificial Opening (ICD-10-PCS; 2024-04-03)
PROC: 3E03329 Introduction of Other Anti-infective into Peripheral Vein, Percutaneous Approach (ICD-10-PCS; 2024-04-03)
PROC: 3E0337Z Introduction of Electrolytic and Water Balance Substance into Peripheral Vein, Percutaneous Approach (ICD-10-PCS; 2024-04-03)
DX: J44.1 Chronic obstructive pulmonary disease with (acute) exacerbation (principal); I31.39 Other pericardial effusion (noninflammatory); I48.0 Paroxysmal atrial fibrillation; E78.5 Hyperlipidemia, unspecified; M32.9 Systemic lupus erythematosus, unspecified; I65.29 Occlusion and stenosis of unspecified carotid artery; K50.90 Crohn's disease, unspecified, without complications; G89.29 Other chronic pain; M54.50 Low back pain, unspecified; Z86.718 Personal history of other venous thrombosis and embolism; Z90.49 Acquired absence of other specified parts of digestive tract; E03.9 Hypothyroidism, unspecified; Z88.2 Allergy status to sulfonamides
CPT/HCPCS: 0241U-QW; 36415; 70450-TC; 71045-TC-FY; 80048; 80053; 80061; 81003; 82803; 82962; 83036; 83735; 83880; 84439; 84443; 84484; 85025; 85610; 85730; 87086; 93005; 93010; 93306-TC; 94640; 96365; 96374; 96375; 96376; 97116-GP; 97161-GP; 99285-25; G0378; J0131

== ENCOUNTER 2024-05-16 04:08 | Day surgery (SDC) | payer OTHER ==
[2024-05-13 09:42] VITALS: BMI 23.4
[2024-05-16] MEDS ORDERED: LIDOCAINE HCL/PF 1% SDV 5ML VIAL ONE ×2 (07:35→07:47)
[2024-05-16] MEDS ORDERED: DEXAMETHASONE SOD PHOSPHATE 10 MG/1 ML VIAL ONE (07:36)
[2024-05-16 10:58] VITALS: RESP 20
[2024-05-16] MEDS: IOHEXOL 180 MG/1 ML ML IJ ONE (12:05)
[2024-05-16] MEDS: LIDOCAINE HCL 1% PRESERVATIVE FREE - 30ML VIAL IJ ONE ×2 (12:05)
[2024-05-16] MEDS: DEXAMETHASONE SOD PHOSPHATE 10 MG/1 ML VIAL IM ONE (12:06)
[2024-05-16] MEDS: ACETAMINOPHEN 500 MG TABLET (FP) PO PRN (12:20)
[2024-05-16] MEDS ORDERED: ACETAMINOPHEN 500 MG TABLET (FP) ONE (12:21)
[2024-05-16 13:39] VITALS: BP 132/72; PULSE 61; TEMP 97.2
== END 2024-05-16 13:05 | disposition home or self-care (01) ==
LOC: JASU-SURG 04:08
PROVIDERS: ATTEND Pain Medicine Pain Medicine
PROC: 3E0R3BZ Introduction of Anesthetic Agent into Spinal Canal, Percutaneous Approach (ICD-10-PCS; 2024-05-16)
PROC: 3E0R33Z Introduction of Anti-inflammatory into Spinal Canal, Percutaneous Approach (ICD-10-PCS; principal; 2024-05-16 11:30)
DX: M48.061 Spinal stenosis, lumbar region without neurogenic claudication (principal); M54.16 Radiculopathy, lumbar region
CPT/HCPCS: 76000-TC-FY; J1100

== ENCOUNTER 2024-07-06 13:07 | Emergency (ER) | payer OTHER ==
[2024-07-06 13:19] VITALS: BP 142/79; PULSE 82; RESP 16; TEMP 99.1; BMI 20.7
== END 2024-07-06 15:26 | disposition home or self-care (01) ==
LOC: JER 13:07
DX: R21 Rash and other nonspecific skin eruption (principal); Z93.2 Ileostomy status
CPT/HCPCS: 99283-25

== ENCOUNTER 2024-07-08 21:10 | Emergency (ER) | payer OTHER ==
[2024-07-08 21:15] VITALS: BP 161/79; PULSE 84; RESP 18; TEMP 98.3; BMI 20.7
== END 2024-07-08 22:13 | disposition home or self-care (01) ==
LOC: JERFT 21:10
DX: Z43.3 Encounter for attention to colostomy (principal)
CPT/HCPCS: 99282-25

== ENCOUNTER 2024-08-30 22:30 | Inpatient (IN) | payer OTHER ==
[2024-08-31 00:17] LABS: BASO % 0.5 % (0-2.0); EOS % 1.8 % (0-4.5); HEMATOCRIT 37.6 % (32.4-45.2); HEMOGLOBIN 12.7 GM/dL (10.7-15.3); LYMPH % 19.9 % (8-40); MCH 33.5 pg (25.7-33.7); MCHC 33.7 g/dl (32.0-36.0); MEAN CELL VOLUME 99.5 fl (80-96); MONO % 7.8 % (3.8-10.2); PLATELET COUNT 197 10^3/uL (134-434); RBC 3.78 M/mm3 (3.60-5.2); RDW 12.9 % (11.6-15.6); WHITE BLOOD COUNT 4.6 K/mm3 (4.0-10.0)
[2024-08-31 00:30] LABS: INR 1.01 (0.83-1.09); PROTHROMBIN TIME (PATIENT) 11.4 SEC (9.7-13.0)
[2024-08-31 00:33] LABS: ACTIVATED PTT 31.8 SECONDS (25.2-36.5)
[2024-08-31 00:35] LABS: POTASSIUM 4.3 mmol/L (3.5-5.1)
[2024-08-31 00:37] LABS: ALBUMIN 4.9 g/dl (3.4-5.0); CALCIUM 9.3 mg/dL (8.5-10.1)
[2024-08-31 00:38] LABS: BLOOD UREA NITROGEN 11.6 mg/dL (7-18)
[2024-08-31 00:41] LABS: CREATININE 0.9 mg/dL (0.55-1.3)
[2024-08-31 00:42] LABS: TOT PROT 7.3 g/dl (6.4-8.2)
[2024-08-31 00:43] LABS: BILIRUBIN,TOTAL 0.5 mg/dL (0.2-1)
[2024-08-31] MEDS ORDERED: PIPERACILLIN/TAZOB 4.5 GM 4.5 GM/100 ML BAG IVPB ONE (02:20)
[2024-08-31 02:25] LABS: URINE APPEARANCE CLEAR; URINE BILIRUBIN NEGATIVE (NEGATIVE); URINE COLOR YELLOW; URINE GLUCOSE (UA) NEGATIVE (NEGATIVE); URINE KETONE NEGATIVE (NEGATIVE); URINE LEUK ESTERASE NEGATIVE (NEGATIVE); URINE NITRITE NEGATIVE (NEGATIVE); URINE PROTEIN NEGATIVE (NEGATIVE); URINE UROBILINOGEN 0.2 mg/dL (0.2-1.0)
[2024-08-31] MEDS: LACTATED RINGERS SOLUTION 1000 ML INFUS.BAG IV ONE (02:29)
[2024-08-31] MEDS: PIPERACILLIN/TAZOB 4.5 GM 4.5 GM in DEXTROSE 5%-WATER 100 ML IVPB ONE (02:30)
[2024-08-31] MEDS: VANCOMYCIN 1,000 MG in DEXTROSE 5%-WATER - 250 ML IVPB ONE (03:00)
[2024-08-31] MEDS ORDERED: VANCOMYCIN 1 GRAM (PRE-DOCKED) 1,000 MG/250 ML BAG IVPB ONE (03:00)
[2024-08-31] MEDS: SODIUM CHLORIDE 1,000 ML IV SCH (06:38)
[2024-08-31 08:55] LABS: COCAINE, UR NEGATIVE (NEGATIVE); METHADONE, UR NEGATIVE (NEGATIVE); OPIATES, URI NEGATIVE (NEGATIVE); URINE AMPHETAMINES NEGATIVE (NEGATIVE); URINE BARBITURATES NEGATIVE (NEGATIVE); URINE BENZODIAZEPINES NEGATIVE (NEGATIVE)
[2024-08-31 08:56] LABS: PHENCYCLIDINE,URINE NEGATIVE (NEGATIVE)
[2024-08-31 10:01] LABS: BASO % 0.7 % (0-2.0); EOS % 3.5 % (0-4.5); HEMATOCRIT 33.5 % (32.4-45.2); HEMOGLOBIN 11.5 GM/dL (10.7-15.3); LYMPH % 19.3 % (8-40); MCH 33.7 pg (25.7-33.7); MCHC 34.3 g/dl (32.0-36.0); MEAN CELL VOLUME 98.3 fl (80-96); MEAN PLT VOLUME 7.2 fl (7.5-11.1); MONO % 12.1 % (3.8-10.2); NEUT % 64.4 % (42.8-82.8); PLATELET COUNT 192 10^3/uL (134-434); RBC 3.41 M/mm3 (3.60-5.2); RDW 12.9 % (11.6-15.6); WHITE BLOOD COUNT 4.1 K/mm3 (4.0-10.0)
[2024-08-31 10:15] LABS: POTASSIUM 3.6 mmol/L (3.5-5.1)
[2024-08-31 11:00] LABS: BLOOD UREA NITROGEN 7.9 mg/dL (7-18)
[2024-08-31 11:01] LABS: CALCIUM 8.7 mg/dL (8.5-10.1)
[2024-08-31 11:02] LABS: MAGNESIUM 1.6 mg/dL (1.8-2.4)
[2024-08-31 11:03] LABS: CREATININE 0.7 mg/dL (0.55-1.3)
[2024-08-31 11:04] LABS: PHOSPHOROUS 2.9 mg/dL (2.5-4.9)
[2024-08-31] MEDS ORDERED: PIPERACILLIN/TAZOB 3.375 GM 50 ML IVPB SCH (11:25)
[2024-08-31] MEDS: PIPERACILLIN/TAZOB 3.375 GM 3.375 GM in DEXTROSE 5%-WATER - 50 ML IVPB SCH ×2 (12:26→15:48)
[2024-08-31] MEDS: CLOTRIMAZOLE 1% CREAM TP SCH (14:27)
[2024-09-01] MEDS: CEFAZOLIN 1 GM/D5W 1 GM/50 ML BAG IVPB SCH (01:54)
[2024-09-01] MEDS ORDERED: CEFAZOLIN 1 GM in DEXTROSE 5%-WATER - 50 ML IVPB SCH (02:00)
[2024-09-01 10:43] LABS: BASO % 0.5 % (0-2.0); HEMATOCRIT 33.6 % (32.4-45.2); HEMOGLOBIN 11.4 GM/dL (10.7-15.3); LYMPH % 17.7 % (8-40); MCH 33.8 pg (25.7-33.7); MCHC 33.9 g/dl (32.0-36.0); MEAN CELL VOLUME 99.6 fl (80-96); MEAN PLT VOLUME 7.5 fl (7.5-11.1); MONO % 5.7 % (3.8-10.2); NEUT % 75.1 % (42.8-82.8); PLATELET COUNT 211 10^3/uL (134-434); RBC 3.37 M/mm3 (3.60-5.2); RDW 12.9 % (11.6-15.6); WHITE BLOOD COUNT 4.3 K/mm3 (4.0-10.0)
[2024-09-01 11:24] LABS: POTASSIUM 3.1 mmol/L (3.5-5.1)
[2024-09-01 11:27] LABS: BLOOD UREA NITROGEN 10.4 mg/dL (7-18)
[2024-09-01 11:28] LABS: ALBUMIN 3.8 g/dl (3.4-5.0)
[2024-09-01 11:30] LABS: CREATININE 0.6 mg/dL (0.55-1.3)
[2024-09-01 11:32] LABS: BILIRUBIN,TOTAL 0.5 mg/dL (0.2-1)
[2024-09-01] MEDS: POTASSIUM CHLORIDE ORAL LIQUID 20 MEQ/15 ML PO ONE (14:14)
[2024-09-01] MEDS: FLUTICASONE/UMECLIDIN/VILANTER(200-62.5-25 TRELEGY ELLIPTA) INAHLER IH SCH (15:41)
[2024-09-01] MEDS: EZETIMIBE 10 MG TABLET (FP) PO SCH (22:31)
[2024-09-01] MEDS: ATORVASTATIN CA 40 MG TABLET (FP) PO SCH (22:31)
[2024-09-01] MEDS: GABAPENTIN 300 MG CAPSULE PO SCH (22:31)
[2024-09-02] MEDS: LEVOTHYROXINE NA 125 MCG TABLET (FP) PO SCH (07:08)
[2024-09-02 10:07] LABS: BASO % 0.3 % (0-2.0); EOS % 0.7 % (0-4.5); HEMATOCRIT 35.4 % (32.4-45.2); HEMOGLOBIN 11.9 GM/dL (10.7-15.3); LYMPH % 14.5 % (8-40); MCH 33.4 pg (25.7-33.7); MCHC 33.5 g/dl (32.0-36.0); MEAN CELL VOLUME 99.7 fl (80-96); MEAN PLT VOLUME 7.6 fl (7.5-11.1); MONO % 5.4 % (3.8-10.2); NEUT % 79.1 % (42.8-82.8); PLATELET COUNT 237 10^3/uL (134-434); RBC 3.55 M/mm3 (3.60-5.2); WHITE BLOOD COUNT 5.7 K/mm3 (4.0-10.0)
[2024-09-02 10:46] LABS: POTASSIUM 3.5 mmol/L (3.5-5.1)
[2024-09-02 10:51] LABS: ALBUMIN 3.7 g/dl (3.4-5.0); CALCIUM 8.7 mg/dL (8.5-10.1)
[2024-09-02 10:52] LABS: BLOOD UREA NITROGEN 15.5 mg/dL (7-18)
[2024-09-02 10:55] LABS: CREATININE 0.7 mg/dL (0.55-1.3)
[2024-09-02 10:56] LABS: BILIRUBIN,TOTAL 0.5 mg/dL (0.2-1); TOT PROT 6.2 g/dl (6.4-8.2)
[2024-09-02] MEDS: metoPROLOL SUCCINATE 25 MG TAB.SR.24H (FP) PO SCH (11:20)
[2024-09-02] MEDS: SERTRALINE HCL 25 MG TABLET (FP) PO SCH (11:21)
[2024-09-02] MEDS: clonazePAM 0.5 MG TABLET PO PRN (15:30)
[2024-09-02 15:35] VITALS: BMI 20.9
[2024-09-02] MEDS: traZODone HCL 100 MG TABLET (FP) PO SCH (21:28)
[2024-09-03 09:49] VITALS: PULSE 79
[2024-09-03 11:49] VITALS: BP 144/84; RESP 18; TEMP 98.7
== END 2024-09-03 13:28 | disposition home health service (06) | DRG 603 ==
LOC: JER 22:30 → JERBED 08-31 03:34 → J8W 08-31 08:45
PROVIDERS: ADMIT Family Medicine; ATTEND Family Medicine
DX: L03.311 Cellulitis of abdominal wall (principal); M62.82 Rhabdomyolysis; R62.7 Adult failure to thrive; J44.9 Chronic obstructive pulmonary disease, unspecified; E78.5 Hyperlipidemia, unspecified; I48.0 Paroxysmal atrial fibrillation; E03.9 Hypothyroidism, unspecified; M32.9 Systemic lupus erythematosus, unspecified; Z68.21 Body mass index [BMI] 21.0-21.9, adult; E11.40 Type 2 diabetes mellitus with diabetic neuropathy, unspecified; Z93.2 Ileostomy status; R40.4 Transient alteration of awareness
CPT/HCPCS: 36415; 70450-TC; 70496-TC; 70498-TC; 74177-TC; 80048; 80053; 80061; 80307; 81003; 82550; 82553; 83036; 83735; 84100; 84443; 84484; 85025; 85610; 85730; 86850; 86870; 86880; 86900; 86901; 86902; 87040; 87086; 93005; 93010; 97116-GP; 97161-GP; 99285-25; Q9967

== ENCOUNTER 2025-08-18 16:52 | Inpatient (IN) | payer OTHER ==
[2025-08-18] MEDS: ACETAMINOPHEN 325 MG TABLET (FP) PO ONE ×2 (18:24→18:37)
[2025-08-18] MEDS ORDERED: ACETAMINOPHEN INJECTION 100 ML ONE (18:26)
[2025-08-18] MEDS: ACETAMINOPHEN 1000 MG/100 ML BAG IVPB ONE (18:26)
[2025-08-18] MEDS: morphine CARPU-JECT 4 MG/1 ML DISP.SYRIN IVPUSH ONE (20:02)
[2025-08-18 20:52] LABS: ABSOLUTE IMMATURE GRANULOCYTES 0.02 x10^3/uL (0.0-0.031); BASOPHILS # 0.04 x10^3/uL (0.01-0.08); EOSINOPHIL % 1.1 % (0.7-5.8); EOSINOPHILS # 0.07 x10^3/uL (0.04-0.36); MCHC 31.9 g/dl (32.2-35.5); MEAN CELL VOLUME 100.9 fl (79.4-94.8); MEAN PLT VOLUME 8.7 fl (9.4-12.3); MONOCYTE # 0.49 x10^3/uL (0.24-0.86); MONOCYTE % 7.6 % (4.7-12.5); RDW 11.9 % (12.4-16.6)
[2025-08-18 20:54] LABS: INR 1.04 (0.83-1.09); PROTHROMBIN TIME (PATIENT) 11.4 SEC (9.7-13.0)
[2025-08-18 20:57] LABS: ACTIVATED PTT 27.5 SECONDS (25.2-36.5)
[2025-08-18 21:29] LABS: GLUCOSE,RANDOM 105.0 mg/dL (74-106); TOT PROT 6.4 g/dl (6.4-8.2)
[2025-08-18 21:30] LABS: CO2 27.0 mmol/L (21-32)
[2025-08-18 21:32] LABS: ALK PHOS 89.0 U/L (40-150)
[2025-08-18 21:34] LABS: SGOT/AST 28.0 U/L (5-34); SGPT/ALT 35.0 U/L (0-55)
[2025-08-18 21:35] LABS: CREATININE 0.72 mg/dL (0.55-1.3)
[2025-08-19] MEDS: ACETAMINOPHEN 1000 MG/100 ML BAG IVPB ONE (00:56)
[2025-08-19] MEDS: POTASSIUM CHLORIDE TABS 10 MEQ TABLET.ER (FP) PO ONE (00:57)
[2025-08-19] MEDS: MAGNESIUM OXIDE 400 MG TABLET (FP) PO ONE (00:57)
[2025-08-19] MEDS: traZODone HCL 100 MG TABLET (FP) PO SCH (00:57)
[2025-08-19 01:22] VITALS: BMI 21.4
[2025-08-19] MEDS: SODIUM BICARBONATE 325 MG TABLET PO ONE (01:50)
[2025-08-19] MEDS: CALCIUM CARBONATE 650 MG TABLET PO SCH (01:50)
[2025-08-19] MEDS ORDERED: LEVOTHYROXINE NA 150 MCG TABLET PO SCH (07:00)
[2025-08-19] MEDS ORDERED: ACETAMINOPHEN 325 MG TABLET (FP) PO PRN (07:17)
[2025-08-19] MEDS: LEVOTHYROXINE 125 MCG, LEVOTHYROXINE 50 MCG PO SCH (08:12)
[2025-08-19 08:46] LABS: ABSOLUTE IMMATURE GRANULOCYTES 0.02 x10^3/uL (0.0-0.031); BASOPHILS # 0.03 x10^3/uL (0.01-0.08); EOSINOPHIL % 1.1 % (0.7-5.8); EOSINOPHILS # 0.08 x10^3/uL (0.04-0.36); MCHC 32.2 g/dl (32.2-35.5); MEAN CELL VOLUME 101.3 fl (79.4-94.8); MEAN PLT VOLUME 8.8 fl (9.4-12.3); MONOCYTE # 0.48 x10^3/uL (0.24-0.86); MONOCYTE % 6.7 % (4.7-12.5); RDW 12.0 % (12.4-16.6)
[2025-08-19 09:12] LABS: GLUCOSE,RANDOM 96.0 mg/dL (74-106)
[2025-08-19 09:14] LABS: CO2 29.0 mmol/L (21-32)
[2025-08-19 09:18] LABS: CREATININE 0.82 mg/dL (0.55-1.3)
[2025-08-19] MEDS: SODIUM BICARBONATE 650 MG TABLET PO SCH (09:24)
[2025-08-19] MEDS: PANTOPRAZOLE 40 MG TABLET PO SCH (09:24)
[2025-08-19] MEDS: SERTRALINE HCL 50 MG TABLET (FP) PO SCH (09:24)
[2025-08-19] MEDS: BACLOFEN 10 MG TABLET (FP) PO SCH (09:25)
[2025-08-19] MEDS: FLUTICASONE/UMECLIDIN/VILANTER(200-62.5-25 TRELEGY ELLIPTA) INAHLER IH SCH (11:33)
[2025-08-19] MEDS: ACETAMINOPHEN 1000 MG/100 ML BAG IVPB PRN (12:36)
[2025-08-19] MEDS: SODIUM CHLORIDE 1 GM TABLET PO SCH (12:39)
[2025-08-19] MEDS: GABAPENTIN 300 MG CAPSULE PO SCH (14:01)
[2025-08-19] MEDS: ATORVASTATIN CA 40 MG TABLET (FP) PO SCH (21:48)
[2025-08-19] MEDS: EZETIMIBE 10 MG TABLET (FP) PO SCH (21:49)
[2025-08-19] MEDS ORDERED: traZODone HCL 50 MG TABLET (FP) PO SCH (22:00)
[2025-08-20 08:28] LABS: GLUCOSE,RANDOM 86.0 mg/dL (74-106); TOT PROT 6.0 g/dl (6.4-8.2)
[2025-08-20 08:29] LABS: CO2 27.0 mmol/L (21-32)
[2025-08-20 08:31] LABS: ALK PHOS 85.0 U/L (40-150)
[2025-08-20 08:33] LABS: SGOT/AST 20.0 U/L (5-34); SGPT/ALT 22.0 U/L (0-55)
[2025-08-20 08:34] LABS: CREATININE 0.7 mg/dL (0.55-1.3)
[2025-08-20] MEDS: SODIUM CHLORIDE 1 GM TABLET PO SCH (14:46)
[2025-08-20] MEDS: ACETAMINOPHEN 1000 MG/100 ML BAG IVPB ONE (21:28)
[2025-08-21 22:17] VITALS: RESP 18
[2025-08-22 11:31] VITALS: BP 112/65; PULSE 79; TEMP 98.5
== END 2025-08-22 11:54 | DRG 563 ==
LOC: JER 16:52 → JERBED 20:46 → UNDOADMOB 21:56 → INTOOBSV 21:56 → J7W 23:56 → OBSVTOIN 08-19 08:00
PROVIDERS: ADMIT Family Medicine; ATTEND Family Medicine
PROC: 2W3RXYZ Immobilization of Left Lower Leg using Other Device (ICD-10-PCS; principal; 2025-08-18)
DX: S82.032A Displaced transverse fracture of left patella, initial encounter for closed fracture (principal); E87.1 Hypo-osmolality and hyponatremia; K50.90 Crohn's disease, unspecified, without complications; W18.30XA Fall on same level, unspecified, initial encounter; M32.9 Systemic lupus erythematosus, unspecified; R26.2 Difficulty in walking, not elsewhere classified; M25.462 Effusion, left knee; E78.5 Hyperlipidemia, unspecified; I48.0 Paroxysmal atrial fibrillation; E11.9 Type 2 diabetes mellitus without complications; J44.9 Chronic obstructive pulmonary disease, unspecified; E03.9 Hypothyroidism, unspecified; F41.9 Anxiety disorder, unspecified; D64.9 Anemia, unspecified; M54.50 Low back pain, unspecified; S89.92XA Unspecified injury of left lower leg, initial encounter; Y93.9 Activity, unspecified; Y92.9 Unspecified place or not applicable; Y99.9 Unspecified external cause status; Z85.038 Personal history of other malignant neoplasm of large intestine
CPT/HCPCS: 36415; 70450-TC; 72125-TC; 73560-TC-RT-FY; 73564-TC-LT-FY; 73700-TC-RT; 76937; 80048; 80053; 82962; 85025; 85610; 85730; 86850; 86900; 86901; 93005; 93010; 97116-GP; 97161-GP; 99285-25; G0378; J0475